=== PATIENT | female | born 1985 | race African-American/Black ===

== ENCOUNTER 2016-10-15 07:55 | Inpatient (IN) | payer MEDICAID ==
[~2016-10-15] VITALS: Ht 167.6 cm; Wt 128.8 kg
[~2016-10-15 07:55] MED LIST: BENADRYL50 MG ORAL; NKM
[2016-10-15] MEDS ORDERED: LEVOFLOXACIN750 MG ORAL (08:08)
[2016-10-15 08:14] VITALS: BP 152/106
--- NOTE | 2016-10-15 08:23 | Emergency Room Report ---
History of Present Illness General Chief Complaint: Abdominal Pain Source: Patient Present Illness HPI Patient presents with left lower quadrant pain. For several weeks now. She was treated for diverticulitis after CT was done at [facility]. She was given Levaquin Flagyl but didn't tolerate them and stopped taking them. The pain is quite severe at this time. She denies any fevers or chills. She is also constipated and been taking Metamucil. She passes a slight amount of blood in her stool. She denies dysuria. She does have nausea. She's been taking Tylenol and this been getting cramps in her left side of her leg. Pain is 6/10, constant, sharp and achy, LLQ, some radiation to back. No vomiting, no fever or chills, not , no rashes, no headache. No anxiety/depression. Allergies: Coded Allergies: MELON (Verified Allergy, Unknown, 10/15/16) Uncoded Allergies: SHELLFISH (Allergy, Unknown, 10/15/16) Patient History Past Medical History: see triage record Past Surgical History: other - brain shunt Social History Narrative preschool teacher aide Last Menstrual Period: Sep, Now: No Reviewed Nursing Documentation: PMH: Agreed, PSxH: Agreed Nursing Documentation-PMH Past Medical History: No History, Except For Hx Gastrointestinal Problems: Yes - Diverticulitis Physical Exam Vital Signs Date Time Temp Pulse Resp B/P Pulse Ox O2 Delivery O2 Flow Rate FiO2 10/15/16 08:01 98.4 89 18 152/106 99 Room Air Gastrointestinal: normal bowel sounds, no mass, non-distended, no guarding, no rebound, tenderness - LLQ Medical Decision Making Diagnostic Impression: Primary Impression: Diverticulitis ER Course Patient presents with h/o diverticulitis and LLQ pain. Not compliant with antibiotics. Ddx: diverticulitis, UTI, perforation, abscess. Exam is not surgical abdomen at this time - no evidence of peritonitis. Still significant pain and will need labs, and UA. Will review CT from [facility]. IV hydration, antibiotics and also analgesia ordered. Review of CT from [facility]. Diverticulitis. Still with pain after toradol. Tender without guarding. Not surgical abdomen, but needs surgical consultation. Morphine ordered. WBC high. Needs admission. Admit med Dr. Garcia. Discussed with Dr. Andre - consult requested. Laboratory Tests Test 10/15/16 08:09 White Blood Count 16.4 K/UL (4.8-10.8) H Red Blood Count 4.74 M/UL (4.20-5.40) Hemoglobin 11.9 G/DL (12.0-16.0) L Hematocrit 37.6 % (37.0-47.0) Mean Corpuscular Volume 79 FL (80-99) L Mean Corpuscular Hemoglobin 25.2 PG (27.0-31.0) L Mean Corpuscular Hemoglobin Concent 31.7 G/DL (32.0-36.0) L Red Cell Distribution Width 13.7 % (11.6-14.8) Platelet Count 500 K/UL (150-450) H Mean Platelet Volume 7.3 FL (6.5-10.1) Neutrophils (%) (Auto) 69.3 % (45.0-75.0) Lymphocytes (%) (Auto) 21.0 % (20.0-45.0) Monocytes (%) (Auto) 6.1 % (1.0-10.0) Eosinophils (%) (Auto) 2.7 % (0.0-3.0) Basophils (%) (Auto) 1.0 % (0.0-2.0) Urine Color Pale yellow Urine Appearance Clear Urine pH 7 (4.5-8.0) Urine Specific [place] 1.010 (1.005-1.035) Urine Protein Negative (NEGATIVE) Urine Glucose (UA) Negative (NEGATIVE) Urine Ketones Negative (NEGATIVE) Urine Occult Blood 1+ (NEGATIVE) H Urine Nitrite Negative (NEGATIVE) Urine Bilirubin Negative (NEGATIVE) Urine Urobilinogen Normal MG/DL (0.0-1.0) Urine Leukocyte Esterase 1+ (NEGATIVE) H Urine RBC 0-2 /HPF (0 - 2) Urine WBC 2-4 /HPF (0 - 2) Urine Squamous Epithelial Cells Few /LPF (NONE/OCC) Urine Bacteria Few /HPF (NONE) Urine HCG, Qualitative Negative Sodium Level 136 mEQ/L (135-145) Potassium Level 4.0 mEQ/L (3.4-4.9) Chloride Level 94 mEQ/L (98-107) L Carbon Dioxide Level 26 mEQ/L (20-30) Anion Gap 16 (5-15) H Blood Urea Nitrogen 8 mg/dL (7-23) Creatinine 0.7 mg/dL (0.5-0.9) Estimate Glomerular Filtration Rate > 60 mL/min (>60) Glucose Level 92 mg/dL (74-106) Calcium Level 9.2 mg/dL (8.6-10.2) Total Bilirubin 0.4 mg/dL (0.0-1.2) Aspartate Amino Transferase (AST) 16 U/L (5-40) Alanine Aminotransferase (ALT) 18 U/L (3-33) Alkaline Phosphatase 67 U/L (35-104) Total Protein 8.7 g/dL (6.6-8.7) Albumin 3.9 g/dL (3.5-5.2) Globulin 4.8 g/dL Albumin/Globulin Ratio 0.8 (1.0-2.7) L Lipase 26 U/L (< 60) Last Vital Signs Date Time Temp Pulse Resp B/P Pulse Ox O2 Delivery O2 Flow Rate FiO2 10/15/16 20:00 99.5 97 20 120/71 98 Room Air Status: improved Disposition: ADMITTED INPATIENT Condition: Serious Juan Manuel Muro M.D. Oct 15, 2016 08:23
[2016-10-15] MEDS ORDERED: Ketorolac 30mg Inj IV ONE (08:30)
[2016-10-15 09:15] LABS: APPEARANCE,URINE CLEAR; EOSINOPHILS % (AUTO) 2.7 % (0.0-3.0); KETONES,URINE NEGATIVE (NEGATIVE); LEUKOCYTE ESTERASE ,URINE 1+ (NEGATIVE); MEAN CORPUSCULAR HEMOGLOBIN 25.2 PG (27.0-31.0); MEAN CORPUSCULAR HGB CONC 31.7 G/DL (32.0-36.0); MEAN CORPUSCULAR VOLUME 79 FL (80-99); MEAN PLATELET VOLUME 7.3 FL (6.5-10.1); MONOCYTES % (AUTO) 6.1 % (1.0-10.0); NEUTROPHILS % (AUTO) 69.3 % (45.0-75.0); NITRITE,URINE NEGATIVE (NEGATIVE); PH,URINE 7 (4.5-8.0); PLATELET COUNT 500 K/UL (150-450); PROTEIN,URINE NEGATIVE (NEGATIVE); RED BLOOD COUNT 4.74 M/UL (4.20-5.40); RED CELL DISTRIBUTION WIDTH 13.7 % (11.6-14.8); UROBILINOGEN,URINE NORMAL MG/DL (0.0-1.0); WHITE BLOOD COUNT 16.4 K/UL (4.8-10.8)
[2016-10-15 09:32] LABS: BACTERIA,URINE FEW /HPF; RBC,URINE 0-2 /HPF (0 - 2); SQUAMOUS EPITHELIAL CELL,UR FEW /LPF (NONE/OCC)
[2016-10-15 09:38] LABS: ALANINE AMINOTRANSFERASE 18 U/L (3-33); ALBUMIN/GLOBULIN RATIO 0.8 (1.0-2.7); ANION GAP 16 (5-15); ASPARTATE AMINO TRANSFERASE 16 U/L (5-40); CALCIUM 9.2 mg/dL (8.6-10.2); CARBON DIOXIDE 26 mEQ/L (20-30); CHLORIDE 94 mEQ/L (98-107); CREATININE 0.7 mg/dL (0.5-0.9); GLOMERULAR FILTRATION RATE > 60 mL/min (>60); HEMOLYSIS 5; LIPASE 26 U/L (< 60); SODIUM 136 mEQ/L (135-145); TOTAL PROTEIN 8.7 g/dL (6.6-8.7)
[2016-10-15] MEDS ORDERED: Morphine Sulfate 4mg/ml Inj IVP ONE (09:45)
[2016-10-15] MEDS ORDERED: metroNIDAZOLE 500mg 100 ML IVPB ONE (09:45)
[2016-10-15 10:30] VITALS: BP 149/95
[2016-10-15 12:30] VITALS: BP 119/75
[2016-10-15] MEDS ORDERED: Acetaminophen 650 MG SUPP RECTAL PRN (13:45)
[2016-10-15 16:00] VITALS: BP 120/64
--- NOTE | 2016-10-15 16:04 | History & Physical ---
History and Physical History & Physicial HP dictated # [id number] ELYSE CORDOBA Oct 15, 2016 16:04
[2016-10-15] MEDS ORDERED: Zolpidem 5mg tab ORAL PRN (16:15)
--- NOTE | 2016-10-15 16:59 | Consultation ---
DATE OF CONSULTATION: 10/15/2016 REQUESTING PHYSICIAN: Arcenio Garcia M.D. REASON FOR CONSULTATION: Abdominal pain. HISTORY OF PRESENT ILLNESS: This is a 31-year-old female, who presented to emergency room for abdominal pain. She stated that the pain started about a month ago. she had the pain for the few days and then she finally sought medical attention from [facility] where she was supplied with Levaquin and [place]. He stated that he had vomiting and apparently did not tolerate that medication. So he stopped the medicine. She only took it for three days and she sought medical attention from her own physician and was referred to [facility], which she claims that they did not do nothing, but anyway, apparently the pain has resolved, but she had the recurrence of pain three days ago. The pain is located at the left lower quadrant, steady, no radiation, associated with nausea, but no vomiting. She claimed that she has loose bowel movement. She denies any fever, cough, dysuria, or frequency. She denies any previous history of similar pain. PAST MEDICAL HISTORY: She denies allergies, diabetes, hypertension, cardiac or renal diseases. She claimed that she has a history of asthma, but no attack for over a year. PAST SURGICAL HISTORY: None. MEDICATIONS: None. SOCIAL HISTORY: The patient is a 31-year-old female, who is single without any children. She works as a middle school football coach. Denies smoking. Drinks socially. REVIEW OF SYSTEMS: Noncontributory. PHYSICAL EXAMINATION: GENERAL: The patient appeared to be a well-developed and well-nourished, obese 31-year-old female, lying on bed and complaining of abdominal pain. HEENT: Head is normocephalic and atraumatic. Eyes, pupils are equal, round, and reactive to light. Mouth is clear. NECK: There is no palpable thyromegaly or adenopathy. CHEST: Clear to auscultation and percussion. HEART: There is no gallop or murmur. S1 and S2 are within normal limits. ABDOMEN: Obese and pendulous, but soft. She had rebound tenderness at the left lower quadrant. Bowel sounds are present. GENITOURINARY: Genital is normal. EXTREMITIES: Within normal limits. LABORATORY AND DIAGNOSTIC DATA: CBC has shown a WBC of 16,400 with basically normal differential. Chemistry is normal. Urinalysis is normal. ASSESSMENT: Acute diverticulitis. PLAN: At this time, the patient requires a conservative treatment. I took the liberty of ordering a CAT scan to make sure that she does not have any abscess or perforation. Thank you, Dr. Garcia, for asking me to participate in the management of this patient. Angelic Andre M.D. DR: ALVIN JOB#: [id number] CC:
[2016-10-15] MEDS: D5 1/2NS w/KCl 20mEq 1,000 ML IV SCH (17:08)
[2016-10-15] MEDS: metroNIDAZOLE 500mg 100 ML IVPB SCH ×2 (17:09→22:20)
[2016-10-15] MEDS ORDERED: Morphine Sulfate 10mg/ml Inj IV PRN (17:30)
[2016-10-15] MEDS: Morphine Sulfate 4mg/ml Inj IV PRN (17:59)
[2016-10-15] MEDS: Piperacillin/Tazobactam 3.375 GM in D5W 110 ML IVPB SCH (18:57)
[2016-10-15 20:00] VITALS: BP 120/71
--- NOTE | 2016-10-15 23:09 | History and Physical Report ---
DATE OF ADMISSION: 10/15/2016 CHIEF COMPLAINT: Left quadrant abdominal pain. HISTORY OF PRESENT ILLNESS: This is a 31-year-old female, who started having abdominal pain about eight days ago. She went to [facility] and she was diagnosed with diverticulitis after a CT scan of the abdomen was done. The patient was not admitted. She was sent home on p.o. Levaquin and Flagyl; however, she said that she could not tolerate the midicine. It Made her nauseated. She contacted her primary medical doctor who told [place] [facility] [place] last night, but the waiting time was long, so she decided to come to the emergency room here at [facility] and she eventually was admitted. Pain is 3/10 at this point and it is left lower quadrant. PAST MEDICAL HISTORY: Noncontributory. MEDICATIONS: None. SOCIAL HISTORY: The patient lives with her sister. She is a elementary school teacher. She denies history of smoking or alcohol abuse. ALLERGIES: Shellfish and melon. No known drug allergy. REVIEW OF SYSTEMS: Denies constipation. PHYSICAL EXAMINATION: GENERAL: The patient is an obese female, in no acute distress. VITAL SIGNS: Blood pressure 119/75, pulse 84, and temperature 96.9 degrees. HEENT: [place] conjunctivae. Anicteric sclerae. NECK: Supple. LUNGS: Clear to auscultation. HEART: S1 and S2 without murmurs or rubs. ABDOMEN: Soft. There is left quadrant abdominal tenderness. EXTREMITIES: No cyanosis or edema. LABORATORY FINDINGS: CBC shows a WBC of 16.4, hematocrit is 37.6, hemoglobin 11.9, and platelets 500,000. Chemistry panel shows a serum sodium of 136, potassium 4, chloride 94, CO2 26, BUN 8, creatinine 0.7, glucose 93, and calcium 9.2. Liver enzymes within normal limits. Albumin is 2.7. Lipase is 26. ASSESSMENT: This is a 31-year-old female who is admitted with diverticulitis. PLAN: The patient will be on IV antibiotics and IV fluids. She was made NPO by Dr. Andre who saw her in surgical consultation, probably can be fed soon. Pain medication was prescribed. Thank you very much. Arcenio Garcia M.D. DR: TODD JOB#: [id number] CC: SAMINA
[2016-10-16] VITALS: BP 128/80
[2016-10-16] MEDS: Morphine Sulfate 4mg/ml Inj IV PRN ×3 (00:16→18:00)
[2016-10-16] MEDS: Piperacillin/Tazobactam 3.375 GM in D5W 110 ML IVPB SCH ×3 (01:43→18:00)
[2016-10-16] MEDS: D5 1/2NS w/KCl 20mEq 1,000 ML IV SCH ×3 (01:43→21:57)
[2016-10-16 04:00] VITALS: BP 105/69
[2016-10-16] MEDS: metroNIDAZOLE 500mg 100 ML IVPB SCH ×3 (05:36→21:57)
[2016-10-16 07:34] LABS: BASOPHILS % (AUTO) 0.8 % (0.0-2.0); EOSINOPHILS % (AUTO) 3.4 % (0.0-3.0); LYMPHOCYTES % (AUTO) 23.6 % (20.0-45.0); MEAN CORPUSCULAR HEMOGLOBIN 25.1 PG (27.0-31.0); MEAN CORPUSCULAR HGB CONC 31.6 G/DL (32.0-36.0); MEAN CORPUSCULAR VOLUME 80 FL (80-99); MEAN PLATELET VOLUME 7.3 FL (6.5-10.1); MONOCYTES % (AUTO) 8.3 % (1.0-10.0); PLATELET COUNT 446 K/UL (150-450); RED BLOOD COUNT 4.09 M/UL (4.20-5.40); RED CELL DISTRIBUTION WIDTH 13.9 % (11.6-14.8); WHITE BLOOD COUNT 13.4 K/UL (4.8-10.8)
[2016-10-16 08:08] LABS: ANION GAP 13 (5-15); CALCIUM 8.3 mg/dL (8.6-10.2); CARBON DIOXIDE 25 mEQ/L (20-30); CHLORIDE 99 mEQ/L (98-107); CREATININE 0.8 mg/dL (0.5-0.9); GLOMERULAR FILTRATION RATE > 60 mL/min (>60); HEMOLYSIS 2; POTASSIUM 3.7 mEQ/L (3.4-4.9); SODIUM 137 mEQ/L (135-145)
[2016-10-16 08:53] VITALS: BP 111/59
[2016-10-16] MEDS: Pantoprazole Inj IVP SCH (09:05)
--- NOTE | 2016-10-16 12:25 | General Surgery Progress Note ---
General Surgery-Progress Note Subjective Symptoms: improved, BM Objective Last 24 Hour Vital Signs Date Time Temp Pulse Resp B/P Pulse Ox O2 Delivery O2 Flow Rate FiO2 10/16/16 08:53 97.3 84 20 111/59 99 Room Air 10/16/16 05:25 99.5 10/16/16 04:00 97.5 90 18 105/69 100 Room Air 10/16/16 00:00 97.9 90 18 128/80 98 Room Air 10/15/16 20:00 99.5 97 20 120/71 98 Room Air 10/15/16 16:00 97.5 97 20 120/64 100 Room Air 10/15/16 12:30 96.9 84 20 119/75 99 Room Air I&O Intake and Output 10/15/16 10/16/16 19:00 07:00 Intake Total 300 ml 1192.5 ml Balance 300 ml 1192.5 ml Intake IV Total 300 ml 1192.5 ml # Voids 1 1 Respiratory: clear Abdomen: soft, tenderness, present bowel sounds Extremities: no tenderness Laboratory Tests Test 10/16/16 04:40 White Blood Count 13.4 K/UL (4.8-10.8) H Red Blood Count 4.09 M/UL (4.20-5.40) L Hemoglobin 10.3 G/DL (12.0-16.0) L Hematocrit 32.6 % (37.0-47.0) L Mean Corpuscular Volume 80 FL (80-99) Mean Corpuscular Hemoglobin 25.1 PG (27.0-31.0) L Mean Corpuscular Hemoglobin Concent 31.6 G/DL (32.0-36.0) L Red Cell Distribution Width 13.9 % (11.6-14.8) Platelet Count 446 K/UL (150-450) Mean Platelet Volume 7.3 FL (6.5-10.1) Neutrophils (%) (Auto) 64.0 % (45.0-75.0) Lymphocytes (%) (Auto) 23.6 % (20.0-45.0) Monocytes (%) (Auto) 8.3 % (1.0-10.0) Eosinophils (%) (Auto) 3.4 % (0.0-3.0) H Basophils (%) (Auto) 0.8 % (0.0-2.0) Sodium Level 137 mEQ/L (135-145) Potassium Level 3.7 mEQ/L (3.4-4.9) Chloride Level 99 mEQ/L (98-107) Carbon Dioxide Level 25 mEQ/L (20-30) Anion Gap 13 (5-15) Blood Urea Nitrogen 7 mg/dL (7-23) Creatinine 0.8 mg/dL (0.5-0.9) Estimat Glomerular Filtration Rate > 60 mL/min (>60) Glucose Level 85 mg/dL (74-106) Calcium Level 8.3 mg/dL (8.6-10.2) L Assessment Additional Comments diverticulitis Plan Additional Comments continue as before, CAT scan of abd. BREANNA RDZ Oct 16, 2016 12:25
[2016-10-16 13:13] VITALS: BP 113/86
--- NOTE | 2016-10-16 15:38 | General Progress Note ---
Assessment/Plan Problem List: (1) Constipation ICD Codes: K59.00 - Constipation, unspecified SNOMED: 92576511 (2) Diverticulitis ICD Codes: K57.92 - Diverticulitis of intestine, part unspecified, without perforation or abscess without bleeding SNOMED: 044612388 Assessment/Plan Abxs IVF laxatives diet ? Subjective Allergies: Coded Allergies: MELON (Verified Allergy, Unknown, 10/15/16) Uncoded Allergies: SHELLFISH (Allergy, Unknown, 10/15/16) Subjective C/O constipation Objective Last 24 Hour Vital Signs Date Time Temp Pulse Resp B/P Pulse Ox O2 Delivery O2 Flow Rate FiO2 10/16/16 13:13 98.8 80 20 113/86 97 Room Air 10/16/16 08:53 97.3 84 20 111/59 99 Room Air 10/16/16 05:25 99.5 10/16/16 04:00 97.5 90 18 105/69 100 Room Air 10/16/16 00:00 97.9 90 18 128/80 98 Room Air 10/15/16 20:00 99.5 97 20 120/71 98 Room Air 10/15/16 16:00 97.5 97 20 120/64 100 Room Air Intake and Output 10/15/16 10/16/16 19:00 07:00 Intake Total 300 ml 1192.5 ml Balance 300 ml 1192.5 ml Intake IV Total 300 ml 1192.5 ml # Voids 1 1 Laboratory Tests 10/16/16 04:40: White Blood Count 13.4H, Red Blood Count 4.09L, Hemoglobin 10.3L, Hematocrit 32.6L, Mean Corpuscular Volume 80, Mean Corpuscular Hemoglobin 25.1L, Mean Corpuscular Hemoglobin Concent 31.6L, Red Cell Distribution Width 13.9, Platelet Count 446, Mean Platelet Volume 7.3, Neutrophils (%) (Auto) 64.0, Lymphocytes (%) (Auto) 23.6, Monocytes (%) (Auto) 8.3, Eosinophils (%) (Auto) 3.4H, Basophils (%) (Auto) 0.8, Sodium Level 137, Potassium Level 3.7, Chloride Level 99, Carbon Dioxide Level 25, Anion Gap 13, Blood Urea Nitrogen 7, Creatinine 0.8, Estimat Glomerular Filtration Rate > 60, Glucose Level 85, Calcium Level 8.3L Height (Feet): 5 Height (Inches): 6.00 Weight (Pounds): 284 Cardiovascular: normal rate Respiratory/Chest: lungs clear Abdomen: soft ELYSE CORDOBA Oct 16, 2016 15:38
[2016-10-16] MEDS ORDERED: Milk of Magnesia 30ml Ud ORAL PRN (15:45)
[2016-10-16 16:00] VITALS: BP 121/81
[2016-10-16 19:54] VITALS: BP 116/76
[2016-10-17] VITALS: BP 123/74
[2016-10-17] MEDS: Piperacillin/Tazobactam 3.375 GM in D5W 110 ML IVPB SCH ×3 (02:07→17:37)
[2016-10-17] MEDS: Morphine Sulfate 4mg/ml Inj IV PRN ×3 (03:53→17:38)
[2016-10-17 04:00] VITALS: BP 111/70
[2016-10-17 04:47] LABS: BASOPHILS % (AUTO) 0.8 % (0.0-2.0); EOSINOPHILS % (AUTO) 3.1 % (0.0-3.0); LYMPHOCYTES % (AUTO) 25.1 % (20.0-45.0); MEAN CORPUSCULAR HEMOGLOBIN 25.5 PG (27.0-31.0); MEAN CORPUSCULAR HGB CONC 32.6 G/DL (32.0-36.0); MEAN CORPUSCULAR VOLUME 78 FL (80-99); MEAN PLATELET VOLUME 6.9 FL (6.5-10.1); MONOCYTES % (AUTO) 6.7 % (1.0-10.0); NEUTROPHILS % (AUTO) 64.3 % (45.0-75.0); PLATELET COUNT 493 K/UL (150-450); RED BLOOD COUNT 4.01 M/UL (4.20-5.40); RED CELL DISTRIBUTION WIDTH 13.4 % (11.6-14.8); WHITE BLOOD COUNT 11.7 K/UL (4.8-10.8)
[2016-10-17 05:04] LABS: ANION GAP 15 (5-15); CALCIUM 8.5 mg/dL (8.6-10.2); CARBON DIOXIDE 23 mEQ/L (20-30); CHLORIDE 101 mEQ/L (98-107); CREATININE 0.8 mg/dL (0.5-0.9); GLOMERULAR FILTRATION RATE > 60 mL/min (>60); HEMOLYSIS 0; POTASSIUM 3.6 mEQ/L (3.4-4.9); SODIUM 139 mEQ/L (135-145)
[2016-10-17] MEDS: metroNIDAZOLE 500mg 100 ML IVPB SCH ×3 (06:06→21:37)
[2016-10-17 08:00] VITALS: BP 121/88
[2016-10-17] MEDS: Pantoprazole Inj IVP SCH (08:33)
[2016-10-17] MEDS: D5 1/2NS w/KCl 20mEq 1,000 ML IV SCH ×2 (09:29→17:37)
[2016-10-17 12:00] VITALS: BP 137/87
--- NOTE | 2016-10-17 12:33 | General Progress Note ---
Assessment/Plan Problem List: (1) Constipation ICD Codes: K59.00 - Constipation, unspecified SNOMED: 60423097 (2) Diverticulitis ICD Codes: K57.92 - Diverticulitis of intestine, part unspecified, without perforation or abscess without bleeding SNOMED: 974085615 Assessment/Plan Abxs IVF laxatives clear liquids CT abd Subjective Allergies: Coded Allergies: MELON (Verified Allergy, Unknown, 10/15/16) Uncoded Allergies: SHELLFISH (Allergy, Unknown, 10/15/16) Subjective pt had abd pain after having BP and some blood in stool Objective Last 24 Hour Vital Signs Date Time Temp Pulse Resp B/P Pulse Ox O2 Delivery O2 Flow Rate FiO2 10/17/16 12:00 97.0 80 20 137/87 100 Room Air 10/17/16 08:00 98.1 76 20 121/88 97 Room Air 10/17/16 04:25 97.7 10/17/16 04:00 97.7 87 18 111/70 99 Room Air 10/17/16 00:00 97.9 76 18 123/74 99 Room Air 10/16/16 19:54 98.2 82 20 116/76 99 Room Air 10/16/16 16:00 98.1 78 18 121/81 98 Room Air 10/16/16 13:13 98.8 80 20 113/86 97 Room Air Intake and Output 10/16/16 10/17/16 19:00 07:00 Intake Total 1127.5 ml 692.5 ml Balance 1127.5 ml 692.5 ml Intake IV Total 1127.5 ml 692.5 ml # Voids 3 2 Laboratory Tests 10/17/16 04:30: White Blood Count 11.7H, Red Blood Count 4.01L, Hemoglobin 10.2L, Hematocrit 31.4L, Mean Corpuscular Volume 78L, Mean Corpuscular Hemoglobin 25.5L, Mean Corpuscular Hemoglobin Concent 32.6, Red Cell Distribution Width 13.4, Platelet Count 493H, Mean Platelet Volume 6.9, Neutrophils (%) (Auto) 64.3, Lymphocytes ( %) (Auto) 25.1, Monocytes (%) (Auto) 6.7, Eosinophils (%) (Auto) 3.1H, Basophils (%) (Auto) 0.8, Sodium Level 139, Potassium Level 3.6, Chloride Level 101, Carbon Dioxide Level 23, Anion Gap 15, Blood Urea Nitrogen 5L, Creatinine 0.8, Estimat Glomerular Filtration Rate > 60, Glucose Level 98, Calcium Level 8.5L Height (Feet): 5 Height (Inches): 6.00 Weight (Pounds): 284 Cardiovascular: normal rate Respiratory/Chest: lungs clear ELYSE CORDOBA Oct 17, 2016 12:33
--- NOTE | 2016-10-17 13:24 | General Surgery Progress Note ---
General Surgery-Progress Note Subjective Symptoms: pain same, BM Objective Last 24 Hour Vital Signs Date Time Temp Pulse Resp B/P Pulse Ox O2 Delivery O2 Flow Rate FiO2 10/17/16 12:00 97.0 80 20 137/87 100 Room Air 10/17/16 08:00 98.1 76 20 121/88 97 Room Air 10/17/16 04:25 97.7 10/17/16 04:00 97.7 87 18 111/70 99 Room Air 10/17/16 00:00 97.9 76 18 123/74 99 Room Air 10/16/16 19:54 98.2 82 20 116/76 99 Room Air 10/16/16 16:00 98.1 78 18 121/81 98 Room Air I&O Intake and Output 10/16/16 10/17/16 19:00 07:00 Intake Total 1127.5 ml 692.5 ml Balance 1127.5 ml 692.5 ml Intake IV Total 1127.5 ml 692.5 ml # Voids 3 2 Respiratory: clear Abdomen: soft, tenderness, present bowel sounds Extremities: no tenderness Laboratory Tests Test 10/17/16 04:30 White Blood Count 11.7 K/UL (4.8-10.8) H Red Blood Count 4.01 M/UL (4.20-5.40) L Hemoglobin 10.2 G/DL (12.0-16.0) L Hematocrit 31.4 % (37.0-47.0) L Mean Corpuscular Volume 78 FL (80-99) L Mean Corpuscular Hemoglobin 25.5 PG (27.0-31.0) L Mean Corpuscular Hemoglobin Concent 32.6 G/DL (32.0-36.0) Red Cell Distribution Width 13.4 % (11.6-14.8) Platelet Count 493 K/UL (150-450) H Mean Platelet Volume 6.9 FL (6.5-10.1) Neutrophils (%) (Auto) 64.3 % (45.0-75.0) Lymphocytes (%) (Auto) 25.1 % (20.0-45.0) Monocytes (%) (Auto) 6.7 % (1.0-10.0) Eosinophils (%) (Auto) 3.1 % (0.0-3.0) H Basophils (%) (Auto) 0.8 % (0.0-2.0) Sodium Level 139 mEQ/L (135-145) Potassium Level 3.6 mEQ/L (3.4-4.9) Chloride Level 101 mEQ/L (98-107) Carbon Dioxide Level 23 mEQ/L (20-30) Anion Gap 15 (5-15) Blood Urea Nitrogen 5 mg/dL (7-23) L Creatinine 0.8 mg/dL (0.5-0.9) Estimat Glomerular Filtration Rate > 60 mL/min (>60) Glucose Level 98 mg/dL (74-106) Calcium Level 8.5 mg/dL (8.6-10.2) L Assessment Additional Comments Diverticulitis Plan Additional Comments check CAT SCAN continue IV Antibiotics. BREANNA RDZ Oct 17, 2016 13:24
[2016-10-17 16:00] VITALS: BP 127/82
[2016-10-17] MEDS ORDERED: NS 275ml ONE (16:05)
[2016-10-17] MEDS ORDERED: Tubing IV Secondary IV ONE (16:05)
--- NOTE | 2016-10-17 16:29 | Diagnostic Imaging Report ---
Indication: Abdominal pain, recent history of diverticulitis Technique: Spiral acquisitions obtained through the abdomen and pelvis. Patient given oral contrast. No IV contrast utilized, per referring physician request.. Multiplanar reconstructions were generated. Total dose length product 1109 mGycm. CTDIvol(s) 19 mGy Comparison: None Findings: There is extensive colonic diverticulosis. There is Infiltration of the perisigmoid fat. A collection of gas bubbles and soft tissue attenuation material is seen extending inferior anterior and lateral to the proximal sigmoid. This area measures approximately 4.4 x 4.4 x 4.4 cm. The gas bubbles are non-confluent and there are no air-fluid levels, so contents of this collection are either solid or represent very viscous fluid. The appendix is normal. No free or loculated intraperitoneal air or fluid. No small bowel distention. The distal esophagus, stomach, duodenum are unremarkable. Lack of IV contrast limits assessment of solid organs. The liver demonstrates diffuse low attenuation, consistent with fatty change. Gallbladder, bile ducts, pancreas, spleen, adrenals, kidneys are unremarkable. No retroperitoneal or mesenteric mass or adenopathy. No pelvic mass or adenopathy. The heart is mildly enlarged. The included lung bases are clear. The bones are unremarkable Impression: Evidence of perforated acute diverticulitis, with 4.4 centimeter diameter peridiverticular abscess. Abscess appears to contain gas and probably phlegmon rather than drainable fluid. Fatty liver Cardiomegaly The CT scanner at [facility] is accredited by the [employer] and the scans are performed using protocols designed to limit radiation exposure to as low as reasonably achievable to attain images of sufficient resolution adequate for diagnostic evaluation.
[2016-10-17 20:00] VITALS: BP 142/45
[2016-10-18] VITALS: BP 106/56
[2016-10-18] MEDS: Piperacillin/Tazobactam 3.375 GM in D5W 110 ML IVPB SCH ×3 (00:41→17:42)
[2016-10-18 04:00] VITALS: BP 109/68
[2016-10-18] MEDS: D5 1/2NS w/KCl 20mEq 1,000 ML IV SCH ×3 (04:00→22:10)
[2016-10-18] MEDS: metroNIDAZOLE 500mg 100 ML IVPB SCH ×3 (06:30→22:09)
[2016-10-18 08:00] VITALS: BP 127/74
[2016-10-18] MEDS: Morphine Sulfate 4mg/ml Inj IV PRN ×2 (08:16→18:31)
[2016-10-18] MEDS: Pantoprazole Inj IVP SCH (08:29)
--- NOTE | 2016-10-18 08:53 | General Progress Note ---
Assessment/Plan Problem List: (1) Constipation ICD Codes: K59.00 - Constipation, unspecified SNOMED: 92576036 (2) Diverticulitis ICD Codes: K57.92 - Diverticulitis of intestine, part unspecified, without perforation or abscess without bleeding SNOMED: [id number] Assessment/Plan Abxs IVF NPO Subjective Allergies: Coded Allergies: MELON (Verified Allergy, Unknown, 10/15/16) Uncoded Allergies: SHELLFISH (Allergy, Unknown, 10/15/16) Subjective In NAD Objective Last 24 Hour Vital Signs Date Time Temp Pulse Resp B/P Pulse Ox O2 Delivery O2 Flow Rate FiO2 10/18/16 08:00 97.9 73 20 127/74 98 Room Air 10/18/16 04:00 98.0 65 18 109/68 99 Room Air 10/18/16 00:00 98.1 86 20 106/56 97 Room Air 10/17/16 20:00 99.5 51 20 142/45 97 Room Air 10/17/16 16:00 99.5 88 22 127/82 99 Room Air 10/17/16 12:00 97.0 80 20 137/87 100 Room Air Intake and Output 10/17/16 10/18/16 19:00 07:00 Intake Total 1317.5 ml 1847.5 ml Balance 1317.5 ml 1847.5 ml Intake Oral 240 ml 480 ml IV Total 1077.5 ml 1367.5 ml # Voids 2 11 # Bowel Movements 3 Height (Feet): 5 Height (Inches): 6.00 Weight (Pounds): 284 Cardiovascular: normal rate Respiratory/Chest: lungs clear Abdomen: soft ELYSE CORDOBA Oct 18, 2016 08:53
--- NOTE | 2016-10-18 11:01 | Infectious Diseases Prog Note ---
Assessment/Plan Assessment/Plan ID consult dictated # [id number] A: Diverticulitis with abscess P: 2 weeks antibiotics either with Augmentin & Flagyl or IV Ertapenem after [address] scan making sure of complete resolution Subjective Allergies: Coded Allergies: MELON (Verified Allergy, Unknown, 10/15/16) Uncoded Allergies: SHELLFISH (Allergy, Unknown, 10/15/16) Objective Vital Signs Last 24 Hour Vital Signs Date Time Temp Pulse Resp B/P Pulse Ox O2 Delivery O2 Flow Rate FiO2 10/18/16 08:00 97.9 73 20 127/74 98 Room Air 10/18/16 04:00 98.0 65 18 109/68 99 Room Air 10/18/16 00:00 98.1 86 20 106/56 97 Room Air 10/17/16 20:00 99.5 51 20 142/45 97 Room Air 10/17/16 16:00 99.5 88 22 127/82 99 Room Air 10/17/16 12:00 97.0 80 20 137/87 100 Room Air Height (Feet): 5 Height (Inches): 6.00 Weight (Pounds): 284 Current Medications Medications (Trade) Dose Ordered Sig/Steve Route PRN Reason Start Time Stop Time Status Last Admin Dose Admin Acetaminophen (Tylenol) 650 mg Q4H PRN RECTAL Mild Pain (Pain Scale 1-3) 10/15/16 13:45 11/14/16 13:44 Dextrose (Dextrose 50%) STAT PRN IV Hypoglycemia 10/15/16 16:15 11/14/16 16:14 Dextrose/ Electrolytes 1,000 ml @ 100 mls/hr Q10H IV 10/15/16 16:00 11/14/16 15:59 10/18/16 06:37 Magnesium Hydroxide (Mom) 30 ml DAILYPRN PRN ORAL Constipation 10/16/16 15:45 11/15/16 15:44 Metronidazole (Flagyl) 100 ml @ 100 mls/hr Q8HR IVPB 10/15/16 16:00 10/22/16 15:59 10/18/16 06:30 Morphine Sulfate (Morphine Sulfate) 4 mg EVERY 3 HOURS PRN IV Moderate Pain (Pain Scale 4-6) 10/15/16 17:30 10/22/16 17:29 10/18/16 08:16 Morphine Sulfate (Morphine Sulfate) 6 mg EVERY 3 HOURS PRN IV Severe Pain (Pain Scale 7-10) 10/15/16 17:30 10/22/16 17:29 10/17/16 20:33 Ondansetron HCl (Zofran) 4 mg EVERY 4 HOURS PRN IVP Nausea & Vomiting 10/15/16 17:30 11/14/16 17:29 10/17/16 17:38 Pantoprazole (Protonix) 40 mg DAILY IVP 10/16/16 09:00 11/15/16 08:59 10/18/16 08:29 Piperacillin Sod/ Tazobactam Sod 3.375 gm/Dextrose 110 ml @ 27.5 mls/hr Q8HR@0200,1000,1800 IVPB 10/15/16 17:00 10/22/16 16:59 10/18/16 10:46 Ranitidine HCl (Zantac) 150 mg TWICE A DAY ORAL 10/15/16 18:00 11/14/16 17:59 10/17/16 17:37 Zolpidem Tartrate (Ambien) 5 mg HSPRN PRN ORAL Insomnia 10/15/16 16:15 11/14/16 16:14 JOSH CORDOBA Oct 18, 2016 11:01
[2016-10-18 12:00] VITALS: BP 118/76
--- NOTE | 2016-10-18 13:56 | General Surgery Progress Note ---
General Surgery-Progress Note Subjective Symptoms: pain same, BM Objective Last 24 Hour Vital Signs Date Time Temp Pulse Resp B/P Pulse Ox O2 Delivery O2 Flow Rate FiO2 10/18/16 12:00 97.7 91 20 118/76 98 Room Air 10/18/16 08:00 97.9 73 20 127/74 98 Room Air 10/18/16 04:00 98.0 65 18 109/68 99 Room Air 10/18/16 00:00 98.1 86 20 106/56 97 Room Air 10/17/16 20:00 99.5 51 20 142/45 97 Room Air 10/17/16 16:00 99.5 88 22 127/82 99 Room Air I&O Intake and Output 10/17/16 10/18/16 19:00 07:00 Intake Total 1317.5 ml 1847.5 ml Balance 1317.5 ml 1847.5 ml Intake Oral 240 ml 480 ml IV Total 1077.5 ml 1367.5 ml # Voids 2 11 # Bowel Movements 3 Respiratory: clear Abdomen: soft, flat, tenderness, present bowel sounds Extremities: no tenderness Assessment Additional Comments diverticulitis Plan Additional Comments continue IV antibiotics, GI consult BREANNA RDZ Oct 18, 2016 13:56
[2016-10-18 16:13] VITALS: BP 117/76
[2016-10-18 20:00] VITALS: BP 137/81
--- NOTE | 2016-10-18 20:38 | Consultation ---
DATE OF CONSULTATION: 10/18/2016 INFECTIOUS DISEASE CONSULTATION CONSULTING PHYSICIAN: Antonio Garcia M.D. PRIMARY ATTENDING PHYSICIAN: Arcenio Garcia M.D. REASON FOR CONSULTATION: Diverticulitis and intraabdominal abscess. HISTORY OF PRESENT ILLNESS: This is a 31-year-old female, admitted on 10/15/2016 complaining of abdominal pain. The patient had this pain for weeks and had a visit to [facility]. She was diagnosed with diverticulitis and was discharged with p.o. medication, Levaquin and Flagyl, but could not tolerate the medication because of nausea and vomiting and they stopped the medication after three days. A CT scan of the abdomen and pelvis showed an abscess 4.4 cm. The patient has no systemic symptom. PAST MEDICAL HISTORY: Nonsignificant. The patient is obese. MEDICATIONS: Milk of magnesium, Protonix, ranitidine, morphine sulfate, Zosyn, Ambien, metronidazole, and Tylenol. ALLERGIES: Allergic to melon and shellfish. SOCIAL HISTORY: She is a church business administrator. Single. She has no children. Denies smoking and drug abuse. Social drinking. REVIEW OF SYSTEMS: No fever. No chills. No nausea. No vomiting. No chest pain. No coughing. Has pain in the left lower abdomen. Has diarrhea. PHYSICAL EXAMINATION: VITAL SIGNS: Temperature 97.9 degrees, pulse 73, and blood pressure 127/74. GENERAL APPEARANCE: No acute distress. Seems obese. BMI is 45.8. HEAD AND NECK: [place] conjunctivae. Has hirsutism. HEART: Regular. LUNGS: Clear. ABDOMEN: Tender in the left lower quadrant. EXTREMITIES: She has no edema. LABORATORY DATA: WBC coming down 11.7 today, hemoglobin 10.2, hematocrit 31.4, and platelets is 493,000. Sodium 139, potassium 3.6, chloride 101, bicarbonate 23, BUN 5, and creatinine 0.8. Glucose is 98. CT scan of the abdomen and pelvis showed 4.4 cm abscess and diverticulitis. Also, she has had fatty liver. IMPRESSION: Perforated diverticulitis with a localized abscess. The patient had fatty liver. She has obesity. RECOMMENDATIONS: The patient was already seen by the surgeon, but suggested conservative treatment. Needs two weeks of antibiotics that can be p.o. Augmentin and Flagyl or IV ertapenem. Needs to have a repeated CT scan of the abdomen and pelvis at the end of treatment to make sure the abscess is treated adequately. At the end of my exam, I thank Dr. Arcenio Garcia for involving me in the care of this patient. Antonio Garcia M.D. DR: BASHIR JOB#: [id number] CC:
[2016-10-19] VITALS: BP 116/68
[2016-10-19] MEDS: Morphine Sulfate 4mg/ml Inj IV PRN ×3 (00:23→21:24)
[2016-10-19] MEDS: Piperacillin/Tazobactam 3.375 GM in D5W 110 ML IVPB SCH ×3 (02:46→18:10)
[2016-10-19 04:00] VITALS: BP 120/61
[2016-10-19] MEDS: metroNIDAZOLE 500mg 100 ML IVPB SCH ×3 (05:32→21:24)
[2016-10-19 07:34] LABS: BASOPHILS % (AUTO) 0.6 % (0.0-2.0); EOSINOPHILS % (AUTO) 3.8 % (0.0-3.0); LYMPHOCYTES % (AUTO) 27.1 % (20.0-45.0); MEAN CORPUSCULAR HEMOGLOBIN 25.1 PG (27.0-31.0); MEAN CORPUSCULAR HGB CONC 31.8 G/DL (32.0-36.0); MEAN CORPUSCULAR VOLUME 79 FL (80-99); MONOCYTES % (AUTO) 9.8 % (1.0-10.0); NEUTROPHILS % (AUTO) 58.7 % (45.0-75.0); PLATELET COUNT 551 K/UL (150-450); RED BLOOD COUNT 4.08 M/UL (4.20-5.40); RED CELL DISTRIBUTION WIDTH 13.4 % (11.6-14.8); WHITE BLOOD COUNT 11.3 K/UL (4.8-10.8)
[2016-10-19 07:49] LABS: ANION GAP 14 (5-15); CALCIUM 8.4 mg/dL (8.6-10.2); CARBON DIOXIDE 25 mEQ/L (20-30); CHLORIDE 99 mEQ/L (98-107); CREATININE 0.8 mg/dL (0.5-0.9); GLOMERULAR FILTRATION RATE > 60 mL/min (>60); HEMOLYSIS 0; POTASSIUM 4.1 mEQ/L (3.4-4.9); SODIUM 138 mEQ/L (135-145)
[2016-10-19 08:00] VITALS: BP 153/80
[2016-10-19] MEDS: Pantoprazole Inj IVP SCH (08:47)
[2016-10-19] MEDS: D5 1/2NS w/KCl 20mEq 1,000 ML IV SCH ×2 (11:12→21:24)
[2016-10-19 12:37] VITALS: BP 125/75
--- NOTE | 2016-10-19 12:57 | General Surgery Progress Note ---
General Surgery-Progress Note Subjective Symptoms: improved, BM Objective Last 24 Hour Vital Signs Date Time Temp Pulse Resp B/P Pulse Ox O2 Delivery O2 Flow Rate FiO2 10/19/16 12:37 99.0 88 19 125/75 98 Room Air 10/19/16 08:00 97.0 66 16 153/80 98 Room Air 10/19/16 04:00 97.9 68 18 120/61 99 Room Air 10/19/16 00:00 97.7 73 20 116/68 97 Room Air 10/18/16 20:00 98.1 65 20 137/81 96 Room Air 10/18/16 16:13 97.9 76 20 117/76 98 Room Air I&O Intake and Output 10/18/16 10/19/16 19:00 07:00 Intake Total 910.0 ml 1010.0 ml Balance 910.0 ml 1010.0 ml IV Total 910.0 ml 1010.0 ml # Voids 7 Respiratory: clear Abdomen: soft, flat, tenderness, present bowel sounds Extremities: no tenderness Laboratory Tests Test 10/19/16 07:07 White Blood Count 11.3 K/UL (4.8-10.8) H Red Blood Count 4.08 M/UL (4.20-5.40) L Hemoglobin 10.2 G/DL (12.0-16.0) L Hematocrit 32.2 % (37.0-47.0) L Mean Corpuscular Volume 79 FL (80-99) L Mean Corpuscular Hemoglobin 25.1 PG (27.0-31.0) L Mean Corpuscular Hemoglobin Concent 31.8 G/DL (32.0-36.0) L Red Cell Distribution Width 13.4 % (11.6-14.8) Platelet Count 551 K/UL (150-450) H Mean Platelet Volume 7.0 FL (6.5-10.1) Neutrophils (%) (Auto) 58.7 % (45.0-75.0) Lymphocytes (%) (Auto) 27.1 % (20.0-45.0) Monocytes (%) (Auto) 9.8 % (1.0-10.0) Eosinophils (%) (Auto) 3.8 % (0.0-3.0) H Basophils (%) (Auto) 0.6 % (0.0-2.0) Sodium Level 138 mEQ/L (135-145) Potassium Level 4.1 mEQ/L (3.4-4.9) Chloride Level 99 mEQ/L (98-107) Carbon Dioxide Level 25 mEQ/L (20-30) Anion Gap 14 (5-15) Blood Urea Nitrogen 4 mg/dL (7-23) L Creatinine 0.8 mg/dL (0.5-0.9) Estimat Glomerular Filtration Rate > 60 mL/min (>60) Glucose Level 94 mg/dL (74-106) Calcium Level 8.4 mg/dL (8.6-10.2) L Assessment Additional Comments diverticulitis Plan Additional Comments continue IV Antibiotics BREANNA RDZ Oct 19, 2016 12:57
--- NOTE | 2016-10-19 15:52 | General Progress Note ---
Assessment/Plan Problem List: (1) Constipation ICD Codes: K59.00 - Constipation, unspecified SNOMED: 34681058 (2) Diverticulitis ICD Codes: K57.92 - Diverticulitis of intestine, part unspecified, without perforation or abscess without bleeding SNOMED: 619459447 Qualifiers: Assessment/Plan Abxs IVF Subjective Allergies: Coded Allergies: MELON (Verified Allergy, Unknown, 10/15/16) Uncoded Allergies: SHELLFISH (Allergy, Unknown, 10/15/16) Subjective In NAD Objective Last 24 Hour Vital Signs Date Time Temp Pulse Resp B/P Pulse Ox O2 Delivery O2 Flow Rate FiO2 10/19/16 12:37 99.0 88 19 125/75 98 Room Air 10/19/16 08:00 97.0 66 16 153/80 98 Room Air 10/19/16 04:00 97.9 68 18 120/61 99 Room Air 10/19/16 00:00 97.7 73 20 116/68 97 Room Air 10/18/16 20:00 98.1 65 20 137/81 96 Room Air 10/18/16 16:13 97.9 76 20 117/76 98 Room Air Intake and Output 10/18/16 10/19/16 19:00 07:00 Intake Total 910.0 ml 1010.0 ml Balance 910.0 ml 1010.0 ml IV Total 910.0 ml 1010.0 ml # Voids 7 Laboratory Tests 10/19/16 07:07: White Blood Count 11.3H, Red Blood Count 4.08L, Hemoglobin 10.2L, Hematocrit 32.2L, Mean Corpuscular Volume 79L, Mean Corpuscular Hemoglobin 25.1L, Mean Corpuscular Hemoglobin Concent 31.8L, Red Cell Distribution Width 13.4, Platelet Count 551H, Mean Platelet Volume 7.0, Neutrophils (%) (Auto) 58.7, Lymphocytes (%) (Auto) 27.1, Monocytes (%) (Auto) 9.8, Eosinophils (%) (Auto) 3.8H, Basophils (%) (Auto) 0.6, Sodium Level 138, Potassium Level 4.1, Chloride Level 99, Carbon Dioxide Level 25, Anion Gap 14, Blood Urea Nitrogen 4L, Creatinine 0.8, Estimat Glomerular Filtration Rate > 60, Glucose Level 94, Calcium Level 8.4L Height (Feet): 5 Height (Inches): 6.00 Weight (Pounds): 284 Cardiovascular: normal rate Respiratory/Chest: lungs clear Edema: no edema noted Generalized ELYSE CORDOBA Oct 19, 2016 15:52
--- NOTE | 2016-10-19 16:59 | Infectious Diseases Prog Note ---
Assessment/Plan Assessment/Plan A: Diverticulitis with abscess Obesity Fatty liver P: 2 weeks antibiotics either with Augmentin & Flagyl or IV Ertapenem after [address] scan making sure of complete resolution Subjective ROS Limited/Unobtainable: Yes Allergies: Coded Allergies: MELON (Verified Allergy, Unknown, 10/15/16) Uncoded Allergies: SHELLFISH (Allergy, Unknown, 10/15/16) Objective Vital Signs Last 24 Hour Vital Signs Date Time Temp Pulse Resp B/P Pulse Ox O2 Delivery O2 Flow Rate FiO2 10/19/16 12:37 99.0 88 19 125/75 98 Room Air 10/19/16 08:00 97.0 66 16 153/80 98 Room Air 10/19/16 04:00 97.9 68 18 120/61 99 Room Air 10/19/16 00:00 97.7 73 20 116/68 97 Room Air 10/18/16 20:00 98.1 65 20 137/81 96 Room Air Height (Feet): 5 Height (Inches): 6.00 Weight (Pounds): 284 General Appearance: no acute distress HEENT: mucous membranes moist Respiratory/Chest: lungs clear Cardiovascular: normal rate Abdomen: tender, other - in LLQ Extremities: no edema Neurologic/Psychiatric: other - Sleeping Laboratory Tests Test 10/19/16 07:07 White Blood Count 11.3 K/UL (4.8-10.8) H Red Blood Count 4.08 M/UL (4.20-5.40) L Hemoglobin 10.2 G/DL (12.0-16.0) L Hematocrit 32.2 % (37.0-47.0) L Mean Corpuscular Volume 79 FL (80-99) L Mean Corpuscular Hemoglobin 25.1 PG (27.0-31.0) L Mean Corpuscular Hemoglobin Concent 31.8 G/DL (32.0-36.0) L Red Cell Distribution Width 13.4 % (11.6-14.8) Platelet Count 551 K/UL (150-450) H Mean Platelet Volume 7.0 FL (6.5-10.1) Neutrophils (%) (Auto) 58.7 % (45.0-75.0) Lymphocytes (%) (Auto) 27.1 % (20.0-45.0) Monocytes (%) (Auto) 9.8 % (1.0-10.0) Eosinophils (%) (Auto) 3.8 % (0.0-3.0) H Basophils (%) (Auto) 0.6 % (0.0-2.0) Sodium Level 138 mEQ/L (135-145) Potassium Level 4.1 mEQ/L (3.4-4.9) Chloride Level 99 mEQ/L (98-107) Carbon Dioxide Level 25 mEQ/L (20-30) Anion Gap 14 (5-15) Blood Urea Nitrogen 4 mg/dL (7-23) L Creatinine 0.8 mg/dL (0.5-0.9) Estimat Glomerular Filtration Rate > 60 mL/min (>60) Glucose Level 94 mg/dL (74-106) Calcium Level 8.4 mg/dL (8.6-10.2) L Current Medications Medications (Trade) Dose Ordered Sig/Steve Route PRN Reason Start Time Stop Time Status Last Admin Dose Admin Acetaminophen (Tylenol) 650 mg Q4H PRN RECTAL Mild Pain (Pain Scale 1-3) 10/15/16 13:45 11/14/16 13:44 Dextrose (Dextrose 50%) STAT PRN IV Hypoglycemia 10/15/16 16:15 11/14/16 16:14 Dextrose/ Electrolytes 1,000 ml @ 100 mls/hr Q10H IV 10/15/16 16:00 11/14/16 15:59 10/19/16 11:12 Magnesium Hydroxide (Mom) 30 ml DAILYPRN PRN ORAL Constipation 10/16/16 15:45 11/15/16 15:44 Metronidazole (Flagyl) 100 ml @ 100 mls/hr Q8HR IVPB 10/15/16 16:00 10/22/16 15:59 10/19/16 16:04 Morphine Sulfate (Morphine Sulfate) 4 mg EVERY 3 HOURS PRN IV Moderate Pain (Pain Scale 4-6) 10/15/16 17:30 10/22/16 17:29 10/19/16 08:43 Morphine Sulfate (Morphine Sulfate) 6 mg EVERY 3 HOURS PRN IV Severe Pain (Pain Scale 7-10) 10/15/16 17:30 10/22/16 17:29 10/17/16 20:33 Ondansetron HCl (Zofran) 4 mg EVERY 4 HOURS PRN IVP Nausea & Vomiting 10/15/16 17:30 11/14/16 17:29 10/17/16 17:38 Pantoprazole (Protonix) 40 mg DAILY IVP 10/16/16 09:00 11/15/16 08:59 10/19/16 08:47 Piperacillin Sod/ Tazobactam Sod 3.375 gm/Dextrose 110 ml @ 27.5 mls/hr Q8HR@0200,1000,1800 IVPB 10/15/16 17:00 10/22/16 16:59 10/19/16 11:08 Zolpidem Tartrate (Ambien) 5 mg HSPRN PRN ORAL Insomnia 10/15/16 16:15 11/14/16 16:14 JOSH CORDOBA Oct 19, 2016 16:59
[2016-10-19 19:00] VITALS: BP 118/79
[2016-10-20 00:25] VITALS: BP 118/69
[2016-10-20] MEDS: Piperacillin/Tazobactam 3.375 GM in D5W 110 ML IVPB SCH ×3 (02:04→18:32)
[2016-10-20 04:00] VITALS: BP 138/86
[2016-10-20] MEDS: metroNIDAZOLE 500mg 100 ML IVPB SCH ×3 (05:45→21:22)
[2016-10-20] MEDS: D5 1/2NS w/KCl 20mEq 1,000 ML IV SCH ×2 (06:00→17:08)
[2016-10-20] MEDS: Morphine Sulfate 4mg/ml Inj IV PRN ×3 (06:02→21:22)
[2016-10-20 08:00] VITALS: BP 126/76
[2016-10-20] MEDS: Pantoprazole Inj IVP SCH (09:03)
--- NOTE | 2016-10-20 09:52 | Infectious Diseases Prog Note ---
Assessment/Plan Assessment/Plan A: Diverticulitis with abscess Obesity Fatty liver P: 2 weeks antibiotics either with Augmentin & Flagyl or IV Rocephin & Flagyl after [address] scan making sure of complete resolution Subjective ROS Limited/Unobtainable: No Constitutional: Reports: no symptoms Respiratory: Reports: no symptoms Gastrointestinal/Abdominal: Reports: no symptoms Genitourinary: Reports: no symptoms Allergies: Coded Allergies: MELON (Verified Allergy, Unknown, 10/15/16) Uncoded Allergies: SHELLFISH (Allergy, Unknown, 10/15/16) Objective Vital Signs Last 24 Hour Vital Signs Date Time Temp Pulse Resp B/P Pulse Ox O2 Delivery O2 Flow Rate FiO2 10/20/16 08:00 97.2 69 20 126/76 99 Room Air 10/20/16 04:00 98.1 87 19 138/86 98 Room Air 10/20/16 00:25 97.9 83 20 118/69 98 Room Air 10/19/16 22:16 98.0 10/19/16 19:00 98.0 78 20 118/79 98 Room Air 10/19/16 12:37 99.0 88 19 125/75 98 Room Air Height (Feet): 5 Height (Inches): 6.00 Weight (Pounds): 284 General Appearance: no acute distress HEENT: mucous membranes moist Respiratory/Chest: lungs clear Cardiovascular: normal rate, regular rhythm Abdomen: soft, non tender Extremities: no edema Neurologic/Psychiatric: alert, oriented x 3, responsive Current Medications Medications (Trade) Dose Ordered Sig/Steve Route PRN Reason Start Time Stop Time Status Last Admin Dose Admin Acetaminophen (Tylenol) 650 mg Q4H PRN RECTAL Mild Pain (Pain Scale 1-3) 10/15/16 13:45 11/14/16 13:44 Dextrose (Dextrose 50%) STAT PRN IV Hypoglycemia 10/15/16 16:15 11/14/16 16:14 Dextrose/ Electrolytes 1,000 ml @ 100 mls/hr Q10H IV 10/15/16 16:00 11/14/16 15:59 10/19/16 21:24 Magnesium Hydroxide (Mom) 30 ml DAILYPRN PRN ORAL Constipation 10/16/16 15:45 11/15/16 15:44 Metronidazole (Flagyl) 100 ml @ 100 mls/hr Q8HR IVPB 10/15/16 16:00 10/22/16 15:59 10/20/16 05:45 Morphine Sulfate (Morphine Sulfate) 4 mg EVERY 3 HOURS PRN IV Moderate Pain (Pain Scale 4-6) 10/15/16 17:30 10/22/16 17:29 10/20/16 06:02 Morphine Sulfate (Morphine Sulfate) 6 mg EVERY 3 HOURS PRN IV Severe Pain (Pain Scale 7-10) 10/15/16 17:30 10/22/16 17:29 10/17/16 20:33 Ondansetron HCl (Zofran) 4 mg EVERY 4 HOURS PRN IVP Nausea & Vomiting 10/15/16 17:30 11/14/16 17:29 10/20/16 05:56 Pantoprazole (Protonix) 40 mg DAILY IVP 10/16/16 09:00 11/15/16 08:59 10/20/16 09:03 Piperacillin Sod/ Tazobactam Sod 3.375 gm/Dextrose 110 ml @ 27.5 mls/hr Q8HR@0200,1000,1800 IVPB 10/15/16 17:00 10/22/16 16:59 10/20/16 09:03 Zolpidem Tartrate (Ambien) 5 mg HSPRN PRN ORAL Insomnia 10/15/16 16:15 11/14/16 16:14 JOSH CORDOBA 16, 2017 09:51
--- NOTE | 2016-10-20 11:51 | General Surgery Progress Note ---
General Surgery-Progress Note Subjective Symptoms: improved, BM Objective Last 24 Hour Vital Signs Date Time Temp Pulse Resp B/P Pulse Ox O2 Delivery O2 Flow Rate FiO2 10/20/16 08:00 97.2 69 20 126/76 99 Room Air 10/20/16 04:00 98.1 87 19 138/86 98 Room Air 10/20/16 00:25 97.9 83 20 118/69 98 Room Air 10/19/16 22:16 98.0 10/19/16 19:00 98.0 78 20 118/79 98 Room Air 10/19/16 12:37 99.0 88 19 125/75 98 Room Air I&O Intake and Output 10/19/16 10/20/16 19:00 07:00 Intake Total 1027.5 ml 1337.5 ml Balance 1027.5 ml 1337.5 ml IV Total 1027.5 ml 1337.5 ml # Voids 2 5 Respiratory: clear Abdomen: soft, tenderness, present bowel sounds Extremities: no tenderness Assessment Additional Comments diverticulitis Plan Additional Comments continue BREANNA MERA Oct 20, 2016 11:51
[2016-10-20 12:00] VITALS: BP 113/70
--- NOTE | 2016-10-20 13:36 | General Progress Note ---
Assessment/Plan Problem List: (1) Constipation ICD Codes: K59.00 - Constipation, unspecified SNOMED: 55699851 (2) Diverticulitis ICD Codes: K57.92 - Diverticulitis of intestine, part unspecified, without perforation or abscess without bleeding SNOMED: 973822462 Qualifiers: Assessment/Plan Abxs IVF Subjective Allergies: Coded Allergies: MELON (Verified Allergy, Unknown, 10/15/16) Uncoded Allergies: SHELLFISH (Allergy, Unknown, 10/15/16) Subjective In NAD Objective Last 24 Hour Vital Signs Date Time Temp Pulse Resp B/P Pulse Ox O2 Delivery O2 Flow Rate FiO2 10/20/16 12:00 97.5 82 20 113/70 100 Room Air 10/20/16 08:00 97.2 69 20 126/76 99 Room Air 10/20/16 04:00 98.1 87 19 138/86 98 Room Air 10/20/16 00:25 97.9 83 20 118/69 98 Room Air 10/19/16 22:16 98.0 10/19/16 19:00 98.0 78 20 118/79 98 Room Air Intake and Output 10/19/16 10/20/16 19:00 07:00 Intake Total 1027.5 ml 1437.5 ml Balance 1027.5 ml 1437.5 ml IV Total 1027.5 ml 1437.5 ml # Voids 2 5 Height (Feet): 5 Height (Inches): 6.00 Weight (Pounds): 284 Cardiovascular: normal rate Respiratory/Chest: lungs clear Edema: no edema noted ELYSE Hollins Oct 20, 2016 13:36
[2016-10-20 16:00] VITALS: BP 118/50
[2016-10-21] MEDS: Piperacillin/Tazobactam 3.375 GM in D5W 110 ML IVPB SCH ×3 (02:36→17:32)
[2016-10-21] MEDS: D5 1/2NS w/KCl 20mEq 1,000 ML IV SCH ×3 (02:37→17:32)
[2016-10-21] MEDS: metroNIDAZOLE 500mg 100 ML IVPB SCH ×3 (05:34→22:26)
[2016-10-21] MEDS: Morphine Sulfate 4mg/ml Inj IV PRN ×3 (05:36→19:56)
[2016-10-21 07:35] LABS: BASOPHILS % (AUTO) 0.7 % (0.0-2.0); EOSINOPHILS % (AUTO) 4.7 % (0.0-3.0); LYMPHOCYTES % (AUTO) 29.1 % (20.0-45.0); MEAN CORPUSCULAR HEMOGLOBIN 25.7 PG (27.0-31.0); MEAN CORPUSCULAR HGB CONC 31.7 G/DL (32.0-36.0); MEAN CORPUSCULAR VOLUME 81 FL (80-99); MEAN PLATELET VOLUME 6.6 FL (6.5-10.1); MONOCYTES % (AUTO) 7.8 % (1.0-10.0); NEUTROPHILS % (AUTO) 57.7 % (45.0-75.0); PLATELET COUNT 495 K/UL (150-450); RED BLOOD COUNT 3.91 M/UL (4.20-5.40); RED CELL DISTRIBUTION WIDTH 13.2 % (11.6-14.8); WHITE BLOOD COUNT 10.8 K/UL (4.8-10.8)
[2016-10-21 07:38] LABS: ANION GAP 13 (5-15); CALCIUM 8.6 mg/dL (8.6-10.2); CARBON DIOXIDE 27 mEQ/L (20-30); CHLORIDE 99 mEQ/L (98-107); CREATININE 0.9 mg/dL (0.5-0.9); GLOMERULAR FILTRATION RATE > 60 mL/min (>60); HEMOLYSIS 0; POTASSIUM 4.2 mEQ/L (3.4-4.9); SODIUM 139 mEQ/L (135-145)
[2016-10-21] MEDS: Pantoprazole Inj IVP SCH (08:47)
--- NOTE | 2016-10-21 11:11 | Infectious Diseases Prog Note ---
Assessment/Plan Assessment/Plan antibiotics : zosyn, flagyl A 1. acute diverticulitis with perforation 2. leucocytosis improving 3. obesity P 1. continue zosyn, flagyl 2. will follow up labs Subjective Constitutional: Denies: chills, fever Respiratory: Denies: dry cough, shortness of breath Gastrointestinal/Abdominal: Reports: nausea, Denies: diarrhea, vomiting Musculoskeletal: Reports: pain - abdominal decreased Allergies: Coded Allergies: MELON (Verified Allergy, Unknown, 10/15/16) Uncoded Allergies: SHELLFISH (Allergy, Unknown, 10/15/16) Objective Vital Signs Last 24 Hour Vital Signs Date Time Temp Pulse Resp B/P Pulse Ox O2 Delivery O2 Flow Rate FiO2 10/20/16 16:00 97.9 90 20 118/50 97 Room Air 10/20/16 15:17 97.5 10/20/16 12:00 97.5 82 20 113/70 100 Room Air Height (Feet): 5 Height (Inches): 6.00 Weight (Pounds): 284 Respiratory/Chest: lungs clear Cardiovascular: normal rate, regular rhythm, no gallop/murmur Abdomen: tender - LLQ Extremities: no edema Laboratory Tests Test 10/21/16 05:20 White Blood Count 10.8 K/UL (4.8-10.8) Red Blood Count 3.91 M/UL (4.20-5.40) L Hemoglobin 10.1 G/DL (12.0-16.0) L Hematocrit 31.7 % (37.0-47.0) L Mean Corpuscular Volume 81 FL (80-99) Mean Corpuscular Hemoglobin 25.7 PG (27.0-31.0) L Mean Corpuscular Hemoglobin Concent 31.7 G/DL (32.0-36.0) L Red Cell Distribution Width 13.2 % (11.6-14.8) Platelet Count 495 K/UL (150-450) H Mean Platelet Volume 6.6 FL (6.5-10.1) Neutrophils (%) (Auto) 57.7 % (45.0-75.0) Lymphocytes (%) (Auto) 29.1 % (20.0-45.0) Monocytes (%) (Auto) 7.8 % (1.0-10.0) Eosinophils (%) (Auto) 4.7 % (0.0-3.0) H Basophils (%) (Auto) 0.7 % (0.0-2.0) Sodium Level 139 mEQ/L (135-145) Potassium Level 4.2 mEQ/L (3.4-4.9) Chloride Level 99 mEQ/L (98-107) Carbon Dioxide Level 27 mEQ/L (20-30) Anion Gap 13 (5-15) Blood Urea Nitrogen 3 mg/dL (7-23) L Creatinine 0.9 mg/dL (0.5-0.9) Estimat Glomerular Filtration Rate > 60 mL/min (>60) Glucose Level 91 mg/dL (74-106) Calcium Level 8.6 mg/dL (8.6-10.2) SURYA HEREDIA Oct 21, 2016 11:11
[2016-10-21 12:00] VITALS: BP 120/76
--- NOTE | 2016-10-21 13:06 | General Progress Note ---
Assessment/Plan Problem List: (1) Constipation ICD Codes: K59.00 - Constipation, unspecified SNOMED: 57234981 (2) Diverticulitis ICD Codes: K57.92 - Diverticulitis of intestine, part unspecified, without perforation or abscess without bleeding SNOMED: 320481330 Qualifiers: Assessment/Plan Abxs IVF liquid diet Subjective Allergies: Coded Allergies: MELON (Verified Allergy, Unknown, 10/15/16) Uncoded Allergies: SHELLFISH (Allergy, Unknown, 10/15/16) Subjective In NAD Objective Last 24 Hour Vital Signs Date Time Temp Pulse Resp B/P Pulse Ox O2 Delivery O2 Flow Rate FiO2 10/21/16 12:00 98.2 70 20 120/76 99 Room Air 10/20/16 16:00 97.9 90 20 118/50 97 Room Air 10/20/16 15:17 97.5 Intake and Output 10/20/16 10/21/16 19:00 07:00 Intake Total 1520 ml 2530.0 ml Balance 1520 ml 2530.0 ml Intake Oral 720 ml 960 ml IV Total 800 ml 1570.0 ml # Voids 6 7 # Bowel Movements 1 Laboratory Tests 10/21/16 05:20: White Blood Count 10.8, Red Blood Count 3.91L, Hemoglobin 10.1L, Hematocrit 31.7L, Mean Corpuscular Volume 81, Mean Corpuscular Hemoglobin 25.7L, Mean Corpuscular Hemoglobin Concent 31.7L, Red Cell Distribution Width 13.2, Platelet Count 495H, Mean Platelet Volume 6.6, Neutrophils (%) (Auto) 57.7, Lymphocytes (%) (Auto) 29.1, Monocytes (%) (Auto) 7.8, Eosinophils (%) (Auto) 4.7H, Basophils (%) (Auto) 0.7, Sodium Level 139, Potassium Level 4.2, Chloride Level 99, Carbon Dioxide Level 27, Anion Gap 13, Blood Urea Nitrogen 3L, Creatinine 0.9, Estimat Glomerular Filtration Rate > 60, Glucose Level 91, Calcium Level 8.6 Height (Feet): 5 Height (Inches): 6.00 Weight (Pounds): 284 Cardiovascular: normal rate Respiratory/Chest: lungs clear ELYSE CORDOBA Oct 21, 2016 13:06
[2016-10-21 16:00] VITALS: BP 131/90
[2016-10-22] MEDS: Piperacillin/Tazobactam 3.375 GM in D5W 110 ML IVPB SCH ×3 (01:58→18:19)
[2016-10-22 04:00] VITALS: BP 125/73
[2016-10-22] MEDS: D5 1/2NS w/KCl 20mEq 1,000 ML IV SCH ×2 (05:25→18:19)
[2016-10-22] MEDS: metroNIDAZOLE 500mg 100 ML IVPB SCH ×3 (05:26→21:29)
[2016-10-22] MEDS: Pantoprazole Inj IVP SCH (09:42)
--- NOTE | 2016-10-22 10:13 | General Surgery Progress Note ---
General Surgery-Progress Note Subjective Symptoms: improved, BM Objective Last 24 Hour Vital Signs Date Time Temp Pulse Resp B/P Pulse Ox O2 Delivery O2 Flow Rate FiO2 10/22/16 04:00 97.7 66 18 125/73 99 10/21/16 16:00 97.9 74 20 131/90 98 Room Air 10/21/16 13:08 97.9 10/21/16 12:00 98.2 70 20 120/76 99 Room Air I&O Intake and Output 10/21/16 10/22/16 19:00 07:00 Intake Total 1347.5 ml 792.5 ml Output Total 3 ml Balance 1347.5 ml 789.5 ml Intake Oral 720 ml 100 ml IV Total 627.5 ml 692.5 ml Output Urine Total 3 ml # Voids 4 1 # Bowel Movements 1 Respiratory: clear Abdomen: soft, flat, non-tender, present bowel sounds Extremities: no tenderness Assessment Additional Comments diverticulitis improving Plan Additional Comments Ct of abd in BREANNA RDZ Oct 22, 2016 10:13
[2016-10-22 10:58] VITALS: BP 128/84
[2016-10-22 12:10] VITALS: BP 124/82
[2016-10-22 15:58] VITALS: BP 122/74
[2016-10-22 20:00] VITALS: BP 120/79
--- NOTE | 2016-10-22 20:30 | General Progress Note ---
Assessment/Plan Problem List: (1) Constipation ICD Codes: K59.00 - Constipation, unspecified SNOMED: 00057235 (2) Diverticulitis ICD Codes: K57.92 - Diverticulitis of intestine, part unspecified, without perforation or abscess without bleeding SNOMED: [id number] Qualifiers: Assessment/Plan Abxs DC IVF liquid diet Await CT abd Subjective Allergies: Coded Allergies: MELON (Verified Allergy, Unknown, 10/15/16) Uncoded Allergies: SHELLFISH (Allergy, Unknown, 10/15/16) Subjective In NAD Objective Last 24 Hour Vital Signs Date Time Temp Pulse Resp B/P Pulse Ox O2 Delivery O2 Flow Rate FiO2 10/22/16 15:58 97.7 73 20 122/74 98 Room Air 10/22/16 12:10 97.6 76 18 124/82 99 Room Air 10/22/16 10:58 97.7 72 18 128/84 98 Room Air 10/22/16 04:00 97.7 66 18 125/73 99 Intake and Output 10/21/16 10/22/16 19:00 07:00 Intake Total 1347.5 ml 792.5 ml Output Total 3 ml Balance 1347.5 ml 789.5 ml Intake Oral 720 ml 100 ml IV Total 627.5 ml 692.5 ml Output Urine Total 3 ml # Voids 4 1 # Bowel Movements 1 Height (Feet): 5 Height (Inches): 6.00 Weight (Pounds): 284 Cardiovascular: normal rate Respiratory/Chest: lungs clear Abdomen: soft ELYSE CORDOBA 18, 2017 20:30
[2016-10-22] MEDS ORDERED: NS 275ml ONE (20:58)
[2016-10-22 21:26] VITALS: BP 120/79
[2016-10-23] VITALS: BP 129/82
[2016-10-23] MEDS: Piperacillin/Tazobactam 3.375 GM in D5W 110 ML IVPB SCH ×3 (02:26→17:33)
[2016-10-23 04:00] VITALS: BP 119/73
[2016-10-23] MEDS: metroNIDAZOLE 500mg 100 ML IVPB SCH ×3 (06:27→21:16)
[2016-10-23 07:28] LABS: BASOPHILS % (AUTO) 0.7 % (0.0-2.0); EOSINOPHILS % (AUTO) 3.9 % (0.0-3.0); LYMPHOCYTES % (AUTO) 29.4 % (20.0-45.0); MEAN CORPUSCULAR HEMOGLOBIN 25.1 PG (27.0-31.0); MEAN CORPUSCULAR VOLUME 79 FL (80-99); MEAN PLATELET VOLUME 6.7 FL (6.5-10.1); MONOCYTES % (AUTO) 7.2 % (1.0-10.0); NEUTROPHILS % (AUTO) 58.8 % (45.0-75.0); PLATELET COUNT 603 K/UL (150-450); RED BLOOD COUNT 4.31 M/UL (4.20-5.40); RED CELL DISTRIBUTION WIDTH 13.9 % (11.6-14.8); WHITE BLOOD COUNT 10.6 K/UL (4.8-10.8)
[2016-10-23 07:53] LABS: ANION GAP 15 (5-15); CALCIUM 8.7 mg/dL (8.6-10.2); CARBON DIOXIDE 25 mEQ/L (20-30); CHLORIDE 99 mEQ/L (98-107); CREATININE 0.9 mg/dL (0.5-0.9); GLOMERULAR FILTRATION RATE > 60 mL/min (>60); HEMOLYSIS 1; POTASSIUM 3.7 mEQ/L (3.4-4.9); SODIUM 139 mEQ/L (135-145)
[2016-10-23 08:00] VITALS: BP 122/76
[2016-10-23] MEDS: Pantoprazole Inj IVP SCH (10:14)
--- NOTE | 2016-10-23 12:38 | General Surgery Progress Note ---
General Surgery-Progress Note Subjective Symptoms: improved, BM Objective Last 24 Hour Vital Signs Date Time Temp Pulse Resp B/P Pulse Ox O2 Delivery O2 Flow Rate FiO2 10/23/16 08:00 97.4 77 18 122/76 96 Room Air 10/23/16 04:00 97.9 85 18 119/73 100 Room Air 10/23/16 00:00 97.7 61 20 129/82 100 Room Air 10/22/16 20:00 96.8 67 21 120/79 93 Room Air 10/22/16 15:58 97.7 73 20 122/74 98 Room Air I&O Intake and Output 10/22/16 10/23/16 19:00 07:00 Intake Total 120 ml 1292.5 ml Output Total 800 ml Balance 120 ml 492.5 ml Intake Oral 120 ml 1000 ml IV Total 292.5 ml Output Urine Total 800 ml # Voids 5 # Bowel Movements 1 Respiratory: clear Abdomen: soft, flat, non-tender, present bowel sounds Extremities: no tenderness Laboratory Tests Test 10/23/16 05:10 White Blood Count 10.6 K/UL (4.8-10.8) Red Blood Count 4.31 M/UL (4.20-5.40) Hemoglobin 10.8 G/DL (12.0-16.0) L Hematocrit 33.9 % (37.0-47.0) L Mean Corpuscular Volume 79 FL (80-99) L Mean Corpuscular Hemoglobin 25.1 PG (27.0-31.0) L Mean Corpuscular Hemoglobin Concent 32.0 G/DL (32.0-36.0) Red Cell Distribution Width 13.9 % (11.6-14.8) Platelet Count 603 K/UL (150-450) H Mean Platelet Volume 6.7 FL (6.5-10.1) Neutrophils (%) (Auto) 58.8 % (45.0-75.0) Lymphocytes (%) (Auto) 29.4 % (20.0-45.0) Monocytes (%) (Auto) 7.2 % (1.0-10.0) Eosinophils (%) (Auto) 3.9 % (0.0-3.0) H Basophils (%) (Auto) 0.7 % (0.0-2.0) Sodium Level 139 mEQ/L (135-145) Potassium Level 3.7 mEQ/L (3.4-4.9) Chloride Level 99 mEQ/L (98-107) Carbon Dioxide Level 25 mEQ/L (20-30) Anion Gap 15 (5-15) Blood Urea Nitrogen 3 mg/dL (7-23) L Creatinine 0.9 mg/dL (0.5-0.9) Estimat Glomerular Filtration Rate > 60 mL/min (>60) Glucose Level 86 mg/dL (74-106) Calcium Level 8.7 mg/dL (8.6-10.2) Assessment Additional Comments diverticulitis Plan Additional Comments continue as before BREANNA RDZ Oct 23, 2016 12:38
--- NOTE | 2016-10-23 12:40 | Infectious Diseases Prog Note ---
Assessment/Plan Assessment/Plan A: Diverticulitis with abscess Obesity Fatty liver P: Continue Zosyn & Flagyl, will f/u abdominal CT case was D/W surgeon Subjective ROS Limited/Unobtainable: No Constitutional: Reports: no symptoms Respiratory: Reports: no symptoms Cardiovascular: Reports: no symptoms Gastrointestinal/Abdominal: Reports: other - feels hungry Genitourinary: Reports: no symptoms Neurologic: Reports: no symptoms Allergies: Coded Allergies: MELON (Verified Allergy, Unknown, 10/15/16) Uncoded Allergies: SHELLFISH (Allergy, Unknown, 10/15/16) Objective Vital Signs Last 24 Hour Vital Signs Date Time Temp Pulse Resp B/P Pulse Ox O2 Delivery O2 Flow Rate FiO2 10/23/16 08:00 97.4 77 18 122/76 96 Room Air 10/23/16 04:00 97.9 85 18 119/73 100 Room Air 10/23/16 00:00 97.7 61 20 129/82 100 Room Air 10/22/16 20:00 96.8 67 21 120/79 93 Room Air 10/22/16 15:58 97.7 73 20 122/74 98 Room Air Height (Feet): 5 Height (Inches): 6.00 Weight (Pounds): 284 General Appearance: no acute distress HEENT: mucous membranes moist Respiratory/Chest: lungs clear Cardiovascular: normal rate Abdomen: soft, non tender Extremities: no edema Neurologic/Psychiatric: alert, oriented x 3, responsive Laboratory Tests Test 10/23/16 05:10 White Blood Count 10.6 K/UL (4.8-10.8) Red Blood Count 4.31 M/UL (4.20-5.40) Hemoglobin 10.8 G/DL (12.0-16.0) L Hematocrit 33.9 % (37.0-47.0) L Mean Corpuscular Volume 79 FL (80-99) L Mean Corpuscular Hemoglobin 25.1 PG (27.0-31.0) L Mean Corpuscular Hemoglobin Concent 32.0 G/DL (32.0-36.0) Red Cell Distribution Width 13.9 % (11.6-14.8) Platelet Count 603 K/UL (150-450) H Mean Platelet Volume 6.7 FL (6.5-10.1) Neutrophils (%) (Auto) 58.8 % (45.0-75.0) Lymphocytes (%) (Auto) 29.4 % (20.0-45.0) Monocytes (%) (Auto) 7.2 % (1.0-10.0) Eosinophils (%) (Auto) 3.9 % (0.0-3.0) H Basophils (%) (Auto) 0.7 % (0.0-2.0) Sodium Level 139 mEQ/L (135-145) Potassium Level 3.7 mEQ/L (3.4-4.9) Chloride Level 99 mEQ/L (98-107) Carbon Dioxide Level 25 mEQ/L (20-30) Anion Gap 15 (5-15) Blood Urea Nitrogen 3 mg/dL (7-23) L Creatinine 0.9 mg/dL (0.5-0.9) Estimat Glomerular Filtration Rate > 60 mL/min (>60) Glucose Level 86 mg/dL (74-106) Calcium Level 8.7 mg/dL (8.6-10.2) Current Medications Medications (Trade) Dose Ordered Sig/Steve Route PRN Reason Start Time Stop Time Status Last Admin Dose Admin Acetaminophen (Tylenol) 650 mg Q4H PRN RECTAL Mild Pain (Pain Scale 1-3) 10/15/16 13:45 11/14/16 13:44 Dextrose (Dextrose 50%) STAT PRN IV Hypoglycemia 10/15/16 16:15 11/14/16 16:14 Magnesium Hydroxide 30 ml 30 ml DAILYPRN PRN ORAL Constipation 10/16/16 15:45 11/15/16 15:44 Metronidazole 100 ml @ 100 mls/hr Q8HR IVPB 10/21/16 14:00 10/28/16 23:59 10/23/16 06:27 Ondansetron HCl (Zofran) 4 mg EVERY 4 HOURS PRN IVP Nausea & Vomiting 10/15/16 17:30 11/14/16 17:29 10/22/16 16:49 Pantoprazole (Protonix) 40 mg DAILY IVP 10/16/16 09:00 11/15/16 08:59 10/23/16 10:14 Piperacillin Sod/ Tazobactam Sod/ Dextrose (Zosyn/D5W) 110 ml @ 27.5 mls/hr Q8HR@0200,1000,1800 IVPB 10/21/16 18:00 10/28/16 18:00 10/23/16 10:14 Zolpidem Tartrate (Ambien) 5 mg HSPRN PRN ORAL Insomnia 10/15/16 16:15 11/14/16 16:14 JOSH CORDOBA Oct 23, 2016 12:40
[2016-10-23 16:00] VITALS: BP 130/87
--- NOTE | 2016-10-23 17:56 | General Progress Note ---
Assessment/Plan Problem List: (1) Constipation ICD Codes: K59.00 - Constipation, unspecified SNOMED: 30740808 (2) Diverticulitis ICD Codes: K57.92 - Diverticulitis of intestine, part unspecified, without perforation or abscess without bleeding SNOMED: 705712960 Qualifiers: Assessment/Plan Abxs liquid diet Await CT abd results Subjective Allergies: Coded Allergies: MELON (Verified Allergy, Unknown, 10/15/16) Uncoded Allergies: SHELLFISH (Allergy, Unknown, 10/15/16) Subjective In NAD Objective Last 24 Hour Vital Signs Date Time Temp Pulse Resp B/P Pulse Ox O2 Delivery O2 Flow Rate FiO2 10/23/16 16:00 98.1 75 20 130/87 94 Room Air 10/23/16 08:00 97.4 77 18 122/76 96 Room Air 10/23/16 04:00 97.9 85 18 119/73 100 Room Air 10/23/16 00:00 97.7 61 20 129/82 100 Room Air 10/22/16 20:00 96.8 67 21 120/79 93 Room Air Intake and Output 10/22/16 10/23/16 19:00 07:00 Intake Total 120 ml 1292.5 ml Output Total 800 ml Balance 120 ml 492.5 ml Intake Oral 120 ml 1000 ml IV Total 292.5 ml Output Urine Total 800 ml # Voids 5 # Bowel Movements 1 Laboratory Tests 10/23/16 05:10: White Blood Count 10.6, Red Blood Count 4.31, Hemoglobin 10.8L, Hematocrit 33.9L , Mean Corpuscular Volume 79L, Mean Corpuscular Hemoglobin 25.1L, Mean Corpuscular Hemoglobin Concent 32.0, Red Cell Distribution Width 13.9, Platelet Count 603H, Mean Platelet Volume 6.7, Neutrophils (%) (Auto) 58.8, Lymphocytes ( %) (Auto) 29.4, Monocytes (%) (Auto) 7.2, Eosinophils (%) (Auto) 3.9H, Basophils (%) (Auto) 0.7, Sodium Level 139, Potassium Level 3.7, Chloride Level 99, Carbon Dioxide Level 25, Anion Gap 15, Blood Urea Nitrogen 3L, Creatinine 0.9, Estimat Glomerular Filtration Rate > 60, Glucose Level 86, Calcium Level 8.7 Height (Feet): 5 Height (Inches): 6.00 Weight (Pounds): 284 Cardiovascular: normal rate Respiratory/Chest: lungs clear Abdomen: soft ELYSE CORDOBA Oct 23, 2016 17:56
[2016-10-23 20:00] VITALS: BP 134/64
[2016-10-24] VITALS: BP 132/63
[2016-10-24] MEDS: Piperacillin/Tazobactam 3.375 GM in D5W 110 ML IVPB SCH ×3 (01:24→19:01)
[2016-10-24 04:00] VITALS: BP 128/69
[2016-10-24] MEDS: metroNIDAZOLE 500mg 100 ML IVPB SCH (05:58)
--- NOTE | 2016-10-24 09:34 | Diagnostic Imaging Report ---
Indication: Abdominal pain Technique: Spiral acquisitions obtained through the abdomen and pelvis. No oral contrast utilized, per emergency room physician request No IV contrast utilized, per referring physician request.. Multiplanar reconstructions were generated. Total dose length product 1181 mGycm. CTDIvol(s) 19 mGy Comparison: 10/17/2016 Findings: A small amount of contrast is seen within the colon. Uncertain as to whether this was ingested for the exam or is residual from the prior study. There is colonic diverticulosis. Again demonstrated is wall thickening of the proximal sigmoid colon and pericolonic inflammation. The pericolonic inflammation appears slightly decreased. Collection of gas bubbles and phlegmon changes inferior to this proximal sigmoid appears slightly smaller than on the prior study, and gas bubbles are less numerous. Some gas bubbles are again seen tracking along the uterine broad ligament, and inflammatory changes are seen in the prerectal region, the latter perhaps slightly increased from the prior study.. No air-fluid levels or other findings to suggests liquefaction of the abscess contents are demonstrated. Prominent but not frankly enlarged perisigmoid nodes are again demonstrated. Prominent mesenteric root nodes are again demonstrated as well. The appendix is normal. No small bowel distention. No free intraperitoneal air or free or loculated intraperitoneal fluid. The distal esophagus, stomach, duodenum are unremarkable. Lack of IV contrast limits assessment of solid organs. The liver demonstrates diffuse low attenuation, consistent with fatty change. No focal abnormality. The gallbladder, bile ducts, pancreas, spleen, adrenals, kidneys are unremarkable. No retroperitoneal or mesenteric mass or adenopathy. No pelvic mass or adenopathy. The included lung bases are clear. The heart is mildly enlarged. The bones are unremarkable. Impression: Perisigmoid gas bubbles and phlegmon, consistent with perforated diverticulitis, slightly improved since previous exam of 10/17/2016. As previously, abscess appears to contain gas and phlegmon rather than drainable fluid. Inflammation appears to tracking along the broad ligament of the uterus into the pelvic cul-de-sac. Slight improvement of other perisigmoid inflammatory changes. Note that given the presence of sigmoid wall thickening and adjacent borderline lymphadenopathy, followup resolution of these findings is recommended to exclude underlying neoplasm. Fatty liver Cardiomegaly The CT scanner at [facility] is accredited by the [employer] and the scans are performed using protocols designed to limit radiation exposure to as low as reasonably achievable to attain images of sufficient resolution adequate for diagnostic evaluation.
[2016-10-24] MEDS: Pantoprazole Inj IVP SCH (10:21)
[2016-10-24 12:00] VITALS: BP 146/91
--- NOTE | 2016-10-24 12:04 | Infectious Diseases Prog Note ---
Assessment/Plan Assessment/Plan A: Diverticulitis with abscess Obesity Fatty liver P: Continue Zosyn & Flagyl, change Flagyl to PO At time of discharge PO Augment & Flagyl X 2 weeks Subjective ROS Limited/Unobtainable: No Constitutional: Reports: no symptoms Respiratory: Reports: no symptoms Cardiovascular: Reports: no symptoms Gastrointestinal/Abdominal: Reports: no symptoms, other - had food last night Allergies: Coded Allergies: MELON (Verified Allergy, Unknown, 10/15/16) Uncoded Allergies: SHELLFISH (Allergy, Unknown, 10/15/16) Objective Vital Signs Last 24 Hour Vital Signs Date Time Temp Pulse Resp B/P Pulse Ox O2 Delivery O2 Flow Rate FiO2 10/24/16 04:00 98.0 74 18 128/69 99 Room Air 10/24/16 00:00 97.6 77 18 132/63 98 Room Air 10/23/16 20:00 97.7 96 18 134/64 98 Room Air 10/23/16 16:00 98.1 75 20 130/87 94 Room Air Height (Feet): 5 Height (Inches): 6.00 Weight (Pounds): 284 General Appearance: no acute distress HEENT: PERRL Respiratory/Chest: lungs clear Cardiovascular: normal rate Abdomen: soft, non tender Extremities: no edema Neurologic/Psychiatric: alert, oriented x 3, responsive Current Medications Medications (Trade) Dose Ordered Sig/Steve Route PRN Reason Start Time Stop Time Status Last Admin Dose Admin Acetaminophen (Tylenol) 650 mg Q4H PRN RECTAL Mild Pain (Pain Scale 1-3) 10/15/16 13:45 11/14/16 13:44 Dextrose (Dextrose 50%) STAT PRN IV Hypoglycemia 10/15/16 16:15 11/14/16 16:14 Magnesium Hydroxide 30 ml 30 ml DAILYPRN PRN ORAL Constipation 10/16/16 15:45 11/15/16 15:44 Metronidazole 100 ml @ 100 mls/hr Q8HR IVPB 10/21/16 14:00 10/28/16 23:59 10/24/16 05:58 Ondansetron HCl (Zofran) 4 mg EVERY 4 HOURS PRN IVP Nausea & Vomiting 10/15/16 17:30 11/14/16 17:29 10/22/16 16:49 Pantoprazole (Protonix) 40 mg DAILY IVP 10/16/16 09:00 11/15/16 08:59 10/24/16 10:21 Piperacillin Sod/ Tazobactam Sod/ Dextrose (Zosyn/D5W) 110 ml @ 27.5 mls/hr Q8HR@0200,1000,1800 IVPB 10/21/16 18:00 10/28/16 18:00 10/24/16 10:21 Zolpidem Tartrate (Ambien) 5 mg HSPRN PRN ORAL Insomnia 10/15/16 16:15 11/14/16 16:14 JOSH CORDOBA Oct 24, 2016 12:04
--- NOTE | 2016-10-24 13:53 | General Progress Note ---
Assessment/Plan Problem List: (1) Constipation ICD Codes: K59.00 - Constipation, unspecified SNOMED: 03202360 (2) Diverticulitis ICD Codes: K57.92 - Diverticulitis of intestine, part unspecified, without perforation or abscess without bleeding SNOMED: 616732974 Qualifiers: Assessment/Plan Abxs liquid diet await surgical recommendations Subjective Allergies: Coded Allergies: MELON (Verified Allergy, Unknown, 10/15/16) Uncoded Allergies: SHELLFISH (Allergy, Unknown, 10/15/16) Subjective In NAD Objective Last 24 Hour Vital Signs Date Time Temp Pulse Resp B/P Pulse Ox O2 Delivery O2 Flow Rate FiO2 10/24/16 12:00 97.3 56 18 146/91 99 Room Air 10/24/16 04:00 98.0 74 18 128/69 99 Room Air 10/24/16 00:00 97.6 77 18 132/63 98 Room Air 10/23/16 20:00 97.7 96 18 134/64 98 Room Air 10/23/16 16:00 98.1 75 20 130/87 94 Room Air Intake and Output 10/23/16 10/24/16 19:00 07:00 Intake Total 310.0 ml 957.5 ml Balance 310.0 ml 957.5 ml Intake Oral 720 ml IV Total 310.0 ml 237.5 ml # Voids 2 3 # Bowel Movements 2 1 Height (Feet): 5 Height (Inches): 6.00 Weight (Pounds): 284 Cardiovascular: normal rate Respiratory/Chest: lungs clear Abdomen: soft ELYSE CORDOBA Oct 24, 2016 13:53
--- NOTE | 2016-10-24 14:35 | General Surgery Progress Note ---
General Surgery-Progress Note Subjective Symptoms: improved, BM Objective Last 24 Hour Vital Signs Date Time Temp Pulse Resp B/P Pulse Ox O2 Delivery O2 Flow Rate FiO2 10/24/16 12:00 97.3 56 18 146/91 99 Room Air 10/24/16 04:00 98.0 74 18 128/69 99 Room Air 10/24/16 00:00 97.6 77 18 132/63 98 Room Air 10/23/16 20:00 97.7 96 18 134/64 98 Room Air 10/23/16 16:00 98.1 75 20 130/87 94 Room Air I&O Intake and Output 10/23/16 10/24/16 19:00 07:00 Intake Total 310.0 ml 957.5 ml Balance 310.0 ml 957.5 ml Intake Oral 720 ml IV Total 310.0 ml 237.5 ml # Voids 2 3 # Bowel Movements 2 1 Respiratory: clear Abdomen: soft, flat, non-tender, present bowel sounds Extremities: no tenderness Assessment Additional Comments Diverticulitis Plan Additional Comments CT shows mild improvement Continue IV Antibiotics BREANNA RDZ Oct 24, 2016 14:35
[2016-10-24] MEDS: metroNIDAZOLE 500mg tab ORAL SCH ×2 (14:56→21:33)
[2016-10-24 16:00] VITALS: BP 122/69
[2016-10-24 20:00] VITALS: BP 129/85
[2016-10-25] VITALS: BP 126/81
[2016-10-25] MEDS: Piperacillin/Tazobactam 3.375 GM in D5W 110 ML IVPB SCH ×3 (01:25→17:20)
[2016-10-25] MEDS: metroNIDAZOLE 500mg tab ORAL SCH ×3 (05:42→21:05)
[2016-10-25 07:12] LABS: EOSINOPHILS % (AUTO) 4.2 % (0.0-3.0); LYMPHOCYTES % (AUTO) 34.9 % (20.0-45.0); MEAN CORPUSCULAR HEMOGLOBIN 24.8 PG (27.0-31.0); MEAN CORPUSCULAR HGB CONC 31.6 G/DL (32.0-36.0); MEAN CORPUSCULAR VOLUME 79 FL (80-99); MEAN PLATELET VOLUME 6.8 FL (6.5-10.1); MONOCYTES % (AUTO) 7.2 % (1.0-10.0); NEUTROPHILS % (AUTO) 52.6 % (45.0-75.0); PLATELET COUNT 635 K/UL (150-450); RED CELL DISTRIBUTION WIDTH 13.6 % (11.6-14.8)
[2016-10-25 08:00] VITALS: BP 129/79
[2016-10-25] MEDS: Pantoprazole Inj IVP SCH (09:33)
--- NOTE | 2016-10-25 11:41 | Infectious Diseases Prog Note ---
Assessment/Plan Assessment/Plan antibiotics : zosyn, flagyl A 1. acute diverticulitis with perforation 2. leucocytosis improving 3. obesity P 1. continue zosyn, flagyl 2. will follow up labs Subjective Constitutional: Denies: chills, fever Respiratory: Denies: dry cough, shortness of breath Gastrointestinal/Abdominal: Reports: diarrhea, nausea, Denies: vomiting Musculoskeletal: Denies: pain Allergies: Coded Allergies: MELON (Verified Allergy, Unknown, 10/15/16) Uncoded Allergies: SHELLFISH (Allergy, Unknown, 10/15/16) Objective Vital Signs Last 24 Hour Vital Signs Date Time Temp Pulse Resp B/P Pulse Ox O2 Delivery O2 Flow Rate FiO2 10/25/16 08:00 96.5 73 18 129/79 98 Room Air 10/25/16 00:00 97.8 61 18 126/81 98 Room Air 10/24/16 20:00 97.9 59 20 129/85 98 Room Air 10/24/16 16:00 97.7 71 20 122/69 95 Room Air 10/24/16 12:00 97.3 56 18 146/91 99 Room Air Height (Feet): 5 Height (Inches): 6.00 Weight (Pounds): 284 Respiratory/Chest: lungs clear Cardiovascular: normal rate, regular rhythm, no gallop/murmur Abdomen: soft, non tender Extremities: no edema Laboratory Tests Test 10/25/16 04:35 White Blood Count 10.0 K/UL (4.8-10.8) Red Blood Count 4.70 M/UL (4.20-5.40) Hemoglobin 11.7 G/DL (12.0-16.0) L Hematocrit 37.0 % (37.0-47.0) Mean Corpuscular Volume 79 FL (80-99) L Mean Corpuscular Hemoglobin 24.8 PG (27.0-31.0) L Mean Corpuscular Hemoglobin Concent 31.6 G/DL (32.0-36.0) L Red Cell Distribution Width 13.6 % (11.6-14.8) Platelet Count 635 K/UL (150-450) H Mean Platelet Volume 6.8 FL (6.5-10.1) Neutrophils (%) (Auto) 52.6 % (45.0-75.0) Lymphocytes (%) (Auto) 34.9 % (20.0-45.0) Monocytes (%) (Auto) 7.2 % (1.0-10.0) Eosinophils (%) (Auto) 4.2 % (0.0-3.0) H Basophils (%) (Auto) 1.0 % (0.0-2.0) SURYA HEREDIA Oct 25, 2016 11:41
[2016-10-25 12:00] VITALS: BP 123/74
--- NOTE | 2016-10-25 14:31 | General Surgery Progress Note ---
General Surgery-Progress Note Subjective Symptoms: BM Objective Last 24 Hour Vital Signs Date Time Temp Pulse Resp B/P Pulse Ox O2 Delivery O2 Flow Rate FiO2 10/25/16 12:00 97.0 85 18 123/74 98 Room Air 10/25/16 08:00 96.5 73 18 129/79 98 Room Air 10/25/16 00:00 97.8 61 18 126/81 98 Room Air 10/24/16 20:00 97.9 59 20 129/85 98 Room Air 10/24/16 16:00 97.7 71 20 122/69 95 Room Air I&O Intake and Output 10/24/16 10/25/16 19:00 07:00 Intake Total 350.0 ml 600.0 ml Balance 350.0 ml 600.0 ml Intake Oral 240 ml 380 ml IV Total 110.0 ml 220.0 ml # Voids 2 6 # Bowel Movements 2 Drains: none Respiratory: clear Abdomen: soft, flat, non-tender, present bowel sounds Extremities: no tenderness Laboratory Tests Test 10/25/16 04:35 White Blood Count 10.0 K/UL (4.8-10.8) Red Blood Count 4.70 M/UL (4.20-5.40) Hemoglobin 11.7 G/DL (12.0-16.0) L Hematocrit 37.0 % (37.0-47.0) Mean Corpuscular Volume 79 FL (80-99) L Mean Corpuscular Hemoglobin 24.8 PG (27.0-31.0) L Mean Corpuscular Hemoglobin Concent 31.6 G/DL (32.0-36.0) L Red Cell Distribution Width 13.6 % (11.6-14.8) Platelet Count 635 K/UL (150-450) H Mean Platelet Volume 6.8 FL (6.5-10.1) Neutrophils (%) (Auto) 52.6 % (45.0-75.0) Lymphocytes (%) (Auto) 34.9 % (20.0-45.0) Monocytes (%) (Auto) 7.2 % (1.0-10.0) Eosinophils (%) (Auto) 4.2 % (0.0-3.0) H Basophils (%) (Auto) 1.0 % (0.0-2.0) Assessment Additional Comments Diverticulitis Plan Additional Comments Continue IV Antibiotics BREANNA RDZ Oct 25, 2016 14:31
--- NOTE | 2016-10-25 15:50 | General Progress Note ---
Assessment/Plan Problem List: (1) Constipation ICD Codes: K59.00 - Constipation, unspecified SNOMED: 24283320 (2) Diverticulitis ICD Codes: K57.92 - Diverticulitis of intestine, part unspecified, without perforation or abscess without bleeding SNOMED: [id number] Qualifiers: Assessment/Plan Abxs liquid diet Discussed with dr Andre Subjective Allergies: Coded Allergies: MELON (Verified Allergy, Unknown, 10/15/16) Uncoded Allergies: SHELLFISH (Allergy, Unknown, 10/15/16) Subjective In NAD Objective Last 24 Hour Vital Signs Date Time Temp Pulse Resp B/P Pulse Ox O2 Delivery O2 Flow Rate FiO2 10/25/16 12:00 97.0 85 18 123/74 98 Room Air 10/25/16 08:00 96.5 73 18 129/79 98 Room Air 10/25/16 00:00 97.8 61 18 126/81 98 Room Air 10/24/16 20:00 97.9 59 20 129/85 98 Room Air 10/24/16 16:00 97.7 71 20 122/69 95 Room Air Intake and Output 10/24/16 10/25/16 19:00 07:00 Intake Total 350.0 ml 600.0 ml Balance 350.0 ml 600.0 ml Intake Oral 240 ml 380 ml IV Total 110.0 ml 220.0 ml # Voids 2 6 # Bowel Movements 2 Laboratory Tests 10/25/16 04:35: White Blood Count 10.0, Red Blood Count 4.70, Hemoglobin 11.7L, Hematocrit 37.0 , Mean Corpuscular Volume 79L, Mean Corpuscular Hemoglobin 24.8L, Mean Corpuscular Hemoglobin Concent 31.6L, Red Cell Distribution Width 13.6, Platelet Count 635H, Mean Platelet Volume 6.8, Neutrophils (%) (Auto) 52.6, Lymphocytes (%) (Auto) 34.9, Monocytes (%) (Auto) 7.2, Eosinophils (%) (Auto) 4.2H, Basophils (%) (Auto) 1.0 Height (Feet): 5 Height (Inches): 6.00 Weight (Pounds): 284 Cardiovascular: normal rate Respiratory/Chest: lungs clear Abdomen: soft ELYSE CORDOBA Oct 25, 2016 15:50
[2016-10-25 16:09] VITALS: BP 129/84
[2016-10-25] MEDS ORDERED: Tubing IV Secondary IV ONE (16:31)
[2016-10-25] MEDS ORDERED: NS 275ml ONE (16:31)
[2016-10-25 20:00] VITALS: BP 132/76
[2016-10-26] VITALS (7 sets, daily range): BP systolic 101–134; BP diastolic 59–91
[2016-10-26] MEDS: Piperacillin/Tazobactam 3.375 GM in D5W 110 ML IVPB SCH ×3 (01:56→17:13)
[2016-10-26] MEDS: metroNIDAZOLE 500mg tab ORAL SCH ×3 (05:32→21:20)
[2016-10-26 06:49] LABS: BASOPHILS % (AUTO) 0.7 % (0.0-2.0); LYMPHOCYTES % (AUTO) 32.1 % (20.0-45.0); MEAN CORPUSCULAR HEMOGLOBIN 24.6 PG (27.0-31.0); MEAN CORPUSCULAR HGB CONC 31.3 G/DL (32.0-36.0); MEAN CORPUSCULAR VOLUME 79 FL (80-99); MEAN PLATELET VOLUME 6.9 FL (6.5-10.1); MONOCYTES % (AUTO) 8.3 % (1.0-10.0); NEUTROPHILS % (AUTO) 54.9 % (45.0-75.0); PLATELET COUNT 609 K/UL (150-450); RED BLOOD COUNT 4.67 M/UL (4.20-5.40); RED CELL DISTRIBUTION WIDTH 13.9 % (11.6-14.8); WHITE BLOOD COUNT 10.1 K/UL (4.8-10.8)
[2016-10-26] MEDS: Pantoprazole Inj IVP SCH (09:24)
--- NOTE | 2016-10-26 11:46 | General Progress Note ---
Assessment/Plan Problem List: (1) Constipation ICD Codes: K59.00 - Constipation, unspecified SNOMED: 66327145 (2) Diverticulitis ICD Codes: K57.92 - Diverticulitis of intestine, part unspecified, without perforation or abscess without bleeding SNOMED: 343670856 Qualifiers: Assessment/Plan Abxs liquid diet Subjective Allergies: Coded Allergies: MELON (Verified Allergy, Unknown, 10/15/16) Uncoded Allergies: SHELLFISH (Allergy, Unknown, 10/15/16) Subjective Does not want to talk Objective Last 24 Hour Vital Signs Date Time Temp Pulse Resp B/P Pulse Ox O2 Delivery O2 Flow Rate FiO2 10/26/16 08:00 97.8 66 18 102/73 97 Room Air 10/26/16 04:00 97.7 79 18 122/81 97 Room Air 10/26/16 00:00 97.5 88 20 119/88 96 Room Air 10/25/16 20:00 97.7 60 20 132/76 98 Room Air 10/25/16 16:09 97.7 56 20 129/84 99 Room Air 10/25/16 12:00 97.0 85 18 123/74 98 Room Air Intake and Output 10/25/16 10/26/16 19:00 07:00 Intake Total 525.0 ml 1165.0 ml Balance 525.0 ml 1165.0 ml Intake Oral 360 ml 1000 ml IV Total 165.0 ml 165.0 ml # Voids 1 8 # Bowel Movements 1 Laboratory Tests 10/26/16 05:50: White Blood Count 10.1, Red Blood Count 4.67, Hemoglobin 11.5L, Hematocrit 36.8L , Mean Corpuscular Volume 79L, Mean Corpuscular Hemoglobin 24.6L, Mean Corpuscular Hemoglobin Concent 31.3L, Red Cell Distribution Width 13.9, Platelet Count 609H, Mean Platelet Volume 6.9, Neutrophils (%) (Auto) 54.9, Lymphocytes (%) (Auto) 32.1, Monocytes (%) (Auto) 8.3, Eosinophils (%) (Auto) 4.0H, Basophils (%) (Auto) 0.7 Height (Feet): 5 Height (Inches): 6.00 Weight (Pounds): 284 ELYSE CORDOBA Oct 26, 2016 11:46
--- NOTE | 2016-10-26 12:55 | General Surgery Progress Note ---
General Surgery-Progress Note Subjective Symptoms: BM Objective Last 24 Hour Vital Signs Date Time Temp Pulse Resp B/P Pulse Ox O2 Delivery O2 Flow Rate FiO2 10/26/16 08:00 97.8 66 18 102/73 97 Room Air 10/26/16 04:00 97.7 79 18 122/81 97 Room Air 10/26/16 00:00 97.5 88 20 119/88 96 Room Air 10/25/16 20:00 97.7 60 20 132/76 98 Room Air 10/25/16 16:09 97.7 56 20 129/84 99 Room Air I&O Intake and Output 10/25/16 10/26/16 19:00 07:00 Intake Total 525.0 ml 1165.0 ml Balance 525.0 ml 1165.0 ml Intake Oral 360 ml 1000 ml IV Total 165.0 ml 165.0 ml # Voids 1 8 # Bowel Movements 1 Respiratory: clear Abdomen: soft, flat, non-tender, present bowel sounds Extremities: no tenderness Laboratory Tests Test 10/26/16 05:50 White Blood Count 10.1 K/UL (4.8-10.8) Red Blood Count 4.67 M/UL (4.20-5.40) Hemoglobin 11.5 G/DL (12.0-16.0) L Hematocrit 36.8 % (37.0-47.0) L Mean Corpuscular Volume 79 FL (80-99) L Mean Corpuscular Hemoglobin 24.6 PG (27.0-31.0) L Mean Corpuscular Hemoglobin Concent 31.3 G/DL (32.0-36.0) L Red Cell Distribution Width 13.9 % (11.6-14.8) Platelet Count 609 K/UL (150-450) H Mean Platelet Volume 6.9 FL (6.5-10.1) Neutrophils (%) (Auto) 54.9 % (45.0-75.0) Lymphocytes (%) (Auto) 32.1 % (20.0-45.0) Monocytes (%) (Auto) 8.3 % (1.0-10.0) Eosinophils (%) (Auto) 4.0 % (0.0-3.0) H Basophils (%) (Auto) 0.7 % (0.0-2.0) Assessment Additional Comments Acute Diverticulitis Plan Additional Comments continue IV Antibiotics BREANNA RDZ Oct 26, 2016 12:55
--- NOTE | 2016-10-26 14:17 | Infectious Diseases Prog Note ---
Assessment/Plan Assessment/Plan A: Diverticulitis with abscess Obesity Fatty liver P: Continue Zosyn & Flagyl, At time of discharge PO Ciprofloxacin & Flagyl X 2 weeks needs to repeat CT scan after antibiotic course to make sure abscess cleared Subjective ROS Limited/Unobtainable: No Constitutional: Reports: no symptoms Respiratory: Reports: no symptoms Gastrointestinal/Abdominal: Reports: no symptoms Genitourinary: Reports: no symptoms Allergies: Coded Allergies: MELON (Verified Allergy, Unknown, 10/15/16) Uncoded Allergies: SHELLFISH (Allergy, Unknown, 10/15/16) Objective Vital Signs Last 24 Hour Vital Signs Date Time Temp Pulse Resp B/P Pulse Ox O2 Delivery O2 Flow Rate FiO2 10/26/16 12:00 98.2 90 20 134/91 98 Room Air 10/26/16 08:00 97.8 66 18 102/73 97 Room Air 10/26/16 04:00 97.7 79 18 122/81 97 Room Air 10/26/16 00:00 97.5 88 20 119/88 96 Room Air 10/25/16 20:00 97.7 60 20 132/76 98 Room Air 10/25/16 16:09 97.7 56 20 129/84 99 Room Air Height (Feet): 5 Height (Inches): 6.00 Weight (Pounds): 284 General Appearance: no acute distress HEENT: mucous membranes moist Respiratory/Chest: lungs clear Cardiovascular: normal rate Abdomen: soft, non tender Extremities: no edema Neurologic/Psychiatric: alert, responsive Laboratory Tests Test 10/26/16 05:50 White Blood Count 10.1 K/UL (4.8-10.8) Red Blood Count 4.67 M/UL (4.20-5.40) Hemoglobin 11.5 G/DL (12.0-16.0) L Hematocrit 36.8 % (37.0-47.0) L Mean Corpuscular Volume 79 FL (80-99) L Mean Corpuscular Hemoglobin 24.6 PG (27.0-31.0) L Mean Corpuscular Hemoglobin Concent 31.3 G/DL (32.0-36.0) L Red Cell Distribution Width 13.9 % (11.6-14.8) Platelet Count 609 K/UL (150-450) H Mean Platelet Volume 6.9 FL (6.5-10.1) Neutrophils (%) (Auto) 54.9 % (45.0-75.0) Lymphocytes (%) (Auto) 32.1 % (20.0-45.0) Monocytes (%) (Auto) 8.3 % (1.0-10.0) Eosinophils (%) (Auto) 4.0 % (0.0-3.0) H Basophils (%) (Auto) 0.7 % (0.0-2.0) Current Medications Medications (Trade) Dose Ordered Sig/Steve Route PRN Reason Start Time Stop Time Status Last Admin Dose Admin Acetaminophen (Tylenol) 650 mg Q4H PRN RECTAL Mild Pain (Pain Scale 1-3) 10/15/16 13:45 11/14/16 13:44 Dextrose (Dextrose 50%) STAT PRN IV Hypoglycemia 10/15/16 16:15 11/14/16 16:14 Magnesium Hydroxide 30 ml 30 ml DAILYPRN PRN ORAL Constipation 10/16/16 15:45 11/15/16 15:44 Metronidazole (Flagyl) 500 mg Q8HR ORAL 10/24/16 14:00 10/31/16 13:59 10/26/16 13:23 Ondansetron HCl (Zofran) 4 mg EVERY 4 HOURS PRN IVP Nausea & Vomiting 10/15/16 17:30 11/14/16 17:29 10/26/16 10:17 Pantoprazole (Protonix) 40 mg DAILY IVP 10/16/16 09:00 11/15/16 08:59 10/26/16 09:24 Piperacillin Sod/ Tazobactam Sod/ Dextrose (Zosyn/D5W) 110 ml @ 27.5 mls/hr Q8HR@0200,1000,1800 IVPB 10/21/16 18:00 10/28/16 18:00 10/26/16 09:24 Zolpidem Tartrate (Ambien) 5 mg HSPRN PRN ORAL Insomnia 10/15/16 16:15 11/14/16 16:14 JOSH CORDOBA Oct 26, 2016 14:17
[2016-10-26] MEDS ORDERED: CIPROFLOXACIN500 M2 ORAL (14:18)
[2016-10-26] MEDS ORDERED: METRONIDAZOLE500 MG ORAL (14:19)
[2016-10-27] MEDS: Piperacillin/Tazobactam 3.375 GM in D5W 110 ML IVPB SCH ×3 (01:56→10:00)
[2016-10-27 03:42] VITALS: BP 116/66
[2016-10-27] MEDS: metroNIDAZOLE 500mg tab ORAL SCH ×2 (06:13→13:28)
[2016-10-27] MEDS ORDERED: Morphine Sulfate 4mg/ml Inj IVP PRN (08:45)
[2016-10-27] MEDS ORDERED: Morphine Sulfate 10mg/ml Inj IVP PRN (08:45)
[2016-10-27 08:46] VITALS: BP 132/82
[2016-10-27] MEDS: Pantoprazole Inj IVP SCH (09:10)
[2016-10-27 09:36] LABS: BASOPHILS % (AUTO) 0.9 % (0.0-2.0); EOSINOPHILS % (AUTO) 3.6 % (0.0-3.0); LYMPHOCYTES % (AUTO) 27.6 % (20.0-45.0); MEAN CORPUSCULAR HEMOGLOBIN 24.7 PG (27.0-31.0); MEAN CORPUSCULAR HGB CONC 31.1 G/DL (32.0-36.0); MEAN CORPUSCULAR VOLUME 79 FL (80-99); MEAN PLATELET VOLUME 7.1 FL (6.5-10.1); NEUTROPHILS % (AUTO) 59.8 % (45.0-75.0); PLATELET COUNT 627 K/UL (150-450); RED BLOOD COUNT 5.09 M/UL (4.20-5.40); WHITE BLOOD COUNT 10.4 K/UL (4.8-10.8)
[2016-10-27] MEDS ORDERED: Lidocaine 1% Plain 30 ml INJ PRN (11:00)
[2016-10-27] MEDS ORDERED: Heparin 2000 units/Ns 1000ml INJ PRN (11:00)
[2016-10-27] MEDS ORDERED: Sodium Bicarbonate 8.4% 50ml Inj IV PRN (11:00)
[2016-10-27 11:49] VITALS: BP 107/64
[2016-10-27] MEDS ORDERED: AUGMENTIN 500-1 EACH ORAL (12:22)
[2016-10-27] MEDS ORDERED: ZOFRAN4 M1 ORAL (12:23)
--- NOTE | 2016-10-27 12:32 | Consultation ---
Consult Note Assessment/Plan Dc dictated # [id number] ELYSE CORDOBA Oct 27, 2016 12:32
[2016-10-27] MEDS ORDERED: NORCO 10-325 T1 EACH ORAL (13:45)
--- NOTE | 2016-10-28 00:28 | Discharge Summary ---
DATE OF ADMISSION: 10/15/2016 DATE OF DISCHARGE: 10/27/2016 CHIEF COMPLAINT: Left lower quadrant abdominal pain. HISTORY OF PRESENT ILLNESS: This is a 31-year-old female, who is admitted with above symptoms. The patient was found to have a perforated diverticulitis. HOSPITAL COURSE: The patient was seen by Dr. Andre in surgical consultation. The patient was kept on IV antibiotics, Zosyn. Also she was followed by Dr. Antonio Garcia for infectious disease. The patient was initially NPO on IV fluids; however, the symptoms improved, so she was started on liquid diet. Unfortunately, the repeat CAT scan however showed that the patient still had perisigmoid gas bubbles and phlegmon consistent with proliferative diverticulitis although there was some slight improvement since previous exam of 10/17/2016. The patient was kept on a liquid diet. She was eventually switched to by mouth Augmentin and was sent home. She was told to keep herself on a liquid diet and come back to [place] to get a repeat CAT scan. The other option, which was suggested to her to go to a intermediate facility and getting IV antibiotics, but she declined. DISCHARGE DIAGNOSIS: Perforated diverticulitis. DISCHARGE MEDICATIONS: The patient is on Augmentin 500 mg every 8 hours x14 days and Zofran 4 mg every 4 hours as needed for nausea. Arcenio Garcia M.D. DR: TODD JOB#: [id number] CC:
== END 2016-10-27 14:25 | disposition home or self-care (01) | DRG 244 ==
LOC: EMR 08:38 → 4W 09:46 → EDBEDREQ 10:19
DX: K57.80 Diverticulitis of intestine, part unspecified, with perforation and abscess without bleeding (principal); K76.0 Fatty (change of) liver, not elsewhere classified; E66.9 Obesity, unspecified; K59.00 Constipation, unspecified; Z68.42 Body mass index [BMI] 45.0-49.9, adult
CPT/HCPCS: 36415; 74176; 80048; 80053; 81003; 81025; 82962; 83690; 85025; J2405

== ENCOUNTER 2016-10-30 22:03 | Emergency (ER) | payer MEDICAID ==
[~2016-10-30] VITALS: Ht 167.6 cm; Wt 121.6 kg
[~2016-10-30 22:03] MED LIST changes: +AUGMENTIN 500-1 EACH ORAL; +CIPROFLOXACIN500 M2 ORAL; +LEVOFLOXACIN750 MG ORAL; +METRONIDAZOLE500 MG ORAL; +NORCO 10-325 T1 EACH ORAL; +ZOFRAN4 M1 ORAL
[2016-10-30] MEDS ORDERED: Morphine Sulfate 4mg/ml Inj IVP ONE (23:00)
[2016-10-30 23:52] LABS: LYMPHOCYTES % (AUTO) 15.9 % (20.0-45.0); MEAN CORPUSCULAR HEMOGLOBIN 25.9 PG (27.0-31.0); MEAN CORPUSCULAR HGB CONC 32.7 G/DL (32.0-36.0); MEAN CORPUSCULAR VOLUME 79 FL (80-99); MEAN PLATELET VOLUME 7.6 FL (6.5-10.1); MONOCYTES % (AUTO) 4.9 % (1.0-10.0); NEUTROPHILS % (AUTO) 76.1 % (45.0-75.0); PLATELET COUNT 531 K/UL (150-450); RED BLOOD COUNT 4.63 M/UL (4.20-5.40); RED CELL DISTRIBUTION WIDTH 14.2 % (11.6-14.8); WHITE BLOOD COUNT 10.6 K/UL (4.8-10.8)
[2016-10-30 23:53] LABS: APPEARANCE,URINE CLEAR; KETONES,URINE 1+ (NEGATIVE); LEUKOCYTE ESTERASE ,URINE 1+ (NEGATIVE); NITRITE,URINE NEGATIVE (NEGATIVE); PH,URINE 6 (4.5-8.0); PROTEIN,URINE 4+ (NEGATIVE); UROBILINOGEN,URINE NORMAL MG/DL (0.0-1.0)
[2016-10-31 00:06] VITALS: BP 108/78
[2016-10-31 00:08] LABS: ALANINE AMINOTRANSFERASE 13 U/L (3-33); ALBUMIN/GLOBULIN RATIO 0.7 (1.0-2.7); ANION GAP 17 (5-15); ASPARTATE AMINO TRANSFERASE 14 U/L (5-40); CALCIUM 9.1 mg/dL (8.6-10.2); CARBON DIOXIDE 25 mEQ/L (20-30); CHLORIDE 96 mEQ/L (98-107); CREATININE 0.7 mg/dL (0.5-0.9); GLOMERULAR FILTRATION RATE > 60 mL/min (>60); HEMOLYSIS 0; LIPASE 56 U/L (< 60); POTASSIUM 3.7 mEQ/L (3.4-4.9); SODIUM 138 mEQ/L (135-145); TOTAL PROTEIN 8.5 g/dL (6.6-8.7)
[2016-10-31 00:35] LABS: BACTERIA,URINE MODERATE /HPF; MUCUS,URINE MODERATE /LPF (NONE/OCC); RBC,URINE 40-60 /HPF (0 - 2); SQUAMOUS EPITHELIAL CELL,UR MODERATE /LPF (NONE/OCC)
[2016-10-31 01:00] VITALS: BP 121/76
[2016-10-31] MEDS ORDERED: NORCO 10-325 T1 EACH ORAL (01:06)
[2016-10-31 01:15] VITALS: BP 121/76
--- NOTE | 2016-10-31 03:14 | Emergency Room Report ---
History of Present Illness General Chief Complaint: Abdominal Pain Source: Patient Present Illness HPI 31-year-old female presents to ED for evaluation. States she is having left lower quadrant pain times one day. Pain is sharp, 5/10, nonradiating. No other aggravating or leading factors. Denies any fevers or chills. Denies nausea or vomiting. Patient states that she was recently discharged from hospital for diagnosis of diverticulitis. Patient states she had a "hole" in her colon. Was discharged on antibiotics. Patient return to ED tissue is continuing to have pain despite taking her medications. Denies any other associated symptom Allergies: Coded Allergies: MELON (Verified Allergy, Unknown, 10/15/16) Uncoded Allergies: SHELLFISH (Allergy, Unknown, 10/15/16) Patient History Past Medical History: other - diverticulitis Past Surgical History: none Pertinent Family History: none Social History: Denies: alcohol use, drug use, smoking Last Menstrual Period: October Now: No Immunizations: UTD Reviewed Nursing Documentation: PMH: Agreed, PSxH: Agreed Nursing Documentation-PMH Hx Cardiac Problems: No Hx COPD: No Hx Cancer: No Hx Gastrointestinal Problems: Yes - Diverticulitis Hx Dialysis: No Hx Neurological Problems: No Hx Cerebrovascular Accident: No Hx Transient Ischemic Attacks: No Hx Dementia: No Hx Alzheimer's Disease: No Hx Parkinson's Disease: No Hx Meningitis: No Hx Encephalitis: Yes Hx Seizures: No Hx Epilepsy: No Hx Multiple Sclerosis: No Hx Cerebral Palsy: No Hx Amyotrophic Lat Sclerosis: No Hx Guillian-[place] Syndrome: No Hx Paralysis: No Hx Peripheral Neuropathy: No Hx Spinal Cord Injury: No Hx Head Trauma: No Hx Memory Loss: No Hx Concentration Difficulty: No Hx Speech Problem: No Hx Tremors: No Hx Vertigo: No Hx Dizziness: No Hx Syncope: No Hx Headaches: No Hx Aphasia: No Hx Dysphasia: No Hx Numbness: No Hx Weakness: No Hx Fatigue: No Hx Neurologic Surgery: No Hx Brain Shunt: Yes Review of Systems All Other Systems: negative except mentioned in HPI Physical Exam Vital Signs Date Time Temp Pulse Resp B/P Pulse Ox O2 Delivery O2 Flow Rate FiO2 10/30/16 22:13 98.1 106 18 120/84 100 Room Air Sp02 EP Interpretation: reviewed, normal General Appearance: no apparent distress, alert, GCS 15, non-toxic, obese Head: normocephalic Eyes: bilateral eye PERRL, bilateral eye normal inspection ENT: normal ENT inspection Neck: normal inspection Respiratory: chest non-tender, lungs clear, normal breath sounds, speaking full sentences Cardiovascular #1: regular rate, rhythm, no edema Gastrointestinal: soft, no guarding, no rebound, tenderness - Left lower quadrant Rectal: deferred Genitourinary: no CVA tenderness Musculoskeletal: normal inspection Neurologic: normal inspection Psychiatric: normal inspection Skin: normal inspection Lymphatic: normal inspection Medical Decision Making Diagnostic Impression: Primary Impression: Diverticulitis Qualified Codes: K57.20 - Diverticulitis of large intestine with perforation and abscess without bleeding ER Course Hospital Course 31-year-old female presents to ED with lower abdominal pain Differential diagnoses include: appendicitis, diverticulitis, SBO, gastroenteritis Clinical course Patient placed on stretcher. nurse clinical. After initial history and physical I ordered labs, IV fluids, UA, pain medication and CT scan Labs - no leukocytosis, Hb/Hct stable. electrolytes ok. CT abdomen and pelvis - diverticulitis with perforation. Unchanged from prior CT Patient was discharged on Augmentin. Scheduled for followup 2 weeks after discharge or also possible repeat CT. Given that patient does not appear toxic, normal labs with unchanged CT and do not believe patient requires admission or further invention at this time. Patient will continue her antibiotics and followup as scheduled I feel this is a highly complex case requiring extensive working including EKG/ Rhythm strip, Xray/CT/US, Blood/urine lab work, repeat exams while in ED, and administration of strong opiates/narcotics for pain control, admission to hospital or close patient follow up. Diagnosis - divertculitis stable and discharged to home with prescription for Seymour. Continue antibiotics as directed. Followup with PMD. Return to ED if symptoms recur or worsen Labs Test 10/30/16 23:25 White Blood Count 10.6 K/UL (4.8-10.8) Red Blood Count 4.63 M/UL (4.20-5.40) Hemoglobin 12.0 G/DL (12.0-16.0) Hematocrit 36.6 % (37.0-47.0) Mean Corpuscular Volume 79 FL (80-99) Mean Corpuscular Hemoglobin 25.9 PG (27.0-31.0) Mean Corpuscular Hemoglobin Concent 32.7 G/DL (32.0-36.0) Red Cell Distribution Width 14.2 % (11.6-14.8) Platelet Count 531 K/UL (150-450) Mean Platelet Volume 7.6 FL (6.5-10.1) Neutrophils (%) (Auto) 76.1 % (45.0-75.0) Lymphocytes (%) (Auto) 15.9 % (20.0-45.0) Monocytes (%) (Auto) 4.9 % (1.0-10.0) Eosinophils (%) (Auto) 2.0 % (0.0-3.0) Basophils (%) (Auto) 1.0 % (0.0-2.0) Urine Color Yellow Urine Appearance Clear Urine pH 6 (4.5-8.0) Urine Specific [place] 1.015 (1.005-1.035) Urine Protein 4+ (NEGATIVE) Urine Glucose (UA) Negative (NEGATIVE) Urine Ketones 1+ (NEGATIVE) Urine Occult Blood 5+ (NEGATIVE) Urine Nitrite Negative (NEGATIVE) Urine Bilirubin Negative (NEGATIVE) Urine Urobilinogen Normal MG/DL (0.0-1.0) Urine Leukocyte Esterase 1+ (NEGATIVE) Urine RBC 40-60 /HPF (0 - 2) Urine WBC 2-4 /HPF (0 - 2) Urine Squamous Epithelial Cells Moderate /LPF (NONE/OCC) Urine Bacteria Moderate /HPF (NONE) Urine Mucus Moderate /LPF (NONE/OCC) Urine HCG, Qualitative Negative Sodium Level 138 mEQ/L (135-145) Potassium Level 3.7 mEQ/L (3.4-4.9) Chloride Level 96 mEQ/L (98-107) Carbon Dioxide Level 25 mEQ/L (20-30) Anion Gap 17 (5-15) Blood Urea Nitrogen 4 mg/dL (7-23) Creatinine 0.7 mg/dL (0.5-0.9) Estimat Glomerular Filtration Rate > 60 mL/min (>60) Glucose Level 121 mg/dL (74-106) Calcium Level 9.1 mg/dL (8.6-10.2) Total Bilirubin 0.4 mg/dL (0.0-1.2) Aspartate Amino Transf (AST/SGOT) 14 U/L (5-40) Alanine Aminotransferase (ALT/SGPT) 13 U/L (3-33) Alkaline Phosphatase 49 U/L (35-104) Total Protein 8.5 g/dL (6.6-8.7) Albumin 3.7 g/dL (3.5-5.2) Globulin 4.8 g/dL Albumin/Globulin Ratio 0.7 (1.0-2.7) Lipase 56 U/L (< 60) CT/MRI/US Diagnostic Results CT/MRI/US Diagnostic Results : Imaging Test Ordered: CT A/P Impression Diverticulitis with perforation. Unchanged from prior CT Last Vital Signs Date Time Temp Pulse Resp B/P Pulse Ox O2 Delivery O2 Flow Rate FiO2 10/31/16 01:15 98.1 88 16 121/76 100 Room Air Status: improved Disposition: HOME, SELF-CARE Condition: Stable Scripts Hydrocodone Bit/Acetaminophen 10-325* (NORCO 10-325*) 1 Each Tablet 1 TAB ORAL Q6H Y for For Pain, #10 TAB 0 Refills PRN PAIN Prov: PHUONG BRIZUELA M.D. 10/31/16 Patient Instructions: Diverticulitis, [id number] PHUONG BRIZUELA M.D. Oct 31, 2016 03:14
--- NOTE | 2016-10-31 11:18 | Diagnostic Imaging Report ---
Indication: Abdominal pain Technique: Spiral acquisitions obtained through the abdomen and pelvis. No oral contrast utilized, per emergency room physician request No IV contrast utilized, per referring physician request.. Multiplanar reconstructions were generated. Total dose length product 1136 mGycm. CTDIvol(s) 19 mGy Comparison: 10/23/2016 Findings: Lack of enteric contrast limits assessment of the bowel. The appendix is normal. There is colonic diverticulosis again demonstrated. Again demonstrated is large area of soft tissue attenuation surrounding a diverticulum adjacent and inferior to the proximal sigmoid. This area measures approximately or by 4 cm, appears similar to the previous exam. There are inflammatory changes extending into the anterior pelvis and right broad ligament appear similar to the previous study. No focal fluid collection is demonstrated. The amount of extraluminal gas appears diminished from the prior study. No small bowel distention. No free or loculated intraperitoneal air or fluid other than the findings previously described. Distal esophagus, stomach, duodenum are unremarkable. Lack of IV contrast limits assessment of the solid organs. The liver is diffusely hypoattenuating, consistent with fatty change. No gross focal abnormality. The gallbladder, bile ducts, pancreas, spleen, adrenals, kidneys, ureters, bladder are all unremarkable. No retroperitoneal or mesenteric mass or adenopathy. No pelvic mass or adenopathy. Impression: Evidence of perforated sigmoid diverticulitis, with large area of extraluminal phlegmon but no definite discrete drainable fluid collection, findings appearing similar to prior exam of 7 days earlier except for slightly less extraluminal gas Fatty liver, also previously described This agrees with the preliminary interpretation provided overnight by [facility] teleradiology service. The CT scanner at [facility] is accredited by the [employer] and the scans are performed using protocols designed to limit radiation exposure to as low as reasonably achievable to attain images of sufficient resolution adequate for diagnostic evaluation.
== END 2016-10-31 01:15 | disposition home or self-care (01) ==
LOC: EMR 23:01
DX: K57.92 Diverticulitis of intestine, part unspecified, without perforation or abscess without bleeding (principal); Z91.013 Allergy to seafood; Z91.018 Allergy to other foods
CPT/HCPCS: 36415; 74176; 80053; 81003; 81025; 83690; 85025; 87086; 96374; 96375; 99284; J2270

== ENCOUNTER 2016-11-02 19:55 | Emergency (ER) | payer MEDICAID ==
[~2016-11-02] VITALS: Ht 167.6 cm; Wt 117.9 kg
[2016-11-02 20:38] VITALS: BP 132/89
[2016-11-02 21:29] LABS: APPEARANCE,URINE SLIGHTLY CLOUDY; KETONES,URINE 1+ (NEGATIVE); LEUKOCYTE ESTERASE ,URINE 1+ (NEGATIVE); NITRITE,URINE NEGATIVE (NEGATIVE); PH,URINE 6 (4.5-8.0); PROTEIN,URINE 4+ (NEGATIVE); UROBILINOGEN,URINE NORMAL MG/DL (0.0-1.0)
[2016-11-02] MEDS ORDERED: PHENAZOPYRIDIN100 MG ORAL (21:32)
[2016-11-02] MEDS ORDERED: NITROFURANTOIN100 M2 ORAL (21:32)
[2016-11-02 21:34] LABS: RBC,URINE TNTC /HPF (0 - 2)
[2016-11-02 21:35] LABS: BACTERIA,URINE FEW /HPF; SQUAMOUS EPITHELIAL CELL,UR MODERATE /LPF (NONE/OCC); WBC,URINE 0-2 /HPF (0 - 2)
[2016-11-02 21:37] VITALS: BP 132/89
--- NOTE | 2016-11-04 13:49 | Emergency Room Report ---
History of Present Illness General Chief Complaint: Female Urogenital Problems Source: Patient Present Illness HPI Patient is a 31-year-old female presented after having increased lower abdominal pain. The patient reported having increased dysuria as well as frequency of urination. Patient recently been hospitalized and had been diagnosed with diverticulitis. Patient denied any hematuria. She denied any vaginal discharge. She had been taking Hume for pain . Allergies: Coded Allergies: MELON (Verified Allergy, Unknown, 10/15/16) Uncoded Allergies: SHELLFISH (Allergy, Unknown, 10/15/16) Patient History Last Menstrual Period: October Reviewed Nursing Documentation: PMH: Agreed, PSxH: Agreed Nursing Documentation-PMH Hx Cardiac Problems: No Hx COPD: No Hx Cancer: No Hx Gastrointestinal Problems: Yes - Diverticulitis Hx Dialysis: No Hx Neurological Problems: No Hx Cerebrovascular Accident: No Hx Transient Ischemic Attacks: No Hx Dementia: No Hx Alzheimer's Disease: No Hx Parkinson's Disease: No Hx Meningitis: No Hx Encephalitis: Yes Hx Seizures: No Hx Epilepsy: No Hx Multiple Sclerosis: No Hx Cerebral Palsy: No Hx Amyotrophic Lat Sclerosis: No Hx Guillian-[place] Syndrome: No Hx Paralysis: No Hx Peripheral Neuropathy: No Hx Spinal Cord Injury: No Hx Head Trauma: No Hx Memory Loss: No Hx Concentration Difficulty: No Hx Speech Problem: No Hx Tremors: No Hx Vertigo: No Hx Dizziness: No Hx Syncope: No Hx Headaches: No Hx Aphasia: No Hx Dysphasia: No Hx Numbness: No Hx Weakness: No Hx Fatigue: No Hx Neurologic Surgery: No Hx Brain Shunt: Yes Review of Systems All Other Systems: negative except mentioned in HPI Physical Exam Vital Signs Date Time Temp Pulse Resp B/P Pulse Ox O2 Delivery O2 Flow Rate FiO2 11/02/16 20:03 99.3 116 18 135/92 100 Room Air Sp02 EP Interpretation: reviewed, normal General Appearance: normal inspection, well appearing, no apparent distress, alert, GCS 15 Head: atraumatic ENT: normal ENT inspection, hearing grossly normal, normal voice Neck: normal inspection, full range of motion, supple, no bony tend Respiratory: normal inspection, lungs clear, normal breath sounds, no respiratory distress, no retraction, no wheezing Cardiovascular #1: regular rate, rhythm, no edema Gastrointestinal: normal inspection, normal bowel sounds, non tender, soft, no guarding, no hernia Genitourinary: no CVA tenderness Musculoskeletal: normal inspection, back normal, normal range of motion Neurologic: normal inspection, alert, responsive, speech normal Psychiatric: normal inspection, judgement/insight normal, mood/affect normal Skin: normal inspection, normal color, no rash Medical Decision Making Diagnostic Impression: Primary Impression: UTI (urinary tract infection) ER Course The patient presented for abdominal pain. Because of complexity of patient's case laboratory tests were ordered. The patient noted have evidence of urinary tract infection. The patient was noted to have a prior history of diverticulitis. The patient was currently taking Augmentin. She started on oral antibiotics. The patient is advised to followup with her primary care physician for reexamination and just return if she began having persistent vomiting increased fever or other concerns. Labs Test 11/02/16 20:45 Urine Color Brown Urine Appearance Slightly cloudy Urine pH 6 (4.5-8.0) Urine Specific [place] 1.020 (1.005-1.035) Urine Protein 4+ (NEGATIVE) Urine Glucose (UA) Negative (NEGATIVE) Urine Ketones 1+ (NEGATIVE) Urine Occult Blood 5+ (NEGATIVE) Urine Nitrite Negative (NEGATIVE) Urine Bilirubin Negative (NEGATIVE) Urine Urobilinogen Normal MG/DL (0.0-1.0) Urine Leukocyte Esterase 1+ (NEGATIVE) Urine RBC Tntc /HPF (0 - 2) Urine WBC 0-2 /HPF (0 - 2) Urine Squamous Epithelial Cells Moderate /LPF (NONE/OCC) Urine Bacteria Few /HPF (NONE) Urine HCG, Qualitative Negative Last Vital Signs Date Time Temp Pulse Resp B/P Pulse Ox O2 Delivery O2 Flow Rate FiO2 11/02/16 21:37 99.1 109 17 132/89 100 Room Air Status: improved Disposition: HOME, SELF-CARE Condition: Stable Scripts Phenazopyridine Hcl* (PYRIDIUM*) 100 Mg Tablet 100 MG ORAL THREE TIMES A DAY, #14 TAB Prov: Loi Park 11/02/16 Nitrofurantoin Monohyd/M-Cryst* (MACROBID 100 MG*) 100 Mg Capsule 100 MG ORAL EVERY 12 HOURS, #14 CAP Prov: Loi Park 11/02/16 Referrals: NOT CHOSEN IPA/MD,REFERRING (PCP) Patient Instructions: Urinary Tract Infection Loi Park Nov 04, 2016 13:49
== END 2016-11-02 21:45 | disposition home or self-care (01) ==
LOC: EMR 21:39
DX: N39.0 Urinary tract infection, site not specified (principal); K57.90 Diverticulosis of intestine, part unspecified, without perforation or abscess without bleeding; Z91.013 Allergy to seafood; Z91.018 Allergy to other foods
CPT/HCPCS: 81003; 81025; 99284

== ENCOUNTER 2016-11-07 10:39 | Inpatient (IN) | payer MEDICAID ==
[~2016-11-07] VITALS: Ht 167.6 cm; Wt 101.6 kg
[~2016-11-07 10:39] MED LIST changes: +NITROFURANTOIN100 M2 ORAL; +PHENAZOPYRIDIN100 MG ORAL
[2016-11-07 11:24] VITALS: BP 130/70
[2016-11-07 12:15] LABS: MEAN CORPUSCULAR HEMOGLOBIN 24.8 PG (27.0-31.0); MEAN CORPUSCULAR HGB CONC 30.7 G/DL (32.0-36.0); MEAN CORPUSCULAR VOLUME 81 FL (80-99); PLATELET COUNT 614 K/UL (150-450); RED BLOOD COUNT 4.67 M/UL (4.20-5.40); RED CELL DISTRIBUTION WIDTH 14.2 % (11.6-14.8); WHITE BLOOD COUNT 17.1 K/UL (4.8-10.8)
[2016-11-07] MEDS ORDERED: Morphine Sulfate 4mg/ml Inj IVP ONE (12:15)
[2016-11-07] MEDS ORDERED: Ketorolac 30mg Inj IV ONE (12:15)
[2016-11-07 12:20] VITALS: BP 146/97
[2016-11-07 12:27] LABS: APPEARANCE,URINE SLIGHTLY CLOUDY; KETONES,URINE NEGATIVE (NEGATIVE); LEUKOCYTE ESTERASE ,URINE 2+ (NEGATIVE); NITRITE,URINE NEGATIVE (NEGATIVE); PH,URINE 6 (4.5-8.0); PROTEIN,URINE 3+ (NEGATIVE); UROBILINOGEN,URINE NORMAL MG/DL (0.0-1.0)
[2016-11-07 12:28] LABS: ALANINE AMINOTRANSFERASE 16 U/L (3-33); ALBUMIN/GLOBULIN RATIO 0.8 (1.0-2.7); ANION GAP 16 (5-15); ASPARTATE AMINO TRANSFERASE 14 U/L (5-40); CALCIUM 9.8 mg/dL (8.6-10.2); CARBON DIOXIDE 30 mEQ/L (20-30); CHLORIDE 94 mEQ/L (98-107); CREATININE 0.8 mg/dL (0.5-0.9); GLOMERULAR FILTRATION RATE > 60 mL/min (>60); HEMOLYSIS 1; LIPASE 22 U/L (< 60); POTASSIUM 3.7 mEQ/L (3.4-4.9); SODIUM 140 mEQ/L (135-145); TOTAL PROTEIN 8.7 g/dL (6.6-8.7)
[2016-11-07] MEDS ORDERED: metroNIDAZOLE 500mg 100 ML IVPB ONE (12:30)
[2016-11-07 12:36] LABS: BACTERIA,URINE FEW /HPF; RBC,URINE 30-40 /HPF (0 - 2); SQUAMOUS EPITHELIAL CELL,UR FEW /LPF (NONE/OCC)
[2016-11-07 12:39] LABS: ANISOCYTOSIS 1+; BAND NEUTROPHILS % (MANUAL) 5 % (0-8); BASOPHILS % (MANUAL) 0 % (0-2); EOSINOPHILS % (MANUAL) 0 % (0-3); HYPOCHROMASIA 1+; LYMPHOCYTES % (MANUAL) 13 % (20-45); NEUTROPHILS % (MANUAL) 76 % (45-75); PLATELET ESTIMATE INCREASED; PLATELET MORPHOLOGY NORMAL; TOTAL CELLS COUNTED 100
[2016-11-07 12:40] LABS: MICROCYTES 1+
--- NOTE | 2016-11-07 12:44 | Emergency Room Report ---
History of Present Illness General Chief Complaint: Nausea Source: Patient Present Illness HPI 31 YOF with 1 day of 10/10 sharp, left lower quad abd pain with nausea/ vomiting. Per patient and EMR, admission for perforated diverticulitis. Serial CT during the admission showed improved, perf likely d/ t phlegmon vs abscess less likely. Patient DCed on Augmentin, was taking outpatient at home. Came back to [place] on 10/30 also for LLQ pain, had Abx "switched." Came again 11/02 for similar complaint, was DXed with UTI and given Macrobid to take with "the diverticulitis antibiotic." Allergies: Coded Allergies: MELON (Verified Allergy, Unknown, 10/15/16) Uncoded Allergies: SHELLFISH (Allergy, Unknown, 10/15/16) Patient History Past Medical History: diverticulitis Past Surgical History: none Pertinent Family History: none Social History: Denies: alcohol use, drug use, smoking Now: No Immunizations: UTD Reviewed Nursing Documentation: PMH: Agreed, PSxH: Agreed Nursing Documentation-PMH Hx Cardiac Problems: No Hx Hypertension: No Hx Pacemaker: No Hx Asthma: No Hx COPD: No Hx Diabetes: No Hx Cancer: No Hx Gastrointestinal Problems: Yes - diverticulities Hx Dialysis: No History Of Psychiatric Problem: No Hx Neurological Problems: No Hx Cerebrovascular Accident: No Hx Transient Ischemic Attacks: No Hx Dementia: No Hx Alzheimer's Disease: No Hx Parkinson's Disease: No Hx Meningitis: No Hx Encephalitis: Yes Hx Seizures: No Hx Epilepsy: No Hx Multiple Sclerosis: No Hx Cerebral Palsy: No Hx Amyotrophic Lat Sclerosis: No Hx Guillian-[place] Syndrome: No Hx Paralysis: No Hx Peripheral Neuropathy: No Hx Spinal Cord Injury: No Hx Head Trauma: No Hx Memory Loss: No Hx Concentration Difficulty: No Hx Speech Problem: No Hx Tremors: No Hx Vertigo: No Hx Dizziness: No Hx Syncope: No Hx Headaches: No Hx Aphasia: No Hx Dysphasia: No Hx Numbness: No Hx Weakness: No Hx Fatigue: No Hx Neurologic Surgery: No Hx Brain Shunt: Yes Review of Systems All Other Systems: negative except mentioned in HPI Physical Exam Vital Signs Date Time Temp Pulse Resp B/P Pulse Ox O2 Delivery O2 Flow Rate FiO2 11/07/16 11:08 97.9 88 16 130/70 98 Room Air Sp02 EP Interpretation: reviewed, normal General Appearance: normal inspection, well appearing, no apparent distress, alert, GCS 15, non-toxic, obese Head: normocephalic, atraumatic Eyes: bilateral eye EOMI, bilateral eye PERRL ENT: normal ENT inspection, hearing grossly normal, normal voice Neck: normal inspection, full range of motion, supple, no bony tend Respiratory: normal inspection, lungs clear, normal breath sounds, no respiratory distress, no retraction, no wheezing Cardiovascular #1: regular rate, rhythm, no edema Gastrointestinal: normal inspection, normal bowel sounds, soft, no mass, no organomegaly, no guarding, no hernia, other - LLQ ttp Genitourinary: no CVA tenderness Musculoskeletal: normal inspection, back normal, normal range of motion, Glenys' s Sign negative Neurologic: normal inspection, alert, oriented x3, responsive, billing clerk III-XII nml as tested, motor strength/tone normal, speech normal Psychiatric: normal inspection, judgement/insight normal, mood/affect normal Skin: normal inspection Medical Decision Making Diagnostic Impression: Primary Impression: Abdominal pain Qualified Codes: R10.30 - Lower abdominal pain, unspecified Additional Impressions: Diverticulitis Qualified Codes: K57.20 - Diverticulitis of large intestine with perforation and abscess without bleeding Colonic diverticular abscess ER Course Labs: Leuks 17k. 10WBC in Urine. I started patient on levo/flagyl IV for empiric known diverticulitis as patient was on PO Augmentin alone. I would prefer to avoid a THIRD CT AP in 1 month given young age, female gender. However in discussion with Dr Garcia, will do additional CTAP here Endorsed to Dr Garcia at 1248pm for med/surg admission CT shows abscess Made NPO Dr Andre consulted. Dr Craft made aware. Last Vital Signs Date Time Temp Pulse Resp B/P Pulse Ox O2 Delivery O2 Flow Rate FiO2 11/07/16 12:20 96 16 146/97 95 Room Air 11/07/16 12:17 97.9 Status: improved Disposition: ADMITTED INPATIENT Condition: Serious Referrals: NOT CHOSEN IPA/,REFERRING (PCP) GORDON MAYNARD M.D. Nov 07, 2016 12:44
[2016-11-07 14:00] VITALS: BP 141/79
[2016-11-07] MEDS ORDERED: HYDROmorphone 1mg/NS 50ml IVPB 50 ML IVPB PRN (14:30)
[2016-11-07] MEDS ORDERED: D5 1/2NS w/KCl 20mEq 1,000 ML IV SCH (14:30)
[2016-11-07] MEDS ORDERED: Gentamicin Rx monitoring MISC PRN (14:30)
[2016-11-07] MEDS ORDERED: Zolpidem 5mg tab ORAL PRN (14:45)
[2016-11-07] MEDS ORDERED: Milk of Magnesia 30ml Ud ORAL PRN (14:45)
[2016-11-07] MEDS: D5 1/2NS w/KCl 20mEq 1,000 ML IV SCH (16:30)
--- NOTE | 2016-11-07 16:36 | Diagnostic Imaging Report ---
Clinical Indication: Left lower quadrant abdominal pain Technique: No oral contrast utilized, per emergency room physician request IV administration nonionic contrast. Venous phase spiral acquisition obtained through the abdomen and pelvis. Multiplanar reconstructions were generated. Total dose length product 1100 mGycm. CTDIvol(s) the mGy Comparison: 10/30/2016 Findings: Again demonstrated is is extraluminal gas and infiltration of the pericolonic fat adjacent to the mid sigmoid colon. There is now a component of fluid with an air-fluid level, overall collection measuring approximately 4 cm diameter. There is thickening of the adjacent bladder wall. The appendix is normal. No small bowel distention. No ascites. No free intraperitoneal air. Distal esophagus, stomach, duodenum are unremarkable. The liver is diffusely hypoattenuating, consistent with diffuse fatty change. No focal abnormality. Gallbladder, bile ducts, pancreas, spleen, adrenals, kidneys are unremarkable. No retroperitoneal or mesenteric mass or adenopathy. No pelvic mass or adenopathy. The included lung bases are clear except for minimal atelectasis on the left. The bones are unremarkable. Impression: Again demonstrated is evidence of perforated sigmoid diverticulitis with surrounding extensive phlegmon. There is now evidence of a small 4 cm diameter abscess, which contains evident air-fluid level. This has developed since the previous study. Fatty liver, also previously described Findings discussed by phone with Dr. Alvarado in the emergency room at the time of interpretation Images also reviewed in person with Dr. Andre The CT scanner at [facility] is accredited by the [employer] and the scans are performed using protocols designed to limit radiation exposure to as low as reasonably achievable to attain images of sufficient resolution adequate for diagnostic evaluation.
[2016-11-07] MEDS ORDERED: Gentamicin inj 400 MG in NS 110 ML IVPB SCH (17:00)
[2016-11-07] MEDS: Piperacillin/Tazobactam 4.5 GM in D5W 110 ML IVPB SCH ×2 (18:50→22:47)
[2016-11-07] MEDS: Metoclopramide 10mg/2ml Inj IVP PRN (19:16)
--- NOTE | 2016-11-07 19:58 | Consultation ---
DATE OF CONSULTATION: CONSULTING PHYSICIAN: Angelic Andre M.D. REFERRING PHYSICIAN: Arcenio Garcia M.D. REASON FOR CONSULTATION: Abdominal pain. HISTORY OF PRESENTING ILLNESS: This is a 31-year-old female who was admitted to our facility on 10/15/2016 to 10/27/2016 for acute diverticulitis with phlegmon. She was treated with IV antibiotic and when the pain resolved and her condition improved, she was discharged home on p.o. antibiotics. She was instructed to stay on clear liquid diet for two weeks. Apparently, the patient has had recurrence of the pain, for which she has returned to the emergency room on 10/30/2016 and 11/03/2016, but anyway today, she came back complaining of pain in the left lower quadrant and associated with nausea and vomiting. She claimed she had recurrence of the pain since yesterday. She denies any fever. She claimed that she started regular diet about four days ago, but even when she was in the hospital, she was not very cooperative. PAST MEDICAL HISTORY: She denies allergies, diabetes, hypertension, cardiac or renal diseases. She claimed that she had a history of asthma, but she has not had attack for long time. ALLERGIES: She claimed that she is allergic to shellfish. PAST SURGICAL HISTORY: None. MEDICATIONS: She has been on antibiotics. SOCIAL HISTORY: The patient is a 31-year-old female, who is single without any children. She works as a sed middle school teacher and she denies smoking, but drinks socially. REVIEW OF SYSTEMS: Noncontributory. PHYSICAL EXAMINATION: GENERAL: The patient appeared to be a well-developed, well-nourished, obese, 31-year-old female, lying on the gurney, complaining of abdominal pain. HEENT: Head is normocephalic and atraumatic. Eyes, pupils are equal, round, and reactive to light. Mouth is clear. NECK: There is no palpable thyromegaly or adenopathy. CHEST: Clear to auscultation and percussion. HEART: There is no gallop or murmur. S1 and S2 are within normal limits. ABDOMEN: Obese and pendulous, but soft. She has tenderness, rebound tenderness, and guarding at the left lower quadrant of the abdomen. Bowel sounds are present. GENITALIA: Deferred. EXTREMITIES: Within normal limits. LABORATORY AND DIAGNOSTIC DATA: CBC has shown a WBC of 17,100 with a left shift. Chemistry is within normal limits. CAT scan of the abdomen has shown a small abscess at the medial to the sigmoid colon at the area of the previous phlegmon. I had a long discussion with the radiologist about the CAT scan and he felt that it was accessible and we will try to drain it percutaneously tomorrow. ASSESSMENT: Diverticulitis with abscess. PLAN: I have taken the liberty of scheduling her for the percutaneous drainage of the abscess by the radiologist. She requires to be NPO and IV antibiotic. If this treatment regimen fails, she will require an exploratory laparotomy and resection of the colon with colostomy. This has been explained to the patient. It appears that she understood. Angelic Andre M.D. DR: NELLY JOB#: [id number] CC:
[2016-11-08] VITALS (20 sets, daily range): BP systolic 119–147; BP diastolic 67–102
[2016-11-08] MEDS: D5 1/2NS w/KCl 20mEq 1,000 ML IV SCH ×3 (03:13→21:30)
[2016-11-08] MEDS: Piperacillin/Tazobactam 4.5 GM in D5W 110 ML IVPB SCH ×3 (05:49→21:47)
[2016-11-08 06:44] LABS: ALANINE AMINOTRANSFERASE 13 U/L (3-33); ALBUMIN/GLOBULIN RATIO 0.7 (1.0-2.7); ANION GAP 16 (5-15); ASPARTATE AMINO TRANSFERASE 12 U/L (5-40); CALCIUM 9.1 mg/dL (8.6-10.2); CARBON DIOXIDE 28 mEQ/L (20-30); CHLORIDE 98 mEQ/L (98-107); CREATININE 0.9 mg/dL (0.5-0.9); GLOMERULAR FILTRATION RATE > 60 mL/min (>60); HEMOLYSIS 0; POTASSIUM 3.9 mEQ/L (3.4-4.9); SODIUM 142 mEQ/L (135-145); TOTAL PROTEIN 7.9 g/dL (6.6-8.7)
[2016-11-08 07:03] LABS: BASOPHILS % (AUTO) 0.5 % (0.0-2.0); EOSINOPHILS % (AUTO) 1.1 % (0.0-3.0); LYMPHOCYTES % (AUTO) 11.7 % (20.0-45.0); MEAN CORPUSCULAR HEMOGLOBIN 24.7 PG (27.0-31.0); MEAN CORPUSCULAR HGB CONC 31.3 G/DL (32.0-36.0); MEAN CORPUSCULAR VOLUME 79 FL (80-99); MEAN PLATELET VOLUME 7.5 FL (6.5-10.1); MONOCYTES % (AUTO) 10.5 % (1.0-10.0); NEUTROPHILS % (AUTO) 76.3 % (45.0-75.0); PLATELET COUNT 545 K/UL (150-450); RED BLOOD COUNT 4.22 M/UL (4.20-5.40); WHITE BLOOD COUNT 15.7 K/UL (4.8-10.8)
[2016-11-08] MEDS: Morphine Sulfate 2mg/ml Inj IVP PRN (07:53)
[2016-11-08] MEDS: Metoclopramide 10mg/2ml Inj IVP PRN ×2 (10:07→18:53)
--- NOTE | 2016-11-08 10:32 | History & Physical ---
History and Physical History & Physicial HP dictated # [id number] ELYSE CORDOBA Nov 08, 2016 10:32
[2016-11-08 11:59] LABS: INR 1.2 (0.9-1.1); PROTHROMBIN TIME 12.1 SEC (9.30-11.50)
[2016-11-08] MEDS: Vancomycin 1250mg/D5W 275ml IVPB SCH ×2 (12:28)
[2016-11-08] MEDS ORDERED: Midazolam 2mg/2ml Inj ONE (14:44)
[2016-11-08] MEDS ORDERED: Lidocaine 1% Plain 30 ml INJ ONE (14:44)
[2016-11-08] MEDS ORDERED: Sodium Bicarbonate 8.4% 50ml Inj ONE (14:44)
[2016-11-08] MEDS ORDERED: fentaNYL 100 mcg/2 mL IV ONE ×2 (14:44→15:15)
--- NOTE | 2016-11-08 14:50 | Pre-Procedure Note/Attestation ---
Pre-Procedure Note/Attestation Complete Prior to Procedure Planned Procedure: not applicable Procedure Narrative: CT guided pelvic abscess drainage Indications for Procedure Pre-Operative Diagnosis: Peridiverticular abscess Attestation I attest that I discussed the nature of the procedure; its benefits; risks and complications; and alternatives (and the risks and benefits of such alternatives ), prior to the procedure, with the patient (or the patient's legal labor union business representative). I attest that, if there was a reasonable possibility of needing a blood transfusion, the patient (or the patient's legal labor union business representative) was given the [facility] standardized written summary, pursuant to the [place] Blood Safety Act ([place] Health and Safety Code # 1645, as amended). I attest that I re-evaluated the patient just prior to the surgery and that there has been no change in the patient's H&P, except as documented below: DELL BALDWIN M.D. Nov 08, 2016 14:50
--- NOTE | 2016-11-08 14:51 | Moderate Sedation - Procedural ---
Moderate Sedation HPI Home Medication Active Scripts Phenazopyridine Hcl* (PYRIDIUM*) 100 Mg Tablet, 100 MG ORAL THREE TIMES A DAY, # 14 TAB Prov:[place] 11/02/16 Nitrofurantoin Monohyd/M-Cryst* (MACROBID 100 MG*) 100 Mg Capsule, 100 MG ORAL EVERY 12 HOURS, #14 CAP Prov:[place] 11/02/16 Hydrocodone Bit/Acetaminophen 10-325* (NORCO 10-325*) 1 Each Tablet, 1 TAB ORAL Q6H Y for For Pain, #10 TAB 0 Refills PRN PAIN Prov:PHUONG BRIZUELA M.D. 10/31/16 Ondansetron (Zofran) 4 Mg Tablet, 4 MG ORAL Q4HR Y for 30 Days, TAB Prov:ELYSE CORDOBA 10/27/16 Amoxicillin/Potassium Clav 500-125 Tablet* (AUGMENTIN 500-125 TABLET*) 1 Each Tablet, 1 TAB ORAL THREE TIMES A DAY for 14 Days, TAB Prov:ELYSE CORDOBA 10/27/16 Diphenhydramine HCl (Diphenhydramine HCl) 50 Mg Cap, 50 MG ORAL Q6H Y for Itching, #30 CAP 0 Refills Prov:JANSUZ ORTA 10/21/13 Reported Medications Hydrocodone Bit/Acetaminophen 10-325* (NORCO 10-325*) 1 Each Tablet, 1 TAB ORAL Q4H Y for For Pain, TAB 0 Refills PRN PAIN 10/27/16 No Known Medications* (NKM - No Known Medications*) ., 0 ., 0 Refills 10/21/13 Patient History Allergies: Coded Allergies: MELON (Verified Allergy, Unknown, 10/15/16) Uncoded Allergies: SHELLFISH (Allergy, Unknown, 10/15/16) PAST MEDICAL HISTORY: Past Surgeries: Social History: Pre-Procedural Mod Sedation Date: Nov 08, 2016 Pre-Assessment Time: 14:50 Pre-Sedation Assessment: Eval. Immed. Prior to Sed Airway Assessment (Malampati): III Evaluation Hx of untoward rxns to mod sed: No Procedures/Plans: Radiology Plan for Moderate Sedation: Midazolam, Fentanyl ASA Score: II Informed Consent The nature of the procedure/sedation; its benefits; risks and complications; and alternatives (and the risks and benefits of such alternatives) were discussed with the patient (or their legal employee representative), prior to the procedure. All questions were answered to the patient's (or their legal employee representative's) satisfaction and the patient (or their legal employee representative) gave informed consent to the procedure. I attest that I re-evaluated the patient just prior to the surgery and that there has been no change in the patient's H&P, except as documented below: Post Procedure Assessment Post Procedure TIme: 15:30 Communication: No Apparent Limitation Mental Status: Awake Respiration: Unlabored Skin Condition: WNL Adomen: WNL Nausea: NO Vomiting: NO DELL BALDWIN M.D. Nov 08, 2016 14:51
[2016-11-08] MEDS ORDERED: Midazolam 2mg/2ml Inj IVP ONE (15:15)
[2016-11-08] MEDS ORDERED: Sodium Bicarbonate 8.4% 50ml Inj IV ONE (15:15)
--- NOTE | 2016-11-08 16:32 | Diagnostic Imaging Report ---
Indication: Drainage of peridiverticular abscess requested by attending surgeon Dr. Andre Technique: Informed consent obtained prior to the procedure. Procedural timeout performed. Patient given intraprocedural sedation with fentanyl and Versed. Localizing spiral acquisitions obtained through the pelvis. Intended puncture site sterilely prepped and draped. Local anesthesia with 1% lidocaine. Using trocar technique, a 7 Welsh Moreno-Gaspar catheter was inserted under CT guidance. The pigtail was formed. Total of approximately 15 mL of pus aspirated. Specimen was sent to the lab. Catheter fixed to the skin, placed to gravity drainage. The patient tolerated the procedure well, without immediate complication. Total dose length product 1541 mGycm. CTDIvol(s) 19x6 mGy. Radiation dose was minimized using automated exposure control Comparison: Or 10/24/16 CT abdomen pelvis Findings: Interprocedural images document successful catheter placement into the target abscess. Completion image documents complete evacuation of the abscess contents Impression: Successful catheter drainage of anterior peridiverticular abscess, as described The CT scanner at [facility] is accredited by the [employer] and the scans are performed using protocols designed to limit radiation exposure to as low as reasonably achievable to attain images of sufficient resolution adequate for diagnostic evaluation.
--- NOTE | 2016-11-08 17:58 | Consultation ---
DATE OF CONSULTATION: 11/08/2016 INFECTIOUS DISEASE CONSULTATION REFERRING PHYSICIAN: Arcenio Garcia M.D. REASON FOR CONSULTATION: Diverticulitis. This consultation has been done on behalf of Dr. Antonio Garcia. HISTORY OF PRESENTING ILLNESS: This is a 31-year-old lady with history of diverticulitis with phlegmon, who was treated with IV antibiotics and discharged home on oral antibiotics, but she started having increasing abdominal pain along with nausea and vomiting. She has been admitted and an Infectious Diseases consultation has been obtained for antibiotics. PAST MEDICAL HISTORY: 1. History of asthma. 2. History of diverticulitis. MEDICATIONS: As an inpatient, she is on Reglan, gentamicin, Zosyn, Protonix, Tylenol, morphine, milk of magnesia, Zofran, Ambien and Benadryl. ALLERGIES: Melon and shellfish noted. SOCIAL HISTORY: She does not smoke, drink, or use drugs. FAMILY HISTORY: Positive for heart disease in her mother. REVIEW OF SYSTEMS: Respiratory: No fever, chills, cough, shortness of breath or chest pain. Cardiac: No chest pain. No palpitations. No dizziness. No syncope. Gastrointestinal: She has nausea and vomiting. She has abdominal pain. No diarrhea. PHYSICAL EXAMINATION: VITAL SIGNS: Temperature of 98.4 degrees, T-max of 98.4 degrees, pulse of 98, respiratory 16, blood pressure 128/88 and O2 saturation of 99%. HEENT: Pupils are equally reactive to light and accommodation. Mouth appears clean without thrush. NECK: Supple. No adenopathy. No JVD. CARDIOVASCULAR: Regular rate and rhythm. No murmurs. LUNGS: Clear to auscultation bilaterally. No crackles. No wheezes. ABDOMEN: Soft. No tenderness. No organomegaly. EXTREMITIES: No cyanosis, no clubbing, and no edema. LABORATORY AND DIAGNOSTIC DATA: White count of 15.7 today, white count of 17.1 yesterday, hemoglobin 10.4, hematocrit 33.3, MCV 79, platelet count of 545,000 and neutrophils of 76%. Sodium 142, potassium 3.9, chloride 98, bicarbonate 25, BUN 4, creatinine 0.9 and glucose 109. Calcium 9.1. Total bilirubin 0.4. AST 12, ALT 13 and alkaline phosphatase 57. Total protein 7.9. Albumin 3.4. Lipase of 22. Urinalysis is showing 5 to 10 white cells. Stool for C. difficile is negative. CT abdomen and pelvis showing perforated sigmoid diverticulitis with surrounding phlegmon with a 4 centimeter abscess with air-fluid level. Fatty liver noted. ASSESSMENT: 1. This is a 31-year-old lady with history of diverticulitis and asthma who comes in with persistent diverticulitis, now with abscess. The patient has been seen by Surgery and a percutaneous drainage of the abscess has been ordered. 2. History of asthma. PLAN: 1. Continue Zosyn. 2. Discontinue gentamicin. 3. Start the patient on IV vancomycin. 4. We will follow up cultures and adjust antibiotics accordingly. I would like to thank, Dr. Arcenio Garcia, for this consultation. Luis M Oden M.D. DR: CASTILLO JOB#: [id number] CC: Arcenio Garcia M.D.
[2016-11-08] MEDS: Morphine Sulfate 4mg/ml Inj IVP PRN (18:53)
--- NOTE | 2016-11-08 21:08 | History and Physical Report ---
DATE OF ADMISSION: 11/07/2016 CHIEF COMPLAINT: Abdominal pain. HISTORY OF PRESENT ILLNESS: This is a 31-year-old female, who was admitted recently to [facility] for acute diverticulitis with phlegmon. There is also some sign of perforation. She was seen by Dr. Andre in surgical consultation who wanted to treat the patient conservatively. The patient was on IV antibiotics, initially NPO, and eventually she was started on clear liquid diet. She had a repeat CT of the abdomen and there was still some phlegmon. The patient was eventually sent home; however, she was advised to be on a clear liquid diet for another two weeks and take oral Augmentin. The patient had another presentation to the emergency room for urinary tract infection and however on the day of admission she came again to the emergency room at this time with abdominal pain which was located in the left lower quadrant. The patient states that she started having regular diet after a week after the initial discharge and this is despite the conversation not to take any regular diet for two weeks and be on clear liquids. In any event, the patient started having pain prior to presentation to the emergency room. She had a repeat CAT scan and still showing a phlegmon and abscess in the abdomen. The patient was admitted for treatment. PAST MEDICAL HISTORY: History of asthma. ALLERGIES: Shellfish. MEDICATIONS: She was on Augmentin as mentioned. SOCIAL HISTORY: The patient works as a business case analyst for school. No history of smoking or alcohol abuse. REVIEW OF SYSTEMS: Noncontributory except what was mentioned. PHYSICAL EXAMINATION: GENERAL: The patient is a moderately obese female, in no acute distress. VITAL SIGNS: Blood pressure is 128/88, pulse 98, temperature 98.4, respiratory rate is 16. HEENT: [place] conjunctivae. Anicteric sclerae. NECK: Supple. LUNGS: Clear to auscultation. HEART: S1 and S2 without murmurs or rubs. ABDOMEN: Soft. There is some tenderness in the left lower quadrant. EXTREMITIES: No cyanosis or edema. LABORATORY FINDINGS: CBC shows a WBC of 15.7, hematocrit 33.3, hemoglobin 10.4, and platelet is 554,000. Chemistry panel shows serum sodium of 142, potassium 3.9, chloride 98, CO2 28, BUN 4, creatinine 0.9, and glucose is 109. Albumin is 3.4. CT of the abdomen and pelvis yesterday shows the evidence of perforated sigmoid diverticulitis with surrounding extensive phlegmon. There is also evidence of small 4 cm diameter abscess with air fluid level. ASSESSMENT: This is a 31-year-old female who is admitted with perforated sigmoid diverticulitis, extensive phlegmon, and abscess formation. PLAN: The patient will be on IV antibiotics. She will be NPO. Dr. Andre had sought interventional radiologist to drain the abscess percutaneously. If all of this failed, then she would need colectomy and colostomy. I discussed this with the patient as well as with Dr. Andre. Arcenio Garcia M.D. DR: Randall JOB#: [id number] CC: SAMINA
[2016-11-09] VITALS: BP 125/83
[2016-11-09 01:25] VITALS: BP 125/83
[2016-11-09] MEDS: D5 1/2NS w/KCl 20mEq 1,000 ML IV SCH ×2 (02:05→15:41)
[2016-11-09] MEDS: Vancomycin 1250mg/D5W 275ml IVPB SCH ×4 (02:05→11:30)
[2016-11-09 04:00] VITALS: BP 154/98
[2016-11-09] MEDS: Piperacillin/Tazobactam 4.5 GM in D5W 110 ML IVPB SCH ×2 (06:09→13:46)
[2016-11-09] MEDS: Morphine Sulfate 2mg/ml Inj IVP PRN (07:52)
[2016-11-09 08:00] VITALS: BP 142/84
--- NOTE | 2016-11-09 09:31 | Infectious Diseases Prog Note ---
Assessment/Plan Assessment/Plan A: Sigmoid diverticulitis & Abscess s/p CT guided drainage Fatty liver Obesity P: Continue Vancomycin & Zosyn Will f/u cultures Subjective ROS Limited/Unobtainable: No Constitutional: Reports: no symptoms HEENT: Reports: no symptoms Respiratory: Reports: no symptoms Gastrointestinal/Abdominal: Reports: other - mild pain Genitourinary: Reports: no symptoms Allergies: Coded Allergies: MELON (Verified Allergy, Unknown, 10/15/16) Uncoded Allergies: SHELLFISH (Allergy, Unknown, 10/15/16) Objective Vital Signs Last 24 Hour Vital Signs Date Time Temp Pulse Resp B/P Pulse Ox O2 Delivery O2 Flow Rate FiO2 11/09/16 08:00 97.7 73 18 142/84 99 Room Air 11/09/16 04:00 97.5 82 18 154/98 96 Room Air 11/09/16 01:25 97.7 89 20 125/83 98 Room Air 11/09/16 00:00 97.7 89 20 125/83 98 Room Air 11/08/16 19:23 98.1 11/08/16 19:00 98.1 89 20 140/98 99 Nasal Cannula 2.0 11/08/16 16:25 98.6 83 19 146/91 100 Nasal Cannula 2.0 11/08/16 16:15 78 14 147/92 100 Nasal Cannula 2.0 11/08/16 16:05 83 14 138/102 100 Nasal Cannula 2.0 11/08/16 16:00 97.7 86 20 141/96 99 Nasal Cannula 2.0 11/08/16 16:00 87 18 138/102 100 Nasal Cannula 2.0 11/08/16 15:55 98.5 83 16 133/101 100 Nasal Cannula 2.0 11/08/16 15:40 77 15 129/81 100 Nasal Cannula 2.0 11/08/16 15:35 85 16 126/84 100 Nasal Cannula 2.0 11/08/16 15:30 86 17 125/83 100 Nasal Cannula 2.0 11/08/16 15:25 84 15 119/81 100 Nasal Cannula 2.0 11/08/16 15:20 76 12 119/70 100 Nasal Cannula 2.0 11/08/16 15:20 98.0 81 15 100 Nasal Cannula 2.0 88 100 11/08/16 15:15 78 16 122/78 100 Nasal Cannula 2.0 11/08/16 15:14 86 12 2.0 11/08/16 15:10 88 15 133/87 100 Nasal Cannula 2.0 11/08/16 15:05 88 15 137/92 100 Nasal Cannula 2.0 11/08/16 15:00 98.0 87 26 132/90 100 Nasal Cannula 2.0 11/08/16 11:27 97.7 78 16 128/78 100 Room Air Height (Feet): 5 Height (Inches): 6.00 Weight (Pounds): 225 General Appearance: no acute distress HEENT: mucous membranes moist Respiratory/Chest: lungs clear Cardiovascular: normal rate Abdomen: other - suprapubic drain Extremities: no edema Neurologic/Psychiatric: alert, oriented x 3, responsive Microbiology Date/Time Source Procedure Growth Status 11/07/16 20:00 Stool Clostridium difficile Toxin Assay - Final Complete Laboratory Tests Test 11/08/16 11:41 Prothrombin Time 12.1 SEC (9.30-11.50) H Prothromb Time International Ratio 1.2 (0.9-1.1) H Activated Partial Thromboplast Time 28 SEC (23-33) Current Medications Medications (Trade) Dose Ordered Sig/Steve Route PRN Reason Start Time Stop Time Status Last Admin Dose Admin Acetaminophen (Tylenol) 650 mg Q4H PRN ORAL Mild Pain (Pain Scale 1-3) 11/07/16 14:45 12/07/16 14:44 Dextrose (Dextrose 50%) STAT PRN IV Hypoglycemia 11/07/16 14:45 12/07/16 14:44 Dextrose/ Electrolytes (D5 0.45%NS W/ KCl 20mEq) 1,000 ml @ 100 mls/hr Q10H IV 11/07/16 15:30 12/07/16 15:29 11/09/16 02:05 Diphenhydramine HCl (Benadryl) 25 mg Q6H PRN ORAL Itching/Pruritis 11/07/16 14:45 12/07/16 14:44 Magnesium Hydroxide (Mom) 30 ml HSPRN PRN ORAL Constipation 11/07/16 14:45 12/07/16 14:44 Metoclopramide HCl (Reglan) 10 mg Q6H PRN IVP Nausea & Vomiting 11/07/16 19:15 12/07/16 19:14 11/08/16 18:53 Morphine Sulfate (Morphine Sulfate) 2 mg Q3H PRN IVP Moderate Pain (Pain Scale 4-6) 11/07/16 14:45 11/14/16 14:44 11/09/16 07:52 Morphine Sulfate (Morphine Sulfate) 4 mg Q3H PRN IVP Severe Pain (Pain Scale 7-10) 11/07/16 14:45 11/14/16 14:44 11/08/16 18:53 Ondansetron HCl (Zofran) 4 mg Q6H PRN IVP Nausea & Vomiting 11/07/16 14:45 12/07/16 14:44 11/09/16 02:50 Pantoprazole (Protonix) 40 mg DAILY ORAL 11/07/16 16:00 12/07/16 15:59 11/09/16 07:51 Piperacillin Sod/ Tazobactam Sod 4.5 gm/Dextrose 110 ml @ 27.5 mls/hr EVERY 8 HOURS IVPB 11/07/16 16:00 11/12/16 15:59 11/09/16 06:09 Vancomycin HCl 1 ea 1 ea DAILY PRN MISC Per rx protocol 11/08/16 10:45 12/08/16 10:44 Vancomycin HCl/ Dextrose (Vancomycin/D5W) 275 ml @ 183.333 mls/hr Q12HR@0000,1200 IVPB 11/08/16 12:00 11/13/16 11:59 11/09/16 02:05 Zolpidem Tartrate (Ambien) 5 mg HSPRN PRN ORAL Insomnia 11/07/16 14:45 12/07/16 14:44 JOSH CORDOBA Nov 09, 2016 09:31
[2016-11-09] MEDS ORDERED: NS 275ml ONE (10:32)
[2016-11-09] MEDS ORDERED: Tubing IV Secondary IV ONE (10:32)
[2016-11-09] MEDS: Metoclopramide 10mg/2ml Inj IVP PRN (11:30)
--- NOTE | 2016-11-09 12:29 | General Surgery Progress Note ---
General Surgery-Progress Note Subjective Symptoms: improved, BM Objective Last 24 Hour Vital Signs Date Time Temp Pulse Resp B/P Pulse Ox O2 Delivery O2 Flow Rate FiO2 11/09/16 08:00 97.7 73 18 142/84 99 Room Air 11/09/16 04:00 97.5 82 18 154/98 96 Room Air 11/09/16 01:25 97.7 89 20 125/83 98 Room Air 11/09/16 00:00 97.7 89 20 125/83 98 Room Air 11/08/16 19:23 98.1 11/08/16 19:00 98.1 89 20 140/98 99 Nasal Cannula 2.0 11/08/16 16:25 98.6 83 19 146/91 100 Nasal Cannula 2.0 11/08/16 16:15 78 14 147/92 100 Nasal Cannula 2.0 11/08/16 16:05 83 14 138/102 100 Nasal Cannula 2.0 11/08/16 16:00 97.7 86 20 141/96 99 Nasal Cannula 2.0 11/08/16 16:00 87 18 138/102 100 Nasal Cannula 2.0 11/08/16 15:55 98.5 83 16 133/101 100 Nasal Cannula 2.0 11/08/16 15:40 77 15 129/81 100 Nasal Cannula 2.0 11/08/16 15:35 85 16 126/84 100 Nasal Cannula 2.0 11/08/16 15:30 86 17 125/83 100 Nasal Cannula 2.0 11/08/16 15:25 84 15 119/81 100 Nasal Cannula 2.0 11/08/16 15:20 76 12 119/70 100 Nasal Cannula 2.0 11/08/16 15:20 98.0 81 15 100 Nasal Cannula 2.0 88 100 11/08/16 15:15 78 16 122/78 100 Nasal Cannula 2.0 11/08/16 15:14 86 12 2.0 11/08/16 15:10 88 15 133/87 100 Nasal Cannula 2.0 11/08/16 15:05 88 15 137/92 100 Nasal Cannula 2.0 11/08/16 15:00 98.0 87 26 132/90 100 Nasal Cannula 2.0 I&O Intake and Output 11/08/16 11/09/16 18:59 06:59 Intake Total 1285.00 ml 1576.666 ml Output Total 800 ml 7 ml Balance 485.00 ml 1569.666 ml IV Total 1285.00 ml 1576.666 ml Output Urine Total 800 ml 2 ml Other 5 ml # Voids 1 2 # Bowel Movements 1 Respiratory: clear Abdomen: soft, flat, other - mild tenderness at LLQ Extremities: no tenderness Assessment Additional Comments S/P Perfed diverticulitis Plan Additional Comments Continue IV antibiotics BREANNA RDZ Nov 09, 2016 12:29
--- NOTE | 2016-11-09 12:59 | General Progress Note ---
Assessment/Plan Problem List: (1) Colonic diverticular abscess ICD Codes: K57.20 - Diverticulitis of large intestine with perforation and abscess without bleeding SNOMED: 384656630 (2) Abdominal pain ICD Codes: R10.9 - Unspecified abdominal pain SNOMED: 72486209 Qualifiers: Qualified Codes: R10.30 - Lower abdominal pain, unspecified (3) Diverticulitis ICD Codes: K57.92 - Diverticulitis of intestine, part unspecified, without perforation or abscess without bleeding SNOMED: 047399725 Qualifiers: Qualified Codes: K57.20 - Diverticulitis of large intestine with perforation and abscess without bleeding Status Narrative S/P percutaneous drainage Assessment/Plan IV Abxs Discussed with Dr Andre Picc line Subjective Allergies: Coded Allergies: MELON (Verified Allergy, Unknown, 10/15/16) Uncoded Allergies: SHELLFISH (Allergy, Unknown, 10/15/16) Subjective feels better Objective Last 24 Hour Vital Signs Date Time Temp Pulse Resp B/P Pulse Ox O2 Delivery O2 Flow Rate FiO2 11/09/16 08:00 97.7 73 18 142/84 99 Room Air 11/09/16 04:00 97.5 82 18 154/98 96 Room Air 11/09/16 01:25 97.7 89 20 125/83 98 Room Air 11/09/16 00:00 97.7 89 20 125/83 98 Room Air 11/08/16 19:23 98.1 11/08/16 19:00 98.1 89 20 140/98 99 Nasal Cannula 2.0 11/08/16 16:25 98.6 83 19 146/91 100 Nasal Cannula 2.0 11/08/16 16:15 78 14 147/92 100 Nasal Cannula 2.0 11/08/16 16:05 83 14 138/102 100 Nasal Cannula 2.0 11/08/16 16:00 97.7 86 20 141/96 99 Nasal Cannula 2.0 11/08/16 16:00 87 18 138/102 100 Nasal Cannula 2.0 11/08/16 15:55 98.5 83 16 133/101 100 Nasal Cannula 2.0 11/08/16 15:40 77 15 129/81 100 Nasal Cannula 2.0 11/08/16 15:35 85 16 126/84 100 Nasal Cannula 2.0 11/08/16 15:30 86 17 125/83 100 Nasal Cannula 2.0 11/08/16 15:25 84 15 119/81 100 Nasal Cannula 2.0 11/08/16 15:20 76 12 119/70 100 Nasal Cannula 2.0 11/08/16 15:20 98.0 81 15 100 Nasal Cannula 2.0 88 100 11/08/16 15:15 78 16 122/78 100 Nasal Cannula 2.0 11/08/16 15:14 86 12 2.0 11/08/16 15:10 88 15 133/87 100 Nasal Cannula 2.0 11/08/16 15:05 88 15 137/92 100 Nasal Cannula 2.0 11/08/16 15:00 98.0 87 26 132/90 100 Nasal Cannula 2.0 Intake and Output 11/08/16 11/09/16 19:00 07:00 Intake Total 1257.50 ml 1531.666 ml Output Total 800 ml 7 ml Balance 457.50 ml 1524.666 ml IV Total 1257.50 ml 1531.666 ml Output Urine Total 800 ml 2 ml Other 5 ml # Voids 1 2 # Bowel Movements 1 Height (Feet): 5 Height (Inches): 6.00 Weight (Pounds): 225 Cardiovascular: normal rate Respiratory/Chest: lungs clear ELYSE CORDOBA Nov 09, 2016 12:59
[2016-11-09] MEDS ORDERED: Heparin 2000 units/Ns 1000ml INJ PRN (13:00)
[2016-11-09] MEDS ORDERED: Lidocaine 1% Plain 30 ml INJ PRN (13:00)
[2016-11-09 15:48] VITALS: BP 141/97
[2016-11-09 20:00] VITALS: BP 147/96
[2016-11-09] MEDS: Piperacillin/Tazobactam 4.5 GM in NS 110 ML IVPB SCH (21:58)
[2016-11-10] VITALS: BP 150/93
[2016-11-10] MEDS: D5 1/2NS w/KCl 20mEq 1,000 ML IV SCH ×3 (03:30→22:48)
[2016-11-10 04:00] VITALS: BP 145/89
[2016-11-10] MEDS ORDERED: Vancomycin 750mg/D5W 275ml IVPB SCH ×2 (05:00)
[2016-11-10] MEDS: Piperacillin/Tazobactam 4.5 GM in NS 110 ML IVPB SCH (06:36)
[2016-11-10] MEDS: Metoclopramide 10mg/2ml Inj IVP PRN (06:43)
[2016-11-10 06:51] LABS: CALCIUM 8.9 mg/dL (8.6-10.2); CREATININE 2.4 mg/dL (0.5-0.9); GLOMERULAR FILTRATION RATE 28.1 mL/min (>60)
[2016-11-10 06:55] LABS: MEAN CORPUSCULAR HEMOGLOBIN 24.7 PG (27.0-31.0); MEAN CORPUSCULAR HGB CONC 30.8 G/DL (32.0-36.0); MEAN CORPUSCULAR VOLUME 80 FL (80-99); MEAN PLATELET VOLUME 7.1 FL (6.5-10.1); PLATELET COUNT 535 K/UL (150-450); RED BLOOD COUNT 4.14 M/UL (4.20-5.40); RED CELL DISTRIBUTION WIDTH 14.1 % (11.6-14.8); WHITE BLOOD COUNT 18.2 K/UL (4.8-10.8)
[2016-11-10] MEDS: Morphine Sulfate 4mg/ml Inj IVP PRN ×2 (07:02→20:25)
[2016-11-10 08:19] VITALS: BP 140/82
[2016-11-10 09:44] LABS: ANISOCYTOSIS 1+; BAND NEUTROPHILS % (MANUAL) 0 % (0-8); BASOPHILS % (MANUAL) 0 % (0-2); EOSINOPHILS % (MANUAL) 0 % (0-3); HYPOCHROMASIA 1+; LYMPHOCYTES % (MANUAL) 12 % (20-45); MICROCYTES 1+; NEUTROPHILS % (MANUAL) 78 % (45-75); PLATELET ESTIMATE INCREASED; PLATELET MORPHOLOGY NORMAL; TOTAL CELLS COUNTED 100
--- NOTE | 2016-11-10 11:37 | General Surgery Progress Note ---
General Surgery-Progress Note Subjective Symptoms: BM Objective Last 24 Hour Vital Signs Date Time Temp Pulse Resp B/P Pulse Ox O2 Delivery O2 Flow Rate FiO2 11/10/16 08:19 97.9 72 19 140/82 97 Room Air 11/10/16 07:32 97.9 11/10/16 04:00 98.0 76 18 145/89 99 Room Air 11/10/16 00:00 97.3 77 18 150/93 98 Room Air 11/09/16 20:00 98.1 70 16 147/96 99 Room Air 11/09/16 15:48 96.8 78 19 141/97 100 Room Air I&O Intake and Output 11/09/16 11/10/16 19:00 07:00 Intake Total 667.5 ml 1473.708 ml Output Total 268 ml Balance 667.5 ml 1205.708 ml Intake Oral 480 ml IV Total 667.5 ml 993.708 ml Emesis 250 ml Other 18 ml # Voids 2 6 Respiratory: clear Abdomen: soft, tenderness, present bowel sounds Extremities: no tenderness Laboratory Tests Test 11/09/16 23:00 11/10/16 05:15 Vancomycin Level Trough 23.7 ug/mL (5.0-12.0) H White Blood Count 18.2 K/UL (4.8-10.8) H Red Blood Count 4.14 M/UL (4.20-5.40) L Hemoglobin 10.2 G/DL (12.0-16.0) L Hematocrit 33.1 % (37.0-47.0) L Mean Corpuscular Volume 80 FL (80-99) Mean Corpuscular Hemoglobin 24.7 PG (27.0-31.0) L Mean Corpuscular Hemoglobin Concent 30.8 G/DL (32.0-36.0) L Red Cell Distribution Width 14.1 % (11.6-14.8) Platelet Count 535 K/UL (150-450) H Mean Platelet Volume 7.1 FL (6.5-10.1) Neutrophils (%) (Auto) % (45.0-75.0) Lymphocytes (%) (Auto) % (20.0-45.0) Monocytes (%) (Auto) % (1.0-10.0) Eosinophils (%) (Auto) % (0.0-3.0) Basophils (%) (Auto) % (0.0-2.0) Differential Total Cells Counted 100 Neutrophils % (Manual) 78 % (45-75) H Lymphocytes % (Manual) 12 % (20-45) L Monocytes % (Manual) 10 % (1-10) Eosinophils % (Manual) 0 % (0-3) Basophils % (Manual) 0 % (0-2) Band Neutrophils 0 % (0-8) Platelet Estimate Increased H Platelet Morphology Normal Hypochromasia 1+ Anisocytosis 1+ Microcytosis 1+ Sodium Level 142 mEQ/L (135-145) Potassium Level 4.0 mEQ/L (3.4-4.9) Chloride Level 99 mEQ/L (98-107) Carbon Dioxide Level 27 mEQ/L (20-30) Anion Gap 16 (5-15) H Blood Urea Nitrogen 7 mg/dL (7-23) Creatinine 2.4 mg/dL (0.5-0.9) H Estimat Glomerular Filtration Rate 28.1 mL/min (>60) Glucose Level 166 mg/dL (74-106) H Calcium Level 8.9 mg/dL (8.6-10.2) Assessment Additional Comments perfed diverticulitis Plan Additional Comments continue current BREANNA RDZ Nov 10, 2016 11:37
[2016-11-10 11:55] VITALS: BP 152/97
--- NOTE | 2016-11-10 13:07 | Infectious Diseases Prog Note ---
Assessment/Plan Assessment/Plan A: Sigmoid diverticulitis & Abscess s/p CT guided drainage Fatty liver Obesity Acute renal failure P: Discontinue Vancomycin , continue Zosyn Will f/u cultures Subjective ROS Limited/Unobtainable: No Constitutional: Reports: no symptoms Respiratory: Reports: no symptoms Cardiovascular: Reports: no symptoms Gastrointestinal/Abdominal: Reports: other - started on clear liquid diet Allergies: Coded Allergies: MELON (Verified Allergy, Unknown, 10/15/16) Uncoded Allergies: SHELLFISH (Allergy, Unknown, 10/15/16) Objective Vital Signs Last 24 Hour Vital Signs Date Time Temp Pulse Resp B/P Pulse Ox O2 Delivery O2 Flow Rate FiO2 11/10/16 11:55 98.2 79 20 152/97 96 Room Air 11/10/16 08:19 97.9 72 19 140/82 97 Room Air 11/10/16 07:32 97.9 11/10/16 04:00 98.0 76 18 145/89 99 Room Air 11/10/16 00:00 97.3 77 18 150/93 98 Room Air 11/09/16 20:00 98.1 70 16 147/96 99 Room Air 11/09/16 15:48 96.8 78 19 141/97 100 Room Air Height (Feet): 5 Height (Inches): 6.00 Weight (Pounds): 225 General Appearance: no acute distress HEENT: mucous membranes moist Respiratory/Chest: lungs clear Cardiovascular: normal rate Abdomen: soft, non tender, other - SABRINA drain in lower abdomen Extremities: no edema Neurologic/Psychiatric: alert, oriented x 3, responsive Microbiology Date/Time Source Procedure Growth Status 11/07/16 20:00 Stool Clostridium difficile Toxin Assay - Final Complete 11/08/16 15:40 Abdominal Abscess Gram Stain - Final Resulted 11/08/16 15:40 Aerobic Culture - Preliminary Gram Negative Bacillus 1 Resulted 11/08/16 15:40 Abdominal Abscess Anaerobic Culture Pending Resulted Laboratory Tests Test 11/09/16 23:00 11/10/16 05:15 Vancomycin Level Trough 23.7 ug/mL (5.0-12.0) H White Blood Count 18.2 K/UL (4.8-10.8) H Red Blood Count 4.14 M/UL (4.20-5.40) L Hemoglobin 10.2 G/DL (12.0-16.0) L Hematocrit 33.1 % (37.0-47.0) L Mean Corpuscular Volume 80 FL (80-99) Mean Corpuscular Hemoglobin 24.7 PG (27.0-31.0) L Mean Corpuscular Hemoglobin Concent 30.8 G/DL (32.0-36.0) L Red Cell Distribution Width 14.1 % (11.6-14.8) Platelet Count 535 K/UL (150-450) H Mean Platelet Volume 7.1 FL (6.5-10.1) Neutrophils (%) (Auto) % (45.0-75.0) Lymphocytes (%) (Auto) % (20.0-45.0) Monocytes (%) (Auto) % (1.0-10.0) Eosinophils (%) (Auto) % (0.0-3.0) Basophils (%) (Auto) % (0.0-2.0) Differential Total Cells Counted 100 Neutrophils % (Manual) 78 % (45-75) H Lymphocytes % (Manual) 12 % (20-45) L Monocytes % (Manual) 10 % (1-10) Eosinophils % (Manual) 0 % (0-3) Basophils % (Manual) 0 % (0-2) Band Neutrophils 0 % (0-8) Platelet Estimate Increased H Platelet Morphology Normal Hypochromasia 1+ Anisocytosis 1+ Microcytosis 1+ Sodium Level 142 mEQ/L (135-145) Potassium Level 4.0 mEQ/L (3.4-4.9) Chloride Level 99 mEQ/L (98-107) Carbon Dioxide Level 27 mEQ/L (20-30) Anion Gap 16 (5-15) H Blood Urea Nitrogen 7 mg/dL (7-23) Creatinine 2.4 mg/dL (0.5-0.9) H Estimat Glomerular Filtration Rate 28.1 mL/min (>60) Glucose Level 166 mg/dL (74-106) H Calcium Level 8.9 mg/dL (8.6-10.2) Current Medications Medications (Trade) Dose Ordered Sig/Steve Route PRN Reason Start Time Stop Time Status Last Admin Dose Admin Acetaminophen (Tylenol) 650 mg Q4H PRN ORAL Mild Pain (Pain Scale 1-3) 11/07/16 14:45 12/07/16 14:44 Dextrose (Dextrose 50%) STAT PRN IV Hypoglycemia 11/07/16 14:45 12/07/16 14:44 Dextrose/ Electrolytes (D5 0.45%NS W/ KCl 20mEq) 1,000 ml @ 100 mls/hr Q10H IV 11/07/16 15:30 12/07/16 15:29 11/10/16 06:37 Diphenhydramine HCl (Benadryl) 25 mg Q6H PRN ORAL Itching/Pruritis 11/07/16 14:45 12/07/16 14:44 Heparin Sodium/ Sodium Chloride 2000 unit 2,000 unit ONCE PRN INJ FOR PICC PLACEMENT 11/09/16 13:00 11/10/16 23:59 Lidocaine HCl (Xylocaine 1% 30ml) 30 ml ONCE PRN INJ FOR PICC PLACEMENT 11/09/16 13:00 11/10/16 23:59 Magnesium Hydroxide (Mom) 30 ml HSPRN PRN ORAL Constipation 11/07/16 14:45 12/07/16 14:44 Metoclopramide HCl (Reglan) 10 mg Q6H PRN IVP Nausea & Vomiting 11/07/16 19:15 12/07/16 19:14 11/10/16 06:43 Morphine Sulfate (Morphine Sulfate) 2 mg Q3H PRN IVP Moderate Pain (Pain Scale 4-6) 11/07/16 14:45 11/14/16 14:44 11/09/16 07:52 Morphine Sulfate (Morphine Sulfate) 4 mg Q3H PRN IVP Severe Pain (Pain Scale 7-10) 11/07/16 14:45 11/14/16 14:44 11/10/16 07:02 Ondansetron HCl (Zofran) 4 mg Q6H PRN IVP Nausea & Vomiting 11/07/16 14:45 12/07/16 14:44 11/10/16 03:58 Pantoprazole (Protonix) 40 mg DAILY ORAL 11/07/16 16:00 12/07/16 15:59 11/10/16 09:08 Piperacillin Sod/ Tazobactam Sod 3.375 gm/Sodium Chloride 110 ml @ 27.5 mls/hr EVERY 8 HOURS IVPB 11/10/16 14:00 11/14/16 13:59 Vancomycin HCl (Vanco rx to dose) 1 ea DAILY PRN MISC Per rx protocol 11/08/16 10:45 12/08/16 10:44 Vancomycin HCl/ Dextrose (Vancomycin/D5W) 275 ml @ 183.708 mls/hr Q24H IVPB 11/11/16 02:00 11/16/16 01:59 Zolpidem Tartrate (Ambien) 5 mg HSPRN PRN ORAL Insomnia 11/07/16 14:45 12/07/16 14:44 JOSH CORDOBA Nov 10, 2016 13:07
[2016-11-10] MEDS: Morphine Sulfate 2mg/ml Inj IVP PRN ×2 (13:32→23:58)
[2016-11-10] MEDS: Piperacillin/Tazobactam 3.375 GM in NS 110 ML IVPB SCH ×2 (13:41→22:47)
--- NOTE | 2016-11-10 14:49 | Diagnostic Imaging Report ---
Indications: Needs long-term IV access Technique: Ultrasound confirms patent compressible right basilic vein. Total sterile technique, including sterile probe cover and sterile gel, hat, mask,, sterile gown, large sterile drape, and preparation with 2% chlorhexidine utilized. Local anesthesia with 1% lidocaine. Under real-time ultrasound guidance, puncture basilic vein using 21-gauge needle, documented and archived, passage 0.018 guidewire under direct fluoroscopy, which was used to determine appropriate catheter length, exchange for 5 Japanese peel-away sheath. 5 Japanese Bard dual-lumen power PICC cut to 41 cm. It was inserted through the peel-away sheath. Peel-away sheath and guidewire removed. Catheter fixed to the skin. Both catheter ports aspirated and flushed. Patient tolerated procedure well, without immediate complication. Digital radiograph documents satisfactory catheter tip position, at the cavoatrial junction. Total fluoroscopy time 0.7 minutes. Total dose area product 20 dGycm2 Impression: Successful placement of right arm PICC under sonographic and fluoroscopic guidance, as described above.
--- NOTE | 2016-11-10 14:49 | Diagnostic Imaging Report ---
Indication: VOMITING, abdominal pain Technique: Supine view of the abdomen Comparison: none Findings: Pigtail drainage catheter projects over the lower pelvic midline. The bowel gas pattern is unremarkable. No unusual masses or calcifications. The right hemidiaphragm is elevated. Impression: No acute process. Findings as noted
--- NOTE | 2016-11-10 14:51 | General Progress Note ---
Assessment/Plan Problem List: (1) Colonic diverticular abscess ICD Codes: K57.20 - Diverticulitis of large intestine with perforation and abscess without bleeding SNOMED: 147885618 (2) Abdominal pain ICD Codes: R10.9 - Unspecified abdominal pain SNOMED: 21620151 Qualifiers: Qualified Codes: R10.30 - Lower abdominal pain, unspecified (3) Diverticulitis ICD Codes: K57.92 - Diverticulitis of intestine, part unspecified, without perforation or abscess without bleeding SNOMED: 674091021 Qualifiers: Qualified Codes: K57.20 - Diverticulitis of large intestine with perforation and abscess without bleeding (4) ARF (acute renal failure) Assessment & Plan: Lab error ? ICD Codes: N17.9 - Acute kidney failure, unspecified SNOMED: 97004633 Status Narrative Abxs IVF repeat BMP Discussed with Dr Andre GI consult Assessment/Plan IV Abxs Discussed with Dr Andre Picc line Subjective Allergies: Coded Allergies: MELON (Verified Allergy, Unknown, 10/15/16) Uncoded Allergies: SHELLFISH (Allergy, Unknown, 10/15/16) Subjective DUONG vomited Objective Last 24 Hour Vital Signs Date Time Temp Pulse Resp B/P Pulse Ox O2 Delivery O2 Flow Rate FiO2 11/10/16 14:02 98.2 11/10/16 11:55 98.2 79 20 152/97 96 Room Air 11/10/16 08:19 97.9 72 19 140/82 97 Room Air 11/10/16 07:32 97.9 11/10/16 04:00 98.0 76 18 145/89 99 Room Air 11/10/16 00:00 97.3 77 18 150/93 98 Room Air 11/09/16 20:00 98.1 70 16 147/96 99 Room Air 11/09/16 15:48 96.8 78 19 141/97 100 Room Air Intake and Output 11/09/16 11/10/16 19:00 07:00 Intake Total 667.5 ml 1473.708 ml Output Total 268 ml Balance 667.5 ml 1205.708 ml Intake Oral 480 ml IV Total 667.5 ml 993.708 ml Emesis 250 ml Other 18 ml # Voids 2 6 Laboratory Tests 11/09/16 23:00: Vancomycin Level Trough 23.7H 11/10/16 05:15: White Blood Count 18.2H, Red Blood Count 4.14L, Hemoglobin 10.2L, Hematocrit 33.1L, Mean Corpuscular Volume 80, Mean Corpuscular Hemoglobin 24.7L, Mean Corpuscular Hemoglobin Concent 30.8L, Red Cell Distribution Width 14.1, Platelet Count 535H, Mean Platelet Volume 7.1, Neutrophils (%) (Auto) , Lymphocytes (%) (Auto) , Monocytes (%) (Auto) , Eosinophils (%) (Auto) , Basophils (%) (Auto) , Differential Total Cells Counted 100, Neutrophils % ( Manual) 78H, Lymphocytes % (Manual) 12L, Monocytes % (Manual) 10, Eosinophils % (Manual) 0, Basophils % (Manual) 0, Band Neutrophils 0, Platelet Estimate IncreasedH, Platelet Morphology Normal, Hypochromasia 1+, Anisocytosis 1+, Microcytosis 1+, Sodium Level 142, Potassium Level 4.0, Chloride Level 99, Carbon Dioxide Level 27, Anion Gap 16H, Blood Urea Nitrogen 7, Creatinine 2.4H, Estimat Glomerular Filtration Rate 28.1, Glucose Level 166H, Calcium Level 8.9 Height (Feet): 5 Height (Inches): 6.00 Weight (Pounds): 225 Cardiovascular: normal rate Respiratory/Chest: lungs clear Abdomen: soft ELYSE CORDOBA Nov 10, 2016 14:51
[2016-11-10 16:00] VITALS: BP 158/100
[2016-11-10 19:00] VITALS: BP 155/105
--- NOTE | 2016-11-10 19:20 | General Progress Note ---
Assessment/Plan Assessment/Plan GI Consult Dictated - Concerned re persistent leukocytosis and possible ATN - Drainage output down to 5 cc - ? cavity drained vs tip of catheter out of abscess - will need to repeat CT - by end of week - continue abx - re check Cr. Thank you Jeff Toribio MD Subjective Allergies: Coded Allergies: MELON (Verified Allergy, Unknown, 10/15/16) Uncoded Allergies: SHELLFISH (Allergy, Unknown, 10/15/16) Objective Last 24 Hour Vital Signs Date Time Temp Pulse Resp B/P Pulse Ox O2 Delivery O2 Flow Rate FiO2 11/10/16 16:00 97.3 90 20 158/100 99 Room Air 11/10/16 14:02 98.2 11/10/16 11:55 98.2 79 20 152/97 96 Room Air 11/10/16 08:19 97.9 72 19 140/82 97 Room Air 11/10/16 07:32 97.9 11/10/16 04:00 98.0 76 18 145/89 99 Room Air 11/10/16 00:00 97.3 77 18 150/93 98 Room Air 11/09/16 20:00 98.1 70 16 147/96 99 Room Air Intake and Output 11/09/16 11/10/16 19:00 07:00 Intake Total 667.5 ml 1473.708 ml Output Total 268 ml Balance 667.5 ml 1205.708 ml Intake Oral 480 ml IV Total 667.5 ml 993.708 ml Emesis 250 ml Other 18 ml # Voids 2 6 Laboratory Tests 11/09/16 23:00: Vancomycin Level Trough 23.7H 11/10/16 05:15: White Blood Count 18.2H, Red Blood Count 4.14L, Hemoglobin 10.2L, Hematocrit 33.1L, Mean Corpuscular Volume 80, Mean Corpuscular Hemoglobin 24.7L, Mean Corpuscular Hemoglobin Concent 30.8L, Red Cell Distribution Width 14.1, Platelet Count 535H, Mean Platelet Volume 7.1, Neutrophils (%) (Auto) , Lymphocytes (%) (Auto) , Monocytes (%) (Auto) , Eosinophils (%) (Auto) , Basophils (%) (Auto) , Differential Total Cells Counted 100, Neutrophils % ( Manual) 78H, Lymphocytes % (Manual) 12L, Monocytes % (Manual) 10, Eosinophils % (Manual) 0, Basophils % (Manual) 0, Band Neutrophils 0, Platelet Estimate IncreasedH, Platelet Morphology Normal, Hypochromasia 1+, Anisocytosis 1+, Microcytosis 1+, Sodium Level 142, Potassium Level 4.0, Chloride Level 99, Carbon Dioxide Level 27, Anion Gap 16H, Blood Urea Nitrogen 7, Creatinine 2.4H, Estimat Glomerular Filtration Rate 28.1, Glucose Level 166H, Calcium Level 8.9 Height (Feet): 5 Height (Inches): 6.00 Weight (Pounds): 225 JEFF TORIBIO Nov 10, 2016 19:20
[2016-11-11] VITALS (7 sets, daily range): BP systolic 134–183; BP diastolic 62–109
[2016-11-11] MEDS: Metoclopramide 10mg/2ml Inj IVP PRN ×2 (00:06→21:44)
[2016-11-11] MEDS ORDERED: Vancomycin 1.25 GM in D5W 275 ML IVPB SCH (02:00)
--- NOTE | 2016-11-11 02:58 | Consultation ---
DATE OF CONSULTATION: 11/10/2016 GASTROENTEROLOGY CONSULTATION CONSULTING PHYSICIAN: Jeff Toribio M.D. REFERRING PHYSICIAN: Arcenio Garcia M.D. CHIEF COMPLAINT: I was asked to see the patient by Dr. Arcenio Garcia for evaluation of her abdominal issues. HISTORY OF PRESENT ILLNESS: The patient is a 31-year-old woman, who presented in October with diverticulitis and was treated conservatively and was discharged home. She then returned for recurrent bout of diverticulitis at this time with an abscess. A decision was made to drain the abscess by Interventional Radiology, catheter drainage. The patient is ready to undergo and is on a clear liquid diet. She still has some left lower quadrant abdominal pain. The patient has some one or two bouts of small volume emesis. However, at the time of my visit, she was drinking her clear liquid diet and had no vomiting. The patient had no gastrointestinal issues in the past, and has not had endoscopy or colonoscopy either. PAST MEDICAL HISTORY: History of diverticulitis, history of asthma, and obesity. FAMILY HISTORY: Noncontributory except for positive heart disease in her mother. SOCIAL HISTORY: The patient does not smoke or drink alcohol. She has a daughter. ALLERGIES: Melon and shellfish. REVIEW OF SYSTEMS: Otherwise negative. PHYSICAL EXAMINATION: GENERAL: A well-developed, obese, woman, seen in her room. HEENT: Normocephalic and atraumatic. Sclerae anicteric. Oropharynx clear. NECK: Supple. CHEST: Clear to auscultation. CARDIOVASCULAR: Regular rate. ABDOMEN: Soft with left lower quadrant tenderness to palpation. There was mild voluntary guarding. There was also a suprapubic area catheter with a bag, had scant amount of purulent material. EXTREMITIES: No edema. NEUROLOGIC: Grossly nonfocal. LABORATORY AND DIAGNOSTIC DATA: CT scan was noted. ASSESSMENT: This patient presents with a complicated event of diverticulitis with abscess formation. Catheter drainage is a reasonable first step, although it clearly has to be followed up at a later stage with a definite sigmoid resection if she failed conservative management. The drainage will allow a proper cool-off period and one-stage surgical procedure. However, I am concerned about persistent leukocytosis and tenderness in the left lower quadrant and also new onset sudden renal failure today and the vomiting. The patient will have to be watched very closely, and if there is evidence of any further deterioration or persistence of the leukocytosis, then the patient should be taken to the operating room with a two-stage planned procedure with the first stage involving colostomy. The patient will require another CT scan later this week since her drainage from the catheter has dropped to 5 mL. This can be either due to incomplete drainage of the abscess versus the catheter being outside the abscess. RECOMMENDATIONS: 1. Follow laboratory parameters and exam closely. 2. Watch creatinine. 3. CT scan later this week. Thank you for asking me to participate in the care of this patient. Jeff Toribio M.D. DR: BOGDAN JOB#: [id number] CC:
[2016-11-11] MEDS: Piperacillin/Tazobactam 3.375 GM in NS 110 ML IVPB SCH (05:56)
[2016-11-11] MEDS: Morphine Sulfate 2mg/ml Inj IVP PRN ×2 (06:01→12:28)
[2016-11-11 06:40] LABS: MEAN CORPUSCULAR HEMOGLOBIN 24.9 PG (27.0-31.0); MEAN CORPUSCULAR HGB CONC 31.2 G/DL (32.0-36.0); MEAN CORPUSCULAR VOLUME 80 FL (80-99); MEAN PLATELET VOLUME 7.2 FL (6.5-10.1); PLATELET COUNT 543 K/UL (150-450); RED BLOOD COUNT 4.15 M/UL (4.20-5.40); RED CELL DISTRIBUTION WIDTH 14.2 % (11.6-14.8); WHITE BLOOD COUNT 20.1 K/UL (4.8-10.8)
[2016-11-11 07:04] LABS: CALCIUM 8.9 mg/dL (8.6-10.2); CREATININE 2.3 mg/dL (0.5-0.9); GLOMERULAR FILTRATION RATE 29.6 mL/min (>60); POTASSIUM 3.7 mEQ/L (3.4-4.9)
[2016-11-11 08:13] LABS: BAND NEUTROPHILS % (MANUAL) 1 % (0-8); BASOPHILS % (MANUAL) 0 % (0-2); EOSINOPHILS % (MANUAL) 1 % (0-3); HYPOCHROMASIA 1+; LYMPHOCYTES % (MANUAL) 8 % (20-45); NEUTROPHILS % (MANUAL) 82 % (45-75); PLATELET ESTIMATE ADEQUATE; TOTAL CELLS COUNTED 100
[2016-11-11 08:14] LABS: PLATELET MORPHOLOGY NORMAL
[2016-11-11] MEDS: D5 1/2NS w/KCl 20mEq 1,000 ML IV SCH ×2 (09:29→20:01)
[2016-11-11] MEDS ORDERED: HydrALAZINE 25mg tab ORAL PRN (14:00)
--- NOTE | 2016-11-11 14:35 | General Progress Note ---
Assessment/Plan Status: unchanged Status Narrative on clear liquids Assessment/Plan status: (1) Colonic diverticular abscess (2) Abdominal pain (3) Diverticulitis (4) ARF (acute renal failure) Plan: Hydrate- Urine studies BP control Per orders Monitor renal parameters Per GI / Surgeon Subjective Date patient seen: Nov 11, 2016 Time patient seen: 14:30 ROS Limited/Unobtainable: No Constitutional: Reports: malaise Allergies: Coded Allergies: MELON (Verified Allergy, Unknown, 10/15/16) Uncoded Allergies: SHELLFISH (Allergy, Unknown, 10/15/16) Objective Last 24 Hour Vital Signs Date Time Temp Pulse Resp B/P Pulse Ox O2 Delivery O2 Flow Rate FiO2 11/11/16 13:30 167/109 11/11/16 12:58 97.7 11/11/16 12:00 97.7 73 22 183/107 95 Room Air 11/11/16 11:14 73 183/107 11/11/16 08:15 98.6 70 22 164/104 95 Room Air 11/11/16 04:00 97.9 92 18 142/92 99 Room Air 11/11/16 00:00 97.7 93 18 143/102 97 Room Air 11/10/16 20:55 97.3 11/10/16 19:00 97.3 80 20 155/105 98 Room Air 11/10/16 16:00 97.3 90 20 158/100 99 Room Air Intake and Output 11/10/16 11/11/16 19:00 07:00 Intake Total 1760.0 ml 1290.0 ml Balance 1760.0 ml 1290.0 ml Intake Oral 450 ml 480 ml IV Total 1310.0 ml 810.0 ml # Voids 2 6 Laboratory Tests 11/11/16 05:10: White Blood Count 20.1H, Red Blood Count 4.15L, Hemoglobin 10.3L, Hematocrit 33.2L, Mean Corpuscular Volume 80, Mean Corpuscular Hemoglobin 24.9L, Mean Corpuscular Hemoglobin Concent 31.2L, Red Cell Distribution Width 14.2, Platelet Count 543H, Mean Platelet Volume 7.2, Neutrophils (%) (Auto) , Lymphocytes (%) (Auto) , Monocytes (%) (Auto) , Eosinophils (%) (Auto) , Basophils (%) (Auto) , Differential Total Cells Counted 100, Neutrophils % ( Manual) 82H, Lymphocytes % (Manual) 8L, Monocytes % (Manual) 8, Eosinophils % ( Manual) 1, Basophils % (Manual) 0, Band Neutrophils 1, Platelet Estimate Adequate, Platelet Morphology Normal, Hypochromasia 1+, Sodium Level 143, Potassium Level 3.7, Chloride Level 100, Carbon Dioxide Level 25, Anion Gap 18H , Blood Urea Nitrogen 7, Creatinine 2.3H, Estimat Glomerular Filtration Rate 29.6, Glucose Level 113H, Calcium Level 8.9, Amylase Level 102, Lipase 50 Height (Feet): 5 Height (Inches): 6.00 Weight (Pounds): 225 General Appearance: no apparent distress, other - obese Cardiovascular: regular rhythm Respiratory/Chest: decreased breath sounds Abdomen: distended Genitourinary/Rectal: other - no VIKAS Garcia Nov 11, 2016 14:35
--- NOTE | 2016-11-11 14:48 | General Surgery Progress Note ---
General Surgery-Progress Note Subjective Symptoms: BM Objective Last 24 Hour Vital Signs Date Time Temp Pulse Resp B/P Pulse Ox O2 Delivery O2 Flow Rate FiO2 11/11/16 13:30 167/109 11/11/16 12:58 97.7 11/11/16 12:00 97.7 73 22 183/107 95 Room Air 11/11/16 11:14 73 183/107 11/11/16 08:15 98.6 70 22 164/104 95 Room Air 11/11/16 04:00 97.9 92 18 142/92 99 Room Air 11/11/16 00:00 97.7 93 18 143/102 97 Room Air 11/10/16 20:55 97.3 11/10/16 19:00 97.3 80 20 155/105 98 Room Air 11/10/16 16:00 97.3 90 20 158/100 99 Room Air I&O Intake and Output 11/10/16 11/11/16 19:00 07:00 Intake Total 1760.0 ml 1290.0 ml Balance 1760.0 ml 1290.0 ml Intake Oral 450 ml 480 ml IV Total 1310.0 ml 810.0 ml # Voids 2 6 Respiratory: clear Abdomen: soft, non-tender, present bowel sounds Extremities: no tenderness Laboratory Tests Test 11/11/16 05:10 White Blood Count 20.1 K/UL (4.8-10.8) H Red Blood Count 4.15 M/UL (4.20-5.40) L Hemoglobin 10.3 G/DL (12.0-16.0) L Hematocrit 33.2 % (37.0-47.0) L Mean Corpuscular Volume 80 FL (80-99) Mean Corpuscular Hemoglobin 24.9 PG (27.0-31.0) L Mean Corpuscular Hemoglobin Concent 31.2 G/DL (32.0-36.0) L Red Cell Distribution Width 14.2 % (11.6-14.8) Platelet Count 543 K/UL (150-450) H Mean Platelet Volume 7.2 FL (6.5-10.1) Neutrophils (%) (Auto) % (45.0-75.0) Lymphocytes (%) (Auto) % (20.0-45.0) Monocytes (%) (Auto) % (1.0-10.0) Eosinophils (%) (Auto) % (0.0-3.0) Basophils (%) (Auto) % (0.0-2.0) Differential Total Cells Counted 100 Neutrophils % (Manual) 82 % (45-75) H Lymphocytes % (Manual) 8 % (20-45) L Monocytes % (Manual) 8 % (1-10) Eosinophils % (Manual) 1 % (0-3) Basophils % (Manual) 0 % (0-2) Band Neutrophils 1 % (0-8) Platelet Estimate Adequate Platelet Morphology Normal Hypochromasia 1+ Sodium Level 143 mEQ/L (135-145) Potassium Level 3.7 mEQ/L (3.4-4.9) Chloride Level 100 mEQ/L (98-107) Carbon Dioxide Level 25 mEQ/L (20-30) Anion Gap 18 (5-15) H Blood Urea Nitrogen 7 mg/dL (7-23) Creatinine 2.3 mg/dL (0.5-0.9) H Estimat Glomerular Filtration Rate 29.6 mL/min (>60) Glucose Level 113 mg/dL (74-106) H Calcium Level 8.9 mg/dL (8.6-10.2) Amylase Level 102 U/L (10-110) Lipase 50 U/L (< 60) Assessment Additional Comments Diverticulitis with abscess Plan Additional Comments continue IV antibiotics BREANNA RDZ Nov 11, 2016 14:48
[2016-11-11] MEDS: Meropenem 1gm in NS 110ml IVPB SCH (18:27)
--- NOTE | 2016-11-11 20:18 | General Progress Note ---
Assessment/Plan Assessment/Plan Assessment - complicated diverticulitis with abscess - Concerned re worse leukocytosis and ATN - Drainage output minimal - ? cavity drained vs tip of catheter out of abscess Recommendations - will need to repeat CT - continue abx - nephrology f/u - surgical f/u Subjective Allergies: Coded Allergies: MELON (Verified Allergy, Unknown, 10/15/16) Uncoded Allergies: SHELLFISH (Allergy, Unknown, 10/15/16) Subjective above noted had emesis this am on clears SABRINA outpt minimal WBC higher Objective Last 24 Hour Vital Signs Date Time Temp Pulse Resp B/P Pulse Ox O2 Delivery O2 Flow Rate FiO2 11/11/16 18:28 86 152/106 11/11/16 16:00 97.7 86 20 152/106 99 Room Air 11/11/16 13:30 167/109 11/11/16 12:58 97.7 11/11/16 12:00 97.7 73 22 183/107 95 Room Air 11/11/16 11:14 73 183/107 11/11/16 08:15 98.6 70 22 164/104 95 Room Air 11/11/16 04:00 97.9 92 18 142/92 99 Room Air 11/11/16 00:00 97.7 93 18 143/102 97 Room Air 11/10/16 20:55 97.3 Intake and Output 11/10/16 11/11/16 19:00 07:00 Intake Total 1760.0 ml 1290.0 ml Balance 1760.0 ml 1290.0 ml Intake Oral 450 ml 480 ml IV Total 1310.0 ml 810.0 ml # Voids 2 6 Laboratory Tests 11/11/16 05:10: White Blood Count 20.1H, Red Blood Count 4.15L, Hemoglobin 10.3L, Hematocrit 33.2L, Mean Corpuscular Volume 80, Mean Corpuscular Hemoglobin 24.9L, Mean Corpuscular Hemoglobin Concent 31.2L, Red Cell Distribution Width 14.2, Platelet Count 543H, Mean Platelet Volume 7.2, Neutrophils (%) (Auto) , Lymphocytes (%) (Auto) , Monocytes (%) (Auto) , Eosinophils (%) (Auto) , Basophils (%) (Auto) , Differential Total Cells Counted 100, Neutrophils % ( Manual) 82H, Lymphocytes % (Manual) 8L, Monocytes % (Manual) 8, Eosinophils % ( Manual) 1, Basophils % (Manual) 0, Band Neutrophils 1, Platelet Estimate Adequate, Platelet Morphology Normal, Hypochromasia 1+, Sodium Level 143, Potassium Level 3.7, Chloride Level 100, Carbon Dioxide Level 25, Anion Gap 18H , Blood Urea Nitrogen 7, Creatinine 2.3H, Estimat Glomerular Filtration Rate 29.6, Glucose Level 113H, Calcium Level 8.9, Amylase Level 102, Lipase 50 11/11/16 14:30: Urine Random Sodium 68 Height (Feet): 5 Height (Inches): 6.00 Weight (Pounds): 225 Objective Obese AA woman NCAT supple CTA RRR soft (+) LLQ TTP, (+) drainage catheter in midline no edema non focal JORDYN DINERO Nov 11, 2016 20:18
[2016-11-11] MEDS ORDERED: Piperacillin/Tazobactam 3.375 GM in NS 110 ML IVPB SCH (21:00)
[2016-11-12] VITALS (14 sets, daily range): BP systolic 124–149; BP diastolic 75–110
[2016-11-12] MEDS: D5 1/2NS w/KCl 20mEq 1,000 ML IV SCH ×2 (05:30→17:17)
[2016-11-12] MEDS: Meropenem 1gm in NS 110ml IVPB SCH (06:07)
[2016-11-12 06:34] LABS: MEAN CORPUSCULAR HEMOGLOBIN 24.7 PG (27.0-31.0); MEAN CORPUSCULAR HGB CONC 31.4 G/DL (32.0-36.0); MEAN CORPUSCULAR VOLUME 79 FL (80-99); PLATELET COUNT 542 K/UL (150-450); RED BLOOD COUNT 4.33 M/UL (4.20-5.40); RED CELL DISTRIBUTION WIDTH 14.1 % (11.6-14.8)
[2016-11-12 06:39] LABS: WHITE BLOOD COUNT 24.6 K/UL (4.8-10.8)
[2016-11-12 07:03] LABS: ALBUMIN/GLOBULIN RATIO 0.7 (1.0-2.7); CALCIUM 9.1 mg/dL (8.6-10.2); CREATININE 2.3 mg/dL (0.5-0.9); CRP QUANT 12.7 mg/dL (< 0.5); GLOMERULAR FILTRATION RATE 29.6 mL/min (>60); MAGNESIUM 1.9 mg/dL (1.7-2.5); PHOSPHORUS 3.9 mg/dL (2.5-4.8); POTASSIUM 3.8 mEQ/L (3.4-4.9); URIC ACID 4.9 mg/dL (3.0-7.5)
[2016-11-12 07:24] LABS: THYROID STIMULATING HORMONE 2.21 uIU/mL (0.300-4.500)
--- NOTE | 2016-11-12 09:32 | Diagnostic Imaging Report ---
Indication: Abdominal pain Technique: CT of the abdomen and pelvis utilizing automated exposure control with oral contrast. Venous scanning performed. CT dose: Total DLP 1145 mGycm; CTDI vol 19.5 mGy Comparison: 11/07/16 Findings: There is mild atelectasis in the lung bases. There is diffuse fatty infiltration of the liver. High density in the gallbladder is likely secondary to vicarious excretion of contrast. The adrenal glands, spleen and pancreas are unremarkable. The kidneys are unremarkable. The small bowel loops are normal in caliber. The appendix is normal. Pigtail drainage catheter has been pulled back and is now just deep to the rectus musculature. Diverticulitis is again noted with area of ill-defined inflammatory change, fluid and scattered foci of extraluminal air within the central and left pelvis grossly measuring 6 x 5.5 cm. There is abuts the left-sided bladder dome which demonstrates wall thickening. There is trace free fluid in the pelvis. The abdominal aorta is normal in caliber. The osseous structures demonstrate no acute abnormality. Impression: Pigtail drainage catheter pulled back now just deep to the rectus musculature and outside of the inflammatory collection in the left pelvis. Redemonstration of diverticulitis with ill-defined inflammatory change, fluid and scattered foci of air within the central and left pelvis. Overall this grossly measures 6 x 5.5 cm and abuts the left side of the bladder demonstrating wall thickening. No air identified within the bladder at this time. Clinical correlation recommended. Other findings as above. The CT scanner at [facility] is accredited by the [employer] and the scans are performed using protocols designed to limit radiation exposure to as low as reasonably achievable to attain images of sufficient resolution adequate for diagnostic evaluation.
--- NOTE | 2016-11-12 09:40 | General Surgery Progress Note ---
General Surgery-Progress Note Objective Last 24 Hour Vital Signs Date Time Temp Pulse Resp B/P Pulse Ox O2 Delivery O2 Flow Rate FiO2 11/12/16 08:32 84 146/99 11/12/16 08:16 97.7 84 15 146/99 98 Room Air 11/12/16 04:00 97.9 101 18 142/110 99 Room Air 11/12/16 00:00 97.9 92 18 144/75 98 Room Air 11/11/16 20:00 99.0 64 17 134/62 94 Room Air 11/11/16 18:28 86 152/106 11/11/16 16:00 97.7 86 20 152/106 99 Room Air 11/11/16 13:30 167/109 11/11/16 12:58 97.7 11/11/16 12:00 97.7 73 22 183/107 95 Room Air 11/11/16 11:14 73 183/107 I&O Intake and Output 11/11/16 11/12/16 19:00 07:00 Intake Total 800 ml 1280 ml Balance 800 ml 1280 ml Intake Oral 480 ml IV Total 800 ml 800 ml # Voids 6 # Bowel Movements 3 Respiratory: clear Abdomen: soft, tenderness, present bowel sounds Extremities: no tenderness Laboratory Tests Test 11/11/16 14:30 11/12/16 06:00 11/12/16 06:05 Urine Random Sodium 68 mmol/L Urine Eosinophils None seen White Blood Count 24.6 K/UL (4.8-10.8) *H Red Blood Count 4.33 M/UL (4.20-5.40) Hemoglobin 10.7 G/DL (12.0-16.0) L Hematocrit 34.1 % (37.0-47.0) L Mean Corpuscular Volume 79 FL (80-99) L Mean Corpuscular Hemoglobin 24.7 PG (27.0-31.0) L Mean Corpuscular Hemoglobin Concent 31.4 G/DL (32.0-36.0) L Red Cell Distribution Width 14.1 % (11.6-14.8) Platelet Count 542 K/UL (150-450) H Mean Platelet Volume 7.0 FL (6.5-10.1) Neutrophils (%) (Auto) % (45.0-75.0) Lymphocytes (%) (Auto) % (20.0-45.0) Monocytes (%) (Auto) % (1.0-10.0) Eosinophils (%) (Auto) % (0.0-3.0) Basophils (%) (Auto) % (0.0-2.0) Neutrophils % (Manual) Pending Lymphocytes % (Manual) Pending Platelet Estimate Pending Platelet Morphology Pending Sodium Level 139 mEQ/L (135-145) Potassium Level 3.8 mEQ/L (3.4-4.9) Chloride Level 97 mEQ/L (98-107) L Carbon Dioxide Level 26 mEQ/L (20-30) Anion Gap 16 (5-15) H Blood Urea Nitrogen 7 mg/dL (7-23) Creatinine 2.3 mg/dL (0.5-0.9) H Estimat Glomerular Filtration Rate 29.6 mL/min (>60) Glucose Level 106 mg/dL (74-106) Uric Acid 4.9 mg/dL (3.0-7.5) Calcium Level 9.1 mg/dL (8.6-10.2) Phosphorus Level 3.9 mg/dL (2.5-4.8) Magnesium Level 1.9 mg/dL (1.7-2.5) Iron Level 16 ug/dL (37-145) L Total Iron Binding Capacity 169 ug/dL (250-400) L Percent Iron Saturation 9 % (15-50) L Unsaturated Iron Binding 153 ug/dL (112-346) Ferritin 311 ng/mL (13-150) H Total Bilirubin 0.7 mg/dL (0.0-1.2) Gamma Glutamyl Transpeptidase 118 U/L (5-36) H Aspartate Amino Transf (AST/SGOT) 17 U/L (5-40) Alanine Aminotransferase (ALT/SGPT) 13 U/L (3-33) Alkaline Phosphatase 103 U/L (35-104) C-Reactive Protein, Quantitative 12.7 mg/dL (< 0.5) H Total Protein 8.0 g/dL (6.6-8.7) Albumin 3.3 g/dL (3.5-5.2) L Globulin 4.7 g/dL Albumin/Globulin Ratio 0.7 (1.0-2.7) L Vitamin B12 Level 376 pg/mL (211-946) Folate Pending Thyroid Stimulating Hormone (TSH) 2.210 uIU/mL (0.300-4.500) Random Vancomycin Level 9.7 ug/mL Assessment Additional Comments Pered Diverticulitis Plan Additional Comments scheduled for colon resection BREANNA RDZ Nov 12, 2016 09:40
[2016-11-12 09:50] LABS: ANISOCYTOSIS 1+; BAND NEUTROPHILS % (MANUAL) 0 % (0-8); BASOPHILS % (MANUAL) 0 % (0-2); EOSINOPHILS % (MANUAL) 2 % (0-3); HYPOCHROMASIA 1+; LYMPHOCYTES % (MANUAL) 8 % (20-45); NEUTROPHILS % (MANUAL) 79 % (45-75); PLATELET ESTIMATE INCREASED; PLATELET MORPHOLOGY NORMAL; TOTAL CELLS COUNTED 100
[2016-11-12 09:51] LABS: MICROCYTES 1+
[2016-11-12] MEDS ORDERED: Tubing IV Secondary IV ONE (10:58)
--- NOTE | 2016-11-12 11:37 | Pre-Procedure Note/Attestation ---
Pre-Procedure Note/Attestation Complete Prior to Procedure Planned Procedure: not applicable Procedure Narrative: Exploratory laparotomy, colon resection and colostomy Indications for Procedure Pre-Operative Diagnosis: Perforated diverticulitis Attestation I attest that I discussed the nature of the procedure; its benefits; risks and complications; and alternatives (and the risks and benefits of such alternatives ), prior to the procedure, with the patient (or the patient's legal paper sales representative). I attest that, if there was a reasonable possibility of needing a blood transfusion, the patient (or the patient's legal paper sales representative) was given the [facility] standardized written summary, pursuant to the [place] Blood Safety Act ([place] Health and Safety Code # 1645, as amended). I attest that I re-evaluated the patient just prior to the surgery and that there has been no change in the patient's H&P, except as documented below: BREANNA RDZ Nov 12, 2016 11:37
--- NOTE | 2016-11-12 11:48 | Infectious Diseases Prog Note ---
"Assessment/Plan Assessment/Plan antibiotics : meropenem A 1. diverticulitis with abscess with e.coli | streptococcus 2. leucocytosis increasing 3. asthma P 1. d/c meropenem 2. start ceftriaxone, flagyl 3. will follow up cultures Subjective ROS Limited/Unobtainable: Yes Constitutional: Denies: chills, fever Respiratory: Denies: dry cough, shortness of breath Gastrointestinal/Abdominal: Denies: diarrhea, nausea, vomiting Musculoskeletal: Reports: pain Allergies: Coded Allergies: MELON (Verified Allergy, Unknown, 10/15/16) Uncoded Allergies: SHELLFISH (Allergy, Unknown, 10/15/16) Objective Vital Signs Last 24 Hour Vital Signs Date Time Temp Pulse Resp B/P Pulse Ox O2 Delivery O2 Flow Rate FiO2 11/12/16 08:32 84 146/99 11/12/16 08:16 97.7 84 15 146/99 98 Room Air 11/12/16 04:00 97.9 101 18 142/110 99 Room Air 11/12/16 00:00 97.9 92 18 144/75 98 Room Air 11/11/16 20:00 99.0 64 17 134/62 94 Room Air 11/11/16 18:28 86 152/106 11/11/16 16:00 97.7 86 20 152/106 99 Room Air 11/11/16 13:30 167/109 11/11/16 12:58 97.7 11/11/16 12:00 97.7 73 22 183/107 95 Room Air Height (Feet): 5 Height (Inches): 6.00 Weight (Pounds): 224 Respiratory/Chest: lungs clear Cardiovascular: normal rate, regular rhythm, no gallop/murmur Abdomen: soft, non tender Extremities: no edema, other - right arm PICC Laboratory Tests Test 11/11/16 14:30 11/12/16 06:00 11/12/16 06:05 Urine Random Sodium 68 mmol/L Urine Eosinophils None seen White Blood Count 24.6 K/UL (4.8-10.8) *H Red Blood Count 4.33 M/UL (4.20-5.40) Hemoglobin 10.7 G/DL (12.0-16.0) L Hematocrit 34.1 % (37.0-47.0) L Mean Corpuscular Volume 79 FL (80-99) L Mean Corpuscular Hemoglobin 24.7 PG (27.0-31.0) L Mean Corpuscular Hemoglobin Concent 31.4 G/DL (32.0-36.0) L Red Cell Distribution Width 14.1 % (11.6-14.8) Platelet Count 542 K/UL (150-450) H Mean Platelet Volume 7.0 FL (6.5-10.1) Neutrophils (%) (Auto) % (45.0-75.0) Lymphocytes (%) (Auto) % (20.0-45.0) Monocytes (%) (Auto) % (1.0-10.0) Eosinophils (%) (Auto) % (0.0-3.0) Basophils (%) (Auto) % (0.0-2.0) Differential Total Cells Counted 100 Neutrophils % (Manual) 79 % (45-75) H Lymphocytes % (Manual) 8 % (20-45) L Monocytes % (Manual) 11 % (1-10) H Eosinophils % (Manual) 2 % (0-3) Basophils % (Manual) 0 % (0-2) Band Neutrophils 0 % (0-8) Platelet Estimate Increased H Platelet Morphology Normal Hypochromasia 1+ Anisocytosis 1+ Microcytosis 1+ Sodium Level 139 mEQ/L (135-145) Potassium Level 3.8 mEQ/L (3.4-4.9) Chloride Level 97 mEQ/L (98-107) L Carbon Dioxide Level 26 mEQ/L (20-30) Anion Gap 16 (5-15) H Blood Urea Nitrogen 7 mg/dL (7-23) Creatinine 2.3 mg/dL (0.5-0.9) H Estimat Glomerular Filtration Rate 29.6 mL/min (>60) Glucose Level 106 mg/dL (74-106) Uric Acid 4.9 mg/dL (3.0-7.5) Calcium Level 9.1 mg/dL (8.6-10.2) Phosphorus Level 3.9 mg/dL (2.5-4.8) Magnesium Level 1.9 mg/dL (1.7-2.5) Iron Level 16 ug/dL (37-145) L Total Iron Binding Capacity 169 ug/dL (250-400) L Percent Iron Saturation 9 % (15-50) L Unsaturated Iron Binding 153 ug/dL (112-346) Ferritin 311 ng/mL (13-150) H Total Bilirubin 0.7 mg/dL (0.0-1.2) Gamma Glutamyl Transpeptidase 118 U/L (5-36) H Aspartate Amino Transf (AST/SGOT) 17 U/L (5-40) Alanine Aminotransferase (ALT/SGPT) 13 U/L (3-33) Alkaline Phosphatase 103 U/L (35-104) C-Reactive Protein, Quantitative 12.7 mg/dL (< 0.5) H Total Protein 8.0 g/dL (6.6-8.7) Albumin 3.3 g/dL (3.5-5.2) L Globulin 4.7 g/dL Albumin/Globulin Ratio 0.7 (1.0-2.7) L Vitamin B12 Level 376 pg/mL (211-946) Folate Pending Thyroid Stimulating Hormone (TSH) 2.210 uIU/mL (0.300-4.500) Random Vancomycin Level 9.7 ug/mL SURYA HEREDIA Nov 12, 2016 11:48"
[2016-11-12] MEDS ORDERED: Propofol 10mg/ml 20ml IV ONE (11:50)
[2016-11-12] MEDS ORDERED: Alfentanil 2ml Inj ONE (11:50)
[2016-11-12] MEDS ORDERED: Zemuron 50mg/5ml Inj IV ONE (11:50)
[2016-11-12] MEDS ORDERED: LR 1000ml ONE (11:50)
[2016-11-12] MEDS ORDERED: Neostigmine 1mg/ml 10ml Inj ONE (11:50)
[2016-11-12] MEDS ORDERED: NS Irrig 1000ml ONE (11:50)
[2016-11-12] MEDS ORDERED: Glycopyrrolate 0.2mg/ml 1ml Vial ONE (11:50)
[2016-11-12] MEDS ORDERED: Lidocaine 1% MPF 10mg/ml 5ml ONE (11:50)
[2016-11-12] MEDS ORDERED: Sterile Water Irrig 1000ml IRRIG ONE (11:50)
[2016-11-12] MEDS ORDERED: Ketamine 500mg Inj ONE (11:50)
[2016-11-12] MEDS ORDERED: Ketorolac 30mg Inj ONE (11:50)
[2016-11-12] MEDS ORDERED: Dexamethasone 4mg/ml vial ONE (11:50)
[2016-11-12] MEDS ORDERED: Bupivacaine 0.25% Inj 30ml INJ ONE (11:56)
[2016-11-12] MEDS ORDERED: Bacitracin 50000 Units Vial ONE ×2 (11:56→15:15)
[2016-11-12] MEDS ORDERED: NS Irrig 1000ml IRRIG ONE (12:00)
[2016-11-12] MEDS ORDERED: LR 1000ml 1,000 ML IVLG SCH (12:41)
--- NOTE | 2016-11-12 12:41 | Anethesia Preoperative Eval ---
Anesthesia Pre-op PMH/ROS General Date of Evaluation: Nov 12, 2016 Time of Evaluation: 11:51 Anesthesiologist: Mata ASA Score: ASA 3 - Emergency Mallampati Score Class I : Soft palate, uvula, fauces, pillars visible Class II: Soft palate, uvula, fauces visible Class III: Soft palate, base of uvula visible Class IV: Only hard plate visible Mallampati Classification: Class III Surgeon: Thai Diagnosis: Abd Pain Surgical Procedure: Open Colectomy Anesthesia History: none Family History: no anesthesia problems Allergies: Coded Allergies: MELON (Verified Allergy, Unknown, 10/15/16) Uncoded Allergies: SHELLFISH (Allergy, Unknown, 10/15/16) Medications: see eMAR Past Medical History Cardiovascular: Reports: HTN Pulmonary: Reports: other - Bronchitis Gastrointestinal/Genitourinary: Reports: other - Diverticulitis Neurologic/Psychiatric: Reports: other - Encephalitis Other: obesity - BMI 37 Anesthesia Pre-op Phys. Exam Physician Exam Last Vital Signs Date Time Temp Pulse Resp B/P Pulse Ox O2 Delivery O2 Flow Rate FiO2 11/12/16 11:38 98.1 98 15 142/91 99 Room Air 11/08/16 19:00 2.0 Constitutional: NAD Neurologic: CN 2-12 intact Cardiovascular: RRR Respiratory: CTA Gastrointestinal: S/NT/ND Airway Exam Mallampati Score: Class III MO: limited Neck: OBESE ROM: limited Teeth: intact Anesthesia Pre-op A/P Labs Hematology Test 11/12/16 06:05 White Blood Count 24.6 K/UL (4.8-10.8) *H Red Blood Count 4.33 M/UL (4.20-5.40) Hemoglobin 10.7 G/DL (12.0-16.0) L Hematocrit 34.1 % (37.0-47.0) L Mean Corpuscular Volume 79 FL (80-99) L Mean Corpuscular Hemoglobin 24.7 PG (27.0-31.0) L Mean Corpuscular Hemoglobin Concent 31.4 G/DL (32.0-36.0) L Red Cell Distribution Width 14.1 % (11.6-14.8) Platelet Count 542 K/UL (150-450) H Mean Platelet Volume 7.0 FL (6.5-10.1) Neutrophils (%) (Auto) % (45.0-75.0) Lymphocytes (%) (Auto) % (20.0-45.0) Monocytes (%) (Auto) % (1.0-10.0) Eosinophils (%) (Auto) % (0.0-3.0) Basophils (%) (Auto) % (0.0-2.0) Differential Total Cells Counted 100 Neutrophils % (Manual) 79 % (45-75) H Lymphocytes % (Manual) 8 % (20-45) L Monocytes % (Manual) 11 % (1-10) H Eosinophils % (Manual) 2 % (0-3) Basophils % (Manual) 0 % (0-2) Band Neutrophils 0 % (0-8) Platelet Estimate Increased H Platelet Morphology Normal Hypochromasia 1+ Anisocytosis 1+ Microcytosis 1+ Chemistry Test 11/12/16 06:05 Sodium Level 139 mEQ/L (135-145) Potassium Level 3.8 mEQ/L (3.4-4.9) Chloride Level 97 mEQ/L (98-107) L Carbon Dioxide Level 26 mEQ/L (20-30) Anion Gap 16 (5-15) H Blood Urea Nitrogen 7 mg/dL (7-23) Creatinine 2.3 mg/dL (0.5-0.9) H Estimat Glomerular Filtration Rate 29.6 mL/min (>60) Glucose Level 106 mg/dL (74-106) Uric Acid 4.9 mg/dL (3.0-7.5) Calcium Level 9.1 mg/dL (8.6-10.2) Phosphorus Level 3.9 mg/dL (2.5-4.8) Magnesium Level 1.9 mg/dL (1.7-2.5) Iron Level 16 ug/dL (37-145) L Total Iron Binding Capacity 169 ug/dL (250-400) L Percent Iron Saturation 9 % (15-50) L Unsaturated Iron Binding 153 ug/dL (112-346) Ferritin 311 ng/mL (13-150) H Total Bilirubin 0.7 mg/dL (0.0-1.2) Gamma Glutamyl Transpeptidase 118 U/L (5-36) H Aspartate Amino Transf (AST/SGOT) 17 U/L (5-40) Alanine Aminotransferase (ALT/SGPT) 13 U/L (3-33) Alkaline Phosphatase 103 U/L (35-104) C-Reactive Protein, Quantitative 12.7 mg/dL (< 0.5) H Total Protein 8.0 g/dL (6.6-8.7) Albumin 3.3 g/dL (3.5-5.2) L Globulin 4.7 g/dL Albumin/Globulin Ratio 0.7 (1.0-2.7) L Vitamin B12 Level 376 pg/mL (211-946) Folate Pending Thyroid Stimulating Hormone (TSH) 2.210 uIU/mL (0.300-4.500) Risk Assessment & Plan Assessment: ASA 3E Plan: GA, BIS, Glidescope Pre-Antibiotics Dru Grams Ancef IV Given Within 1 Hr of Incision: Yes Time Given: 12:21 Stan August MD Nov 12, 2016 12:41
[2016-11-12] MEDS ORDERED: Norco 7.5mg/325mg tab ORAL PRN (12:45)
[2016-11-12] MEDS ORDERED: Midazolam 2mg/2ml Inj IVP PRN (12:45)
[2016-11-12] MEDS ORDERED: Norco 5mg/325mg tab ORAL PRN (12:45)
[2016-11-12] MEDS ORDERED: Metoclopramide 10mg/2ml Inj IVP PRN (12:45)
[2016-11-12] MEDS ORDERED: LORazepam Inj 2mg/ml 1ml IV PRN (12:45)
[2016-11-12] MEDS ORDERED: Ketorolac 30mg Inj IV PRN (12:45)
[2016-11-12] MEDS ORDERED: DiphenhydrAMINE 50mg/ml Inj IVP PRN (12:45)
[2016-11-12] MEDS ORDERED: Atropine Inj 1mg/10ml Syr IV PRN (12:45)
[2016-11-12] MEDS ORDERED: Meperidine 25mg/ml Inj IV PRN (12:45)
[2016-11-12] MEDS ORDERED: Ketorolac 60mg Inj IV PRN (12:45)
[2016-11-12] MEDS ORDERED: Oxycodone/Acetaminophen 5-325 ORAL PRN (12:45)
[2016-11-12] MEDS ORDERED: Labetalol 5mg/ml 20ml vial IV PRN (12:45)
[2016-11-12] MEDS ORDERED: fentaNYL 100 mcg/2 mL IV PRN (12:45)
[2016-11-12] MEDS ORDERED: Hydromorphone 0.5mg/0.5ml inj IVP PRN ×2 (12:45→15:15)
--- NOTE | 2016-11-12 12:48 | Immediate Post-Op Evaluation ---
Immediate Post-Op Evalulation Immediate Post-Op Evalulation Procedure: Open Right Colectomy Date of Evaluation: Nov 12, 2016 Time of Evaluation: 15:30 IV Fluids: 1000LR Blood Products: 500 Alb Estimated Blood Loss: 500 Urinary Output: 100 Blood Pressure Systolic: 124 Blood Pressure Diastolic: 90 Pulse Rate: 84 Respiratory Rate: 16 O2 Sat by Pulse Oximetry: 100 Temperature (Fahrenheit): 97.6 Pain Score (1-10): 3 Nausea: No Vomiting: No Complications 0 Patient Status: awake, reacts, patent, extubated, none Hydration Status: adequate Dru Grams Ancef IV Given Within 1 Hr of Incision: Yes Time Given: 12:21 Stan August MD Nov 12, 2016 12:48
--- NOTE | 2016-11-12 12:49 | 48 Hour Post Anesthesia Eval ---
Post Anesthesia Evaluation Procedure: Open Right Colectomy Date of Evaluation: Nov 12, 2016 Time of Evaluation: 17:45 Blood Pressure Systolic: 133 0: 87 Pulse Rate: 89 Respiratory Rate: 18 Temperature (Fahrenheit): 98.3 O2 Sat by Pulse Oximetry: 100 Airway: patent Nausea: No Vomiting: No Pain Intensity: 3 Hydration Status: adequate Cardiopulmonary Status: Stable Mental Status/LOC: patient returned to baseline Follow-up Care/Observations: 0 Post-Anesthesia Complications: 0 Follow-up care needed: N/A Stan August MD Nov 12, 2016 12:49
[2016-11-12] MEDS ORDERED: metroNIDAZOLE 500mg 100 ML IVPB SCH (14:00)
--- NOTE | 2016-11-12 15:09 | Brief Operative Note ---
Immediate Post Operative Note Operative Note Pre-op Diagnosis: Perforated diverticulitis Procedure: Exploratory laparotomy, colon resection and primary anastomosis and release of splenic flexure Post-op Diagnosis: perforated colon with phlegmon Surgeon: MD Eben Timing Inspector: MD Prema Anesthesiologist: Dr. Collins Anesthesia: general Specimen: yes Complications: none Condition: stable Estimated Blood Loss: volume - 200ml Drains: SABRINA Implant(s) used?: No BREANNA RDZ Nov 12, 2016 15:09
--- NOTE | 2016-11-12 15:14 | General Progress Note ---
Assessment/Plan Status Narrative patient in OR for Ex lap- ? reaccumulating abcess Cr stable 2.3 Assessment/Plan status: (1) Colonic diverticular abscess (2) Abdominal pain (3) Diverticulitis (4) ARF (acute renal failure) Plan: booth post op- Avoid nephrotoxics Hydrate- Urine studies BP control Per orders Monitor renal parameters Per GI / Surgeon Subjective Allergies: Coded Allergies: MELON (Verified Allergy, Unknown, 10/15/16) Uncoded Allergies: SHELLFISH (Allergy, Unknown, 10/15/16) Objective Last 24 Hour Vital Signs Date Time Temp Pulse Resp B/P Pulse Ox O2 Delivery O2 Flow Rate FiO2 11/12/16 11:38 98.1 98 15 142/91 99 Room Air 11/12/16 08:32 84 146/99 11/12/16 08:16 97.7 84 15 146/99 98 Room Air 11/12/16 04:00 97.9 101 18 142/110 99 Room Air 11/12/16 00:00 97.9 92 18 144/75 98 Room Air 11/11/16 20:00 99.0 64 17 134/62 94 Room Air 11/11/16 18:28 86 152/106 11/11/16 16:00 97.7 86 20 152/106 99 Room Air Intake and Output 11/11/16 11/12/16 19:00 07:00 Intake Total 800 ml 1280 ml Balance 800 ml 1280 ml Intake Oral 480 ml IV Total 800 ml 800 ml # Voids 6 # Bowel Movements 3 Laboratory Tests 11/12/16 06:00: Urine Eosinophils None seen 11/12/16 06:05: White Blood Count 24.6*H, Red Blood Count 4.33, Hemoglobin 10.7L, Hematocrit 34.1L, Mean Corpuscular Volume 79L, Mean Corpuscular Hemoglobin 24.7L, Mean Corpuscular Hemoglobin Concent 31.4L, Red Cell Distribution Width 14.1, Platelet Count 542H, Mean Platelet Volume 7.0, Neutrophils (%) (Auto) , Lymphocytes (%) (Auto) , Monocytes (%) (Auto) , Eosinophils (%) (Auto) , Basophils (%) (Auto) , Differential Total Cells Counted 100, Neutrophils % ( Manual) 79H, Lymphocytes % (Manual) 8L, Monocytes % (Manual) 11H, Eosinophils % (Manual) 2, Basophils % (Manual) 0, Band Neutrophils 0, Platelet Estimate IncreasedH, Platelet Morphology Normal, Hypochromasia 1+, Anisocytosis 1+, Microcytosis 1+, Sodium Level 139, Potassium Level 3.8, Chloride Level 97L, Carbon Dioxide Level 26, Anion Gap 16H, Blood Urea Nitrogen 7, Creatinine 2.3H, Estimat Glomerular Filtration Rate 29.6, Glucose Level 106, Uric Acid 4.9, Calcium Level 9.1, Phosphorus Level 3.9, Magnesium Level 1.9, Iron Level 16L, Total Iron Binding Capacity 169L, Percent Iron Saturation 9L, Unsaturated Iron Binding 153, Ferritin 311H, Total Bilirubin 0.7, Gamma Glutamyl Transpeptidase 118H, Aspartate Amino Transf (AST/SGOT) 17, Alanine Aminotransferase (ALT/SGPT) 13, Alkaline Phosphatase 103, C-Reactive Protein, Quantitative 12.7H, Total Protein 8.0, Albumin 3.3L, Globulin 4.7, Albumin/Globulin Ratio 0.7L, Vitamin B12 Level 376, Folate [Pending], Thyroid Stimulating Hormone (TSH) 2.210, Random Vancomycin Level 9.7 Height (Feet): 5 Height (Inches): 6.00 Weight (Pounds): 224 General Appearance: other - patient in OR for ex VIKAS Douglas Nov 12, 2016 15:14
[2016-11-12] MEDS ORDERED: Acetaminophen 650 MG SUPP RECTAL PRN (15:15)
--- NOTE | 2016-11-12 16:48 | General Progress Note ---
Assessment/Plan Assessment/Plan Assessment - complicated diverticulitis with abscess - Concerned re worse leukocytosis and ATN - Drainage output minimal - catheter out of abscess Recommendations - surgical intervention - continue abx - nephrology f/u Subjective Allergies: Coded Allergies: MELON (Verified Allergy, Unknown, 10/15/16) Uncoded Allergies: SHELLFISH (Allergy, Unknown, 10/15/16) Subjective seen early am felt "OK" d/w pt re elevated WBC and CT findings d/w surgery Objective Last 24 Hour Vital Signs Date Time Temp Pulse Resp B/P Pulse Ox O2 Delivery O2 Flow Rate FiO2 11/12/16 16:10 89 19 146/98 100 Nasal Cannula 3.0 11/12/16 15:55 80 22 143/99 100 Nasal Cannula 3.0 11/12/16 15:40 80 21 143/94 100 Simple Mask 6.0 11/12/16 15:29 84 23 135/92 100 Simple Mask 6.0 11/12/16 15:24 86 22 132/96 100 Simple Mask 6.0 11/12/16 15:20 89 18 100 11/12/16 15:19 97.6 95 25 124/90 96 Simple Mask 6.0 11/12/16 15:19 84 16 100 11/12/16 11:38 98.1 98 15 142/91 99 Room Air 11/12/16 08:32 84 146/99 11/12/16 08:16 97.7 84 15 146/99 98 Room Air 11/12/16 04:00 97.9 101 18 142/110 99 Room Air 11/12/16 00:00 97.9 92 18 144/75 98 Room Air 11/11/16 20:00 99.0 64 17 134/62 94 Room Air 11/11/16 18:28 86 152/106 Intake and Output 11/11/16 11/12/16 19:00 07:00 Intake Total 800 ml 1280 ml Balance 800 ml 1280 ml Intake Oral 480 ml IV Total 800 ml 800 ml # Voids 6 # Bowel Movements 3 Laboratory Tests 11/12/16 06:00: Urine Eosinophils None seen 11/12/16 06:05: White Blood Count 24.6*H, Red Blood Count 4.33, Hemoglobin 10.7L, Hematocrit 34.1L, Mean Corpuscular Volume 79L, Mean Corpuscular Hemoglobin 24.7L, Mean Corpuscular Hemoglobin Concent 31.4L, Red Cell Distribution Width 14.1, Platelet Count 542H, Mean Platelet Volume 7.0, Neutrophils (%) (Auto) , Lymphocytes (%) (Auto) , Monocytes (%) (Auto) , Eosinophils (%) (Auto) , Basophils (%) (Auto) , Differential Total Cells Counted 100, Neutrophils % ( Manual) 79H, Lymphocytes % (Manual) 8L, Monocytes % (Manual) 11H, Eosinophils % (Manual) 2, Basophils % (Manual) 0, Band Neutrophils 0, Platelet Estimate IncreasedH, Platelet Morphology Normal, Hypochromasia 1+, Anisocytosis 1+, Microcytosis 1+, Sodium Level 139, Potassium Level 3.8, Chloride Level 97L, Carbon Dioxide Level 26, Anion Gap 16H, Blood Urea Nitrogen 7, Creatinine 2.3H, Estimat Glomerular Filtration Rate 29.6, Glucose Level 106, Uric Acid 4.9, Calcium Level 9.1, Phosphorus Level 3.9, Magnesium Level 1.9, Iron Level 16L, Total Iron Binding Capacity 169L, Percent Iron Saturation 9L, Unsaturated Iron Binding 153, Ferritin 311H, Total Bilirubin 0.7, Gamma Glutamyl Transpeptidase 118H, Aspartate Amino Transf (AST/SGOT) 17, Alanine Aminotransferase (ALT/SGPT) 13, Alkaline Phosphatase 103, C-Reactive Protein, Quantitative 12.7H, Total Protein 8.0, Albumin 3.3L, Globulin 4.7, Albumin/Globulin Ratio 0.7L, Vitamin B12 Level 376, Folate [Pending], Thyroid Stimulating Hormone (TSH) 2.210, Random Vancomycin Level 9.7 Height (Feet): 5 Height (Inches): 6.00 Weight (Pounds): 224 Objective Obese AA woman NCAT supple CTA RRR soft (+) LLQ TTP, (+) drainage catheter in midline no edema non focal JORDYN DINERO Nov 12, 2016 16:48
[2016-11-12] MEDS ORDERED: cefTRIAXone 1 GM in NS 55 ML IVPB SCH (18:00)
[2016-11-12] MEDS: Meropenem 1 GM in NS 110 ML IVPB SCH (18:27)
--- NOTE | 2016-11-12 22:18 | Operative Note - Dictated ---
DATE OF OPERATION: 11/12/2016 PREOP DIAGNOSIS: Perforated colon with abscess and phlegmon. POSTOP DIAGNOSIS: Perforated colon with abscess and phlegmon. OPERATIONS: 1. Exploratory laparotomy. 2. Resection of the colon with a primary anastomosis. 3. Release of the splenic flexure. 4. Partial omentectomy COMPLICATIONS: None. SURGEON: Angelic Andre M.D. INSPECTOR GENERAL: Dr. Lloyd. ANESTHESIA: General with endotracheal tube. ANESTHESIOLOGIST: Stan August M.D. INDICATION: This is a 31-year-old female, who presented to emergency room about a month ago with acute diverticulitis and phlegmon. The patient received conservative treatment and the condition improved. It was followed with serial CAT scans, which showed improvement in the phlegmon, so she was discharged home on antibiotics, but it returned few days later and this time, she had the abscess at the area of the phlegmon. She was started on conservative treatment and the radiologist placed a percutaneous catheter on 11/07/2016 in the abscess and reportedly, he drained 15 mL of pus. Postoperatively, the pain improved, but WBC did not improve and in fact, it kept raising. At the time of the placement of the catheter, it was 16,000 and it raised to 18,000 and then 20,000, and in two days over 25,000. A CAT scan, which was obtained yesterday, last night, shown that the percutaneous catheter was out of the area and in fact it was like under the abdominal wall and there was not walled-off abscess, but she had a large phlegmon with the air bubble all over. The patient has been on IV antibiotic for almost a month and there is no improvement. Besides, the WBC was increasing, so the decision was made for colon resection. The risks and benefits were explained to her and she agreed. DESCRIPTION OF PROCEDURE: The patient was placed supine on the operating table. After general anesthesia with endotracheal tube, the abdomen was properly prepped and draped. The midline incision was given from the epigastrium to the pubis and was carried sharply through subcutaneous tissue, fascia, and peritoneum. The intraabdominal cavity was entered. An exploration was performed. It was noticed that the omentum had a very dense adhesion to the sigmoid colon and anterior abdominal wall and the colon and the omentum had dense adhesion to the anterior and lateral abdominal wall. Initially, the omentum at this area was resected and the colon and small part of the omentum was exposed. Then, the blunt dissection was performed and the colon, phlegmon, and small part of the omentum was released and it was mobilized. This area was about a 15 cm. The colon below the mass and above the mass was identified and isolated and then it was ligated with a TA stapler and the colon was resected. The mesocolon was ligated with #0 silk and resected and the mass, which contained sigmoid colon, phlegmon, and small part of the omentum was completely removed from the field. The rest of the colon seemed to be normal, so the dissection was performed. We released the descending colon, but it was not enough. It should be noted that the colon was completely empty. It seems very clean, so the decision was made to perform a primary anastomosis rather than colostomy especially that this patient is morbidly obese. As we did not have enough length, finally the splenic flexure was released with the help of the Bovie and the ligation with #0 silk and the colon was pushed further down, but again the descending colon did not move very much. We did not have enough length for anastomosis or even for colostomy, so the decision was made to resect the descending colon and perform the primary anastomosis between the transverse colon and the sigmoid colon. The mesial colon was ligated with #0 silk and was transected and then the transverse colon proximal to the splenic flexure was ligated with a TA stapler was resected and removed. At this time, we had enough length to perform primary anastomosis, which was performed with the end-to-end functional anastomosis with the PATTI stapler. Patent anastomosis was obtained and circulation seemed to be normal. The intraperitoneal cavity was thoroughly irrigated with antibiotic solution. A #19 Joshua was placed in the pelvis and was brought out from a separate stab wound at the right lower quadrant. After this, the incision was approximated with running suture of #0 Vicryl for the posterior fascia and peritoneum and #1 Prolene for the fascia. The skin incision was approximated with multiple skin paty. The patient tolerated the procedure very well and was transferred to the recovery room in stable condition and extubated. The sponge and needle count are correct. ESTIMATED BLOOD LOSS: 200 mL. Condition of the patient at the end of the procedure was stable. Angelic Andre M.D. DR: MARK JOB#: [id number] CC: SAMINA
[2016-11-13] VITALS: BP 144/90
[2016-11-13] MEDS: D5 1/2NS w/KCl 20mEq 1,000 ML IV SCH ×2 (01:15→09:31)
[2016-11-13 04:00] VITALS: BP_SYST 117; BP_SYST 129; BP_DIAS 68; BP_DIAS 86
[2016-11-13] MEDS: Meropenem 1 GM in NS 110 ML IVPB SCH ×2 (06:02→17:15)
[2016-11-13 07:43] LABS: MEAN CORPUSCULAR HEMOGLOBIN 25.2 PG (27.0-31.0); MEAN CORPUSCULAR HGB CONC 31.7 G/DL (32.0-36.0); MEAN CORPUSCULAR VOLUME 79 FL (80-99); MEAN PLATELET VOLUME 7.2 FL (6.5-10.1); PLATELET COUNT 449 K/UL (150-450); RED BLOOD COUNT 3.41 M/UL (4.20-5.40); RED CELL DISTRIBUTION WIDTH 14.3 % (11.6-14.8)
[2016-11-13 07:48] LABS: ALBUMIN/GLOBULIN RATIO 0.7 (1.0-2.7); CALCIUM 8.4 mg/dL (8.6-10.2); CREATININE 2.6 mg/dL (0.5-0.9); CRP QUANT 21.1 mg/dL (< 0.5); GLOMERULAR FILTRATION RATE 25.7 mL/min (>60); MAGNESIUM 1.8 mg/dL (1.7-2.5); POTASSIUM 4.6 mEQ/L (3.4-4.9); URIC ACID 5.7 mg/dL (3.0-7.5)
[2016-11-13 08:16] VITALS: BP 129/81
[2016-11-13] MEDS ORDERED: Tubing IV Secondary IV ONE (08:40)
[2016-11-13] MEDS: Enoxaparin 40mg Inj SUBQ SCH (09:06)
--- NOTE | 2016-11-13 10:07 | Infectious Diseases Prog Note ---
Assessment/Plan Assessment/Plan A: Sigmoid diverticulitis & Abscess s/p CT guided drainage S/P laparotomy Fatty liver Obesity Acute renal failure P: continue Meropenem Will f/u cultures Subjective ROS Limited/Unobtainable: No Constitutional: Reports: no symptoms Respiratory: Reports: no symptoms Cardiovascular: Reports: no symptoms Gastrointestinal/Abdominal: Reports: other - pain in surgical site Genitourinary: Reports: no symptoms Allergies: Coded Allergies: MELON (Verified Allergy, Unknown, 10/15/16) Uncoded Allergies: SHELLFISH (Allergy, Unknown, 10/15/16) Objective Vital Signs Last 24 Hour Vital Signs Date Time Temp Pulse Resp B/P Pulse Ox O2 Delivery O2 Flow Rate FiO2 11/13/16 08:16 97.9 94 20 129/81 99 Nasal Cannula 2.0 11/13/16 04:00 97.7 88 18 129/86 95 Nasal Cannula 2.0 11/13/16 00:00 97.3 90 18 144/90 94 Nasal Cannula 2.0 11/12/16 20:49 97.8 11/12/16 19:00 97.3 93 20 137/88 95 Nasal Cannula 2.0 11/12/16 16:30 97.9 92 22 146/97 100 Nasal Cannula 3.0 11/12/16 16:25 85 22 149/95 100 Nasal Cannula 3.0 11/12/16 16:25 97.8 11/12/16 16:10 89 19 146/98 100 Nasal Cannula 3.0 11/12/16 16:00 97.7 96 20 136/99 95 Nasal Cannula 2.0 11/12/16 15:55 80 22 143/99 100 Nasal Cannula 3.0 11/12/16 15:40 80 21 143/94 100 Simple Mask 6.0 11/12/16 15:29 84 23 135/92 100 Simple Mask 6.0 11/12/16 15:24 86 22 132/96 100 Simple Mask 6.0 11/12/16 15:20 89 18 100 11/12/16 15:19 97.6 95 25 124/90 96 Simple Mask 6.0 11/12/16 15:19 84 16 100 11/12/16 11:38 98.1 98 15 142/91 99 Room Air Height (Feet): 5 Height (Inches): 6.00 Weight (Pounds): 224 General Appearance: no acute distress HEENT: other - NG to suction Respiratory/Chest: lungs clear Cardiovascular: normal rate Abdomen: other - midline surgical dressing, drain in lower abdomen Extremities: no edema, other - R arm PICC line Neurologic/Psychiatric: alert, oriented x 3, responsive Laboratory Tests Test 11/13/16 05:00 11/13/16 06:15 Urine Eosinophils None seen White Blood Count 20.0 K/UL (4.8-10.8) H Red Blood Count 3.41 M/UL (4.20-5.40) L Hemoglobin 8.6 G/DL (12.0-16.0) L Hematocrit 27.1 % (37.0-47.0) L Mean Corpuscular Volume 79 FL (80-99) L Mean Corpuscular Hemoglobin 25.2 PG (27.0-31.0) L Mean Corpuscular Hemoglobin Concent 31.7 G/DL (32.0-36.0) L Red Cell Distribution Width 14.3 % (11.6-14.8) Platelet Count 449 K/UL (150-450) Mean Platelet Volume 7.2 FL (6.5-10.1) Neutrophils (%) (Auto) % (45.0-75.0) Lymphocytes (%) (Auto) % (20.0-45.0) Monocytes (%) (Auto) % (1.0-10.0) Eosinophils (%) (Auto) % (0.0-3.0) Basophils (%) (Auto) % (0.0-2.0) Neutrophils % (Manual) Pending Lymphocytes % (Manual) Pending Platelet Estimate Pending Platelet Morphology Pending Sodium Level 140 mEQ/L (135-145) Potassium Level 4.6 mEQ/L (3.4-4.9) Chloride Level 100 mEQ/L (98-107) Carbon Dioxide Level 26 mEQ/L (20-30) Anion Gap 14 (5-15) Blood Urea Nitrogen 12 mg/dL (7-23) Creatinine 2.6 mg/dL (0.5-0.9) H Estimat Glomerular Filtration Rate 25.7 mL/min (>60) Glucose Level 119 mg/dL (74-106) H Uric Acid 5.7 mg/dL (3.0-7.5) Calcium Level 8.4 mg/dL (8.6-10.2) L Phosphorus Level 4.0 mg/dL (2.5-4.8) Magnesium Level 1.8 mg/dL (1.7-2.5) Total Bilirubin 0.8 mg/dL (0.0-1.2) Gamma Glutamyl Transpeptidase 74 U/L (5-36) H Aspartate Amino Transf (AST/SGOT) 13 U/L (5-40) Alanine Aminotransferase (ALT/SGPT) 10 U/L (3-33) Alkaline Phosphatase 87 U/L (35-104) C-Reactive Protein, Quantitative 21.1 mg/dL (< 0.5) H Total Protein 7.0 g/dL (6.6-8.7) Albumin 3.1 g/dL (3.5-5.2) L Globulin 3.9 g/dL Albumin/Globulin Ratio 0.7 (1.0-2.7) L Current Medications Medications (Trade) Dose Ordered Sig/Steve Route PRN Reason Start Time Stop Time Status Last Admin Dose Admin Acetaminophen (Tylenol) 650 mg Q4H PRN ORAL Mild Pain (Pain Scale 1-3) 11/07/16 14:45 12/07/16 14:44 Acetaminophen 650 mg 650 mg Q4H PRN RECTAL FEVER 11/12/16 15:15 12/12/16 15:14 Amlodipine Besylate (Norvasc) 5 mg BID ORAL 11/11/16 18:00 12/11/16 17:59 11/12/16 08:32 Dextrose (Dextrose 50%) STAT PRN IV Hypoglycemia 11/07/16 14:45 12/07/16 14:44 Dextrose/ Electrolytes (D5 0.45%NS W/ KCl 20mEq) 1,000 ml @ 125 mls/hr Q8H IV 11/12/16 17:00 12/12/16 16:59 11/13/16 09:31 Diphenhydramine HCl (Benadryl) 25 mg Q6H PRN ORAL Itching/Pruritis 11/07/16 14:45 12/07/16 14:44 Enoxaparin Sodium (Lovenox) 40 mg DAILY SUBQ 11/13/16 09:00 12/13/16 08:59 11/13/16 09:06 Hydralazine HCl 25 mg 25 mg Q4H PRN ORAL bp over 160 syst 11/11/16 14:00 12/11/16 13:59 Hydromorphone HCl (Dilaudid) 0.5 mg Q3H PRN IVP Pain Score 1-3 11/12/16 15:15 11/19/16 15:14 Hydromorphone HCl (Dilaudid) 1 mg Q3H PRN IVP pain score 4-6 11/12/16 15:15 11/19/16 15:14 Hydromorphone HCl (Dilaudid) 2 mg Q3H PRN IVP pain score 7-10 11/12/16 15:15 11/19/16 15:14 11/13/16 09:05 Magnesium Hydroxide (Mom) 30 ml HSPRN PRN ORAL Constipation 11/07/16 14:45 12/07/16 14:44 Meropenem/Sodium Chloride (Merrem/Sodium Chloride) 110 ml @ 220 mls/hr Q12HR@0600,1800 IVPB 11/12/16 18:00 11/17/16 17:59 11/13/16 06:02 Metoclopramide HCl (Reglan) 5 mg Q6H PRN IVP Nausea & Vomiting 11/12/16 15:15 12/12/16 15:14 Ondansetron HCl (Zofran) 4 mg Q6H PRN IVP Nausea & Vomiting 11/12/16 15:15 12/12/16 15:14 Pantoprazole (Protonix) 40 mg DAILY ORAL 11/07/16 16:00 12/07/16 15:59 11/12/16 08:32 Zolpidem Tartrate (Ambien) 5 mg HSPRN PRN ORAL Insomnia 11/07/16 14:45 12/07/16 14:44 JOSH CORDOBA Nov 13, 2016 10:07
[2016-11-13 10:52] LABS: BAND NEUTROPHILS % (MANUAL) 0 % (0-8); BASOPHILS % (MANUAL) 0 % (0-2); EOSINOPHILS % (MANUAL) 1 % (0-3); LYMPHOCYTES % (MANUAL) 15 % (20-45); NEUTROPHILS % (MANUAL) 71 % (45-75); PLATELET ESTIMATE ADEQUATE; PLATELET MORPHOLOGY NORMAL; TOTAL CELLS COUNTED 100
[2016-11-13 10:53] LABS: HYPOCHROMASIA 1+
--- NOTE | 2016-11-13 11:39 | General Progress Note ---
Assessment/Plan Problem List: (1) Colonic diverticular abscess ICD Codes: K57.20 - Diverticulitis of large intestine with perforation and abscess without bleeding SNOMED: 034826811 (2) Abdominal pain ICD Codes: R10.9 - Unspecified abdominal pain SNOMED: 31310936 Qualifiers: Qualified Codes: R10.30 - Lower abdominal pain, unspecified (3) Diverticulitis ICD Codes: K57.92 - Diverticulitis of intestine, part unspecified, without perforation or abscess without bleeding SNOMED: 223049977 Qualifiers: Qualified Codes: K57.20 - Diverticulitis of large intestine with perforation and abscess without bleeding (4) ARF (acute renal failure) Assessment & Plan: Lab error ? ICD Codes: N17.9 - Acute kidney failure, unspecified SNOMED: 23394288 Status Narrative S/P colectomy Assessment/Plan IV Abxs NPO increase frequency of pain meds Discussed with RN and mother Subjective Allergies: Coded Allergies: MELON (Verified Allergy, Unknown, 10/15/16) Uncoded Allergies: SHELLFISH (Allergy, Unknown, 10/15/16) Subjective C/O pain Objective Last 24 Hour Vital Signs Date Time Temp Pulse Resp B/P Pulse Ox O2 Delivery O2 Flow Rate FiO2 11/13/16 08:16 97.9 94 20 129/81 99 Nasal Cannula 2.0 11/13/16 04:00 97.7 88 18 129/86 95 Nasal Cannula 2.0 11/13/16 00:00 97.3 90 18 144/90 94 Nasal Cannula 2.0 11/12/16 20:49 97.8 11/12/16 19:00 97.3 93 20 137/88 95 Nasal Cannula 2.0 11/12/16 16:30 97.9 92 22 146/97 100 Nasal Cannula 3.0 11/12/16 16:25 85 22 149/95 100 Nasal Cannula 3.0 11/12/16 16:25 97.8 11/12/16 16:10 89 19 146/98 100 Nasal Cannula 3.0 11/12/16 16:00 97.7 96 20 136/99 95 Nasal Cannula 2.0 11/12/16 15:55 80 22 143/99 100 Nasal Cannula 3.0 11/12/16 15:40 80 21 143/94 100 Simple Mask 6.0 11/12/16 15:29 84 23 135/92 100 Simple Mask 6.0 11/12/16 15:24 86 22 132/96 100 Simple Mask 6.0 11/12/16 15:20 89 18 100 11/12/16 15:19 97.6 95 25 124/90 96 Simple Mask 6.0 11/12/16 15:19 84 16 100 11/12/16 11:38 98.1 98 15 142/91 99 Room Air Intake and Output 11/12/16 11/13/16 19:00 07:00 Intake Total 1935 ml 1375 ml Output Total 1270 ml 360 ml Balance 665 ml 1015 ml Intake Oral 0 ml IV Total 1435 ml 1375 ml Other 500 ml Output Urine Total 640 ml 300 ml Drainage Total 130 ml 60 ml Estimated Blood Loss 500 ml # Voids 1 Laboratory Tests 11/13/16 05:00: Urine Eosinophils None seen 11/13/16 06:15: White Blood Count 20.0H, Red Blood Count 3.41L, Hemoglobin 8.6L, Hematocrit 27.1L, Mean Corpuscular Volume 79L, Mean Corpuscular Hemoglobin 25.2L, Mean Corpuscular Hemoglobin Concent 31.7L, Red Cell Distribution Width 14.3, Platelet Count 449, Mean Platelet Volume 7.2, Neutrophils (%) (Auto) , Lymphocytes (%) (Auto) , Monocytes (%) (Auto) , Eosinophils (%) (Auto) , Basophils (%) (Auto) , Differential Total Cells Counted 100, Neutrophils % ( Manual) 71, Lymphocytes % (Manual) 15L, Monocytes % (Manual) 13H, Eosinophils % (Manual) 1, Basophils % (Manual) 0, Band Neutrophils 0, Platelet Estimate Adequate, Platelet Morphology Normal, Hypochromasia 1+, Sodium Level 140, Potassium Level 4.6, Chloride Level 100, Carbon Dioxide Level 26, Anion Gap 14, Blood Urea Nitrogen 12, Creatinine 2.6H, Estimat Glomerular Filtration Rate 25.7 , Glucose Level 119H, Uric Acid 5.7, Calcium Level 8.4L, Phosphorus Level 4.0, Magnesium Level 1.8, Total Bilirubin 0.8, Gamma Glutamyl Transpeptidase 74H, Aspartate Amino Transf (AST/SGOT) 13, Alanine Aminotransferase (ALT/SGPT) 10, Alkaline Phosphatase 87, C-Reactive Protein, Quantitative 21.1H, Total Protein 7.0, Albumin 3.1L, Globulin 3.9, Albumin/Globulin Ratio 0.7L Height (Feet): 5 Height (Inches): 6.00 Weight (Pounds): 224 Cardiovascular: normal rate Respiratory/Chest: lungs clear Abdomen: soft ELYSE CORDOBA Nov 13, 2016 11:38
[2016-11-13] MEDS: Pantoprazole Inj IVP SCH (12:06)
--- NOTE | 2016-11-13 12:27 | General Surgery Progress Note ---
General Surgery-Progress Note Subjective Procedure Performed Exploratory laparotomy, colon resection and primary anastomosis and release of splenic flexure Objective Last 24 Hour Vital Signs Date Time Temp Pulse Resp B/P Pulse Ox O2 Delivery O2 Flow Rate FiO2 11/13/16 08:16 97.9 94 20 129/81 99 Nasal Cannula 2.0 11/13/16 04:00 97.7 88 18 129/86 95 Nasal Cannula 2.0 11/13/16 00:00 97.3 90 18 144/90 94 Nasal Cannula 2.0 11/12/16 20:49 97.8 11/12/16 19:00 97.3 93 20 137/88 95 Nasal Cannula 2.0 11/12/16 16:30 97.9 92 22 146/97 100 Nasal Cannula 3.0 11/12/16 16:25 85 22 149/95 100 Nasal Cannula 3.0 11/12/16 16:25 97.8 11/12/16 16:10 89 19 146/98 100 Nasal Cannula 3.0 11/12/16 16:00 97.7 96 20 136/99 95 Nasal Cannula 2.0 11/12/16 15:55 80 22 143/99 100 Nasal Cannula 3.0 11/12/16 15:40 80 21 143/94 100 Simple Mask 6.0 11/12/16 15:29 84 23 135/92 100 Simple Mask 6.0 11/12/16 15:24 86 22 132/96 100 Simple Mask 6.0 11/12/16 15:20 89 18 100 11/12/16 15:19 97.6 95 25 124/90 96 Simple Mask 6.0 11/12/16 15:19 84 16 100 I&O Intake and Output 11/12/16 11/13/16 19:00 07:00 Intake Total 1935 ml 1375 ml Output Total 1270 ml 360 ml Balance 665 ml 1015 ml Intake Oral 0 ml IV Total 1435 ml 1375 ml Other 500 ml Output Urine Total 640 ml 300 ml Drainage Total 130 ml 60 ml Estimated Blood Loss 500 ml # Voids 1 Dressing: dry Drains: tc Respiratory: clear Abdomen: soft, tenderness, absent bowel sounds Extremities: no tenderness Laboratory Tests Test 11/13/16 05:00 11/13/16 06:15 Urine Eosinophils None seen White Blood Count 20.0 K/UL (4.8-10.8) H Red Blood Count 3.41 M/UL (4.20-5.40) L Hemoglobin 8.6 G/DL (12.0-16.0) L Hematocrit 27.1 % (37.0-47.0) L Mean Corpuscular Volume 79 FL (80-99) L Mean Corpuscular Hemoglobin 25.2 PG (27.0-31.0) L Mean Corpuscular Hemoglobin Concent 31.7 G/DL (32.0-36.0) L Red Cell Distribution Width 14.3 % (11.6-14.8) Platelet Count 449 K/UL (150-450) Mean Platelet Volume 7.2 FL (6.5-10.1) Neutrophils (%) (Auto) % (45.0-75.0) Lymphocytes (%) (Auto) % (20.0-45.0) Monocytes (%) (Auto) % (1.0-10.0) Eosinophils (%) (Auto) % (0.0-3.0) Basophils (%) (Auto) % (0.0-2.0) Differential Total Cells Counted 100 Neutrophils % (Manual) 71 % (45-75) Lymphocytes % (Manual) 15 % (20-45) L Monocytes % (Manual) 13 % (1-10) H Eosinophils % (Manual) 1 % (0-3) Basophils % (Manual) 0 % (0-2) Band Neutrophils 0 % (0-8) Platelet Estimate Adequate Platelet Morphology Normal Hypochromasia 1+ Sodium Level 140 mEQ/L (135-145) Potassium Level 4.6 mEQ/L (3.4-4.9) Chloride Level 100 mEQ/L (98-107) Carbon Dioxide Level 26 mEQ/L (20-30) Anion Gap 14 (5-15) Blood Urea Nitrogen 12 mg/dL (7-23) Creatinine 2.6 mg/dL (0.5-0.9) H Estimat Glomerular Filtration Rate 25.7 mL/min (>60) Glucose Level 119 mg/dL (74-106) H Uric Acid 5.7 mg/dL (3.0-7.5) Calcium Level 8.4 mg/dL (8.6-10.2) L Phosphorus Level 4.0 mg/dL (2.5-4.8) Magnesium Level 1.8 mg/dL (1.7-2.5) Total Bilirubin 0.8 mg/dL (0.0-1.2) Gamma Glutamyl Transpeptidase 74 U/L (5-36) H Aspartate Amino Transf (AST/SGOT) 13 U/L (5-40) Alanine Aminotransferase (ALT/SGPT) 10 U/L (3-33) Alkaline Phosphatase 87 U/L (35-104) C-Reactive Protein, Quantitative 21.1 mg/dL (< 0.5) H Total Protein 7.0 g/dL (6.6-8.7) Albumin 3.1 g/dL (3.5-5.2) L Globulin 3.9 g/dL Albumin/Globulin Ratio 0.7 (1.0-2.7) L Assessment Post-op Diagnosis perforated colon with phlegmon Plan Additional Comments continue IV antibiotics, NPO BREANNA RDZ Nov 13, 2016 12:27
[2016-11-13 12:33] VITALS: BP 138/87
[2016-11-13 16:22] VITALS: BP 133/90
[2016-11-13 19:00] VITALS: BP 132/85
[2016-11-13] MEDS: Metoclopramide 10mg/2ml Inj IVP PRN (21:44)
--- NOTE | 2016-11-13 23:46 | General Progress Note ---
Assessment/Plan Assessment/Plan Assessment - complicated diverticulitis with abscess - Concerned re worse leukocytosis and ATN - Drainage output minimal - catheter out of abscess Recommendations - surgical intervention - continue abx - nephrology f/u Subjective Allergies: Coded Allergies: MELON (Verified Allergy, Unknown, 10/15/16) Uncoded Allergies: SHELLFISH (Allergy, Unknown, 10/15/16) Subjective seen early am POD #1 after colon resection with primary anastomosis Feels OK some abd pain Objective Last 24 Hour Vital Signs Date Time Temp Pulse Resp B/P Pulse Ox O2 Delivery O2 Flow Rate FiO2 11/13/16 22:54 97.0 11/13/16 19:00 97.5 83 18 132/85 96 Room Air 11/13/16 16:22 97.0 100 20 133/90 98 Room Air 11/13/16 12:33 97.9 83 20 138/87 98 Nasal Cannula 2.0 11/13/16 08:16 97.9 94 20 129/81 99 Nasal Cannula 2.0 11/13/16 04:00 97.7 88 18 129/86 95 Nasal Cannula 2.0 11/13/16 00:00 97.3 90 18 144/90 94 Nasal Cannula 2.0 Intake and Output 11/12/16 11/13/16 19:00 07:00 Intake Total 1935 ml 1375 ml Output Total 1270 ml 360 ml Balance 665 ml 1015 ml Intake Oral 0 ml IV Total 1435 ml 1375 ml Other 500 ml Output Urine Total 640 ml 300 ml Drainage Total 130 ml 60 ml Estimated Blood Loss 500 ml # Voids 1 Laboratory Tests 11/13/16 05:00: Urine Eosinophils None seen 11/13/16 06:15: White Blood Count 20.0H, Red Blood Count 3.41L, Hemoglobin 8.6L, Hematocrit 27.1L, Mean Corpuscular Volume 79L, Mean Corpuscular Hemoglobin 25.2L, Mean Corpuscular Hemoglobin Concent 31.7L, Red Cell Distribution Width 14.3, Platelet Count 449, Mean Platelet Volume 7.2, Neutrophils (%) (Auto) , Lymphocytes (%) (Auto) , Monocytes (%) (Auto) , Eosinophils (%) (Auto) , Basophils (%) (Auto) , Differential Total Cells Counted 100, Neutrophils % ( Manual) 71, Lymphocytes % (Manual) 15L, Monocytes % (Manual) 13H, Eosinophils % (Manual) 1, Basophils % (Manual) 0, Band Neutrophils 0, Platelet Estimate Adequate, Platelet Morphology Normal, Hypochromasia 1+, Sodium Level 140, Potassium Level 4.6, Chloride Level 100, Carbon Dioxide Level 26, Anion Gap 14, Blood Urea Nitrogen 12, Creatinine 2.6H, Estimat Glomerular Filtration Rate 25.7 , Glucose Level 119H, Uric Acid 5.7, Calcium Level 8.4L, Phosphorus Level 4.0, Magnesium Level 1.8, Total Bilirubin 0.8, Gamma Glutamyl Transpeptidase 74H, Aspartate Amino Transf (AST/SGOT) 13, Alanine Aminotransferase (ALT/SGPT) 10, Alkaline Phosphatase 87, C-Reactive Protein, Quantitative 21.1H, Total Protein 7.0, Albumin 3.1L, Globulin 3.9, Albumin/Globulin Ratio 0.7L Height (Feet): 5 Height (Inches): 6.00 Weight (Pounds): 224 Objective Obese AA woman NCAT supple CTA RRR soft (+) LLQ TTP, (+) drainage catheter in midline no edema non focal JORDYN DINERO Nov 13, 2016 23:46
[2016-11-14] VITALS: BP 140/87
[2016-11-14 04:00] VITALS: BP 130/98
[2016-11-14] MEDS: Meropenem 1 GM in NS 110 ML IVPB SCH ×2 (06:25→17:43)
[2016-11-14 07:20] LABS: MEAN CORPUSCULAR HEMOGLOBIN 24.6 PG (27.0-31.0); MEAN CORPUSCULAR HGB CONC 30.9 G/DL (32.0-36.0); MEAN CORPUSCULAR VOLUME 80 FL (80-99); MEAN PLATELET VOLUME 7.4 FL (6.5-10.1); PLATELET COUNT 459 K/UL (150-450); RED BLOOD COUNT 3.23 M/UL (4.20-5.40); RED CELL DISTRIBUTION WIDTH 14.3 % (11.6-14.8); WHITE BLOOD COUNT 20.3 K/UL (4.8-10.8)
[2016-11-14 07:56] LABS: CALCIUM 8.6 mg/dL (8.6-10.2); CREATININE 2.2 mg/dL (0.5-0.9); GLOMERULAR FILTRATION RATE 31.1 mL/min (>60); POTASSIUM 3.9 mEQ/L (3.4-4.9)
[2016-11-14 08:16] VITALS: BP 140/67
[2016-11-14] MEDS: Enoxaparin 40mg Inj SUBQ SCH (08:55)
[2016-11-14] MEDS: Pantoprazole Inj IVP SCH (09:00)
[2016-11-14 09:47] LABS: BAND NEUTROPHILS % (MANUAL) 0 % (0-8); BASOPHILS % (MANUAL) 0 % (0-2); EOSINOPHILS % (MANUAL) 5 % (0-3); LYMPHOCYTES % (MANUAL) 17 % (20-45); NEUTROPHILS % (MANUAL) 65 % (45-75); PLATELET ESTIMATE ADEQUATE; PLATELET MORPHOLOGY NORMAL; TOTAL CELLS COUNTED 100
[2016-11-14 09:48] LABS: HYPOCHROMASIA 1+
--- NOTE | 2016-11-14 11:42 | General Progress Note ---
Assessment/Plan Problem List: (1) Colonic diverticular abscess ICD Codes: K57.20 - Diverticulitis of large intestine with perforation and abscess without bleeding SNOMED: 746047791 (2) Abdominal pain ICD Codes: R10.9 - Unspecified abdominal pain SNOMED: 54012363 Qualifiers: Qualified Codes: R10.30 - Lower abdominal pain, unspecified (3) Diverticulitis ICD Codes: K57.92 - Diverticulitis of intestine, part unspecified, without perforation or abscess without bleeding SNOMED: 676092781 Qualifiers: Qualified Codes: K57.20 - Diverticulitis of large intestine with perforation and abscess without bleeding (4) ARF (acute renal failure) Assessment & Plan: Lab error ? ICD Codes: N17.9 - Acute kidney failure, unspecified SNOMED: 01014411 Assessment/Plan IV Abxs NPO pain meds Discussed with Dr Andre Subjective Allergies: Coded Allergies: MELON (Verified Allergy, Unknown, 10/15/16) Uncoded Allergies: SHELLFISH (Allergy, Unknown, 10/15/16) Subjective In NAD Objective Last 24 Hour Vital Signs Date Time Temp Pulse Resp B/P Pulse Ox O2 Delivery O2 Flow Rate FiO2 11/14/16 09:00 84 140/67 11/14/16 08:16 97.9 84 20 140/67 100 11/14/16 06:56 97.0 11/14/16 04:00 97.9 92 18 130/98 95 Room Air 11/14/16 00:00 97.7 93 20 140/87 95 Room Air 11/13/16 19:00 97.5 83 18 132/85 96 Room Air 11/13/16 16:22 97.0 100 20 133/90 98 Room Air 11/13/16 12:33 97.9 83 20 138/87 98 Nasal Cannula 2.0 Intake and Output 11/13/16 11/14/16 19:00 07:00 Intake Total 1360 ml 2020 ml Output Total 750 ml 560 ml Balance 610 ml 1460 ml Intake Oral 0 ml 480 ml IV Total 1360 ml 1540 ml Output Urine Total 550 ml 450 ml Gastric Drainage Total 80 ml Drainage Total 30 ml 30 ml Other 170 ml Laboratory Tests 11/14/16 04:45: Urine Eosinophils None seen 11/14/16 06:00: White Blood Count 20.3H, Red Blood Count 3.23L, Hemoglobin 8.0L, Hematocrit 25.7L, Mean Corpuscular Volume 80, Mean Corpuscular Hemoglobin 24.6L, Mean Corpuscular Hemoglobin Concent 30.9L, Red Cell Distribution Width 14.3, Platelet Count 459H, Mean Platelet Volume 7.4, Neutrophils (%) (Auto) , Lymphocytes (%) (Auto) , Monocytes (%) (Auto) , Eosinophils (%) (Auto) , Basophils (%) (Auto) , Differential Total Cells Counted 100, Neutrophils % ( Manual) 65, Lymphocytes % (Manual) 17L, Monocytes % (Manual) 13H, Eosinophils % (Manual) 5H, Basophils % (Manual) 0, Band Neutrophils 0, Platelet Estimate Adequate, Platelet Morphology Normal, Hypochromasia 1+, Sodium Level 136, Potassium Level 3.9, Chloride Level 94L, Carbon Dioxide Level 26, Anion Gap 16H , Blood Urea Nitrogen 14, Creatinine 2.2H, Estimat Glomerular Filtration Rate 31.1, Glucose Level 98, Calcium Level 8.6 Height (Feet): 5 Height (Inches): 6.00 Weight (Pounds): 224 Cardiovascular: normal rate Respiratory/Chest: lungs clear ELYSE CORDOBA Nov 14, 2016 11:41
--- NOTE | 2016-11-14 11:43 | Infectious Diseases Prog Note ---
"Assessment/Plan Assessment/Plan antibiotics : meropenem A 1. diverticulitis with perforation | abscess with e.coli | enterococcus s/p resection of colon 2. leucocytosis improving 3. asthma 4. renal failure P 1. continue meropenem 2. will follow up cultures Subjective Constitutional: Denies: chills, fever Respiratory: Reports: dry cough, Denies: shortness of breath Gastrointestinal/Abdominal: Denies: diarrhea, nausea, vomiting Musculoskeletal: Reports: pain - in abdomen Allergies: Coded Allergies: MELON (Verified Allergy, Unknown, 10/15/16) Uncoded Allergies: SHELLFISH (Allergy, Unknown, 10/15/16) Objective Vital Signs Last 24 Hour Vital Signs Date Time Temp Pulse Resp B/P Pulse Ox O2 Delivery O2 Flow Rate FiO2 11/14/16 09:00 84 140/67 11/14/16 08:16 97.9 84 20 140/67 100 11/14/16 06:56 97.0 11/14/16 04:00 97.9 92 18 130/98 95 Room Air 11/14/16 00:00 97.7 93 20 140/87 95 Room Air 11/13/16 19:00 97.5 83 18 132/85 96 Room Air 11/13/16 16:22 97.0 100 20 133/90 98 Room Air 11/13/16 12:33 97.9 83 20 138/87 98 Nasal Cannula 2.0 Height (Feet): 5 Height (Inches): 6.00 Weight (Pounds): 224 Respiratory/Chest: lungs clear Cardiovascular: normal rate, regular rhythm, no gallop/murmur Abdomen: other - in dressings, SABRINA drain Extremities: no edema, other - right arm PICC Laboratory Tests Test 11/14/16 04:45 11/14/16 06:00 Urine Eosinophils None seen White Blood Count 20.3 K/UL (4.8-10.8) H Red Blood Count 3.23 M/UL (4.20-5.40) L Hemoglobin 8.0 G/DL (12.0-16.0) L Hematocrit 25.7 % (37.0-47.0) L Mean Corpuscular Volume 80 FL (80-99) Mean Corpuscular Hemoglobin 24.6 PG (27.0-31.0) L Mean Corpuscular Hemoglobin Concent 30.9 G/DL (32.0-36.0) L Red Cell Distribution Width 14.3 % (11.6-14.8) Platelet Count 459 K/UL (150-450) H Mean Platelet Volume 7.4 FL (6.5-10.1) Neutrophils (%) (Auto) % (45.0-75.0) Lymphocytes (%) (Auto) % (20.0-45.0) Monocytes (%) (Auto) % (1.0-10.0) Eosinophils (%) (Auto) % (0.0-3.0) Basophils (%) (Auto) % (0.0-2.0) Differential Total Cells Counted 100 Neutrophils % (Manual) 65 % (45-75) Lymphocytes % (Manual) 17 % (20-45) L Monocytes % (Manual) 13 % (1-10) H Eosinophils % (Manual) 5 % (0-3) H Basophils % (Manual) 0 % (0-2) Band Neutrophils 0 % (0-8) Platelet Estimate Adequate Platelet Morphology Normal Hypochromasia 1+ Sodium Level 136 mEQ/L (135-145) Potassium Level 3.9 mEQ/L (3.4-4.9) Chloride Level 94 mEQ/L (98-107) L Carbon Dioxide Level 26 mEQ/L (20-30) Anion Gap 16 (5-15) H Blood Urea Nitrogen 14 mg/dL (7-23) Creatinine 2.2 mg/dL (0.5-0.9) H Estimat Glomerular Filtration Rate 31.1 mL/min (>60) Glucose Level 98 mg/dL (74-106) Calcium Level 8.6 mg/dL (8.6-10.2) SURYA HEREDIA Nov 14, 2016 11:43"
--- NOTE | 2016-11-14 11:54 | General Surgery Progress Note ---
General Surgery-Progress Note Subjective Procedure Performed Exploratory laparotomy, colon resection and primary anastomosis and release of splenic flexure Objective Last 24 Hour Vital Signs Date Time Temp Pulse Resp B/P Pulse Ox O2 Delivery O2 Flow Rate FiO2 11/14/16 09:00 84 140/67 11/14/16 08:16 97.9 84 20 140/67 100 11/14/16 06:56 97.0 11/14/16 04:00 97.9 92 18 130/98 95 Room Air 11/14/16 00:00 97.7 93 20 140/87 95 Room Air 11/13/16 19:00 97.5 83 18 132/85 96 Room Air 11/13/16 16:22 97.0 100 20 133/90 98 Room Air 11/13/16 12:33 97.9 83 20 138/87 98 Nasal Cannula 2.0 I&O Intake and Output 11/13/16 11/14/16 19:00 07:00 Intake Total 1360 ml 2020 ml Output Total 750 ml 560 ml Balance 610 ml 1460 ml Intake Oral 0 ml 480 ml IV Total 1360 ml 1540 ml Output Urine Total 550 ml 450 ml Gastric Drainage Total 80 ml Drainage Total 30 ml 30 ml Other 170 ml Dressing: dry Drains: tc Respiratory: clear Abdomen: soft, tenderness, absent bowel sounds Extremities: no tenderness Laboratory Tests Test 11/14/16 04:45 11/14/16 06:00 Urine Eosinophils None seen White Blood Count 20.3 K/UL (4.8-10.8) H Red Blood Count 3.23 M/UL (4.20-5.40) L Hemoglobin 8.0 G/DL (12.0-16.0) L Hematocrit 25.7 % (37.0-47.0) L Mean Corpuscular Volume 80 FL (80-99) Mean Corpuscular Hemoglobin 24.6 PG (27.0-31.0) L Mean Corpuscular Hemoglobin Concent 30.9 G/DL (32.0-36.0) L Red Cell Distribution Width 14.3 % (11.6-14.8) Platelet Count 459 K/UL (150-450) H Mean Platelet Volume 7.4 FL (6.5-10.1) Neutrophils (%) (Auto) % (45.0-75.0) Lymphocytes (%) (Auto) % (20.0-45.0) Monocytes (%) (Auto) % (1.0-10.0) Eosinophils (%) (Auto) % (0.0-3.0) Basophils (%) (Auto) % (0.0-2.0) Differential Total Cells Counted 100 Neutrophils % (Manual) 65 % (45-75) Lymphocytes % (Manual) 17 % (20-45) L Monocytes % (Manual) 13 % (1-10) H Eosinophils % (Manual) 5 % (0-3) H Basophils % (Manual) 0 % (0-2) Band Neutrophils 0 % (0-8) Platelet Estimate Adequate Platelet Morphology Normal Hypochromasia 1+ Sodium Level 136 mEQ/L (135-145) Potassium Level 3.9 mEQ/L (3.4-4.9) Chloride Level 94 mEQ/L (98-107) L Carbon Dioxide Level 26 mEQ/L (20-30) Anion Gap 16 (5-15) H Blood Urea Nitrogen 14 mg/dL (7-23) Creatinine 2.2 mg/dL (0.5-0.9) H Estimat Glomerular Filtration Rate 31.1 mL/min (>60) Glucose Level 98 mg/dL (74-106) Calcium Level 8.6 mg/dL (8.6-10.2) Assessment Post-op Diagnosis perforated colon with phlegmon Plan Additional Comments continue as before BREANNA RDZ Nov 14, 2016 11:54
[2016-11-14 12:15] VITALS: BP 119/82
[2016-11-14 16:04] VITALS: BP 137/102
--- NOTE | 2016-11-14 18:10 | General Progress Note ---
Assessment/Plan Assessment/Plan Assessment - complicated diverticulitis with abscess - s/p resection and primary anastomosis Recommendations - surgical f/u - continue abx - nephrology f/u - diet per surgery Subjective Allergies: Coded Allergies: MELON (Verified Allergy, Unknown, 10/15/16) Uncoded Allergies: SHELLFISH (Allergy, Unknown, 10/15/16) Subjective seen early am POD #2 after colon resection with primary anastomosis Feels OK some abd pain Objective Last 24 Hour Vital Signs Date Time Temp Pulse Resp B/P Pulse Ox O2 Delivery O2 Flow Rate FiO2 11/14/16 17:36 81 137/102 11/14/16 16:04 96.8 81 20 137/102 100 Room Air 11/14/16 12:15 96.1 83 20 119/82 100 Room Air 11/14/16 09:00 84 140/67 11/14/16 08:16 97.9 84 20 140/67 100 11/14/16 06:56 97.0 11/14/16 04:00 97.9 92 18 130/98 95 Room Air 11/14/16 00:00 97.7 93 20 140/87 95 Room Air 11/13/16 19:00 97.5 83 18 132/85 96 Room Air Intake and Output 11/13/16 11/14/16 19:00 07:00 Intake Total 1360 ml 2020 ml Output Total 750 ml 560 ml Balance 610 ml 1460 ml Intake Oral 0 ml 480 ml IV Total 1360 ml 1540 ml Output Urine Total 550 ml 450 ml Gastric Drainage Total 80 ml Drainage Total 30 ml 30 ml Other 170 ml Laboratory Tests 11/14/16 04:45: Urine Eosinophils None seen 11/14/16 06:00: White Blood Count 20.3H, Red Blood Count 3.23L, Hemoglobin 8.0L, Hematocrit 25.7L, Mean Corpuscular Volume 80, Mean Corpuscular Hemoglobin 24.6L, Mean Corpuscular Hemoglobin Concent 30.9L, Red Cell Distribution Width 14.3, Platelet Count 459H, Mean Platelet Volume 7.4, Neutrophils (%) (Auto) , Lymphocytes (%) (Auto) , Monocytes (%) (Auto) , Eosinophils (%) (Auto) , Basophils (%) (Auto) , Differential Total Cells Counted 100, Neutrophils % ( Manual) 65, Lymphocytes % (Manual) 17L, Monocytes % (Manual) 13H, Eosinophils % (Manual) 5H, Basophils % (Manual) 0, Band Neutrophils 0, Platelet Estimate Adequate, Platelet Morphology Normal, Hypochromasia 1+, Sodium Level 136, Potassium Level 3.9, Chloride Level 94L, Carbon Dioxide Level 26, Anion Gap 16H , Blood Urea Nitrogen 14, Creatinine 2.2H, Estimat Glomerular Filtration Rate 31.1, Glucose Level 98, Calcium Level 8.6 Height (Feet): 5 Height (Inches): 6.00 Weight (Pounds): 224 Objective Obese AA woman NCAT supple CTA RRR soft (+) LLQ TTP, (+) drainage catheter in midline no edema non focal JORDYN DINERO Nov 14, 2016 18:10
[2016-11-14 20:00] VITALS: BP 135/99
[2016-11-15] VITALS: BP 137/78
[2016-11-15 04:00] VITALS: BP 144/92
[2016-11-15 04:51] LABS: MEAN CORPUSCULAR HEMOGLOBIN 24.6 PG (27.0-31.0); MEAN CORPUSCULAR HGB CONC 30.6 G/DL (32.0-36.0); MEAN CORPUSCULAR VOLUME 80 FL (80-99); MEAN PLATELET VOLUME 7.5 FL (6.5-10.1); PLATELET COUNT 448 K/UL (150-450); RED BLOOD COUNT 3.23 M/UL (4.20-5.40); RED CELL DISTRIBUTION WIDTH 14.8 % (11.6-14.8); WHITE BLOOD COUNT 19.3 K/UL (4.8-10.8)
[2016-11-15 05:05] LABS: CALCIUM 8.6 mg/dL (8.6-10.2); CREATININE 1.7 mg/dL (0.5-0.9); GLOMERULAR FILTRATION RATE 41.9 mL/min (>60); POTASSIUM 4.3 mEQ/L (3.4-4.9)
[2016-11-15 06:08] LABS: BAND NEUTROPHILS % (MANUAL) 1 % (0-8); BASOPHILS % (MANUAL) 0 % (0-2); EOSINOPHILS % (MANUAL) 1 % (0-3); LYMPHOCYTES % (MANUAL) 24 % (20-45); NEUTROPHILS % (MANUAL) 72 % (45-75); PLATELET ESTIMATE INCREASED; PLATELET MORPHOLOGY NORMAL; TOTAL CELLS COUNTED 100
[2016-11-15 06:09] LABS: ANISOCYTOSIS 1+; HYPOCHROMASIA 1+
[2016-11-15] MEDS: Meropenem 1 GM in NS 110 ML IVPB SCH ×2 (06:29→18:00)
[2016-11-15 08:15] VITALS: BP 141/87
[2016-11-15] MEDS: HYDROmorphone 1mg/ml Carpuject IVP PRN (08:21)
[2016-11-15] MEDS: Enoxaparin 40mg Inj SUBQ SCH (08:27)
[2016-11-15] MEDS: Pantoprazole Inj IVP SCH (08:27)
[2016-11-15] MEDS: Metoclopramide 10mg/2ml Inj IVP PRN (11:07)
--- NOTE | 2016-11-15 11:30 | Infectious Diseases Prog Note ---
"Assessment/Plan Assessment/Plan antibiotics : meropenem A 1. diverticulitis with perforation | abscess with e.coli | enterococcus s/p resection of colon 2. leucocytosis improving 3. asthma 4. renal failure improving P 1. continue meropenem 2. will follow up cultures Subjective Constitutional: Denies: chills, fever Respiratory: Denies: dry cough, shortness of breath Gastrointestinal/Abdominal: Reports: nausea, vomiting, Denies: diarrhea Musculoskeletal: Reports: pain - abdominal Allergies: Coded Allergies: MELON (Verified Allergy, Unknown, 10/15/16) Uncoded Allergies: SHELLFISH (Allergy, Unknown, 10/15/16) Objective Vital Signs Last 24 Hour Vital Signs Date Time Temp Pulse Resp B/P Pulse Ox O2 Delivery O2 Flow Rate FiO2 11/15/16 08:15 98.1 76 20 141/87 99 Room Air 11/15/16 04:00 97.5 85 18 144/92 98 Nasal Cannula 2.0 11/15/16 04:00 97.7 11/15/16 00:00 97.7 72 18 137/78 100 Nasal Cannula 2.0 11/14/16 20:00 97.2 80 18 135/99 100 Nasal Cannula 2.0 11/14/16 17:36 81 137/102 11/14/16 16:04 96.8 81 20 137/102 100 Room Air 11/14/16 12:15 96.1 83 20 119/82 100 Room Air Height (Feet): 5 Height (Inches): 6.00 Weight (Pounds): 224 Respiratory/Chest: lungs clear Cardiovascular: normal rate, regular rhythm, no gallop/murmur Abdomen: other - in dressings, SABRINA drain Extremities: no edema, other - right arm PICC Laboratory Tests Test 11/15/16 03:55 White Blood Count 19.3 K/UL (4.8-10.8) H Red Blood Count 3.23 M/UL (4.20-5.40) L Hemoglobin 7.9 G/DL (12.0-16.0) L Hematocrit 25.9 % (37.0-47.0) L Mean Corpuscular Volume 80 FL (80-99) Mean Corpuscular Hemoglobin 24.6 PG (27.0-31.0) L Mean Corpuscular Hemoglobin Concent 30.6 G/DL (32.0-36.0) L Red Cell Distribution Width 14.8 % (11.6-14.8) Platelet Count 448 K/UL (150-450) Mean Platelet Volume 7.5 FL (6.5-10.1) Neutrophils (%) (Auto) % (45.0-75.0) Lymphocytes (%) (Auto) % (20.0-45.0) Monocytes (%) (Auto) % (1.0-10.0) Eosinophils (%) (Auto) % (0.0-3.0) Basophils (%) (Auto) % (0.0-2.0) Differential Total Cells Counted 100 Neutrophils % (Manual) 72 % (45-75) Lymphocytes % (Manual) 24 % (20-45) Monocytes % (Manual) 2 % (1-10) Eosinophils % (Manual) 1 % (0-3) Basophils % (Manual) 0 % (0-2) Band Neutrophils 1 % (0-8) Platelet Estimate Increased H Platelet Morphology Normal Hypochromasia 1+ Anisocytosis 1+ Sodium Level 137 mEQ/L (135-145) Potassium Level 4.3 mEQ/L (3.4-4.9) Chloride Level 98 mEQ/L (98-107) Carbon Dioxide Level 27 mEQ/L (20-30) Anion Gap 12 (5-15) Blood Urea Nitrogen 12 mg/dL (7-23) Creatinine 1.7 mg/dL (0.5-0.9) H Estimat Glomerular Filtration Rate 41.9 mL/min (>60) Glucose Level 89 mg/dL (74-106) Calcium Level 8.6 mg/dL (8.6-10.2) SURYA HEREDIA Nov 15, 2016 11:30"
[2016-11-15 11:34] VITALS: BP 143/87
--- NOTE | 2016-11-15 14:19 | General Surgery Progress Note ---
General Surgery-Progress Note Subjective Procedure Performed Exploratory laparotomy, colon resection and primary anastomosis and release of splenic flexure Objective Last 24 Hour Vital Signs Date Time Temp Pulse Resp B/P Pulse Ox O2 Delivery O2 Flow Rate FiO2 11/15/16 11:34 97.0 84 20 143/87 98 Room Air 11/15/16 08:15 98.1 76 20 141/87 99 Room Air 11/15/16 04:00 97.5 85 18 144/92 98 Nasal Cannula 2.0 11/15/16 04:00 97.7 11/15/16 00:00 97.7 72 18 137/78 100 Nasal Cannula 2.0 11/14/16 20:00 97.2 80 18 135/99 100 Nasal Cannula 2.0 11/14/16 17:36 81 137/102 11/14/16 16:04 96.8 81 20 137/102 100 Room Air I&O Intake and Output 11/14/16 11/15/16 19:00 07:00 Intake Total 1250 ml 1485 ml Output Total 775 ml 2205 ml Balance 475 ml -720 ml IV Total 1250 ml 1485 ml Output Urine Total 645 ml 2000 ml Gastric Drainage Total 100 ml 175 ml Drainage Total 30 ml 30 ml Wound: clean, intact Drains: tc Respiratory: clear Abdomen: soft, tenderness, absent bowel sounds Extremities: no tenderness Laboratory Tests Test 11/15/16 03:55 White Blood Count 19.3 K/UL (4.8-10.8) H Red Blood Count 3.23 M/UL (4.20-5.40) L Hemoglobin 7.9 G/DL (12.0-16.0) L Hematocrit 25.9 % (37.0-47.0) L Mean Corpuscular Volume 80 FL (80-99) Mean Corpuscular Hemoglobin 24.6 PG (27.0-31.0) L Mean Corpuscular Hemoglobin Concent 30.6 G/DL (32.0-36.0) L Red Cell Distribution Width 14.8 % (11.6-14.8) Platelet Count 448 K/UL (150-450) Mean Platelet Volume 7.5 FL (6.5-10.1) Neutrophils (%) (Auto) % (45.0-75.0) Lymphocytes (%) (Auto) % (20.0-45.0) Monocytes (%) (Auto) % (1.0-10.0) Eosinophils (%) (Auto) % (0.0-3.0) Basophils (%) (Auto) % (0.0-2.0) Differential Total Cells Counted 100 Neutrophils % (Manual) 72 % (45-75) Lymphocytes % (Manual) 24 % (20-45) Monocytes % (Manual) 2 % (1-10) Eosinophils % (Manual) 1 % (0-3) Basophils % (Manual) 0 % (0-2) Band Neutrophils 1 % (0-8) Platelet Estimate Increased H Platelet Morphology Normal Hypochromasia 1+ Anisocytosis 1+ Sodium Level 137 mEQ/L (135-145) Potassium Level 4.3 mEQ/L (3.4-4.9) Chloride Level 98 mEQ/L (98-107) Carbon Dioxide Level 27 mEQ/L (20-30) Anion Gap 12 (5-15) Blood Urea Nitrogen 12 mg/dL (7-23) Creatinine 1.7 mg/dL (0.5-0.9) H Estimat Glomerular Filtration Rate 41.9 mL/min (>60) Glucose Level 89 mg/dL (74-106) Calcium Level 8.6 mg/dL (8.6-10.2) Assessment Post-op Diagnosis perforated colon with phlegmon Plan Additional Comments continue as before BREANNA RDZ Nov 15, 2016 14:18
[2016-11-15 16:11] VITALS: BP 154/102
--- NOTE | 2016-11-15 16:18 | General Progress Note ---
Assessment/Plan Problem List: (1) Colonic diverticular abscess ICD Codes: K57.20 - Diverticulitis of large intestine with perforation and abscess without bleeding SNOMED: 055882320 (2) Abdominal pain ICD Codes: R10.9 - Unspecified abdominal pain SNOMED: 32623818 Qualifiers: Qualified Codes: R10.30 - Lower abdominal pain, unspecified (3) Diverticulitis ICD Codes: K57.92 - Diverticulitis of intestine, part unspecified, without perforation or abscess without bleeding SNOMED: 547366780 Qualifiers: Qualified Codes: K57.20 - Diverticulitis of large intestine with perforation and abscess without bleeding (4) ARF (acute renal failure) Assessment & Plan: Lab error ? ICD Codes: N17.9 - Acute kidney failure, unspecified SNOMED: 61433549 Status Narrative ARF better leukocytosis slightly better Assessment/Plan IV Abxs NPO pain meds IVF follow labs Subjective Allergies: Coded Allergies: MELON (Verified Allergy, Unknown, 10/15/16) Uncoded Allergies: SHELLFISH (Allergy, Unknown, 10/15/16) Subjective In NAD Objective Last 24 Hour Vital Signs Date Time Temp Pulse Resp B/P Pulse Ox O2 Delivery O2 Flow Rate FiO2 11/15/16 16:11 97.0 90 20 154/102 98 Room Air 11/15/16 11:34 97.0 84 20 143/87 98 Room Air 11/15/16 08:15 98.1 76 20 141/87 99 Room Air 11/15/16 04:00 97.5 85 18 144/92 98 Nasal Cannula 2.0 11/15/16 04:00 97.7 11/15/16 00:00 97.7 72 18 137/78 100 Nasal Cannula 2.0 11/14/16 20:00 97.2 80 18 135/99 100 Nasal Cannula 2.0 11/14/16 17:36 81 137/102 Intake and Output 11/14/16 11/15/16 19:00 07:00 Intake Total 1250 ml 1485 ml Output Total 775 ml 2205 ml Balance 475 ml -720 ml IV Total 1250 ml 1485 ml Output Urine Total 645 ml 2000 ml Gastric Drainage Total 100 ml 175 ml Drainage Total 30 ml 30 ml Laboratory Tests 11/15/16 03:55: White Blood Count 19.3H, Red Blood Count 3.23L, Hemoglobin 7.9L, Hematocrit 25.9L, Mean Corpuscular Volume 80, Mean Corpuscular Hemoglobin 24.6L, Mean Corpuscular Hemoglobin Concent 30.6L, Red Cell Distribution Width 14.8, Platelet Count 448, Mean Platelet Volume 7.5, Neutrophils (%) (Auto) , Lymphocytes (%) (Auto) , Monocytes (%) (Auto) , Eosinophils (%) (Auto) , Basophils (%) (Auto) , Differential Total Cells Counted 100, Neutrophils % ( Manual) 72, Lymphocytes % (Manual) 24, Monocytes % (Manual) 2, Eosinophils % ( Manual) 1, Basophils % (Manual) 0, Band Neutrophils 1, Platelet Estimate IncreasedH, Platelet Morphology Normal, Hypochromasia 1+, Anisocytosis 1+, Sodium Level 137, Potassium Level 4.3, Chloride Level 98, Carbon Dioxide Level 27, Anion Gap 12, Blood Urea Nitrogen 12, Creatinine 1.7H, Estimat Glomerular Filtration Rate 41.9, Glucose Level 89, Calcium Level 8.6 Height (Feet): 5 Height (Inches): 6.00 Weight (Pounds): 224 Cardiovascular: normal rate Respiratory/Chest: lungs clear Abdomen: soft ELYSE CORDOBA Nov 15, 2016 16:18
[2016-11-15 20:00] VITALS: BP 144/80
--- NOTE | 2016-11-15 22:23 | General Progress Note ---
Assessment/Plan Assessment/Plan Assessment - complicated diverticulitis with abscess - s/p resection and primary anastomosis - Leukocytosis - Renal failure Recommendations - surgical f/u - continue abx - nephrology f/u - diet per surgery Subjective Allergies: Coded Allergies: MELON (Verified Allergy, Unknown, 10/15/16) Uncoded Allergies: SHELLFISH (Allergy, Unknown, 10/15/16) Subjective seen early am POD #3 after colon resection with primary anastomosis Feels OK some abd pain Objective Last 24 Hour Vital Signs Date Time Temp Pulse Resp B/P Pulse Ox O2 Delivery O2 Flow Rate FiO2 11/15/16 20:00 97.3 84 20 144/80 98 Room Air 11/15/16 16:11 97.0 90 20 154/102 98 Room Air 11/15/16 11:34 97.0 84 20 143/87 98 Room Air 11/15/16 08:15 98.1 76 20 141/87 99 Room Air 11/15/16 04:00 97.5 85 18 144/92 98 Nasal Cannula 2.0 11/15/16 04:00 97.7 11/15/16 00:00 97.7 72 18 137/78 100 Nasal Cannula 2.0 Intake and Output 11/14/16 11/15/16 19:00 07:00 Intake Total 1250 ml 1485 ml Output Total 775 ml 2205 ml Balance 475 ml -720 ml IV Total 1250 ml 1485 ml Output Urine Total 645 ml 2000 ml Gastric Drainage Total 100 ml 175 ml Drainage Total 30 ml 30 ml Laboratory Tests 11/15/16 03:55: White Blood Count 19.3H, Red Blood Count 3.23L, Hemoglobin 7.9L, Hematocrit 25.9L, Mean Corpuscular Volume 80, Mean Corpuscular Hemoglobin 24.6L, Mean Corpuscular Hemoglobin Concent 30.6L, Red Cell Distribution Width 14.8, Platelet Count 448, Mean Platelet Volume 7.5, Neutrophils (%) (Auto) , Lymphocytes (%) (Auto) , Monocytes (%) (Auto) , Eosinophils (%) (Auto) , Basophils (%) (Auto) , Differential Total Cells Counted 100, Neutrophils % ( Manual) 72, Lymphocytes % (Manual) 24, Monocytes % (Manual) 2, Eosinophils % ( Manual) 1, Basophils % (Manual) 0, Band Neutrophils 1, Platelet Estimate IncreasedH, Platelet Morphology Normal, Hypochromasia 1+, Anisocytosis 1+, Sodium Level 137, Potassium Level 4.3, Chloride Level 98, Carbon Dioxide Level 27, Anion Gap 12, Blood Urea Nitrogen 12, Creatinine 1.7H, Estimat Glomerular Filtration Rate 41.9, Glucose Level 89, Calcium Level 8.6 Height (Feet): 5 Height (Inches): 6.00 Weight (Pounds): 224 Objective Obese AA woman NCAT supple CTA RRR soft (+) LLQ TTP, (+) drainage catheter in midline no edema non focal JORDYN DINERO Nov 15, 2016 22:23
[2016-11-16] VITALS: BP 141/95
[2016-11-16 04:00] VITALS: BP 129/81
[2016-11-16 05:24] LABS: MEAN CORPUSCULAR HEMOGLOBIN 24.8 PG (27.0-31.0); MEAN CORPUSCULAR HGB CONC 31.4 G/DL (32.0-36.0); MEAN CORPUSCULAR VOLUME 79 FL (80-99); MEAN PLATELET VOLUME 6.9 FL (6.5-10.1); PLATELET COUNT 492 K/UL (150-450); RED BLOOD COUNT 3.31 M/UL (4.20-5.40); RED CELL DISTRIBUTION WIDTH 14.2 % (11.6-14.8); WHITE BLOOD COUNT 19.2 K/UL (4.8-10.8)
[2016-11-16 06:04] LABS: BAND NEUTROPHILS % (MANUAL) 0 % (0-8); BASOPHILS % (MANUAL) 0 % (0-2); EOSINOPHILS % (MANUAL) 5 % (0-3); LYMPHOCYTES % (MANUAL) 20 % (20-45); NEUTROPHILS % (MANUAL) 69 % (45-75); PLATELET ESTIMATE ADEQUATE; PLATELET MORPHOLOGY NORMAL; TOTAL CELLS COUNTED 100
[2016-11-16] MEDS: Meropenem 1 GM in NS 110 ML IVPB SCH ×2 (06:11→17:22)
[2016-11-16 07:33] VITALS: BP 144/91
[2016-11-16 07:37] LABS: ALBUMIN/GLOBULIN RATIO 0.7 (1.0-2.7); CALCIUM 8.8 mg/dL (8.6-10.2); CREATININE 1.6 mg/dL (0.5-0.9); POTASSIUM 3.8 mEQ/L (3.4-4.9); TOTAL PROTEIN 7.1 g/dL (6.6-8.7)
--- NOTE | 2016-11-16 08:09 | General Progress Note ---
Assessment/Plan Assessment/Plan Assessment - complicated diverticulitis with abscess - s/p resection and primary anastomosis - Leukocytosis - Renal failure Recommendations - surgical f/u - continue abx - nephrology f/u - diet per surgery Subjective Allergies: Coded Allergies: MELON (Verified Allergy, Unknown, 10/15/16) Uncoded Allergies: SHELLFISH (Allergy, Unknown, 10/15/16) Subjective seen early am POD #3 after colon resection with primary anastomosis Feels OK some abd pain WBC better, but still high Objective Last 24 Hour Vital Signs Date Time Temp Pulse Resp B/P Pulse Ox O2 Delivery O2 Flow Rate FiO2 11/16/16 07:33 97.5 98 20 144/91 96 Room Air 11/16/16 04:00 97.9 87 20 129/81 93 Room Air 11/16/16 00:00 97.7 97 20 141/95 96 Room Air 11/15/16 22:41 97.3 11/15/16 20:00 97.3 84 20 144/80 98 Room Air 11/15/16 16:11 97.0 90 20 154/102 98 Room Air 11/15/16 11:34 97.0 84 20 143/87 98 Room Air 11/15/16 08:15 98.1 76 20 141/87 99 Room Air Intake and Output 11/15/16 11/16/16 18:59 06:59 Intake Total 1110 ml 1657.5 ml Output Total 2200 ml 1553 ml Balance -1090 ml 104.5 ml Intake Oral 0 ml IV Total 1110 ml 1657.5 ml Output Urine Total 1950 ml 1450 ml Gastric Drainage Total 200 ml 90 ml Drainage Total 50 ml 13 ml Laboratory Tests 11/16/16 04:48: White Blood Count 19.2H, Red Blood Count 3.31L, Hemoglobin 8.2L, Hematocrit 26.1L, Mean Corpuscular Volume 79L, Mean Corpuscular Hemoglobin 24.8L, Mean Corpuscular Hemoglobin Concent 31.4L, Red Cell Distribution Width 14.2, Platelet Count 492H, Mean Platelet Volume 6.9, Neutrophils (%) (Auto) , Lymphocytes (%) (Auto) , Monocytes (%) (Auto) , Eosinophils (%) (Auto) , Basophils (%) (Auto) , Differential Total Cells Counted 100, Neutrophils % ( Manual) 69, Lymphocytes % (Manual) 20, Monocytes % (Manual) 6, Eosinophils % ( Manual) 5H, Basophils % (Manual) 0, Band Neutrophils 0, Platelet Estimate Adequate, Platelet Morphology Normal, Red Blood Cell Morphology Normal, Sodium Level 137, Potassium Level 3.8, Chloride Level 94L, Carbon Dioxide Level 28, Anion Gap 15, Blood Urea Nitrogen 11, Creatinine 1.6H, Estimat Glomerular Filtration Rate 45.0, Glucose Level 102, Calcium Level 8.8, Total Bilirubin 0.5 , Aspartate Amino Transf (AST/SGOT) 19, Alanine Aminotransferase (ALT/SGPT) 13, Alkaline Phosphatase 89, Total Protein 7.1, Albumin 3.0L, Globulin 4.1, Albumin/ Globulin Ratio 0.7L Height (Feet): 5 Height (Inches): 6.00 Weight (Pounds): 224 Objective Obese AA woman NCAT supple CTA RRR soft (+) LLQ TTP, (+) drainage catheter in midline no edema non focal JORDYN DINERO Nov 16, 2016 08:09
[2016-11-16] MEDS: Pantoprazole Inj IVP SCH (08:16)
[2016-11-16] MEDS: Enoxaparin 40mg Inj SUBQ SCH (08:18)
[2016-11-16 11:28] VITALS: BP 132/70
--- NOTE | 2016-11-16 11:30 | Infectious Diseases Prog Note ---
"Assessment/Plan Assessment/Plan antibiotics : meropenem A 1. diverticulitis with perforation | abscess with e.coli | enterococcus s/p resection of colon 2. leucocytosis improving 3. asthma 4. renal failure improving P 1. continue meropenem 2. will follow up cultures Subjective Constitutional: Denies: chills, fever Respiratory: Denies: dry cough, shortness of breath Gastrointestinal/Abdominal: Denies: diarrhea, nausea, vomiting Musculoskeletal: Reports: pain - abdominal Allergies: Coded Allergies: MELON (Verified Allergy, Unknown, 10/15/16) Uncoded Allergies: SHELLFISH (Allergy, Unknown, 10/15/16) Objective Vital Signs Last 24 Hour Vital Signs Date Time Temp Pulse Resp B/P Pulse Ox O2 Delivery O2 Flow Rate FiO2 11/16/16 11:28 97.6 103 20 132/70 95 Room Air 11/16/16 09:00 98 144/91 11/16/16 08:47 97.5 11/16/16 07:33 97.5 98 20 144/91 96 Room Air 11/16/16 04:00 97.9 87 20 129/81 93 Room Air 11/16/16 00:00 97.7 97 20 141/95 96 Room Air 11/15/16 20:00 97.3 84 20 144/80 98 Room Air 11/15/16 16:11 97.0 90 20 154/102 98 Room Air 11/15/16 11:34 97.0 84 20 143/87 98 Room Air Height (Feet): 5 Height (Inches): 6.00 Weight (Pounds): 224 Respiratory/Chest: lungs clear Cardiovascular: normal rate, regular rhythm, no gallop/murmur Abdomen: other - in dressings, SABRINA drain Extremities: no edema, other - right arm PICC Laboratory Tests Test 11/16/16 04:48 White Blood Count 19.2 K/UL (4.8-10.8) H Red Blood Count 3.31 M/UL (4.20-5.40) L Hemoglobin 8.2 G/DL (12.0-16.0) L Hematocrit 26.1 % (37.0-47.0) L Mean Corpuscular Volume 79 FL (80-99) L Mean Corpuscular Hemoglobin 24.8 PG (27.0-31.0) L Mean Corpuscular Hemoglobin Concent 31.4 G/DL (32.0-36.0) L Red Cell Distribution Width 14.2 % (11.6-14.8) Platelet Count 492 K/UL (150-450) H Mean Platelet Volume 6.9 FL (6.5-10.1) Neutrophils (%) (Auto) % (45.0-75.0) Lymphocytes (%) (Auto) % (20.0-45.0) Monocytes (%) (Auto) % (1.0-10.0) Eosinophils (%) (Auto) % (0.0-3.0) Basophils (%) (Auto) % (0.0-2.0) Differential Total Cells Counted 100 Neutrophils % (Manual) 69 % (45-75) Lymphocytes % (Manual) 20 % (20-45) Monocytes % (Manual) 6 % (1-10) Eosinophils % (Manual) 5 % (0-3) H Basophils % (Manual) 0 % (0-2) Band Neutrophils 0 % (0-8) Platelet Estimate Adequate Platelet Morphology Normal Red Blood Cell Morphology Normal Sodium Level 137 mEQ/L (135-145) Potassium Level 3.8 mEQ/L (3.4-4.9) Chloride Level 94 mEQ/L (98-107) L Carbon Dioxide Level 28 mEQ/L (20-30) Anion Gap 15 (5-15) Blood Urea Nitrogen 11 mg/dL (7-23) Creatinine 1.6 mg/dL (0.5-0.9) H Estimat Glomerular Filtration Rate 45.0 mL/min (>60) Glucose Level 102 mg/dL (74-106) Calcium Level 8.8 mg/dL (8.6-10.2) Total Bilirubin 0.5 mg/dL (0.0-1.2) Aspartate Amino Transf (AST/SGOT) 19 U/L (5-40) Alanine Aminotransferase (ALT/SGPT) 13 U/L (3-33) Alkaline Phosphatase 89 U/L (35-104) Total Protein 7.1 g/dL (6.6-8.7) Albumin 3.0 g/dL (3.5-5.2) L Globulin 4.1 g/dL Albumin/Globulin Ratio 0.7 (1.0-2.7) L SURYA HEREDIA Nov 16, 2016 11:30"
--- NOTE | 2016-11-16 11:47 | General Surgery Progress Note ---
General Surgery-Progress Note Subjective Procedure Performed Exploratory laparotomy, colon resection and primary anastomosis and release of splenic flexure Symptoms: improved Objective Last 24 Hour Vital Signs Date Time Temp Pulse Resp B/P Pulse Ox O2 Delivery O2 Flow Rate FiO2 11/16/16 11:28 97.6 103 20 132/70 95 Room Air 11/16/16 09:00 98 144/91 11/16/16 08:47 97.5 11/16/16 07:33 97.5 98 20 144/91 96 Room Air 11/16/16 04:00 97.9 87 20 129/81 93 Room Air 11/16/16 00:00 97.7 97 20 141/95 96 Room Air 11/15/16 20:00 97.3 84 20 144/80 98 Room Air 11/15/16 16:11 97.0 90 20 154/102 98 Room Air I&O Intake and Output 11/15/16 11/16/16 19:00 07:00 Intake Total 1125 ml 1657.5 ml Output Total 2200 ml 1553 ml Balance -1075 ml 104.5 ml Intake Oral 0 ml IV Total 1125 ml 1657.5 ml Output Urine Total 1950 ml 1450 ml Gastric Drainage Total 200 ml 90 ml Drainage Total 50 ml 13 ml Dressing: dry Drains: tc Respiratory: clear Abdomen: soft, non-tender, absent bowel sounds Extremities: no tenderness Laboratory Tests Test 11/16/16 04:48 White Blood Count 19.2 K/UL (4.8-10.8) H Red Blood Count 3.31 M/UL (4.20-5.40) L Hemoglobin 8.2 G/DL (12.0-16.0) L Hematocrit 26.1 % (37.0-47.0) L Mean Corpuscular Volume 79 FL (80-99) L Mean Corpuscular Hemoglobin 24.8 PG (27.0-31.0) L Mean Corpuscular Hemoglobin Concent 31.4 G/DL (32.0-36.0) L Red Cell Distribution Width 14.2 % (11.6-14.8) Platelet Count 492 K/UL (150-450) H Mean Platelet Volume 6.9 FL (6.5-10.1) Neutrophils (%) (Auto) % (45.0-75.0) Lymphocytes (%) (Auto) % (20.0-45.0) Monocytes (%) (Auto) % (1.0-10.0) Eosinophils (%) (Auto) % (0.0-3.0) Basophils (%) (Auto) % (0.0-2.0) Differential Total Cells Counted 100 Neutrophils % (Manual) 69 % (45-75) Lymphocytes % (Manual) 20 % (20-45) Monocytes % (Manual) 6 % (1-10) Eosinophils % (Manual) 5 % (0-3) H Basophils % (Manual) 0 % (0-2) Band Neutrophils 0 % (0-8) Platelet Estimate Adequate Platelet Morphology Normal Red Blood Cell Morphology Normal Sodium Level 137 mEQ/L (135-145) Potassium Level 3.8 mEQ/L (3.4-4.9) Chloride Level 94 mEQ/L (98-107) L Carbon Dioxide Level 28 mEQ/L (20-30) Anion Gap 15 (5-15) Blood Urea Nitrogen 11 mg/dL (7-23) Creatinine 1.6 mg/dL (0.5-0.9) H Estimat Glomerular Filtration Rate 45.0 mL/min (>60) Glucose Level 102 mg/dL (74-106) Calcium Level 8.8 mg/dL (8.6-10.2) Total Bilirubin 0.5 mg/dL (0.0-1.2) Aspartate Amino Transf (AST/SGOT) 19 U/L (5-40) Alanine Aminotransferase (ALT/SGPT) 13 U/L (3-33) Alkaline Phosphatase 89 U/L (35-104) Total Protein 7.1 g/dL (6.6-8.7) Albumin 3.0 g/dL (3.5-5.2) L Globulin 4.1 g/dL Albumin/Globulin Ratio 0.7 (1.0-2.7) L Assessment Post-op Diagnosis perforated colon with phlegmon Plan Additional Comments NPO, continue IV antibiotics BREANNA RDZ Nov 16, 2016 11:47
[2016-11-16 15:43] VITALS: BP 134/88
--- NOTE | 2016-11-16 16:07 | General Progress Note ---
Assessment/Plan Problem List: (1) Colonic diverticular abscess ICD Codes: K57.20 - Diverticulitis of large intestine with perforation and abscess without bleeding SNOMED: 757076679 (2) Abdominal pain ICD Codes: R10.9 - Unspecified abdominal pain SNOMED: 88206221 Qualifiers: Qualified Codes: R10.30 - Lower abdominal pain, unspecified (3) Diverticulitis ICD Codes: K57.92 - Diverticulitis of intestine, part unspecified, without perforation or abscess without bleeding SNOMED: 935655359 Qualifiers: Qualified Codes: K57.20 - Diverticulitis of large intestine with perforation and abscess without bleeding (4) ARF (acute renal failure) Assessment & Plan: Lab error ? ICD Codes: N17.9 - Acute kidney failure, unspecified SNOMED: 66899553 Assessment/Plan IV Abxs NPO pain meds IVF follow labs Subjective Allergies: Coded Allergies: MELON (Verified Allergy, Unknown, 10/15/16) Uncoded Allergies: SHELLFISH (Allergy, Unknown, 10/15/16) Subjective In NAD Objective Last 24 Hour Vital Signs Date Time Temp Pulse Resp B/P Pulse Ox O2 Delivery O2 Flow Rate FiO2 11/16/16 15:43 97.7 86 19 134/88 98 Room Air 11/16/16 13:25 97.6 11/16/16 11:28 97.6 103 20 132/70 95 Room Air 11/16/16 09:00 98 144/91 11/16/16 07:33 97.5 98 20 144/91 96 Room Air 11/16/16 04:00 97.9 87 20 129/81 93 Room Air 11/16/16 00:00 97.7 97 20 141/95 96 Room Air 11/15/16 20:00 97.3 84 20 144/80 98 Room Air 11/15/16 16:11 97.0 90 20 154/102 98 Room Air Intake and Output 11/15/16 11/16/16 19:00 07:00 Intake Total 1125 ml 1657.5 ml Output Total 2200 ml 1553 ml Balance -1075 ml 104.5 ml Intake Oral 0 ml IV Total 1125 ml 1657.5 ml Output Urine Total 1950 ml 1450 ml Gastric Drainage Total 200 ml 90 ml Drainage Total 50 ml 13 ml Laboratory Tests 11/16/16 04:48: White Blood Count 19.2H, Red Blood Count 3.31L, Hemoglobin 8.2L, Hematocrit 26.1L, Mean Corpuscular Volume 79L, Mean Corpuscular Hemoglobin 24.8L, Mean Corpuscular Hemoglobin Concent 31.4L, Red Cell Distribution Width 14.2, Platelet Count 492H, Mean Platelet Volume 6.9, Neutrophils (%) (Auto) , Lymphocytes (%) (Auto) , Monocytes (%) (Auto) , Eosinophils (%) (Auto) , Basophils (%) (Auto) , Differential Total Cells Counted 100, Neutrophils % ( Manual) 69, Lymphocytes % (Manual) 20, Monocytes % (Manual) 6, Eosinophils % ( Manual) 5H, Basophils % (Manual) 0, Band Neutrophils 0, Platelet Estimate Adequate, Platelet Morphology Normal, Red Blood Cell Morphology Normal, Sodium Level 137, Potassium Level 3.8, Chloride Level 94L, Carbon Dioxide Level 28, Anion Gap 15, Blood Urea Nitrogen 11, Creatinine 1.6H, Estimat Glomerular Filtration Rate 45.0, Glucose Level 102, Calcium Level 8.8, Total Bilirubin 0.5 , Aspartate Amino Transf (AST/SGOT) 19, Alanine Aminotransferase (ALT/SGPT) 13, Alkaline Phosphatase 89, Total Protein 7.1, Albumin 3.0L, Globulin 4.1, Albumin/ Globulin Ratio 0.7L Height (Feet): 5 Height (Inches): 6.00 Weight (Pounds): 224 Cardiovascular: normal rate Respiratory/Chest: lungs clear Abdomen: soft ELYSE CORDOBA Nov 16, 2016 16:07
[2016-11-16 19:00] VITALS: BP 147/100
[2016-11-17] VITALS: BP 145/90
[2016-11-17 04:00] VITALS: BP 136/91
[2016-11-17] MEDS: Meropenem 1 GM in NS 110 ML IVPB SCH ×2 (05:44→17:48)
[2016-11-17] MEDS: Metoclopramide 10mg/2ml Inj IVP PRN (05:44)
[2016-11-17 07:17] LABS: MEAN CORPUSCULAR HEMOGLOBIN 24.6 PG (27.0-31.0); MEAN CORPUSCULAR HGB CONC 31.3 G/DL (32.0-36.0); MEAN CORPUSCULAR VOLUME 79 FL (80-99); MEAN PLATELET VOLUME 6.7 FL (6.5-10.1); PLATELET COUNT 558 K/UL (150-450); RED BLOOD COUNT 3.43 M/UL (4.20-5.40)
[2016-11-17 07:35] LABS: CALCIUM 8.9 mg/dL (8.6-10.2); CREATININE 1.6 mg/dL (0.5-0.9); CRP QUANT 8.1 mg/dL (< 0.5); POTASSIUM 3.6 mEQ/L (3.4-4.9)
[2016-11-17 07:46] VITALS: BP 122/78
[2016-11-17 08:49] LABS: ANISOCYTOSIS 1+; BAND NEUTROPHILS % (MANUAL) 0 % (0-8); BASOPHILS % (MANUAL) 0 % (0-2); EOSINOPHILS % (MANUAL) 3 % (0-3); HYPOCHROMASIA 2+; LYMPHOCYTES % (MANUAL) 24 % (20-45); MICROCYTES 1+; NEUTROPHILS % (MANUAL) 66 % (45-75); PLATELET ESTIMATE ADEQUATE; PLATELET MORPHOLOGY NORMAL; TOTAL CELLS COUNTED 100
[2016-11-17] MEDS: Enoxaparin 40mg Inj SUBQ SCH (09:13)
[2016-11-17] MEDS: Pantoprazole Inj IVP SCH (09:14)
--- NOTE | 2016-11-17 11:06 | Infectious Diseases Prog Note ---
Assessment/Plan Assessment/Plan A: Sigmoid diverticulitis & Abscess s/p laparotomy & colon resection s/p CT guided drainage S/P laparotomy Fatty liver Obesity Acute renal failure improving P: continue Meropenem Will f/u cultures Subjective ROS Limited/Unobtainable: No Constitutional: Reports: no symptoms Respiratory: Reports: no symptoms Gastrointestinal/Abdominal: Reports: no symptoms Genitourinary: Reports: no symptoms Neurologic: Reports: no symptoms Allergies: Coded Allergies: MELON (Verified Allergy, Unknown, 10/15/16) Uncoded Allergies: SHELLFISH (Allergy, Unknown, 10/15/16) Objective Vital Signs Last 24 Hour Vital Signs Date Time Temp Pulse Resp B/P Pulse Ox O2 Delivery O2 Flow Rate FiO2 11/17/16 07:46 98.2 84 15 122/78 97 Room Air 11/17/16 04:00 98.1 84 18 136/91 96 Room Air 11/17/16 00:00 97.5 87 18 145/90 92 Room Air 11/16/16 19:00 97.0 95 18 147/100 Room Air 11/16/16 17:22 86 134/88 11/16/16 16:27 97.7 11/16/16 15:43 97.7 86 19 134/88 98 Room Air 11/16/16 11:28 97.6 103 20 132/70 95 Room Air Height (Feet): 5 Height (Inches): 6.00 Weight (Pounds): 224 General Appearance: no acute distress HEENT: mucous membranes moist Respiratory/Chest: lungs clear Cardiovascular: normal rate Abdomen: soft, non tender, other - NG tube Extremities: no edema Neurologic/Psychiatric: alert, oriented x 3, responsive Laboratory Tests Test 11/17/16 05:30 White Blood Count 20.0 K/UL (4.8-10.8) H Red Blood Count 3.43 M/UL (4.20-5.40) L Hemoglobin 8.4 G/DL (12.0-16.0) L Hematocrit 27.0 % (37.0-47.0) L Mean Corpuscular Volume 79 FL (80-99) L Mean Corpuscular Hemoglobin 24.6 PG (27.0-31.0) L Mean Corpuscular Hemoglobin Concent 31.3 G/DL (32.0-36.0) L Red Cell Distribution Width 14.0 % (11.6-14.8) Platelet Count 558 K/UL (150-450) H Mean Platelet Volume 6.7 FL (6.5-10.1) Neutrophils (%) (Auto) % (45.0-75.0) Lymphocytes (%) (Auto) % (20.0-45.0) Monocytes (%) (Auto) % (1.0-10.0) Eosinophils (%) (Auto) % (0.0-3.0) Basophils (%) (Auto) % (0.0-2.0) Differential Total Cells Counted 100 Neutrophils % (Manual) 66 % (45-75) Lymphocytes % (Manual) 24 % (20-45) Monocytes % (Manual) 7 % (1-10) Eosinophils % (Manual) 3 % (0-3) Basophils % (Manual) 0 % (0-2) Band Neutrophils 0 % (0-8) Platelet Estimate Adequate Platelet Morphology Normal Hypochromasia 2+ Anisocytosis 1+ Microcytosis 1+ Sodium Level 137 mEQ/L (135-145) Potassium Level 3.6 mEQ/L (3.4-4.9) Chloride Level 94 mEQ/L (98-107) L Carbon Dioxide Level 30 mEQ/L (20-30) Anion Gap 13 (5-15) Blood Urea Nitrogen 10 mg/dL (7-23) Creatinine 1.6 mg/dL (0.5-0.9) H Estimat Glomerular Filtration Rate 45.0 mL/min (>60) Glucose Level 96 mg/dL (74-106) Calcium Level 8.9 mg/dL (8.6-10.2) C-Reactive Protein, Quantitative 8.1 mg/dL (< 0.5) H Current Medications Medications (Trade) Dose Ordered Sig/Steve Route PRN Reason Start Time Stop Time Status Last Admin Dose Admin Acetaminophen (Tylenol) 650 mg Q4H PRN ORAL Mild Pain (Pain Scale 1-3) 11/07/16 14:45 12/07/16 14:44 Acetaminophen (Tylenol) 650 mg Q4H PRN RECTAL FEVER 11/12/16 15:15 12/12/16 15:14 Amlodipine Besylate (Norvasc) 5 mg BID ORAL 11/11/16 18:00 12/11/16 17:59 11/12/16 08:32 Clonidine HCl (Catapres TTS-1) 1 patch QWEEK PRN TDERMAL SBP>160, IF NO ORAL MEDS 11/13/16 13:00 12/13/16 12:59 Dextrose (D5W 1000ml) 1,000 ml @ 125 mls/hr Q8H IV 11/13/16 12:00 12/13/16 11:59 11/17/16 01:36 Dextrose (Dextrose 50%) STAT PRN IV Hypoglycemia 11/07/16 14:45 12/07/16 14:44 Diphenhydramine HCl (Benadryl) 25 mg Q6H PRN ORAL Itching/Pruritis 11/07/16 14:45 12/07/16 14:44 Enoxaparin Sodium (Lovenox) 40 mg DAILY SUBQ 11/13/16 09:00 12/13/16 08:59 11/17/16 09:13 Hydralazine HCl (Apresoline) 25 mg Q4H PRN ORAL bp over 160 syst 11/11/16 14:00 12/11/16 13:59 Hydromorphone HCl (Dilaudid) 0.5 mg Q3H PRN IVP Pain Score 1-3 11/12/16 15:15 11/19/16 15:14 Hydromorphone HCl (Dilaudid) 1 mg Q3H PRN IVP pain score 4-6 11/12/16 15:15 11/19/16 15:14 11/15/16 08:21 Hydromorphone HCl 2 mg 2 mg Q2H PRN IVP pain score 7-10 11/13/16 12:00 11/20/16 11:59 11/17/16 05:45 Magnesium Hydroxide (Mom) 30 ml HSPRN PRN ORAL Constipation 11/07/16 14:45 12/07/16 14:44 Meropenem/Sodium Chloride (Merrem/Sodium Chloride) 110 ml @ 220 mls/hr Q12HR@0600,1800 IVPB 11/16/16 18:00 11/21/16 23:59 11/17/16 05:44 Metoclopramide HCl (Reglan) 5 mg Q6H PRN IVP Nausea & Vomiting 11/12/16 15:15 12/12/16 15:14 11/17/16 05:44 Ondansetron HCl (Zofran) 4 mg Q6H PRN IVP Nausea & Vomiting 11/12/16 15:15 12/12/16 15:14 11/17/16 01:31 Pantoprazole 40 mg 40 mg DAILY IVP 11/13/16 12:00 12/13/16 11:59 11/17/16 09:14 Zolpidem Tartrate (Ambien) 5 mg HSPRN PRN ORAL Insomnia 11/07/16 14:45 12/07/16 14:44 JOSH CORDOBA Nov 17, 2016 11:06
[2016-11-17 11:42] VITALS: BP 136/73
--- NOTE | 2016-11-17 11:51 | General Progress Note ---
Assessment/Plan Problem List: (1) Colonic diverticular abscess ICD Codes: K57.20 - Diverticulitis of large intestine with perforation and abscess without bleeding SNOMED: 296515763 (2) Abdominal pain ICD Codes: R10.9 - Unspecified abdominal pain SNOMED: 68838471 Qualifiers: Qualified Codes: R10.30 - Lower abdominal pain, unspecified (3) Diverticulitis ICD Codes: K57.92 - Diverticulitis of intestine, part unspecified, without perforation or abscess without bleeding SNOMED: [id number] Qualifiers: Qualified Codes: K57.20 - Diverticulitis of large intestine with perforation and abscess without bleeding (4) ARF (acute renal failure) Assessment & Plan: Lab error ? ICD Codes: N17.9 - Acute kidney failure, unspecified SNOMED: 42529341 Assessment/Plan IV Abxs NPO pain meds IVF Discussed with dr Andre Subjective Allergies: Coded Allergies: MELON (Verified Allergy, Unknown, 10/15/16) Uncoded Allergies: SHELLFISH (Allergy, Unknown, 10/15/16) Subjective In NAD Objective Last 24 Hour Vital Signs Date Time Temp Pulse Resp B/P Pulse Ox O2 Delivery O2 Flow Rate FiO2 11/17/16 11:42 97.5 87 14 136/73 96 Room Air 11/17/16 07:46 98.2 84 15 122/78 97 Room Air 11/17/16 04:00 98.1 84 18 136/91 96 Room Air 11/17/16 00:00 97.5 87 18 145/90 92 Room Air 11/16/16 19:00 97.0 95 18 147/100 Room Air 11/16/16 17:22 86 134/88 11/16/16 16:27 97.7 11/16/16 15:43 97.7 86 19 134/88 98 Room Air Intake and Output 11/16/16 11/17/16 19:00 07:00 Intake Total 1485 ml Output Total 1415 ml Balance 70 ml Intake Oral 0 ml IV Total 1485 ml Output Urine Total 900 ml Gastric Drainage Total 510 ml Drainage Total 5 ml # Voids 3 Laboratory Tests 11/17/16 05:30: White Blood Count 20.0H, Red Blood Count 3.43L, Hemoglobin 8.4L, Hematocrit 27.0L, Mean Corpuscular Volume 79L, Mean Corpuscular Hemoglobin 24.6L, Mean Corpuscular Hemoglobin Concent 31.3L, Red Cell Distribution Width 14.0, Platelet Count 558H, Mean Platelet Volume 6.7, Neutrophils (%) (Auto) , Lymphocytes (%) (Auto) , Monocytes (%) (Auto) , Eosinophils (%) (Auto) , Basophils (%) (Auto) , Differential Total Cells Counted 100, Neutrophils % ( Manual) 66, Lymphocytes % (Manual) 24, Monocytes % (Manual) 7, Eosinophils % ( Manual) 3, Basophils % (Manual) 0, Band Neutrophils 0, Platelet Estimate Adequate, Platelet Morphology Normal, Hypochromasia 2+, Anisocytosis 1+, Microcytosis 1+, Sodium Level 137, Potassium Level 3.6, Chloride Level 94L, Carbon Dioxide Level 30, Anion Gap 13, Blood Urea Nitrogen 10, Creatinine 1.6H, Estimat Glomerular Filtration Rate 45.0, Glucose Level 96, Calcium Level 8.9, C- Reactive Protein, Quantitative 8.1H Height (Feet): 5 Height (Inches): 6.00 Weight (Pounds): 224 Cardiovascular: normal rate Respiratory/Chest: lungs clear Abdomen: soft ELYSE CORDOBA Nov 17, 2016 11:51
--- NOTE | 2016-11-17 13:01 | General Surgery Progress Note ---
General Surgery-Progress Note Subjective Procedure Performed Exploratory laparotomy, colon resection and primary anastomosis and release of splenic flexure Symptoms: improved, passing flatus Objective Last 24 Hour Vital Signs Date Time Temp Pulse Resp B/P Pulse Ox O2 Delivery O2 Flow Rate FiO2 11/17/16 11:42 97.5 87 14 136/73 96 Room Air 11/17/16 07:46 98.2 84 15 122/78 97 Room Air 11/17/16 04:00 98.1 84 18 136/91 96 Room Air 11/17/16 00:00 97.5 87 18 145/90 92 Room Air 11/16/16 19:00 97.0 95 18 147/100 Room Air 11/16/16 17:22 86 134/88 11/16/16 16:27 97.7 11/16/16 15:43 97.7 86 19 134/88 98 Room Air I&O Intake and Output 11/16/16 11/17/16 19:00 07:00 Intake Total 1485 ml Output Total 1415 ml Balance 70 ml Intake Oral 0 ml IV Total 1485 ml Output Urine Total 900 ml Gastric Drainage Total 510 ml Drainage Total 5 ml # Voids 3 Dressing: dry Drains: tc Respiratory: clear Abdomen: soft, non-tender, present bowel sounds Extremities: no tenderness Laboratory Tests Test 11/17/16 05:30 White Blood Count 20.0 K/UL (4.8-10.8) H Red Blood Count 3.43 M/UL (4.20-5.40) L Hemoglobin 8.4 G/DL (12.0-16.0) L Hematocrit 27.0 % (37.0-47.0) L Mean Corpuscular Volume 79 FL (80-99) L Mean Corpuscular Hemoglobin 24.6 PG (27.0-31.0) L Mean Corpuscular Hemoglobin Concent 31.3 G/DL (32.0-36.0) L Red Cell Distribution Width 14.0 % (11.6-14.8) Platelet Count 558 K/UL (150-450) H Mean Platelet Volume 6.7 FL (6.5-10.1) Neutrophils (%) (Auto) % (45.0-75.0) Lymphocytes (%) (Auto) % (20.0-45.0) Monocytes (%) (Auto) % (1.0-10.0) Eosinophils (%) (Auto) % (0.0-3.0) Basophils (%) (Auto) % (0.0-2.0) Differential Total Cells Counted 100 Neutrophils % (Manual) 66 % (45-75) Lymphocytes % (Manual) 24 % (20-45) Monocytes % (Manual) 7 % (1-10) Eosinophils % (Manual) 3 % (0-3) Basophils % (Manual) 0 % (0-2) Band Neutrophils 0 % (0-8) Platelet Estimate Adequate Platelet Morphology Normal Hypochromasia 2+ Anisocytosis 1+ Microcytosis 1+ Sodium Level 137 mEQ/L (135-145) Potassium Level 3.6 mEQ/L (3.4-4.9) Chloride Level 94 mEQ/L (98-107) L Carbon Dioxide Level 30 mEQ/L (20-30) Anion Gap 13 (5-15) Blood Urea Nitrogen 10 mg/dL (7-23) Creatinine 1.6 mg/dL (0.5-0.9) H Estimat Glomerular Filtration Rate 45.0 mL/min (>60) Glucose Level 96 mg/dL (74-106) Calcium Level 8.9 mg/dL (8.6-10.2) C-Reactive Protein, Quantitative 8.1 mg/dL (< 0.5) H Assessment Post-op Diagnosis perforated colon with phlegmon Plan Additional Comments continue as before BREANNA RDZ Nov 17, 2016 13:01
[2016-11-17 16:03] VITALS: BP 147/94
[2016-11-17 20:00] VITALS: BP 148/96
[2016-11-17] MEDS ORDERED: Tubing IV Secondary IV ONE (20:25)
[2016-11-17] MEDS ORDERED: Sterile Water Irrig 1000ml IRRIG ONE (20:25)
--- NOTE | 2016-11-17 22:10 | General Progress Note ---
Assessment/Plan Assessment/Plan Assessment - complicated diverticulitis with abscess - s/p resection and primary anastomosis - Leukocytosis - Renal failure Recommendations - surgical f/u - continue abx - nephrology f/u - diet per surgery - consider CT scan Subjective Allergies: Coded Allergies: MELON (Verified Allergy, Unknown, 10/15/16) Uncoded Allergies: SHELLFISH (Allergy, Unknown, 10/15/16) Subjective seen early am POD #5 after colon resection with primary anastomosis Feels OK some abd pain Objective Last 24 Hour Vital Signs Date Time Temp Pulse Resp B/P Pulse Ox O2 Delivery O2 Flow Rate FiO2 11/17/16 20:00 96.8 98 18 148/96 99 Room Air 11/17/16 18:33 98.1 11/17/16 16:03 98.1 89 15 147/94 98 Room Air 11/17/16 11:42 97.5 87 14 136/73 96 Room Air 11/17/16 07:46 98.2 84 15 122/78 97 Room Air 11/17/16 04:00 98.1 84 18 136/91 96 Room Air 11/17/16 00:00 97.5 87 18 145/90 92 Room Air Intake and Output 11/16/16 11/17/16 19:00 07:00 Intake Total 1485 ml Output Total 1415 ml 100 ml Balance 70 ml -100 ml Intake Oral 0 ml IV Total 1485 ml Output Urine Total 900 ml Gastric Drainage Total 510 ml Drainage Total 5 ml Other 100 ml # Voids 3 Laboratory Tests 11/17/16 05:30: White Blood Count 20.0H, Red Blood Count 3.43L, Hemoglobin 8.4L, Hematocrit 27.0L, Mean Corpuscular Volume 79L, Mean Corpuscular Hemoglobin 24.6L, Mean Corpuscular Hemoglobin Concent 31.3L, Red Cell Distribution Width 14.0, Platelet Count 558H, Mean Platelet Volume 6.7, Neutrophils (%) (Auto) , Lymphocytes (%) (Auto) , Monocytes (%) (Auto) , Eosinophils (%) (Auto) , Basophils (%) (Auto) , Differential Total Cells Counted 100, Neutrophils % ( Manual) 66, Lymphocytes % (Manual) 24, Monocytes % (Manual) 7, Eosinophils % ( Manual) 3, Basophils % (Manual) 0, Band Neutrophils 0, Platelet Estimate Adequate, Platelet Morphology Normal, Hypochromasia 2+, Anisocytosis 1+, Microcytosis 1+, Sodium Level 137, Potassium Level 3.6, Chloride Level 94L, Carbon Dioxide Level 30, Anion Gap 13, Blood Urea Nitrogen 10, Creatinine 1.6H, Estimat Glomerular Filtration Rate 45.0, Glucose Level 96, Calcium Level 8.9, C- Reactive Protein, Quantitative 8.1H Height (Feet): 5 Height (Inches): 6.00 Weight (Pounds): 224 Objective Obese AA woman NCAT supple CTA RRR soft (+) LLQ TTP, (+) drainage catheter in midline no edema non focal JORDYN DINERO Nov 17, 2016 22:10
[2016-11-18] VITALS: BP 118/72
[2016-11-18] MEDS: Metoclopramide 10mg/2ml Inj IVP PRN (00:59)
[2016-11-18 04:00] VITALS: BP 137/81
[2016-11-18] MEDS: Meropenem 1 GM in NS 110 ML IVPB SCH ×2 (05:24→18:43)
[2016-11-18 06:30] LABS: MEAN CORPUSCULAR HEMOGLOBIN 24.5 PG (27.0-31.0); MEAN CORPUSCULAR HGB CONC 31.1 G/DL (32.0-36.0); MEAN CORPUSCULAR VOLUME 79 FL (80-99); MEAN PLATELET VOLUME 7.1 FL (6.5-10.1); PLATELET COUNT 571 K/UL (150-450); RED BLOOD COUNT 3.43 M/UL (4.20-5.40); RED CELL DISTRIBUTION WIDTH 13.9 % (11.6-14.8); WHITE BLOOD COUNT 18.6 K/UL (4.8-10.8)
[2016-11-18 06:50] LABS: CREATININE 1.5 mg/dL (0.5-0.9); GLOMERULAR FILTRATION RATE 48.5 mL/min (>60); POTASSIUM 3.8 mEQ/L (3.4-4.9)
[2016-11-18 06:56] LABS: CRP QUANT 6.1 mg/dL (< 0.5)
[2016-11-18 08:06] VITALS: BP 149/93
[2016-11-18] MEDS: Pantoprazole Inj IVP SCH (08:08)
[2016-11-18] MEDS: Enoxaparin 40mg Inj SUBQ SCH (08:18)
[2016-11-18] MEDS: HYDROmorphone 1mg/ml Carpuject IVP PRN ×3 (09:35→18:44)
[2016-11-18 11:27] VITALS: BP 141/78
--- NOTE | 2016-11-18 11:34 | General Progress Note ---
Assessment/Plan Problem List: (1) Colonic diverticular abscess ICD Codes: K57.20 - Diverticulitis of large intestine with perforation and abscess without bleeding SNOMED: 071747266 (2) Abdominal pain ICD Codes: R10.9 - Unspecified abdominal pain SNOMED: 12144908 Qualifiers: Qualified Codes: R10.30 - Lower abdominal pain, unspecified (3) Diverticulitis ICD Codes: K57.92 - Diverticulitis of intestine, part unspecified, without perforation or abscess without bleeding SNOMED: 645496406 Qualifiers: Qualified Codes: K57.20 - Diverticulitis of large intestine with perforation and abscess without bleeding (4) ARF (acute renal failure) Assessment & Plan: Lab error ? ICD Codes: N17.9 - Acute kidney failure, unspecified SNOMED: 20239958 Assessment/Plan IV Abxs NPO pain meds IVF Dc NG when ok by Dr kessler Subjective Allergies: Coded Allergies: MELON (Verified Allergy, Unknown, 10/15/16) Uncoded Allergies: SHELLFISH (Allergy, Unknown, 10/15/16) Subjective tired Objective Last 24 Hour Vital Signs Date Time Temp Pulse Resp B/P Pulse Ox O2 Delivery O2 Flow Rate FiO2 11/18/16 11:27 97.0 84 16 141/78 98 Room Air 11/18/16 08:09 86 148/93 11/18/16 08:06 97.7 86 15 149/93 99 Room Air 11/18/16 04:00 97.0 95 20 137/81 99 Room Air 11/18/16 00:00 97.0 92 20 118/72 95 11/17/16 20:00 96.8 98 18 148/96 99 Room Air 11/17/16 18:33 98.1 11/17/16 16:03 98.1 89 15 147/94 98 Room Air 11/17/16 11:42 97.5 87 14 136/73 96 Room Air Intake and Output 11/17/16 11/18/16 19:00 07:00 Intake Total 1235 ml 1360 ml Output Total 1155 ml 200 ml Balance 80 ml 1160 ml IV Total 1235 ml 1360 ml Output Urine Total 1150 ml Drainage Total 5 ml 0 ml Other 200 ml # Voids 4 Laboratory Tests 11/18/16 05:15: White Blood Count 18.6H, Red Blood Count 3.43L, Hemoglobin 8.4L, Hematocrit 27.0L, Mean Corpuscular Volume 79L, Mean Corpuscular Hemoglobin 24.5L, Mean Corpuscular Hemoglobin Concent 31.1L, Red Cell Distribution Width 13.9, Platelet Count 571H, Mean Platelet Volume 7.1, Neutrophils (%) (Auto) , Lymphocytes (%) (Auto) , Monocytes (%) (Auto) , Eosinophils (%) (Auto) , Basophils (%) (Auto) , Neutrophils % (Manual) [Pending], Lymphocytes % (Manual) [Pending], Platelet Estimate [Pending], Platelet Morphology [Pending], Sodium Level 137, Potassium Level 3.8, Chloride Level 95L, Carbon Dioxide Level 31H, Anion Gap 11, Blood Urea Nitrogen 9, Creatinine 1.5H, Estimat Glomerular Filtration Rate 48.5, Glucose Level 82, Calcium Level 9.0, C-Reactive Protein, Quantitative 6.1H Height (Feet): 5 Height (Inches): 6.00 Weight (Pounds): 224 Cardiovascular: normal rate Respiratory/Chest: lungs clear ELYSE CORDOBA Nov 18, 2016 11:34
--- NOTE | 2016-11-18 11:39 | Infectious Diseases Prog Note ---
"Assessment/Plan Assessment/Plan antibiotics : meropenem A 1. diverticulitis with perforation | abscess with e.coli | enterococcus s/p resection of colon 2. leucocytosis improving 3. asthma 4. renal failure improving P 1. continue meropenem 2. will follow up cultures Subjective Constitutional: Denies: chills, fever Respiratory: Denies: dry cough, shortness of breath Gastrointestinal/Abdominal: Denies: diarrhea, nausea, vomiting Musculoskeletal: Reports: pain - decreased in abdomen Allergies: Coded Allergies: MELON (Verified Allergy, Unknown, 10/15/16) Uncoded Allergies: SHELLFISH (Allergy, Unknown, 10/15/16) Objective Vital Signs Last 24 Hour Vital Signs Date Time Temp Pulse Resp B/P Pulse Ox O2 Delivery O2 Flow Rate FiO2 11/18/16 11:27 97.0 84 16 141/78 98 Room Air 11/18/16 08:09 86 148/93 11/18/16 08:06 97.7 86 15 149/93 99 Room Air 11/18/16 04:00 97.0 95 20 137/81 99 Room Air 11/18/16 00:00 97.0 92 20 118/72 95 11/17/16 20:00 96.8 98 18 148/96 99 Room Air 11/17/16 18:33 98.1 11/17/16 16:03 98.1 89 15 147/94 98 Room Air 11/17/16 11:42 97.5 87 14 136/73 96 Room Air Height (Feet): 5 Height (Inches): 6.00 Weight (Pounds): 224 Respiratory/Chest: lungs clear Cardiovascular: normal rate, regular rhythm, no gallop/murmur Abdomen: other - in dressings, SABRINA drain Extremities: no edema, other - right arm PICC Laboratory Tests Test 11/18/16 05:15 White Blood Count 18.6 K/UL (4.8-10.8) H Red Blood Count 3.43 M/UL (4.20-5.40) L Hemoglobin 8.4 G/DL (12.0-16.0) L Hematocrit 27.0 % (37.0-47.0) L Mean Corpuscular Volume 79 FL (80-99) L Mean Corpuscular Hemoglobin 24.5 PG (27.0-31.0) L Mean Corpuscular Hemoglobin Concent 31.1 G/DL (32.0-36.0) L Red Cell Distribution Width 13.9 % (11.6-14.8) Platelet Count 571 K/UL (150-450) H Mean Platelet Volume 7.1 FL (6.5-10.1) Neutrophils (%) (Auto) % (45.0-75.0) Lymphocytes (%) (Auto) % (20.0-45.0) Monocytes (%) (Auto) % (1.0-10.0) Eosinophils (%) (Auto) % (0.0-3.0) Basophils (%) (Auto) % (0.0-2.0) Neutrophils % (Manual) Pending Lymphocytes % (Manual) Pending Platelet Estimate Pending Platelet Morphology Pending Sodium Level 137 mEQ/L (135-145) Potassium Level 3.8 mEQ/L (3.4-4.9) Chloride Level 95 mEQ/L (98-107) L Carbon Dioxide Level 31 mEQ/L (20-30) H Anion Gap 11 (5-15) Blood Urea Nitrogen 9 mg/dL (7-23) Creatinine 1.5 mg/dL (0.5-0.9) H Estimat Glomerular Filtration Rate 48.5 mL/min (>60) Glucose Level 82 mg/dL (74-106) Calcium Level 9.0 mg/dL (8.6-10.2) C-Reactive Protein, Quantitative 6.1 mg/dL (< 0.5) H SURYA HEREDIA Nov 18, 2016 11:39"
[2016-11-18 11:48] LABS: BAND NEUTROPHILS % (MANUAL) 0 % (0-8); BASOPHILS % (MANUAL) 0 % (0-2); EOSINOPHILS % (MANUAL) 4 % (0-3); HYPOCHROMASIA 1+; LYMPHOCYTES % (MANUAL) 27 % (20-45); MICROCYTES 1+; NEUTROPHILS % (MANUAL) 61 % (45-75); PLATELET ESTIMATE INCREASED; PLATELET MORPHOLOGY NORMAL; TOTAL CELLS COUNTED 100
--- NOTE | 2016-11-18 14:05 | General Surgery Progress Note ---
General Surgery-Progress Note Subjective Procedure Performed Exploratory laparotomy, colon resection and primary anastomosis and release of splenic flexure Symptoms: improved, passing flatus Objective Last 24 Hour Vital Signs Date Time Temp Pulse Resp B/P Pulse Ox O2 Delivery O2 Flow Rate FiO2 11/18/16 13:56 97.0 11/18/16 11:27 97.0 84 16 141/78 98 Room Air 11/18/16 08:09 86 148/93 11/18/16 08:06 97.7 86 15 149/93 99 Room Air 11/18/16 04:00 97.0 95 20 137/81 99 Room Air 11/18/16 00:00 97.0 92 20 118/72 95 11/17/16 20:00 96.8 98 18 148/96 99 Room Air 11/17/16 18:33 98.1 11/17/16 16:03 98.1 89 15 147/94 98 Room Air I&O Intake and Output 11/17/16 11/18/16 19:00 07:00 Intake Total 1235 ml 1360 ml Output Total 1155 ml 200 ml Balance 80 ml 1160 ml IV Total 1235 ml 1360 ml Output Urine Total 1150 ml Drainage Total 5 ml 0 ml Other 200 ml # Voids 4 Wound: clean, intact Drains: tc Respiratory: clear Abdomen: soft, tenderness, present bowel sounds Extremities: no tenderness Laboratory Tests Test 11/18/16 05:15 White Blood Count 18.6 K/UL (4.8-10.8) H Red Blood Count 3.43 M/UL (4.20-5.40) L Hemoglobin 8.4 G/DL (12.0-16.0) L Hematocrit 27.0 % (37.0-47.0) L Mean Corpuscular Volume 79 FL (80-99) L Mean Corpuscular Hemoglobin 24.5 PG (27.0-31.0) L Mean Corpuscular Hemoglobin Concent 31.1 G/DL (32.0-36.0) L Red Cell Distribution Width 13.9 % (11.6-14.8) Platelet Count 571 K/UL (150-450) H Mean Platelet Volume 7.1 FL (6.5-10.1) Neutrophils (%) (Auto) % (45.0-75.0) Lymphocytes (%) (Auto) % (20.0-45.0) Monocytes (%) (Auto) % (1.0-10.0) Eosinophils (%) (Auto) % (0.0-3.0) Basophils (%) (Auto) % (0.0-2.0) Differential Total Cells Counted 100 Neutrophils % (Manual) 61 % (45-75) Lymphocytes % (Manual) 27 % (20-45) Monocytes % (Manual) 8 % (1-10) Eosinophils % (Manual) 4 % (0-3) H Basophils % (Manual) 0 % (0-2) Band Neutrophils 0 % (0-8) Platelet Estimate Increased H Platelet Morphology Normal Hypochromasia 1+ Microcytosis 1+ Sodium Level 137 mEQ/L (135-145) Potassium Level 3.8 mEQ/L (3.4-4.9) Chloride Level 95 mEQ/L (98-107) L Carbon Dioxide Level 31 mEQ/L (20-30) H Anion Gap 11 (5-15) Blood Urea Nitrogen 9 mg/dL (7-23) Creatinine 1.5 mg/dL (0.5-0.9) H Estimat Glomerular Filtration Rate 48.5 mL/min (>60) Glucose Level 82 mg/dL (74-106) Calcium Level 9.0 mg/dL (8.6-10.2) C-Reactive Protein, Quantitative 6.1 mg/dL (< 0.5) H Assessment Post-op Diagnosis perforated colon with phlegmon Plan Additional Comments BREANNA TSAI Nov 18, 2016 14:05
[2016-11-18 16:17] VITALS: BP 144/97
--- NOTE | 2016-11-18 19:50 | General Progress Note ---
Assessment/Plan Assessment/Plan Assessment - complicated diverticulitis with abscess - s/p resection and primary anastomosis - Persistnet leukocytosis concerning - Renal failure Recommendations - surgical f/u - continue abx - nephrology f/u - diet per surgery - If WBC remains elevated, will need f/u CT scan Subjective Allergies: Coded Allergies: MELON (Verified Allergy, Unknown, 10/15/16) Uncoded Allergies: SHELLFISH (Allergy, Unknown, 10/15/16) Subjective POD #6 after colon resection with primary anastomosis Feels OK minimal abd pain Objective Last 24 Hour Vital Signs Date Time Temp Pulse Resp B/P Pulse Ox O2 Delivery O2 Flow Rate FiO2 11/18/16 16:17 97.5 81 16 144/97 95 Room Air 11/18/16 13:56 97.0 11/18/16 11:27 97.0 84 16 141/78 98 Room Air 11/18/16 08:09 86 148/93 11/18/16 08:06 97.7 86 15 149/93 99 Room Air 11/18/16 04:00 97.0 95 20 137/81 99 Room Air 11/18/16 00:00 97.0 92 20 118/72 95 11/17/16 20:00 96.8 98 18 148/96 99 Room Air Intake and Output 11/17/16 11/18/16 19:00 07:00 Intake Total 1235 ml 1360 ml Output Total 1155 ml 200 ml Balance 80 ml 1160 ml IV Total 1235 ml 1360 ml Output Urine Total 1150 ml Drainage Total 5 ml 0 ml Other 200 ml # Voids 4 Laboratory Tests 11/18/16 05:15: White Blood Count 18.6H, Red Blood Count 3.43L, Hemoglobin 8.4L, Hematocrit 27.0L, Mean Corpuscular Volume 79L, Mean Corpuscular Hemoglobin 24.5L, Mean Corpuscular Hemoglobin Concent 31.1L, Red Cell Distribution Width 13.9, Platelet Count 571H, Mean Platelet Volume 7.1, Neutrophils (%) (Auto) , Lymphocytes (%) (Auto) , Monocytes (%) (Auto) , Eosinophils (%) (Auto) , Basophils (%) (Auto) , Differential Total Cells Counted 100, Neutrophils % ( Manual) 61, Lymphocytes % (Manual) 27, Monocytes % (Manual) 8, Eosinophils % ( Manual) 4H, Basophils % (Manual) 0, Band Neutrophils 0, Platelet Estimate IncreasedH, Platelet Morphology Normal, Hypochromasia 1+, Microcytosis 1+, Sodium Level 137, Potassium Level 3.8, Chloride Level 95L, Carbon Dioxide Level 31H, Anion Gap 11, Blood Urea Nitrogen 9, Creatinine 1.5H, Estimat Glomerular Filtration Rate 48.5, Glucose Level 82, Calcium Level 9.0, C-Reactive Protein, Quantitative 6.1H Height (Feet): 5 Height (Inches): 6.00 Weight (Pounds): 224 Objective Obese AA woman NCAT supple CTA RRR soft minimal TTP LLQ no edema non focal JORDYN DINERO Nov 18, 2016 19:50
[2016-11-18 20:00] VITALS: BP 136/85
[2016-11-19] VITALS: BP_SYST 134
[2016-11-19 04:00] VITALS: BP 139/64
[2016-11-19] MEDS: Meropenem 1 GM in NS 110 ML IVPB SCH ×2 (05:45→17:19)
[2016-11-19 07:17] LABS: BASOPHILS % (AUTO) 0.7 % (0.0-2.0); EOSINOPHILS % (AUTO) 3.5 % (0.0-3.0); LYMPHOCYTES % (AUTO) 17.1 % (20.0-45.0); MEAN CORPUSCULAR HEMOGLOBIN 24.4 PG (27.0-31.0); MEAN CORPUSCULAR HGB CONC 31.2 G/DL (32.0-36.0); MEAN CORPUSCULAR VOLUME 78 FL (80-99); MEAN PLATELET VOLUME 6.7 FL (6.5-10.1); MONOCYTES % (AUTO) 7.5 % (1.0-10.0); NEUTROPHILS % (AUTO) 71.3 % (45.0-75.0); PLATELET COUNT 596 K/UL (150-450); RED BLOOD COUNT 3.44 M/UL (4.20-5.40); RED CELL DISTRIBUTION WIDTH 14.3 % (11.6-14.8); WHITE BLOOD COUNT 17.1 K/UL (4.8-10.8)
[2016-11-19 07:26] LABS: CALCIUM 8.9 mg/dL (8.6-10.2); CREATININE 1.4 mg/dL (0.5-0.9); GLOMERULAR FILTRATION RATE 52.5 mL/min (>60); POTASSIUM 3.6 mEQ/L (3.4-4.9)
[2016-11-19] MEDS: Pantoprazole Inj IVP SCH (07:54)
[2016-11-19] MEDS: Enoxaparin 40mg Inj SUBQ SCH (07:59)
[2016-11-19 08:12] VITALS: BP 146/100
[2016-11-19 12:15] VITALS: BP 150/90
--- NOTE | 2016-11-19 13:16 | General Surgery Progress Note ---
General Surgery-Progress Note Subjective Procedure Performed Exploratory laparotomy, colon resection and primary anastomosis and release of splenic flexure Symptoms: passing flatus Objective Last 24 Hour Vital Signs Date Time Temp Pulse Resp B/P Pulse Ox O2 Delivery O2 Flow Rate FiO2 11/19/16 12:15 97.5 92 20 150/90 97 Room Air 11/19/16 08:12 97.5 87 22 146/100 97 Room Air 11/19/16 07:54 74 130/70 11/19/16 04:44 96.9 11/19/16 04:00 97.8 72 17 139/64 100 Room Air 11/19/16 00:00 96.9 89 18 134/ 97 Room Air 11/18/16 20:00 97.7 86 16 136/85 98 Room Air 11/18/16 16:17 97.5 81 16 144/97 95 Room Air 11/18/16 13:56 97.0 I&O Intake and Output 11/18/16 11/19/16 18:59 06:59 Intake Total 1000 ml 1235 ml Output Total 1000 ml 10 ml Balance 0 ml 1225 ml IV Total 1000 ml 1235 ml Output Urine Total 1000 ml Drainage Total 10 ml # Voids 1 Wound: clean, intact Drains: tc Respiratory: clear Abdomen: soft, non-tender, present bowel sounds Extremities: no tenderness Laboratory Tests Test 11/19/16 06:00 White Blood Count 17.1 K/UL (4.8-10.8) H Red Blood Count 3.44 M/UL (4.20-5.40) L Hemoglobin 8.4 G/DL (12.0-16.0) L Hematocrit 26.9 % (37.0-47.0) L Mean Corpuscular Volume 78 FL (80-99) L Mean Corpuscular Hemoglobin 24.4 PG (27.0-31.0) L Mean Corpuscular Hemoglobin Concent 31.2 G/DL (32.0-36.0) L Red Cell Distribution Width 14.3 % (11.6-14.8) Platelet Count 596 K/UL (150-450) H Mean Platelet Volume 6.7 FL (6.5-10.1) Neutrophils (%) (Auto) 71.3 % (45.0-75.0) Lymphocytes (%) (Auto) 17.1 % (20.0-45.0) L Monocytes (%) (Auto) 7.5 % (1.0-10.0) Eosinophils (%) (Auto) 3.5 % (0.0-3.0) H Basophils (%) (Auto) 0.7 % (0.0-2.0) Sodium Level 136 mEQ/L (135-145) Potassium Level 3.6 mEQ/L (3.4-4.9) Chloride Level 93 mEQ/L (98-107) L Carbon Dioxide Level 30 mEQ/L (20-30) Anion Gap 13 (5-15) Blood Urea Nitrogen 9 mg/dL (7-23) Creatinine 1.4 mg/dL (0.5-0.9) H Estimat Glomerular Filtration Rate 52.5 mL/min (>60) Glucose Level 87 mg/dL (74-106) Calcium Level 8.9 mg/dL (8.6-10.2) Assessment Post-op Diagnosis perforated colon with phlegmon Plan Additional Comments continue MITCHELLO BREANNA RDZ Nov 19, 2016 13:16
[2016-11-19 15:45] VITALS: BP 126/85
--- NOTE | 2016-11-19 16:19 | General Progress Note ---
Assessment/Plan Assessment/Plan Assessment - complicated diverticulitis with abscess - s/p resection and primary anastomosis - Persistent leukocytosis concerning - Renal failure Recommendations - surgical f/u - continue abx - nephrology f/u - NPO - check CT scan - r/o abscess and SBO Subjective Allergies: Coded Allergies: MELON (Verified Allergy, Unknown, 10/15/16) Uncoded Allergies: SHELLFISH (Allergy, Unknown, 10/15/16) Subjective POD #7 after colon resection with primary anastomosis (+) vomited today minimal abd pain Objective Last 24 Hour Vital Signs Date Time Temp Pulse Resp B/P Pulse Ox O2 Delivery O2 Flow Rate FiO2 11/19/16 15:45 97.7 86 21 126/85 97 Room Air 11/19/16 12:15 97.5 92 20 150/90 97 Room Air 11/19/16 08:12 97.5 87 22 146/100 97 Room Air 11/19/16 07:54 74 130/70 11/19/16 04:44 96.9 11/19/16 04:00 97.8 72 17 139/64 100 Room Air 11/19/16 00:00 96.9 89 18 134/ 97 Room Air 11/18/16 20:00 97.7 86 16 136/85 98 Room Air 11/18/16 16:17 97.5 81 16 144/97 95 Room Air Intake and Output 11/18/16 11/19/16 19:00 07:00 Intake Total 875 ml 1235 ml Output Total 1000 ml 10 ml Balance -125 ml 1225 ml IV Total 875 ml 1235 ml Output Urine Total 1000 ml Drainage Total 10 ml # Voids 1 Laboratory Tests 11/19/16 06:00: White Blood Count 17.1H, Red Blood Count 3.44L, Hemoglobin 8.4L, Hematocrit 26.9L, Mean Corpuscular Volume 78L, Mean Corpuscular Hemoglobin 24.4L, Mean Corpuscular Hemoglobin Concent 31.2L, Red Cell Distribution Width 14.3, Platelet Count 596H, Mean Platelet Volume 6.7, Neutrophils (%) (Auto) 71.3, Lymphocytes (%) (Auto) 17.1L, Monocytes (%) (Auto) 7.5, Eosinophils (%) (Auto) 3.5H, Basophils (%) (Auto) 0.7, Sodium Level 136, Potassium Level 3.6, Chloride Level 93L, Carbon Dioxide Level 30, Anion Gap 13, Blood Urea Nitrogen 9, Creatinine 1.4H, Estimat Glomerular Filtration Rate 52.5, Glucose Level 87, Calcium Level 8.9 Height (Feet): 5 Height (Inches): 6.00 Weight (Pounds): 224 Objective Obese AA woman NCAT supple CTA RRR soft minimal TTP LLQ no edema non focal JORDYN DINERO Nov 19, 2016 16:19
--- NOTE | 2016-11-19 18:02 | General Progress Note ---
Assessment/Plan Problem List: (1) Colonic diverticular abscess ICD Codes: K57.20 - Diverticulitis of large intestine with perforation and abscess without bleeding SNOMED: 261023496 (2) Abdominal pain ICD Codes: R10.9 - Unspecified abdominal pain SNOMED: 88603777 Qualifiers: Qualified Codes: R10.30 - Lower abdominal pain, unspecified (3) Diverticulitis ICD Codes: K57.92 - Diverticulitis of intestine, part unspecified, without perforation or abscess without bleeding SNOMED: 530340446 Qualifiers: Qualified Codes: K57.20 - Diverticulitis of large intestine with perforation and abscess without bleeding (4) ARF (acute renal failure) Assessment & Plan: Lab error ? ICD Codes: N17.9 - Acute kidney failure, unspecified SNOMED: 23587341 Assessment/Plan IV Abxs NPO diet per surgery IVF Subjective Allergies: Coded Allergies: MELON (Verified Allergy, Unknown, 10/15/16) Uncoded Allergies: SHELLFISH (Allergy, Unknown, 10/15/16) Subjective NG is out Objective Last 24 Hour Vital Signs Date Time Temp Pulse Resp B/P Pulse Ox O2 Delivery O2 Flow Rate FiO2 11/19/16 17:19 86 126/85 11/19/16 15:45 97.7 86 21 126/85 97 Room Air 11/19/16 12:15 97.5 92 20 150/90 97 Room Air 11/19/16 08:12 97.5 87 22 146/100 97 Room Air 11/19/16 07:54 74 130/70 11/19/16 04:44 96.9 11/19/16 04:00 97.8 72 17 139/64 100 Room Air 11/19/16 00:00 96.9 89 18 134/ 97 Room Air 11/18/16 20:00 97.7 86 16 136/85 98 Room Air Intake and Output 11/18/16 11/19/16 19:00 07:00 Intake Total 875 ml 1235 ml Output Total 1000 ml 10 ml Balance -125 ml 1225 ml IV Total 875 ml 1235 ml Output Urine Total 1000 ml Drainage Total 10 ml # Voids 1 Laboratory Tests 11/19/16 06:00: White Blood Count 17.1H, Red Blood Count 3.44L, Hemoglobin 8.4L, Hematocrit 26.9L, Mean Corpuscular Volume 78L, Mean Corpuscular Hemoglobin 24.4L, Mean Corpuscular Hemoglobin Concent 31.2L, Red Cell Distribution Width 14.3, Platelet Count 596H, Mean Platelet Volume 6.7, Neutrophils (%) (Auto) 71.3, Lymphocytes (%) (Auto) 17.1L, Monocytes (%) (Auto) 7.5, Eosinophils (%) (Auto) 3.5H, Basophils (%) (Auto) 0.7, Sodium Level 136, Potassium Level 3.6, Chloride Level 93L, Carbon Dioxide Level 30, Anion Gap 13, Blood Urea Nitrogen 9, Creatinine 1.4H, Estimat Glomerular Filtration Rate 52.5, Glucose Level 87, Calcium Level 8.9 Height (Feet): 5 Height (Inches): 6.00 Weight (Pounds): 224 Cardiovascular: normal rate Respiratory/Chest: lungs clear Edema: no edema noted Generalized ELYSE CORDOBA Nov 19, 2016 18:02
[2016-11-19 20:00] VITALS: BP 145/94
[2016-11-20] VITALS: BP 135/99
[2016-11-20 04:00] VITALS: BP 136/90
[2016-11-20] MEDS: Meropenem 1 GM in NS 110 ML IVPB SCH ×2 (05:36→18:17)
[2016-11-20 06:16] LABS: BASOPHILS % (AUTO) 0.6 % (0.0-2.0); EOSINOPHILS % (AUTO) 3.3 % (0.0-3.0); LYMPHOCYTES % (AUTO) 18.4 % (20.0-45.0); MEAN CORPUSCULAR HEMOGLOBIN 24.4 PG (27.0-31.0); MEAN CORPUSCULAR HGB CONC 30.9 G/DL (32.0-36.0); MEAN CORPUSCULAR VOLUME 79 FL (80-99); MEAN PLATELET VOLUME 6.6 FL (6.5-10.1); MONOCYTES % (AUTO) 8.8 % (1.0-10.0); NEUTROPHILS % (AUTO) 68.8 % (45.0-75.0); PLATELET COUNT 568 K/UL (150-450); RED BLOOD COUNT 3.37 M/UL (4.20-5.40); RED CELL DISTRIBUTION WIDTH 14.2 % (11.6-14.8); WHITE BLOOD COUNT 14.5 K/UL (4.8-10.8)
[2016-11-20 06:38] LABS: CALCIUM 8.9 mg/dL (8.6-10.2); CREATININE 1.4 mg/dL (0.5-0.9); CRP QUANT 4.7 mg/dL (< 0.5); GLOMERULAR FILTRATION RATE 52.5 mL/min (>60); POTASSIUM 3.2 mEQ/L (3.4-4.9)
[2016-11-20 08:06] VITALS: BP 138/96
[2016-11-20] MEDS: Pantoprazole Inj IVP SCH (09:17)
[2016-11-20] MEDS: Enoxaparin 40mg Inj SUBQ SCH (09:18)
--- NOTE | 2016-11-20 11:09 | Diagnostic Imaging Report ---
Indication: VOMITING Technique: CT scanner the abdomen and pelvis performed with oral but without intravenous contrast maternal per specific request. Axial, coronal comment sagittal images were generated. Dose: Total Dose Length Product - DLP [address] Dose Index - CTDIvol(s) 19.51 mGy. Comparison: 11/11/2016 Findings: Study is suboptimal due to lack of IV contrast material and patient's body habitus. The liver is low density. There is high density in the gallbladder. The spleen is unremarkable. Some atelectasis is noted in the left lung base. The pancreas is unremarkable. The kidneys are unremarkable. Aorta and inferior vena cava are unremarkable. There has been intervening surgery. Skin paty are now present along the midline abdominal wall incision. There is a surgical drain entering the left side of the abdomen, extending through the pelvis, with the tip of the drain in the left side of the abdomen. There has been a partial colonic resection involving the descending colon and a portion of the sigmoid. There is a small fluid collection in the cul-de-sac measuring approximately 4.7 x 2.3 x 0.8 cm. No other fluid collections are identified. Some fat stranding in the left lower quadrant. There is some air in the bladder. The uterus is unremarkable. The remainder the study is unchanged. Impression: Intervening surgery with partial colectomy involving the left colon and sigmoid. Surgical drain in place. Postsurgical stranding. Small fluid collection in the cul-de-sac as described. Fatty liver. Atelectasis in left base. Aircraft air in the bladder. This most likely represents previous instrumentation. The possibility of an internal fistula is not excluded if the patient has not been instrumented. The CT scanner at [facility] is accredited by the [employer] and the scans are performed using protocols designed to limit radiation exposure to as low as reasonably achievable to attain images of sufficient resolution adequate for diagnostic evaluation.
[2016-11-20 12:41] VITALS: BP 139/84
--- NOTE | 2016-11-20 13:40 | Infectious Diseases Prog Note ---
Assessment/Plan Assessment/Plan A: Sigmoid diverticulitis & Abscess s/p laparotomy & colon resection s/p CT guided drainage S/P laparotomy Fatty liver Obesity Acute renal failure improving P: continue Meropenem Will f/u cultures Subjective ROS Limited/Unobtainable: No Respiratory: Reports: no symptoms Gastrointestinal/Abdominal: Reports: other - pain near drain site Genitourinary: Reports: no symptoms Allergies: Coded Allergies: MELON (Verified Allergy, Unknown, 10/15/16) Uncoded Allergies: SHELLFISH (Allergy, Unknown, 10/15/16) Objective Vital Signs Last 24 Hour Vital Signs Date Time Temp Pulse Resp B/P Pulse Ox O2 Delivery O2 Flow Rate FiO2 11/20/16 12:41 97.7 80 15 139/84 98 Room Air 11/20/16 09:17 83 138/96 11/20/16 08:06 98.6 83 15 138/96 98 11/20/16 04:00 96.3 82 20 136/90 96 Room Air 11/20/16 00:00 97.7 100 20 135/99 99 Room Air 11/19/16 20:00 97.9 85 20 145/94 98 Room Air 11/19/16 17:19 86 126/85 11/19/16 15:45 97.7 86 21 126/85 97 Room Air Height (Feet): 5 Height (Inches): 6.00 Weight (Pounds): 224 General Appearance: no acute distress HEENT: other - hisutism Respiratory/Chest: lungs clear Cardiovascular: normal rate Abdomen: soft, non tender, other - obese, RLQ drain Extremities: no edema, other - R arm PICC line Neurologic/Psychiatric: alert, oriented x 3, responsive Laboratory Tests Test 11/20/16 06:00 White Blood Count 14.5 K/UL (4.8-10.8) H Red Blood Count 3.37 M/UL (4.20-5.40) L Hemoglobin 8.2 G/DL (12.0-16.0) L Hematocrit 26.5 % (37.0-47.0) L Mean Corpuscular Volume 79 FL (80-99) L Mean Corpuscular Hemoglobin 24.4 PG (27.0-31.0) L Mean Corpuscular Hemoglobin Concent 30.9 G/DL (32.0-36.0) L Red Cell Distribution Width 14.2 % (11.6-14.8) Platelet Count 568 K/UL (150-450) H Mean Platelet Volume 6.6 FL (6.5-10.1) Neutrophils (%) (Auto) 68.8 % (45.0-75.0) Lymphocytes (%) (Auto) 18.4 % (20.0-45.0) L Monocytes (%) (Auto) 8.8 % (1.0-10.0) Eosinophils (%) (Auto) 3.3 % (0.0-3.0) H Basophils (%) (Auto) 0.6 % (0.0-2.0) Sodium Level 135 mEQ/L (135-145) Potassium Level 3.2 mEQ/L (3.4-4.9) L Chloride Level 90 mEQ/L (98-107) L Carbon Dioxide Level 32 mEQ/L (20-30) H Anion Gap 13 (5-15) Blood Urea Nitrogen 8 mg/dL (7-23) Creatinine 1.4 mg/dL (0.5-0.9) H Estimat Glomerular Filtration Rate 52.5 mL/min (>60) Glucose Level 98 mg/dL (74-106) Calcium Level 8.9 mg/dL (8.6-10.2) C-Reactive Protein, Quantitative 4.7 mg/dL (< 0.5) H Current Medications Medications (Trade) Dose Ordered Sig/Steve Route PRN Reason Start Time Stop Time Status Last Admin Dose Admin Acetaminophen (Tylenol) 650 mg Q4H PRN ORAL Mild Pain (Pain Scale 1-3) 11/07/16 14:45 12/07/16 14:44 Acetaminophen 650 mg 650 mg Q4H PRN RECTAL FEVER 11/12/16 15:15 12/12/16 15:14 Amlodipine Besylate (Norvasc) 5 mg BID ORAL 11/11/16 18:00 12/11/16 17:59 11/20/16 09:17 Clonidine HCl (Catapres TTS-1) 1 patch QWEEK PRN TDERMAL SBP>160, IF NO ORAL MEDS 11/13/16 13:00 12/13/16 12:59 Dextrose (D5W 1000ml) 1,000 ml @ 125 mls/hr Q8H IV 11/13/16 12:00 12/13/16 11:59 11/20/16 12:58 Dextrose (Dextrose 50%) STAT PRN IV Hypoglycemia 11/07/16 14:45 12/07/16 14:44 Diphenhydramine HCl (Benadryl) 25 mg Q6H PRN ORAL Itching/Pruritis 11/07/16 14:45 12/07/16 14:44 Enoxaparin Sodium (Lovenox) 40 mg DAILY SUBQ 11/13/16 09:00 12/13/16 08:59 11/20/16 09:18 Hydralazine HCl (Apresoline) 25 mg Q4H PRN ORAL bp over 160 syst 11/11/16 14:00 12/11/16 13:59 Hydromorphone HCl (Dilaudid) 2 mg Q2H PRN IVP Severe Pain (Pain Scale 7-10) 11/20/16 13:15 11/27/16 13:14 Magnesium Hydroxide (Mom) 30 ml HSPRN PRN ORAL Constipation 11/07/16 14:45 12/07/16 14:44 Meropenem/Sodium Chloride (Merrem/Sodium Chloride) 110 ml @ 220 mls/hr Q12HR@0600,1800 IVPB 11/16/16 18:00 11/21/16 17:59 11/20/16 05:36 Metoclopramide HCl (Reglan) 5 mg Q6H PRN IVP Nausea & Vomiting 11/12/16 15:15 12/12/16 15:14 11/18/16 00:59 Ondansetron HCl (Zofran) 4 mg Q6H PRN IVP Nausea & Vomiting 11/12/16 15:15 12/12/16 15:14 11/20/16 04:08 Pantoprazole 40 mg 40 mg DAILY IVP 11/13/16 12:00 12/13/16 11:59 11/20/16 09:17 Zolpidem Tartrate (Ambien) 5 mg HSPRN PRN ORAL Insomnia 11/07/16 14:45 12/07/16 14:44 JOSH CORDOBA Nov 20, 2016 13:40
--- NOTE | 2016-11-20 15:37 | General Surgery Progress Note ---
General Surgery-Progress Note Subjective Procedure Performed Exploratory laparotomy, colon resection and primary anastomosis and release of splenic flexure Symptoms: passing flatus Objective Last 24 Hour Vital Signs Date Time Temp Pulse Resp B/P Pulse Ox O2 Delivery O2 Flow Rate FiO2 11/20/16 12:41 97.7 80 15 139/84 98 Room Air 11/20/16 09:17 83 138/96 11/20/16 08:06 98.6 83 15 138/96 98 11/20/16 04:00 96.3 82 20 136/90 96 Room Air 11/20/16 00:00 97.7 100 20 135/99 99 Room Air 11/19/16 20:00 97.9 85 20 145/94 98 Room Air 11/19/16 17:19 86 126/85 11/19/16 15:45 97.7 86 21 126/85 97 Room Air I&O Intake and Output 11/19/16 11/20/16 19:00 07:00 Intake Total 1000 ml Output Total 5 ml 5 ml Balance -5 ml 995 ml IV Total 1000 ml Drainage Total 5 ml 5 ml # Voids 2 3 Wound: clean, intact Respiratory: clear Abdomen: soft, non-tender, present bowel sounds Extremities: no tenderness Laboratory Tests Test 11/20/16 06:00 White Blood Count 14.5 K/UL (4.8-10.8) H Red Blood Count 3.37 M/UL (4.20-5.40) L Hemoglobin 8.2 G/DL (12.0-16.0) L Hematocrit 26.5 % (37.0-47.0) L Mean Corpuscular Volume 79 FL (80-99) L Mean Corpuscular Hemoglobin 24.4 PG (27.0-31.0) L Mean Corpuscular Hemoglobin Concent 30.9 G/DL (32.0-36.0) L Red Cell Distribution Width 14.2 % (11.6-14.8) Platelet Count 568 K/UL (150-450) H Mean Platelet Volume 6.6 FL (6.5-10.1) Neutrophils (%) (Auto) 68.8 % (45.0-75.0) Lymphocytes (%) (Auto) 18.4 % (20.0-45.0) L Monocytes (%) (Auto) 8.8 % (1.0-10.0) Eosinophils (%) (Auto) 3.3 % (0.0-3.0) H Basophils (%) (Auto) 0.6 % (0.0-2.0) Sodium Level 135 mEQ/L (135-145) Potassium Level 3.2 mEQ/L (3.4-4.9) L Chloride Level 90 mEQ/L (98-107) L Carbon Dioxide Level 32 mEQ/L (20-30) H Anion Gap 13 (5-15) Blood Urea Nitrogen 8 mg/dL (7-23) Creatinine 1.4 mg/dL (0.5-0.9) H Estimat Glomerular Filtration Rate 52.5 mL/min (>60) Glucose Level 98 mg/dL (74-106) Calcium Level 8.9 mg/dL (8.6-10.2) C-Reactive Protein, Quantitative 4.7 mg/dL (< 0.5) H Assessment Post-op Diagnosis perforated colon with phlegmon Plan Additional Comments Continue as before BREANNA RDZ Nov 20, 2016 15:37
[2016-11-20 16:28] VITALS: BP 153/97
--- NOTE | 2016-11-20 18:02 | General Progress Note ---
Assessment/Plan Problem List: (1) Colonic diverticular abscess ICD Codes: K57.20 - Diverticulitis of large intestine with perforation and abscess without bleeding SNOMED: 417643676 (2) Abdominal pain ICD Codes: R10.9 - Unspecified abdominal pain SNOMED: 08205746 Qualifiers: Qualified Codes: R10.30 - Lower abdominal pain, unspecified (3) Diverticulitis ICD Codes: K57.92 - Diverticulitis of intestine, part unspecified, without perforation or abscess without bleeding SNOMED: 368321431 Qualifiers: Qualified Codes: K57.20 - Diverticulitis of large intestine with perforation and abscess without bleeding (4) ARF (acute renal failure) Assessment & Plan: Lab error ? ICD Codes: N17.9 - Acute kidney failure, unspecified SNOMED: 89871713 Assessment/Plan IV Abxs NPO follow labs IVF Subjective Allergies: Coded Allergies: MELON (Verified Allergy, Unknown, 10/15/16) Uncoded Allergies: SHELLFISH (Allergy, Unknown, 10/15/16) Subjective vomited Objective Last 24 Hour Vital Signs Date Time Temp Pulse Resp B/P Pulse Ox O2 Delivery O2 Flow Rate FiO2 11/20/16 16:28 97.5 80 15 153/97 98 Room Air 11/20/16 12:41 97.7 80 15 139/84 98 Room Air 11/20/16 09:17 83 138/96 11/20/16 08:06 98.6 83 15 138/96 98 11/20/16 04:00 96.3 82 20 136/90 96 Room Air 11/20/16 00:00 97.7 100 20 135/99 99 Room Air 11/19/16 20:00 97.9 85 20 145/94 98 Room Air Intake and Output 11/19/16 11/20/16 19:00 07:00 Intake Total 1125 ml Output Total 5 ml 5 ml Balance -5 ml 1120 ml IV Total 1125 ml Drainage Total 5 ml 5 ml # Voids 2 3 Laboratory Tests 11/20/16 06:00: White Blood Count 14.5H, Red Blood Count 3.37L, Hemoglobin 8.2L, Hematocrit 26.5L, Mean Corpuscular Volume 79L, Mean Corpuscular Hemoglobin 24.4L, Mean Corpuscular Hemoglobin Concent 30.9L, Red Cell Distribution Width 14.2, Platelet Count 568H, Mean Platelet Volume 6.6, Neutrophils (%) (Auto) 68.8, Lymphocytes (%) (Auto) 18.4L, Monocytes (%) (Auto) 8.8, Eosinophils (%) (Auto) 3.3H, Basophils (%) (Auto) 0.6, Sodium Level 135, Potassium Level 3.2L, Chloride Level 90L, Carbon Dioxide Level 32H, Anion Gap 13, Blood Urea Nitrogen 8, Creatinine 1.4H, Estimat Glomerular Filtration Rate 52.5, Glucose Level 98, Calcium Level 8.9, C-Reactive Protein, Quantitative 4.7H Height (Feet): 5 Height (Inches): 6.00 Weight (Pounds): 224 Cardiovascular: normal rate Respiratory/Chest: lungs clear Abdomen: tender ELYSE CORDOBA Nov 20, 2016 18:02
[2016-11-20 20:00] VITALS: BP 135/90
--- NOTE | 2016-11-20 23:15 | General Progress Note ---
Assessment/Plan Assessment/Plan Assessment - complicated diverticulitis with abscess - s/p resection and primary anastomosis - Persistent leukocytosis concerning - Renal failure Recommendations - surgical f/u - continue abx - nephrology f/u - NPO - CT noted Subjective Allergies: Coded Allergies: MELON (Verified Allergy, Unknown, 10/15/16) Uncoded Allergies: SHELLFISH (Allergy, Unknown, 10/15/16) Subjective s/p colon resection with primary anastomosis (+) vomited minimal abd pain Objective Last 24 Hour Vital Signs Date Time Temp Pulse Resp B/P Pulse Ox O2 Delivery O2 Flow Rate FiO2 11/20/16 20:00 98.1 75 20 135/90 98 Room Air 11/20/16 18:17 80 153/97 11/20/16 16:28 97.5 80 15 153/97 98 Room Air 11/20/16 12:41 97.7 80 15 139/84 98 Room Air 11/20/16 09:17 83 138/96 11/20/16 08:06 98.6 83 15 138/96 98 11/20/16 04:00 96.3 82 20 136/90 96 Room Air 11/20/16 00:00 97.7 100 20 135/99 99 Room Air Intake and Output 11/19/16 11/20/16 19:00 07:00 Intake Total 1125 ml Output Total 5 ml 5 ml Balance -5 ml 1120 ml IV Total 1125 ml Drainage Total 5 ml 5 ml # Voids 2 3 Laboratory Tests 11/20/16 06:00: White Blood Count 14.5H, Red Blood Count 3.37L, Hemoglobin 8.2L, Hematocrit 26.5L, Mean Corpuscular Volume 79L, Mean Corpuscular Hemoglobin 24.4L, Mean Corpuscular Hemoglobin Concent 30.9L, Red Cell Distribution Width 14.2, Platelet Count 568H, Mean Platelet Volume 6.6, Neutrophils (%) (Auto) 68.8, Lymphocytes (%) (Auto) 18.4L, Monocytes (%) (Auto) 8.8, Eosinophils (%) (Auto) 3.3H, Basophils (%) (Auto) 0.6, Sodium Level 135, Potassium Level 3.2L, Chloride Level 90L, Carbon Dioxide Level 32H, Anion Gap 13, Blood Urea Nitrogen 8, Creatinine 1.4H, Estimat Glomerular Filtration Rate 52.5, Glucose Level 98, Calcium Level 8.9, C-Reactive Protein, Quantitative 4.7H Height (Feet): 5 Height (Inches): 6.00 Weight (Pounds): 224 Objective Obese AA woman NCAT supple CTA RRR soft minimal TTP LLQ no edema non focal JORDYN DINERO Nov 20, 2016 23:15
[2016-11-21 00:04] VITALS: BP 127/95
[2016-11-21 04:00] VITALS: BP 132/90
[2016-11-21] MEDS: Meropenem 1 GM in NS 110 ML IVPB SCH ×2 (05:25→18:03)
[2016-11-21 07:09] LABS: CALCIUM 9.1 mg/dL (8.6-10.2); CREATININE 1.3 mg/dL (0.5-0.9); GLOMERULAR FILTRATION RATE 57.2 mL/min (>60); POTASSIUM 3.8 mEQ/L (3.4-4.9)
[2016-11-21 07:11] LABS: BASOPHILS % (AUTO) 0.5 % (0.0-2.0); EOSINOPHILS % (AUTO) 3.6 % (0.0-3.0); LYMPHOCYTES % (AUTO) 19.4 % (20.0-45.0); MEAN CORPUSCULAR HEMOGLOBIN 24.7 PG (27.0-31.0); MEAN CORPUSCULAR HGB CONC 31.4 G/DL (32.0-36.0); MEAN CORPUSCULAR VOLUME 79 FL (80-99); MEAN PLATELET VOLUME 6.7 FL (6.5-10.1); MONOCYTES % (AUTO) 6.8 % (1.0-10.0); NEUTROPHILS % (AUTO) 69.7 % (45.0-75.0); PLATELET COUNT 590 K/UL (150-450); RED BLOOD COUNT 3.33 M/UL (4.20-5.40); RED CELL DISTRIBUTION WIDTH 14.7 % (11.6-14.8); WHITE BLOOD COUNT 13.1 K/UL (4.8-10.8)
[2016-11-21 08:00] VITALS: BP 131/92
[2016-11-21] MEDS: Pantoprazole Inj IVP SCH (08:34)
[2016-11-21] MEDS: Enoxaparin 40mg Inj SUBQ SCH (08:36)
[2016-11-21] MEDS ORDERED: Phytonadione 10 mg/mL 1ml amp SUBQ SCH (09:00)
--- NOTE | 2016-11-21 09:54 | General Progress Note ---
Assessment/Plan Assessment/Plan Assessment - complicated diverticulitis with abscess - s/p resection and primary anastomosis - Leukocytosis - improving - Renal failure - improving - extended duration of NPO Recommendations - surgical f/u - continue abx - nephrology f/u - Begin TPN - diet per surgery Subjective Allergies: Coded Allergies: MELON (Verified Allergy, Unknown, 10/15/16) Uncoded Allergies: SHELLFISH (Allergy, Unknown, 10/15/16) Subjective s/p colon resection with primary anastomosis d/w patient re CT results still NPO Objective Last 24 Hour Vital Signs Date Time Temp Pulse Resp B/P Pulse Ox O2 Delivery O2 Flow Rate FiO2 11/21/16 08:40 87 131/92 11/21/16 08:00 97.9 87 20 131/92 98 Room Air 11/21/16 06:00 96.8 11/21/16 04:00 97.0 78 20 132/90 99 Room Air 11/21/16 00:04 96.8 82 20 127/95 99 Room Air 11/20/16 20:00 98.1 75 20 135/90 98 Room Air 11/20/16 18:17 80 153/97 11/20/16 16:28 97.5 80 15 153/97 98 Room Air 11/20/16 12:41 97.7 80 15 139/84 98 Room Air Intake and Output 11/20/16 11/21/16 19:00 07:00 Intake Total 1360 ml 1985 ml Output Total 1210 ml 3 ml Balance 150 ml 1982 ml Intake Oral 0 ml 0 ml IV Total 1360 ml 1985 ml Output Urine Total 1200 ml Drainage Total 10 ml 3 ml # Voids 1 # Bowel Movements 2 Laboratory Tests 11/21/16 05:15: White Blood Count 13.1H, Red Blood Count 3.33L, Hemoglobin 8.2L, Hematocrit 26.1L, Mean Corpuscular Volume 79L, Mean Corpuscular Hemoglobin 24.7L, Mean Corpuscular Hemoglobin Concent 31.4L, Red Cell Distribution Width 14.7, Platelet Count 590H, Mean Platelet Volume 6.7, Neutrophils (%) (Auto) 69.7, Lymphocytes (%) (Auto) 19.4L, Monocytes (%) (Auto) 6.8, Eosinophils (%) (Auto) 3.6H, Basophils (%) (Auto) 0.5, Sodium Level 136, Potassium Level 3.8, Chloride Level 93L, Carbon Dioxide Level 30, Anion Gap 13, Blood Urea Nitrogen 6L, Creatinine 1.3H, Estimat Glomerular Filtration Rate 57.2, Glucose Level 86, Calcium Level 9.1, C-Reactive Protein, Quantitative 4.0H Height (Feet): 5 Height (Inches): 6.00 Weight (Pounds): 224 Objective Obese AA woman NCAT supple CTA RRR soft minimal TTP LLQ, wound OK no edema non focal JORDYN DINERO Nov 21, 2016 09:54
[2016-11-21 10:19] LABS: ALBUMIN/GLOBULIN RATIO 0.7 (1.0-2.7); CALCIUM 8.9 mg/dL (8.6-10.2); CREATININE 1.3 mg/dL (0.5-0.9); GLOMERULAR FILTRATION RATE 57.2 mL/min (>60); POTASSIUM 3.8 mEQ/L (3.4-4.9); TOTAL PROTEIN 7.4 g/dL (6.6-8.7)
[2016-11-21] MEDS: Metoclopramide 10mg/2ml Inj IVP PRN (10:31)
[2016-11-21 12:00] VITALS: BP 151/93
--- NOTE | 2016-11-21 12:07 | Infectious Diseases Prog Note ---
"Assessment/Plan Assessment/Plan antibiotics : meropenem A 1. diverticulitis with perforation | abscess with e.coli | enterococcus s/p resection of colon 2. leucocytosis improving 3. asthma 4. renal failure improving P 1. continue meropenem 2. will follow up cultures Subjective Constitutional: Denies: chills, fever Gastrointestinal/Abdominal: Reports: nausea, vomiting - yesterday, Denies: diarrhea Musculoskeletal: Reports: pain - decreased abdominal Allergies: Coded Allergies: MELON (Verified Allergy, Unknown, 10/15/16) Uncoded Allergies: SHELLFISH (Allergy, Unknown, 10/15/16) Objective Vital Signs Last 24 Hour Vital Signs Date Time Temp Pulse Resp B/P Pulse Ox O2 Delivery O2 Flow Rate FiO2 11/21/16 11:03 97.9 11/21/16 08:40 87 131/92 11/21/16 08:00 97.9 87 20 131/92 98 Room Air 11/21/16 04:00 97.0 78 20 132/90 99 Room Air 11/21/16 00:04 96.8 82 20 127/95 99 Room Air 11/20/16 20:00 98.1 75 20 135/90 98 Room Air 11/20/16 18:17 80 153/97 11/20/16 16:28 97.5 80 15 153/97 98 Room Air 11/20/16 12:41 97.7 80 15 139/84 98 Room Air Height (Feet): 5 Height (Inches): 6.00 Weight (Pounds): 224 Respiratory/Chest: lungs clear Cardiovascular: normal rate, regular rhythm, no gallop/murmur Abdomen: other - wound clean SABRINA drain Extremities: no edema, other - right arm PICC Laboratory Tests Test 11/21/16 05:15 White Blood Count 13.1 K/UL (4.8-10.8) H Red Blood Count 3.33 M/UL (4.20-5.40) L Hemoglobin 8.2 G/DL (12.0-16.0) L Hematocrit 26.1 % (37.0-47.0) L Mean Corpuscular Volume 79 FL (80-99) L Mean Corpuscular Hemoglobin 24.7 PG (27.0-31.0) L Mean Corpuscular Hemoglobin Concent 31.4 G/DL (32.0-36.0) L Red Cell Distribution Width 14.7 % (11.6-14.8) Platelet Count 590 K/UL (150-450) H Mean Platelet Volume 6.7 FL (6.5-10.1) Neutrophils (%) (Auto) 69.7 % (45.0-75.0) Lymphocytes (%) (Auto) 19.4 % (20.0-45.0) L Monocytes (%) (Auto) 6.8 % (1.0-10.0) Eosinophils (%) (Auto) 3.6 % (0.0-3.0) H Basophils (%) (Auto) 0.5 % (0.0-2.0) Sodium Level 134 mEQ/L (135-145) L Potassium Level 3.8 mEQ/L (3.4-4.9) Chloride Level 91 mEQ/L (98-107) L Carbon Dioxide Level 28 mEQ/L (20-30) Anion Gap 15 (5-15) Blood Urea Nitrogen 6 mg/dL (7-23) L Creatinine 1.3 mg/dL (0.5-0.9) H Estimat Glomerular Filtration Rate 57.2 mL/min (>60) Glucose Level 80 mg/dL (74-106) Calcium Level 8.9 mg/dL (8.6-10.2) Total Bilirubin 0.5 mg/dL (0.0-1.2) Aspartate Amino Transf (AST/SGOT) 26 U/L (5-40) Alanine Aminotransferase (ALT/SGPT) 31 U/L (3-33) Alkaline Phosphatase 81 U/L (35-104) C-Reactive Protein, Quantitative 4.0 mg/dL (< 0.5) H Total Protein 7.4 g/dL (6.6-8.7) Albumin 3.2 g/dL (3.5-5.2) L Globulin 4.2 g/dL Albumin/Globulin Ratio 0.7 (1.0-2.7) L SURYA HEREDIA Nov 21, 2016 12:07"
--- NOTE | 2016-11-21 12:50 | General Progress Note ---
Assessment/Plan Problem List: (1) Colonic diverticular abscess ICD Codes: K57.20 - Diverticulitis of large intestine with perforation and abscess without bleeding SNOMED: 559221194 (2) Abdominal pain ICD Codes: R10.9 - Unspecified abdominal pain SNOMED: 01834941 Qualifiers: Qualified Codes: R10.30 - Lower abdominal pain, unspecified (3) Diverticulitis ICD Codes: K57.92 - Diverticulitis of intestine, part unspecified, without perforation or abscess without bleeding SNOMED: 244609137 Qualifiers: Qualified Codes: K57.20 - Diverticulitis of large intestine with perforation and abscess without bleeding (4) ARF (acute renal failure) Assessment & Plan: Lab error ? ICD Codes: N17.9 - Acute kidney failure, unspecified SNOMED: 05051611 Assessment/Plan IV Abxs follow labs IVF Subjective Allergies: Coded Allergies: MELON (Verified Allergy, Unknown, 10/15/16) Uncoded Allergies: SHELLFISH (Allergy, Unknown, 10/15/16) Subjective on clear liquids Objective Last 24 Hour Vital Signs Date Time Temp Pulse Resp B/P Pulse Ox O2 Delivery O2 Flow Rate FiO2 11/21/16 12:00 97.7 96 20 151/93 97 Room Air 11/21/16 11:03 97.9 11/21/16 08:40 87 131/92 11/21/16 08:00 97.9 87 20 131/92 98 Room Air 11/21/16 04:00 97.0 78 20 132/90 99 Room Air 11/21/16 00:04 96.8 82 20 127/95 99 Room Air 11/20/16 20:00 98.1 75 20 135/90 98 Room Air 11/20/16 18:17 80 153/97 11/20/16 16:28 97.5 80 15 153/97 98 Room Air Intake and Output 11/20/16 11/21/16 19:00 07:00 Intake Total 1360 ml 1985 ml Output Total 1210 ml 3 ml Balance 150 ml 1982 ml Intake Oral 0 ml 0 ml IV Total 1360 ml 1985 ml Output Urine Total 1200 ml Drainage Total 10 ml 3 ml # Voids 1 # Bowel Movements 2 Laboratory Tests 11/21/16 05:15: White Blood Count 13.1H, Red Blood Count 3.33L, Hemoglobin 8.2L, Hematocrit 26.1L, Mean Corpuscular Volume 79L, Mean Corpuscular Hemoglobin 24.7L, Mean Corpuscular Hemoglobin Concent 31.4L, Red Cell Distribution Width 14.7, Platelet Count 590H, Mean Platelet Volume 6.7, Neutrophils (%) (Auto) 69.7, Lymphocytes (%) (Auto) 19.4L, Monocytes (%) (Auto) 6.8, Eosinophils (%) (Auto) 3.6H, Basophils (%) (Auto) 0.5, Sodium Level 134L, Potassium Level 3.8, Chloride Level 91L, Carbon Dioxide Level 28, Anion Gap 15, Blood Urea Nitrogen 6L, Creatinine 1.3H, Estimat Glomerular Filtration Rate 57.2, Glucose Level 80, Calcium Level 8.9, Total Bilirubin 0.5, Aspartate Amino Transf (AST/SGOT) 26, Alanine Aminotransferase (ALT/SGPT) 31, Alkaline Phosphatase 81, C-Reactive Protein, Quantitative 4.0H, Total Protein 7.4, Albumin 3.2L, Globulin 4.2, Albumin/Globulin Ratio 0.7L Height (Feet): 5 Height (Inches): 6.00 Weight (Pounds): 224 Cardiovascular: normal rate Respiratory/Chest: lungs clear ELYSE CORDOBA Nov 21, 2016 12:50
--- NOTE | 2016-11-21 13:43 | General Surgery Progress Note ---
General Surgery-Progress Note Subjective Procedure Performed Exploratory laparotomy, colon resection and primary anastomosis and release of splenic flexure Symptoms: improved, BM Objective Last 24 Hour Vital Signs Date Time Temp Pulse Resp B/P Pulse Ox O2 Delivery O2 Flow Rate FiO2 11/21/16 12:00 97.7 96 20 151/93 97 Room Air 11/21/16 11:03 97.9 11/21/16 08:40 87 131/92 11/21/16 08:00 97.9 87 20 131/92 98 Room Air 11/21/16 04:00 97.0 78 20 132/90 99 Room Air 11/21/16 00:04 96.8 82 20 127/95 99 Room Air 11/20/16 20:00 98.1 75 20 135/90 98 Room Air 11/20/16 18:17 80 153/97 11/20/16 16:28 97.5 80 15 153/97 98 Room Air I&O Intake and Output 11/20/16 11/21/16 19:00 07:00 Intake Total 1360 ml 1985 ml Output Total 1210 ml 3 ml Balance 150 ml 1982 ml Intake Oral 0 ml 0 ml IV Total 1360 ml 1985 ml Output Urine Total 1200 ml Drainage Total 10 ml 3 ml # Voids 1 # Bowel Movements 2 Wound: clean, intact Drains: none Respiratory: clear Abdomen: soft, flat, non-tender, present bowel sounds Extremities: no tenderness Laboratory Tests Test 11/21/16 05:15 White Blood Count 13.1 K/UL (4.8-10.8) H Red Blood Count 3.33 M/UL (4.20-5.40) L Hemoglobin 8.2 G/DL (12.0-16.0) L Hematocrit 26.1 % (37.0-47.0) L Mean Corpuscular Volume 79 FL (80-99) L Mean Corpuscular Hemoglobin 24.7 PG (27.0-31.0) L Mean Corpuscular Hemoglobin Concent 31.4 G/DL (32.0-36.0) L Red Cell Distribution Width 14.7 % (11.6-14.8) Platelet Count 590 K/UL (150-450) H Mean Platelet Volume 6.7 FL (6.5-10.1) Neutrophils (%) (Auto) 69.7 % (45.0-75.0) Lymphocytes (%) (Auto) 19.4 % (20.0-45.0) L Monocytes (%) (Auto) 6.8 % (1.0-10.0) Eosinophils (%) (Auto) 3.6 % (0.0-3.0) H Basophils (%) (Auto) 0.5 % (0.0-2.0) Sodium Level 134 mEQ/L (135-145) L Potassium Level 3.8 mEQ/L (3.4-4.9) Chloride Level 91 mEQ/L (98-107) L Carbon Dioxide Level 28 mEQ/L (20-30) Anion Gap 15 (5-15) Blood Urea Nitrogen 6 mg/dL (7-23) L Creatinine 1.3 mg/dL (0.5-0.9) H Estimat Glomerular Filtration Rate 57.2 mL/min (>60) Glucose Level 80 mg/dL (74-106) Calcium Level 8.9 mg/dL (8.6-10.2) Total Bilirubin 0.5 mg/dL (0.0-1.2) Aspartate Amino Transf (AST/SGOT) 26 U/L (5-40) Alanine Aminotransferase (ALT/SGPT) 31 U/L (3-33) Alkaline Phosphatase 81 U/L (35-104) C-Reactive Protein, Quantitative 4.0 mg/dL (< 0.5) H Total Protein 7.4 g/dL (6.6-8.7) Albumin 3.2 g/dL (3.5-5.2) L Globulin 4.2 g/dL Albumin/Globulin Ratio 0.7 (1.0-2.7) L Assessment Post-op Diagnosis perforated colon with phlegmon Plan Additional Comments diet BREANNA RDZ Nov 21, 2016 13:43
[2016-11-21] MEDS: Potassium Chloride 10 MEQ in D5 1/2NS 1,000 ML IV SCH (15:15)
[2016-11-21] MEDS: traMADol 50mg tab ORAL PRN ×2 (15:16→20:29)
[2016-11-21 16:00] VITALS: BP 128/99
[2016-11-21] MEDS: Pericolace tab ORAL SCH (18:03)
[2016-11-21 20:00] VITALS: BP 139/92
[2016-11-21] MEDS ORDERED: FAT EMULSION 20% IV SCH (21:00)
[2016-11-21] MEDS ORDERED: TPN IV SCH (21:00)
[2016-11-21] MEDS ORDERED: LORazepam 1mg tab ORAL PRN (23:00)
[2016-11-22] VITALS: BP 136/85
[2016-11-22 04:00] VITALS: BP 130/86
[2016-11-22] MEDS: Meropenem 1 GM in NS 110 ML IVPB SCH ×2 (06:18→17:31)
[2016-11-22 07:48] LABS: BASOPHILS % (AUTO) 0.6 % (0.0-2.0); EOSINOPHILS % (AUTO) 3.5 % (0.0-3.0); LYMPHOCYTES % (AUTO) 26.4 % (20.0-45.0); MEAN CORPUSCULAR HEMOGLOBIN 24.2 PG (27.0-31.0); MEAN CORPUSCULAR HGB CONC 30.6 G/DL (32.0-36.0); MEAN CORPUSCULAR VOLUME 79 FL (80-99); MEAN PLATELET VOLUME 6.9 FL (6.5-10.1); MONOCYTES % (AUTO) 5.7 % (1.0-10.0); NEUTROPHILS % (AUTO) 63.9 % (45.0-75.0); PLATELET COUNT 586 K/UL (150-450); RED BLOOD COUNT 3.53 M/UL (4.20-5.40); WHITE BLOOD COUNT 11.6 K/UL (4.8-10.8)
[2016-11-22 07:52] LABS: INR 1.1 (0.9-1.1); PROTHROMBIN TIME 10.8 SEC (9.30-11.50)
[2016-11-22 07:55] VITALS: BP 130/91
[2016-11-22 07:57] LABS: CALCIUM 9.1 mg/dL (8.6-10.2); CREATININE 1.4 mg/dL (0.5-0.9); GLOMERULAR FILTRATION RATE 52.5 mL/min (>60); MAGNESIUM 1.8 mg/dL (1.7-2.5); PHOSPHORUS 3.1 mg/dL (2.5-4.8)
[2016-11-22] MEDS: Pericolace tab ORAL SCH ×2 (08:39→17:27)
[2016-11-22] MEDS: Enoxaparin 40mg Inj SUBQ SCH (08:39)
--- NOTE | 2016-11-22 08:43 | General Progress Note ---
Assessment/Plan Assessment/Plan Assessment - complicated diverticulitis with abscess - s/p resection and primary anastomosis - Leukocytosis - improved - Renal failure - improved Recommendations - surgical f/u - continue abx - nephrology f/u - po diet - minimize narcotics Subjective Allergies: Coded Allergies: MELON (Verified Allergy, Unknown, 10/15/16) Uncoded Allergies: SHELLFISH (Allergy, Unknown, 10/15/16) Subjective above noted po diet started yesterday so TPN orders cancelled (+) N/V (+) BM Objective Last 24 Hour Vital Signs Date Time Temp Pulse Resp B/P Pulse Ox O2 Delivery O2 Flow Rate FiO2 11/22/16 08:39 96 130/91 11/22/16 07:55 97.7 96 19 130/91 99 Room Air 11/22/16 04:00 98.1 81 18 130/86 98 Room Air 11/22/16 00:00 97.0 81 18 136/85 98 Room Air 11/21/16 20:00 98.1 103 18 139/92 95 Room Air 11/21/16 18:03 84 128/99 11/21/16 16:15 97.3 11/21/16 16:00 97.3 84 20 128/99 99 Room Air 11/21/16 12:00 97.7 96 20 151/93 97 Room Air 11/21/16 11:03 97.9 Intake and Output 11/21/16 11/22/16 19:00 07:00 Intake Total 430 ml 320 ml Output Total 350 ml Balance 80 ml 320 ml Intake Oral 240 ml 120 ml IV Total 190 ml 200 ml Emesis 350 ml # Voids 4 2 # Bowel Movements 1 Laboratory Tests 11/22/16 06:15: White Blood Count 11.6H, Red Blood Count 3.53L, Hemoglobin 8.6L, Hematocrit 28.0L, Mean Corpuscular Volume 79L, Mean Corpuscular Hemoglobin 24.2L, Mean Corpuscular Hemoglobin Concent 30.6L, Red Cell Distribution Width 15.0H, Platelet Count 586H, Mean Platelet Volume 6.9, Neutrophils (%) (Auto) 63.9, Lymphocytes (%) (Auto) 26.4, Monocytes (%) (Auto) 5.7, Eosinophils (%) (Auto) 3.5H, Basophils (%) (Auto) 0.6, Prothrombin Time 10.8, Prothromb Time International Ratio 1.1, Sodium Level 138, Potassium Level 4.0, Chloride Level 94L, Carbon Dioxide Level 30, Anion Gap 14, Blood Urea Nitrogen 7, Creatinine 1.4H, Estimat Glomerular Filtration Rate 52.5, Glucose Level 82, Calcium Level 9.1, Phosphorus Level 3.1, Magnesium Level 1.8 Height (Feet): 5 Height (Inches): 6.00 Weight (Pounds): 224 Objective Obese AA woman NCAT supple CTA RRR soft minimal TTP LLQ, wound OK no edema non focal JORDYN DINERO Nov 22, 2016 08:43
[2016-11-22] MEDS ORDERED: BuPROPion XL 300mg tab ORAL SCH (09:00)
[2016-11-22] MEDS: traMADol 50mg tab ORAL PRN ×2 (10:02→20:12)
[2016-11-22 11:44] VITALS: BP 128/76
--- NOTE | 2016-11-22 13:57 | General Surgery Progress Note ---
General Surgery-Progress Note Subjective Procedure Performed Exploratory laparotomy, colon resection and primary anastomosis and release of splenic flexure Symptoms: improved, BM Objective Last 24 Hour Vital Signs Date Time Temp Pulse Resp B/P Pulse Ox O2 Delivery O2 Flow Rate FiO2 11/22/16 11:44 97.9 93 19 128/76 99 Room Air 11/22/16 11:01 97.9 11/22/16 08:39 96 130/91 11/22/16 07:55 97.7 96 19 130/91 99 Room Air 11/22/16 04:00 98.1 81 18 130/86 98 Room Air 11/22/16 00:00 97.0 81 18 136/85 98 Room Air 11/21/16 20:00 98.1 103 18 139/92 95 Room Air 11/21/16 18:03 84 128/99 11/21/16 16:00 97.3 84 20 128/99 99 Room Air I&O Intake and Output 11/21/16 11/22/16 19:00 07:00 Intake Total 430 ml 320 ml Output Total 350 ml Balance 80 ml 320 ml Intake Oral 240 ml 120 ml IV Total 190 ml 200 ml Emesis 350 ml # Voids 4 2 # Bowel Movements 1 Wound: clean, intact Drains: none Respiratory: clear Abdomen: soft, non-tender, present bowel sounds Extremities: no tenderness Laboratory Tests Test 11/22/16 06:15 White Blood Count 11.6 K/UL (4.8-10.8) H Red Blood Count 3.53 M/UL (4.20-5.40) L Hemoglobin 8.6 G/DL (12.0-16.0) L Hematocrit 28.0 % (37.0-47.0) L Mean Corpuscular Volume 79 FL (80-99) L Mean Corpuscular Hemoglobin 24.2 PG (27.0-31.0) L Mean Corpuscular Hemoglobin Concent 30.6 G/DL (32.0-36.0) L Red Cell Distribution Width 15.0 % (11.6-14.8) H Platelet Count 586 K/UL (150-450) H Mean Platelet Volume 6.9 FL (6.5-10.1) Neutrophils (%) (Auto) 63.9 % (45.0-75.0) Lymphocytes (%) (Auto) 26.4 % (20.0-45.0) Monocytes (%) (Auto) 5.7 % (1.0-10.0) Eosinophils (%) (Auto) 3.5 % (0.0-3.0) H Basophils (%) (Auto) 0.6 % (0.0-2.0) Prothrombin Time 10.8 SEC (9.30-11.50) Prothromb Time International Ratio 1.1 (0.9-1.1) Sodium Level 138 mEQ/L (135-145) Potassium Level 4.0 mEQ/L (3.4-4.9) Chloride Level 94 mEQ/L (98-107) L Carbon Dioxide Level 30 mEQ/L (20-30) Anion Gap 14 (5-15) Blood Urea Nitrogen 7 mg/dL (7-23) Creatinine 1.4 mg/dL (0.5-0.9) H Estimat Glomerular Filtration Rate 52.5 mL/min (>60) Glucose Level 82 mg/dL (74-106) Calcium Level 9.1 mg/dL (8.6-10.2) Phosphorus Level 3.1 mg/dL (2.5-4.8) Magnesium Level 1.8 mg/dL (1.7-2.5) Assessment Post-op Diagnosis perforated colon with phlegmon Plan Additional Comments Per BREANNA Patel Nov 22, 2016 13:57
[2016-11-22] MEDS: Potassium Chloride 10 MEQ in D5 1/2NS 1,000 ML IV SCH (15:00)
[2016-11-22 16:00] VITALS: BP 127/89
[2016-11-22 19:00] VITALS: BP 138/88
--- NOTE | 2016-11-22 20:08 | General Progress Note ---
Assessment/Plan Problem List: (1) Colonic diverticular abscess ICD Codes: K57.20 - Diverticulitis of large intestine with perforation and abscess without bleeding SNOMED: 831482714 (2) Abdominal pain ICD Codes: R10.9 - Unspecified abdominal pain SNOMED: 32330601 Qualifiers: Qualified Codes: R10.30 - Lower abdominal pain, unspecified (3) Diverticulitis ICD Codes: K57.92 - Diverticulitis of intestine, part unspecified, without perforation or abscess without bleeding SNOMED: 402043944 Qualifiers: Qualified Codes: K57.20 - Diverticulitis of large intestine with perforation and abscess without bleeding (4) ARF (acute renal failure) Assessment & Plan: Lab error ? ICD Codes: N17.9 - Acute kidney failure, unspecified SNOMED: 73203045 Assessment/Plan regular diet abxs DC to SNF in AM Subjective Allergies: Coded Allergies: MELON (Verified Allergy, Unknown, 10/15/16) Uncoded Allergies: SHELLFISH (Allergy, Unknown, 10/15/16) Subjective better Objective Last 24 Hour Vital Signs Date Time Temp Pulse Resp B/P Pulse Ox O2 Delivery O2 Flow Rate FiO2 11/22/16 17:27 83 127/89 11/22/16 16:00 97.8 83 19 127/89 98 Room Air 11/22/16 11:44 97.9 93 19 128/76 99 Room Air 11/22/16 11:01 97.9 11/22/16 08:39 96 130/91 11/22/16 07:55 97.7 96 19 130/91 99 Room Air 11/22/16 04:00 98.1 81 18 130/86 98 Room Air 11/22/16 00:00 97.0 81 18 136/85 98 Room Air Intake and Output 11/21/16 11/22/16 19:00 07:00 Intake Total 430 ml 320 ml Output Total 350 ml Balance 80 ml 320 ml Intake Oral 240 ml 120 ml IV Total 190 ml 200 ml Emesis 350 ml # Voids 4 2 # Bowel Movements 1 Laboratory Tests 11/22/16 06:15: White Blood Count 11.6H, Red Blood Count 3.53L, Hemoglobin 8.6L, Hematocrit 28.0L, Mean Corpuscular Volume 79L, Mean Corpuscular Hemoglobin 24.2L, Mean Corpuscular Hemoglobin Concent 30.6L, Red Cell Distribution Width 15.0H, Platelet Count 586H, Mean Platelet Volume 6.9, Neutrophils (%) (Auto) 63.9, Lymphocytes (%) (Auto) 26.4, Monocytes (%) (Auto) 5.7, Eosinophils (%) (Auto) 3.5H, Basophils (%) (Auto) 0.6, Prothrombin Time 10.8, Prothromb Time International Ratio 1.1, Sodium Level 138, Potassium Level 4.0, Chloride Level 94L, Carbon Dioxide Level 30, Anion Gap 14, Blood Urea Nitrogen 7, Creatinine 1.4H, Estimat Glomerular Filtration Rate 52.5, Glucose Level 82, Calcium Level 9.1, Phosphorus Level 3.1, Magnesium Level 1.8 Height (Feet): 5 Height (Inches): 6.00 Weight (Pounds): 224 Cardiovascular: normal rate Respiratory/Chest: lungs clear ELYSE CORDOBA Nov 22, 2016 20:08
--- NOTE | 2016-11-22 22:48 | Consultation ---
DATE OF CONSULTATION: HISTORY OF PRESENT ILLNESS: This is a 31-year-old female with a history of depression, attention deficit hyperactivity disorder, and anxiety disorder, who has been admitted to the hospital due to abdominal pain. The patient appears to be anxious, fidgety, and pacing around the unit. She also was observed helping other patients. During the evaluation, the patient appeared to be anxious and circumstantial. She did not endorse any manic or psychotic symptoms. No suicidal or homicidal ideations. She was anxious to be started on her psychotropic medications, which is Wellbutrin, Ativan, and Adderall. PAST PSYCHIATRIC HISTORY: No history of psychiatric hospitalization. No suicide attempt. History of depression and attention deficit disorder. PAST MEDICAL HISTORY: Asthma. ALLERGIES: Shellfish. MEDICATIONS: Wellbutrin, Adderall, and Cardizem. SUBSTANCE ABUSE HISTORY: No history of illicit drug use or alcohol. 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 MENTAL STATUS EXAM: The patient is alert and oriented x3. Mood is depressed and anxious. Affect is constricted. Congruent mood. Thought process is concrete. Thought content, no suicidal or homicidal ideation. ASSESSMENT: [place] I Major depressive disorder and attention deficit disorder . [place] II Deferred. [place] III Abdominal pain. [place] IV Low. [place] V Global assessment of functioning is 20. PLAN: 1. The patient will be started on Wellbutrin XL 450 mg. 2. She will be started on Ativan p.r.n. 3. Provide the patient with supportive therapy and reality orientation. Raji Curry M.D. DR: JOHN JOB#: [id number] CC:
[2016-11-23] VITALS: BP 135/80
[2016-11-23 04:00] VITALS: BP 140/82
[2016-11-23] MEDS: traMADol 50mg tab ORAL PRN (05:21)
[2016-11-23] MEDS: Meropenem 1 GM in NS 110 ML IVPB SCH (05:21)
[2016-11-23] MEDS ORDERED: BuPROPion XL 150mg tab ORAL SCH (08:07)
[2016-11-23 08:15] VITALS: BP 132/86
[2016-11-23] MEDS: Pericolace tab ORAL SCH (09:07)
[2016-11-23] MEDS: Enoxaparin 40mg Inj SUBQ SCH (09:08)
[2016-11-23] MEDS ORDERED: NORVASC5 MG ORAL (11:13)
[2016-11-23] MEDS ORDERED: TRAMADOL HCL50 MG ORAL (11:13)
[2016-11-23] MEDS ORDERED: MEROPENEM1 GM IV (11:13)
--- NOTE | 2016-11-23 11:16 | Consultation ---
Consult Note Assessment/Plan Dc dictated # [id number] ELYSE CORDOBA Nov 23, 2016 11:16
[2016-11-23 12:15] VITALS: BP 124/73
[2016-11-23] MEDS: Potassium Chloride 10 MEQ in D5 1/2NS 1,000 ML IV SCH (15:10)
[2016-11-23 15:57] VITALS: BP 136/85
[2016-11-23] MEDS ORDERED: Tubing IV Secondary IV ONE (17:43)
[2016-11-23] MEDS ORDERED: D5 1/2NS 1000ml IV ONE (17:43)
[2016-11-23] MEDS ORDERED: NS 275ml ONE (17:43)
--- NOTE | 2016-11-23 23:18 | Discharge Summary ---
DATE OF ADMISSION: 11/07/2016 DATE OF DISCHARGE: 11/23/2016 CHIEF COMPLAINT: Abdominal pain. HISTORY OF PRESENT ILLNESS: This is a 31-year-old female, who was recently admitted to [facility] for diverticulitis with phlegmon. The patient was treated with antibiotics and was sent home. However, she came back with abdominal pain. A repeat CT scan of abdomen showed still a phlegmon and abscess in the abdomen. HOSPITAL COURSE: The patient was seen by Dr. Andre in surgical consultation. Eventually, the patient underwent a colectomy with end-to-end anastomoses. She was maintained on IV antibiotics and was followed by Dr. Antonio Garcia in ID consultation. Her symptoms improved thus she was on long period of NPO and finally was started on liquid diet and initially she vomited but finally she tolerated the food. She was advanced to regular diet. It was felt that she would need another couple of weeks of IV antibiotics because of the extension of the abscess and so she was sent to a senior living facility for IV antibiotics for another 2 weeks. DISCHARGE DIAGNOSES: 1. Diverticulitis with perforation, abscess and phlegmon. 2. The patient has also history of hypertension. DISCHARGE MEDICATIONS: Please refer to discharge medication list. DIET: Regular. Arcenio Garcia M.D. DR: MIRI JOB#: [id number] CC:
== END 2016-11-23 17:44 | DRG 221 ==
LOC: EMR 11:20 → EDBEDREQ 12:20 → 4E 12:39 → EDBEDREQ 14:01
PROC: 0W9J30Z Drainage of Pelvic Cavity with Drainage Device, Percutaneous Approach (ICD-10-PCS; 2016-11-07)
PROC: 02HV33Z Insertion of Infusion Device into Superior Vena Cava, Percutaneous Approach (ICD-10-PCS; 2016-11-10)
PROC: 0DBS0ZZ (ICD-10-PCS; 2016-11-12)
PROC: 0DBT0ZZ (ICD-10-PCS; 2016-11-12)
PROC: 0DNN0ZZ Release Sigmoid Colon, Open Approach (ICD-10-PCS; 2016-11-12)
PROC: 0DNG0ZZ Release Left Large Intestine, Open Approach (ICD-10-PCS; 2016-11-12)
PROC: 0DBM0ZZ Excision of Descending Colon, Open Approach (ICD-10-PCS; principal; 2016-11-12 13:00)
DX: K57.20 Diverticulitis of large intestine with perforation and abscess without bleeding (principal); N17.9 Acute kidney failure, unspecified; K76.0 Fatty (change of) liver, not elsewhere classified; E66.9 Obesity, unspecified; J45.909 Unspecified asthma, uncomplicated; Z68.36 Body mass index [BMI] 36.0-36.9, adult; D72.829 Elevated white blood cell count, unspecified; I10 Essential (primary) hypertension; F32.9 Major depressive disorder, single episode, unspecified; K66.0 Peritoneal adhesions (postprocedural) (postinfection); B96.20 Unspecified Escherichia coli [E. coli] as the cause of diseases classified elsewhere; B95.2 Enterococcus as the cause of diseases classified elsewhere; F90.9 Attention-deficit hyperactivity disorder, unspecified type; F41.9 Anxiety disorder, unspecified
CPT/HCPCS: 36415; 36569; 74000; 74176; 74177; 75989; 76937; 80048; 80053; 80170; 80202; 81003; 81025; 82150; 82607; 82728; 82746; 82977; 83540; 83550; 83690; 83735; 84100; 84300; 84443; 84550; 85007; 85025; 85610; 85730; 86140; 87070; 87075; 87181; 87205; 87324; 89050; 94003; 94150; C9399; J2250; J2405; J2710; J2765; J3490

== ENCOUNTER 2017-01-09 17:09 | Emergency (ER) | payer MEDICAID ==
[~2017-01-09] VITALS: Ht 167.6 cm; Wt 122.5 kg
[~2017-01-09 17:09] MED LIST changes: +MEROPENEM1 GM IV; +NORVASC5 MG ORAL; +TRAMADOL HCL50 MG ORAL
[2017-01-09 17:30] VITALS: BP 103/72
--- NOTE | 2017-01-09 17:40 | Emergency Room Report ---
History of Present Illness General Chief Complaint: Gastrointestinal Bleed Source: Patient Present Illness HPI Patient presents with complaints of red blood in her stool she noticed that earlier this evening She complains of epigastric abdominal discomfort She reports itching to her surgical site in the upper mid abdomen Denies any lower abdominal pain denies any vomiting Denies any chest pain or shortness of breath Denies any dysuria frequency denies any constipation Allergies: Coded Allergies: MELON (Verified Allergy, Unknown, 10/15/16) Uncoded Allergies: SHELLFISH (Allergy, Unknown, 10/15/16) Patient History Past Medical History: see triage record Pertinent Family History: none Last Menstrual Period: december 22 Now: No Reviewed Nursing Documentation: PMH: Agreed, PSxH: Agreed Nursing Documentation-PMH Past Medical History: No History, Except For Hx Cardiac Problems: No Hx Hypertension: No Hx Pacemaker: No Hx Asthma: No Hx COPD: No Hx Diabetes: No Hx Cancer: No Hx Gastrointestinal Problems: Yes - diverticulitis Hx Dialysis: No Hx Neurological Problems: No Hx Cerebrovascular Accident: No Hx Transient Ischemic Attacks: No Hx Dementia: No Hx Alzheimer's Disease: No Hx Parkinson's Disease: No Hx Meningitis: No Hx Encephalitis: Yes Hx Seizures: No Hx Epilepsy: No Hx Multiple Sclerosis: No Hx Cerebral Palsy: No Hx Amyotrophic Lat Sclerosis: No Hx Guillian-[place] Syndrome: No Hx Paralysis: No Hx Peripheral Neuropathy: No Hx Spinal Cord Injury: No Hx Head Trauma: No Hx Memory Loss: No Hx Concentration Difficulty: No Hx Speech Problem: No Hx Tremors: No Hx Vertigo: No Hx Dizziness: No Hx Syncope: No Hx Headaches: No Hx Aphasia: No Hx Dysphasia: No Hx Numbness: No Hx Weakness: No Hx Fatigue: No Hx Neurologic Surgery: No Hx Brain Shunt: Yes Review of Systems All Other Systems: negative except mentioned in HPI Physical Exam Vital Signs Date Time Temp Pulse Resp B/P Pulse Ox O2 Delivery O2 Flow Rate FiO2 01/09/17 17:17 98.8 95 18 104/69 98 Room Air Sp02 EP Interpretation: reviewed, normal General Appearance: well appearing, no apparent distress Head: normocephalic, atraumatic Eyes: bilateral eye EOMI, bilateral eye PERRL ENT: hearing grossly normal, normal pharynx, TMs + canals normal, uvula midline Neck: full range of motion, supple, no meningismus, no bony tend Respiratory: lungs clear, normal breath sounds, no rhonchi, no respiratory distress, no retraction, no accessory muscle use Cardiovascular #1: normal peripheral pulses, regular rate, rhythm, no edema, no gallop, no JVD, no murmur Gastrointestinal: normal bowel sounds, non tender - Mid abdominal surgical site , healed well no fluctuance, nontender on palpation, soft, no mass, no organomegaly, non-distended, no guarding, no hernia, no pulsatile mass, no rebound Genitourinary: no CVA tenderness Musculoskeletal: normal inspection Neurologic: oriented x3, responsive, lens generator III-XII nml as tested, motor strength/ tone normal, sensory intact Psychiatric: mood/affect normal Skin: normal color, no rash, warm/dry, palpation normal Lymphatic: normal inspection, no adenopathy Medical Decision Making Diagnostic Impression: Primary Impression: Blood per rectum Additional Impression: Abdominal pain ER Course With the history exam and presentation, multiple differentials considered, including but not limited to appendicitis, gastritis, cholecystitis, diverticulitis Patient has had over 6 CAT scan was in a very short period of time Abdominal exam is soft Patient is afebrile Baseline blood work was initially obtained which is normal Her hemoglobin is higher than what it was on discharge I had a long discussion with family regarding further imaging at this time will hold off for the safety of the patient And she will return with any changes Labs Test 01/09/17 18:15 White Blood Count 14.6 K/UL (4.8-10.8) Red Blood Count 3.84 M/UL (4.20-5.40) Hemoglobin 10.3 G/DL (12.0-16.0) Hematocrit 31.8 % (37.0-47.0) Mean Corpuscular Volume 83 FL (80-99) Mean Corpuscular Hemoglobin 26.8 PG (27.0-31.0) Mean Corpuscular Hemoglobin Concent 32.3 G/DL (32.0-36.0) Red Cell Distribution Width 16.8 % (11.6-14.8) Platelet Count 369 K/UL (150-450) Mean Platelet Volume 7.1 FL (6.5-10.1) Neutrophils (%) (Auto) 69.3 % (45.0-75.0) Lymphocytes (%) (Auto) 22.5 % (20.0-45.0) Monocytes (%) (Auto) 5.1 % (1.0-10.0) Eosinophils (%) (Auto) 2.3 % (0.0-3.0) Basophils (%) (Auto) 0.8 % (0.0-2.0) Sodium Level 137 mEQ/L (135-145) Potassium Level 4.0 mEQ/L (3.4-4.9) Chloride Level 98 mEQ/L (98-107) Carbon Dioxide Level 25 mEQ/L (20-30) Anion Gap 14 (5-15) Blood Urea Nitrogen 7 mg/dL (7-23) Creatinine 0.8 mg/dL (0.5-0.9) Estimat Glomerular Filtration Rate > 60 mL/min (>60) Glucose Level 87 mg/dL (74-106) Calcium Level 9.0 mg/dL (8.6-10.2) Total Bilirubin 0.2 mg/dL (0.0-1.2) Aspartate Amino Transf (AST/SGOT) 12 U/L (5-40) Alanine Aminotransferase (ALT/SGPT) 12 U/L (3-33) Alkaline Phosphatase 58 U/L (35-104) Total Protein 7.6 g/dL (6.6-8.7) Albumin 3.8 g/dL (3.5-5.2) Globulin 3.8 g/dL Albumin/Globulin Ratio 1.0 (1.0-2.7) Lipase 46 U/L (< 60) Last Vital Signs Date Time Temp Pulse Resp B/P Pulse Ox O2 Delivery O2 Flow Rate FiO2 01/09/17 17:17 98.8 95 18 104/69 98 Room Air Status: improved Disposition: HOME, SELF-CARE Condition: Improved Scripts Hydrocodone Bit/Acetaminophen 5-325* (NORCO 5-325*) 1 Each Tablet 1 TAB ORAL Q6H Y for For Pain, #10 TAB 0 Refills Prov: LIDIA ORANTES D.O. 01/09/17 Levofloxacin* (LEVAQUIN*) 500 Mg Tablet 500 MG ORAL DAILY, #10 TAB Prov: LIDIA ORANTES D.O. 01/09/17 Additional Instructions: Patient is provided with the discharge instructions notified to follow up with primary doctor in the next 2-3 days otherwise return to the er with any worsening symptoms. Please note that this report is being documented using DRAGON technology. This can lead to erroneous entry secondary to incorrect interpretation by the dictating instrument. LIDIA ORANTES D.O. Jan 09, 2017 17:40
[2017-01-09 18:36] LABS: BASOPHILS % (AUTO) 0.8 % (0.0-2.0); EOSINOPHILS % (AUTO) 2.3 % (0.0-3.0); LYMPHOCYTES % (AUTO) 22.5 % (20.0-45.0); MEAN CORPUSCULAR HEMOGLOBIN 26.8 PG (27.0-31.0); MEAN CORPUSCULAR HGB CONC 32.3 G/DL (32.0-36.0); MEAN CORPUSCULAR VOLUME 83 FL (80-99); MEAN PLATELET VOLUME 7.1 FL (6.5-10.1); MONOCYTES % (AUTO) 5.1 % (1.0-10.0); NEUTROPHILS % (AUTO) 69.3 % (45.0-75.0); PLATELET COUNT 369 K/UL (150-450); RED BLOOD COUNT 3.84 M/UL (4.20-5.40); RED CELL DISTRIBUTION WIDTH 16.8 % (11.6-14.8); WHITE BLOOD COUNT 14.6 K/UL (4.8-10.8)
[2017-01-09 18:47] LABS: ALANINE AMINOTRANSFERASE 12 U/L (3-33); ANION GAP 14 (5-15); ASPARTATE AMINO TRANSFERASE 12 U/L (5-40); CARBON DIOXIDE 25 mEQ/L (20-30); CHLORIDE 98 mEQ/L (98-107); CREATININE 0.8 mg/dL (0.5-0.9); GLOMERULAR FILTRATION RATE > 60 mL/min (>60); HEMOLYSIS 5; LIPASE 46 U/L (< 60); SODIUM 137 mEQ/L (135-145); TOTAL PROTEIN 7.6 g/dL (6.6-8.7)
[2017-01-09] MEDS ORDERED: LEVAQUIN500 MG ORAL (19:24)
[2017-01-09] MEDS ORDERED: NORCO 5-325 TA1 EACH ORAL (19:24)
[2017-01-09 19:25] VITALS: BP 108/78
[2017-01-09 19:30] VITALS: BP 108/78
== END 2017-01-09 19:32 | disposition home or self-care (01) ==
LOC: EMR 18:10
DX: K62.5 Hemorrhage of anus and rectum (principal); R10.9 Unspecified abdominal pain; Z91.013 Allergy to seafood; Z91.018 Allergy to other foods; K57.90 Diverticulosis of intestine, part unspecified, without perforation or abscess without bleeding
CPT/HCPCS: 36415; 80053; 83690; 85025; 99284

== ENCOUNTER 2017-11-27 20:22 | Emergency (ER) | payer MEDICAID, OTHER ==
[~2017-11-27] VITALS: Ht 167.6 cm; Wt 127.0 kg
[~2017-11-27 20:22] MED LIST changes: +LEVAQUIN500 MG ORAL; +NORCO 5-325 TA1 EACH ORAL
[2017-11-27 21:10] VITALS: BP 160/98
[2017-11-27] MEDS ORDERED: DOXYCYCLINE MO100 MG ORAL (21:23)
[2017-11-27] MEDS ORDERED: MUPIROCIN22 GM TOPIC (21:23)
--- NOTE | 2017-11-27 21:24 | Emergency Room Report ---
History of Present Illness General Chief Complaint: Skin Rash/Abscess Source: Patient Present Illness HPI This is a 32-year-old female presents with swelling to the left face. She thinks that she may have had a bit it. Onset 4 days ago. She woke up with swelling to her left face pain she's been cleaning it with Neosporin. Not getting better. No nausea no vomiting. There is some swelling. Did not fill anything biting her. Denies any other problem. Allergies: Coded Allergies: MELON (Verified Allergy, Unknown, 10/15/16) Uncoded Allergies: SHELLFISH (Allergy, Unknown, 10/15/16) Patient History Past Medical History: see triage record, old chart reviewed Past Surgical History: other Pertinent Family History: none Social History: Denies: smoking Last Menstrual Period: 10/05/17 Now: No - Possible Immunizations: other Reviewed Nursing Documentation: PMH: Agreed; PSxH: Agreed Nursing Documentation-PMH Hx Cardiac Problems: No Hx Hypertension: Yes Hx Pacemaker: No Hx Asthma: Yes Hx COPD: No Hx Diabetes: No Hx Cancer: No Hx Gastrointestinal Problems: Yes - Diverticulitis Hx Dialysis: No Hx Neurological Problems: No Hx Cerebrovascular Accident: No Hx Transient Ischemic Attacks: No Hx Dementia: No Hx Alzheimer's Disease: No Hx Parkinson's Disease: No Hx Meningitis: No Hx Encephalitis: Yes Hx Seizures: No Hx Epilepsy: No Hx Multiple Sclerosis: No Hx Cerebral Palsy: No Hx Amyotrophic Lat Sclerosis: No Hx Guillian-[place] Syndrome: No Hx Paralysis: No Hx Peripheral Neuropathy: No Hx Spinal Cord Injury: No Hx Head Trauma: No Hx Memory Loss: No Hx Concentration Difficulty: No Hx Speech Problem: No Hx Tremors: No Hx Vertigo: No Hx Dizziness: No Hx Syncope: No Hx Headaches: No Hx Aphasia: No Hx Dysphasia: No Hx Numbness: No Hx Weakness: No Hx Fatigue: No Hx Neurologic Surgery: No Hx Brain Shunt: Yes Review of Systems Eye: Denies: eye pain, blurred vision ENT: Denies: ear pain, nose congestion, throat swelling Respiratory: Denies: cough, shortness of breath Cardiovascular: Denies: chest pain, palpitations Gastrointestinal: Denies: abdominal pain, diarrhea, nausea, vomiting Musculoskeletal: Denies: back pain, joint pain Skin: Denies: rash Neurological: Denies: headache, numbness Endocrine: Denies: increased thirst, increased urine Hematologic/Lymphatic: Denies: easy bruising All Other Systems: negative except mentioned in HPI Physical Exam Vital Signs Date Time Temp Pulse Resp B/P (MAP) Pulse Ox O2 Delivery O2 Flow Rate FiO2 11/27/17 20:53 98.3 75 16 160/98 98 Room Air 98.2 Sp02 EP Interpretation: reviewed, normal General Appearance: well appearing, no apparent distress, alert Head: normocephalic, atraumatic Eyes: bilateral eye PERRL, bilateral eye EOMI ENT: hearing grossly normal, normal pharynx, other - left cheek with indurated area with pinpoint white center. TTP. no big abscess to I&D Neck: full range of motion, supple, no meningismus Respiratory: chest non-tender, lungs clear, normal breath sounds Cardiovascular #1: regular rate, rhythm, no murmur Gastrointestinal: normal bowel sounds, non tender, no mass, no organomegaly, no bruit, non-distended Musculoskeletal: back normal, gait/station normal, normal range of motion Psychiatric: mood/affect normal Skin: warm/dry Medical Decision Making Diagnostic Impression: Primary Impression: Facial cellulitis ER Course Patient with facial cellulitis and superficial early abscess. We'll treat with antibody ointment antibiotics before I do an I and D. No deep infection. No orbital cellulitis. Last Vital Signs Date Time Temp Pulse Resp B/P (MAP) Pulse Ox O2 Delivery O2 Flow Rate FiO2 11/27/17 20:53 98.3 75 16 160/98 98 Room Air 98.2 Status: unchanged Disposition: HOME, SELF-CARE Condition: Stable Scripts Mupirocin* (MUPIROCIN*) 22 Gm Oint...g. 1 APPLIC TOPIC THREE TIMES A DAY, #22 GM Prov: MERISSA DIAL M.D. 11/27/17 Doxycycline Monohydrate* (DOXYCYCLINE MONOHYDRATE*) 100 Mg Capsule 100 MG ORAL Q12H, #14 CAP 0 Refills Prov: MERISSA DIAL M.D. 11/27/17 Additional Instructions: Clean area with hydrogen peroxide first then apply antibiotic ointment. Follow- up your DrVasquez in 2 to 3 days for recheck. Return if worse. MERISSA DIAL M.D. Nov 27, 2017 21:24
[2017-11-27 21:28] VITALS: BP 160/98
== END 2017-11-27 21:28 | disposition home or self-care (01) ==
LOC: EMR 21:00
DX: L03.211 Cellulitis of face (principal); Z91.013 Allergy to seafood; Z91.018 Allergy to other foods; I10 Essential (primary) hypertension; J45.909 Unspecified asthma, uncomplicated
CPT/HCPCS: 99284

== ENCOUNTER 2019-05-29 15:21 | Emergency (ER) | payer MEDICAID, OTHER ==
[~2019-05-29] VITALS: Ht 167.6 cm; Wt 127.0 kg
[~2019-05-29 15:21] MED LIST changes: +DOXYCYCLINE MO100 MG ORAL; +MUPIROCIN22 GM TOPIC
[2019-05-29 15:29] VITALS: BP 122/84
--- NOTE | 2019-05-29 15:39 | NUR ---
ED Nurse Note: PT FROM HOME CAME IN DUE TO SINUS PAIN AND CONGESTION WITH SORE THROAT, NASAL CONGESTION AND COUGHING X 1 WEEK AGO. RESPIRATIONS ARE NON LABORED. AAO X4 AND AMBULATORY.
--- NOTE | 2019-05-29 16:33 | Emergency Room Report ---
History of Present Illness General Chief Complaint: Upper Respiratory Illness Source: Patient Present Illness HPI 34-year-old female presents to the emergency department complaining of 3/10 in severity facial pain/tenderness, moderate nasal congestion, and persistent rhinorrhea x10 days. Patient also reports new development of cough which typically has mucus production. She denies fevers or chills she reports pressure and tenderness in the facial sinuses. She denies history of allergies and states that she took her allergy medication one time which did provide some relief initially and is no longer working. Patient has not tried any other medications. She denies ear pain, neck pain/stiffness, headache, recent travel or ill contacts. Patient reports several episodes of vomiting she also states she has not had her period in 2 months and she is suspicious of . Denies abdominal pain, vaginal bleeding or discharge. Denies blood in the vomit. Denies black tarry stools. Pt. with hx of asthma. Allergies: Coded Allergies: MELON (Verified Allergy, Unknown, 10/15/16) Uncoded Allergies: SHELLFISH (Allergy, Unknown, 10/15/16) Patient History Past Medical History: see triage record Past Surgical History: none Pertinent Family History: none Last Menstrual Period: 04/23/19 Now: No - wants to check Reviewed Nursing Documentation: PMH: Agreed; PSxH: Agreed Nursing Documentation-PMH Past Medical History: No History, Except For Hx Cardiac Problems: No Hx Hypertension: Yes Hx Pacemaker: No Hx Asthma: Yes Hx COPD: No Hx Diabetes: No Hx Cancer: No Hx Gastrointestinal Problems: Yes - Diverticulitis Hx Dialysis: No Hx Neurological Problems: No Hx Cerebrovascular Accident: No Hx Transient Ischemic Attacks: No Hx Dementia: No Hx Alzheimer's Disease: No Hx Parkinson's Disease: No Hx Meningitis: No Hx Encephalitis: Yes Hx Seizures: No Hx Epilepsy: No Hx Multiple Sclerosis: No Hx Cerebral Palsy: No Hx Amyotrophic Lat Sclerosis: No Hx Guillian-[place] Syndrome: No Hx Paralysis: No Hx Peripheral Neuropathy: No Hx Spinal Cord Injury: No Hx Head Trauma: No Hx Memory Loss: No Hx Concentration Difficulty: No Hx Speech Problem: No Hx Tremors: No Hx Vertigo: No Hx Dizziness: No Hx Syncope: No Hx Headaches: No Hx Aphasia: No Hx Dysphasia: No Hx Numbness: No Hx Weakness: No Hx Fatigue: No Hx Neurologic Surgery: No Hx Brain Shunt: Yes Review of Systems All Other Systems: negative except mentioned in HPI Physical Exam Vital Signs Date Time Temp Pulse Resp B/P (MAP) Pulse Ox O2 Delivery O2 Flow Rate FiO2 05/29/19 15:29 98.2 92 18 122/84 (97) 97 Room Air Sp02 EP Interpretation: reviewed, normal General Appearance: no apparent distress, alert, GCS 15, non-toxic Head: normocephalic, atraumatic Eyes: bilateral eye normal inspection, bilateral eye PERRL ENT: hearing grossly normal, normal pharynx, normal voice, TMs + canals normal , uvula midline, other - maxillary sinus ttp, opaque purulent d/c on the right, nares not patent. Neck: full range of motion Respiratory: chest non-tender, lungs clear, normal breath sounds, speaking full sentences Cardiovascular #1: regular rate, rhythm Gastrointestinal: normal bowel sounds, non tender, soft, non-distended, no guarding Rectal: deferred Genitourinary: normal inspection Musculoskeletal: back normal, gait/station normal, normal range of motion, non- tender Neurologic: alert, oriented x3, responsive, motor strength/tone normal, sensory intact, speech normal, grossly normal Psychiatric: judgement/insight normal Skin: no rash Lymphatic: no adenopathy Medical Decision Making PA Attestation Dr. Joshua is my supervising Physician whom patient management has been discussed with. Diagnostic Impression: Primary Impression: Sinusitis nasal Qualified Codes: J01.00 - Acute maxillary sinusitis, unspecified ER Course 34-year-old female presents to the emergency department complaining of 3/10 in severity facial pain/tenderness, moderate nasal congestion, and persistent rhinorrhea x10 days. Patient also reports new development of cough which typically has mucus production. She denies fevers or chills she reports pressure and tenderness in the facial sinuses. She denies history of allergies and states that she took her allergy medication one time which did provide some relief initially and is no longer working. Patient has not tried any other medications. She denies ear pain, neck pain/stiffness, headache, recent travel or ill contacts. Patient reports several episodes of vomiting she also states she has not had her period in 2 months and she is suspicious of . Denies abdominal pain, vaginal bleeding or discharge. Denies blood in the vomit. Denies black tarry stools. Pt. with hx of asthma. Ddx considered but are not limited to URI, pneumonia, PE, strep pharyngitis, Sinusitis, Rhinitis, Cellulitis, Asthma just to name a few. Vital signs: Pt. is afebrile, the remaining VS are WNL H&PE are most consistent with:Sinusitis that is greater than 10 days and has not resolved on its own. Pt. is a candidate for Oral Abx. treatment. ( MEETS MIPS CRITERIA) ORDERS: --Urine Hcg: Negative ED INTERVENTIONS: None required at this time. --PT. EDUCATION: Discussed antibiotic resistance with inappropriate prescribing of antibiotics for viral illnesses. Discussed signs and symptoms to indicate viral illness versus bacterial illness. DISCHARGE: At this time pt. is stable for d/c to home. Will provide printed patient care instructions, and any necessary prescriptions. Care plan and follow up instructions have been discussed with the patient prior to discharge. Labs Test 05/29/19 16:50 Urine HCG, Qualitative Negative (NEGATIVE) Last Vital Signs Date Time Temp Pulse Resp B/P (MAP) Pulse Ox O2 Delivery O2 Flow Rate FiO2 05/29/19 15:39 87 16 Room Air 05/29/19 15:29 98.2 122/84 97 Disposition: HOME, SELF-CARE Condition: Stable Scripts Oxymetazoline Hcl* (AFRIN*) 15 Ml Mist 2 SPRAYS NASAL TWICE A DAY for 3 Days, #15 ML 0 Refills Prov: Alina Reina 05/29/19 Amoxicillin/Potassium Clav 875-125* (AUGMENTIN 875-125 TABLET*) 1 Each Tablet 1 TAB ORAL TWICE A DAY for 10 Days, #20 TAB Prov: Alina Reina 05/29/19 Codeine/Promethazine Hcl* (PROMETHAZINE-CODEINE SYRUP*) 118 Ml Syrup 5 ML ORAL Q6H PRN for For Cough, #120 ML 0 Refills Prov: Alina Reina 05/29/19 Patient Instructions: Sinusitis, Adult, [id number], Upper Respiratory Infection, Adult, [id number] Additional Instructions: Take medications as directed. Follow up with a Primary Care Provider in 3-5 days, even if your symptoms have resolved. --Please review list of primary care clinics, if you do not already have a primary care provider Return sooner to ED if new symptoms occur, or current symptoms become worse. Do not drink alcohol, drive, or operate heavy machinery while taking Cough Syrup as this may cause drowsiness. - Please note that this Emergency Department Report was dictated using [employer] seamer technology software, occasionally this can lead to erroneous entry secondary to interpretation by the dictation equipment. Alina Reina May 29, 2019 16:33
[2019-05-29] MEDS ORDERED: PROMETHAZINE-C118 M1 ORAL (17:11)
[2019-05-29] MEDS ORDERED: AUGMENTIN 875-1 EAC1 ORAL (17:11)
[2019-05-29] MEDS ORDERED: AFRIN15 ML NASAL (17:11)
[2019-05-29 17:35] VITALS: BP 135/76
--- NOTE | 2019-05-29 17:35 | NUR ---
ER DISCHARGE NOTE: Patient is cleared to be discharged per PA, pt is aox4, on room air, with stable vital signs. pt was given dc and prescription instructions, pt was able to verbalize understanding, pt id band removed. pt is able to ambulate with steady gait. pt took all belongings and left with a family member.
== END 2019-05-29 17:35 | disposition home or self-care (01) ==
LOC: EMR 17:05
DX: J01.00 Acute maxillary sinusitis, unspecified (principal); Z91.018 Allergy to other foods; Z91.013 Allergy to seafood; I10 Essential (primary) hypertension; J45.909 Unspecified asthma, uncomplicated; K57.90 Diverticulosis of intestine, part unspecified, without perforation or abscess without bleeding; Z95.9 Presence of cardiac and vascular implant and graft, unspecified
CPT/HCPCS: 81025; Z7502; 99283

== ENCOUNTER → 2020-07-23 | Emergency (ER) | payer MEDICAID ==
[~2020-07-23] MED LIST changes: +AFRIN15 ML NASAL; +AUGMENTIN 875-1 EAC1 ORAL; +CLINDAMYCIN HC300 MG ORAL; +DIPHENHYDRAMINE50 M1 ORAL; +PROMETHAZINE-C118 M1 ORAL
--- NOTE | 2020-07-23 23:27 | NUR ---
ED Nurse Note: patient sat down in triage room, upon sitting down, patient stated her complaint was that her ears were ringing, stated "my ears are ringing and i dont think i want to be seen anymore, it seems like i'm waisting your time" patient did not get triaged and ambulated out of triage room with a steady gait. unable to take vital signs.
--- NOTE | 2020-07-23 23:33 | Emergency Room Report ---
History of Present Illness General Chief Complaint: To Be Triaged Present Illness HPI Patient left without being seen. I no interaction with this patient. Allergies: Coded Allergies: MELON (Verified Allergy, Unknown, 10/15/16) Uncoded Allergies: SHELLFISH (Allergy, Unknown, 10/15/16) COVID-19 Screening Contact w/high risk pt: No Experienced COVID-19 symptoms?: No Nursing Documentation-PMH Hx Cardiac Problems: No Hx Hypertension: Yes Hx Pacemaker: No Hx Asthma: Yes Hx COPD: No Hx Diabetes: No Hx Cancer: No Hx Gastrointestinal Problems: Yes - Diverticulitis Hx Dialysis: No Hx Neurological Problems: No Hx Cerebrovascular Accident: No Hx Transient Ischemic Attacks: No Hx Dementia: No Hx Alzheimer's Disease: No Hx Parkinson's Disease: No Hx Meningitis: No Hx Encephalitis: Yes Hx Seizures: No Hx Epilepsy: No Hx Multiple Sclerosis: No Hx Cerebral Palsy: No Hx Amyotrophic Lat Sclerosis: No Hx Guillian-[place] Syndrome: No Hx Paralysis: No Hx Peripheral Neuropathy: No Hx Spinal Cord Injury: No Hx Head Trauma: No Hx Memory Loss: No Hx Concentration Difficulty: No Hx Speech Problem: No Hx Tremors: No Hx Vertigo: No Hx Dizziness: No Hx Syncope: No Hx Headaches: No Hx Aphasia: No Hx Dysphasia: No Hx Numbness: No Hx Weakness: No Hx Fatigue: No Hx Neurologic Surgery: No Hx Brain Shunt: Yes Medical Decision Making Diagnostic Impression: Primary Impression: Patient left without being seen ER Course Patient left without being seen. No interaction with this patient. Disposition: LEFT W/OUT BEING SEEN Condition: Unknown Referrals: [facility],REFERRING (PCP) Murali House MD Jul 23, 2020 23:33
== END | disposition home or self-care (01) ==
LOC: EMR 23:20
DX: H93.13 Tinnitus, bilateral (principal); Z53.21 Procedure and treatment not carried out due to patient leaving prior to being seen by health care provider; I10 Essential (primary) hypertension; J45.909 Unspecified asthma, uncomplicated; Z91.013 Allergy to seafood; Z91.018 Allergy to other foods